=== PATIENT | female | born 1935 | race Caucasian/White ===

== ENCOUNTER 2020-02-27 04:06 | Emergency (ER) | payer MEDICARE, OTHER ==
[~2020-02-27] VITALS: Ht 175.3 cm; Wt 74.8 kg
--- OUTSIDE RECORDS SUMMARY | ~2020-02-27 | XMS | Encounter Summary ---
Demographics + + + | Address | [address] | | | [place] [address] | + + + | Home Phone | | + + + | Preferred Language | Unknown | + + + | Marital Status | | + + + | Adventism Affiliation | 1077 | + + + | Race | White | + + + | Ethnic Group | Not or | + + + Author + + + | Author | [facility] | | | and [place] | + + + | Organization | [facility] | | | and [place] | + + + | Address | Unknown | + + + | Phone | Unavailable | + + + Support + + +---------+ + | Name | Relationship | Address | Phone | + + +---------+ + | Stella Yap | ECON | NA | | | | | NA, | | + + +---------+ + Care Team Providers + +------+ + | Care Copy Lathe Operator Name | Role | Phone | + +------+ + | Akua [place] MD | PCP | | + +------+ + Reason for Visit +--------+--------+ + | Reason | Onset | Comments | | | Date | | +--------+--------+ + | Other | 06/01/ | blood pressure issues | | | 2017 | | +--------+--------+ + Encounter Details +--------+ + + + + | Date | Type | Department | Care Team | Description | +--------+ + + + + | 06/01/ | Telephone | [facility] | Karin Traerowan, | Other (blood | | 2018 | | CARDIOLOGY [address] | MD [address] | pressure issues) | | | | [place], | [place], | | | | | [place] [address] | [place] [address] | | | | | [phone] | [phone] | | | | | | | | +--------+ + + + + Social History + + + +--------+ + | Tobacco Use | Types | Packs/Day | Years | Date | | | | | Used | | + + + +--------+ + | Former Smoker | Cigarettes | 0.5 | 3 | Quit: 07/13/1961 | + + + +--------+ + + +---+---+---+ | Smokeless Tobacco: | | | | | Never Used | | | | + +---+---+---+ + + +---------+ + | Alcohol Use | Drinks/Week | oz/Week | Comments | + + +---------+ + | No | 0 Standard drinks | 0.0 | | | | or equivalent | | | + + +---------+ + + + + | Sex Assigned at | Date Recorded | | | | + + + | Not on file | | + + + documented as of this encounter Miscellaneous Notes Telephone Encounter - Tianna Christianson RN - 06/01/2018 10:15 AM PSTPer conversation with Taz Bustillo, patient should increase Lisinopril to 20mg twice daily, check BMP in one week and do a bp log for two weeks. Patient notified, lab order faxed to [facility] in [place] ............................... ............Tianna Christianson RN on 06/01/18 at 10:16 elephone Encounter - Tianna Christianson RN - 06/01/2018 8:43 AM PSTMargaret called to report that she is havin g issues with her blood pressure. She states that she is taking one at bed time only and pre viously was on one at bedtime and one at noon. She states the medication she is talking abo ut is her lisinopril 20mg. There are notes in January and February that show she was decreased f rom twice daily to one time daily. She states that her blood pressures currently are in the range of 160/80's in the am and 170/86's in the pm. She would like to know if she can go b ack on the twice daily at this time. I will consult Dr Bustillo and then let her know .......... .................................Tianna Christianson RN on 06/01/18 at 8:46 documented in this encounter Plan of Treatment +--------+---------+ + + + | Date | Type | Specialty | Care Team | Description | +--------+---------+ + + + | 10/23/ | Office | Cardiology | Doretha Frazier, | | | 2020 | Visit | | [address] | | | | | | [place], | | | | | | [place] [address] | | | | | | [phone] | | | | | | | | +--------+---------+ + + + + +------+--------+ + + | Name | Type | Priori | Associated Diagnoses | Order Schedule | | | | ty | | | + +------+--------+ + + | Basic Metabolic | Lab | Routin | Essential | Expected: | | Panel | | e | hypertension | 06/01/2018, Expires: | | | | | | 06/01/2019 | + +------+--------+ + + documented as of this encounter Visit Diagnoses + + | Diagnosis | + + | Essential hypertension - Primary Unspecified essential hypertension | + + documented in this encounter"
--- OUTSIDE RECORDS SUMMARY | ~2020-02-27 | XMS | Encounter Summary ---
Demographics + + + | Address | [address] | | | [place] [address] | + + + | Home Phone | | + + + | Preferred Language | Unknown | + + + | Marital Status | | + + + | Latter-Day Affiliation | 1077 | + + + | Race | White | + + + | Ethnic Group | Not or | + + + Author + + + | Author | [facility] | | | and [place] | + + + | Organization | [facility] | | | [...] Team Providers + +------+ + | Care Loan Teller Name | Role | Phone | + +------+ + | Akua [place] MD | PCP | | + +------+ + Reason for Visit + +--------+ + | Reason | Onset | Comments | | | Date | | + +--------+ + | Blood Pressure | 09/18/ | | | | 2016 | | + +--------+ + Encounter Details +--------+ + + + + | Date | Type | Department | Care Team | Description | +--------+ + + + + | 09/18/ | Telephone | [facility] | KarinZhannabecki, | Blood Pressure | | 2017 | | CARDIOLOGY [address] | MD [address] [place] | | | | | [place], | [place], | | | | | [place] [address] | [place] [address] | | | | | [phone] | [phone] | | | | | | | | +--------+ + + + + Social History + +-------+ +--------+ + | Tobacco Use | Types | Packs/Day | Years | Date | | | | | Used | | + +-------+ +--------+ + | Former Smoker | | 0.5 | 3 | Quit: 07/13/1961 | + +-------+ +--------+ + + +---+---+---+ | Smokeless Tobacco: [...] documented as of this encounter Miscellaneous Notes Addendum Note - Ysabel Pete RN - 09/29/2016 11:25 AM PDT Addended by: YSABEL PETE on: 09/29/2016 11:25 Modules accepted: Orders elephone Encounte r - Ysabel Pete RN - 09/29/2016 11:24 AM PDTPatient reports that she tried to get labs done on Thursday but was told that [facility] did not have the order. New order faxed to [facility] at [phone] ...........................................Ysabel Pete RN on 09/29/16 at 11:25 elephone Encounter - Ysabel Pete RN - 09/19/2016 8:39 AM PSTMargaret notified, lab order faxed to [facility] in [place] ...........................................Ysabel Pete RN on 09/19/16 at 8:41 elephone Jose Maira - Ysabel Pete RN - 09/18/2016 4:47 PM PSTSpoke with Abiola, she was in her vehicle and could not hear me well. She was asked to call back tomorrow morning ................... ........................Ysabel Pete RN on 09/18/16 at 16:48 elephone Encounter - Doretha Frazier MD - 09/18/2016 1:37 PM PSTIncrease lisinopril to 20 mg twice a day. Check blood pressure x 2 weeks. Check minichem in 1 week. elephone Encounter - Jacquelyn Avendano CMA - 09/18/2016 1:02 PM PSTFormatting of this note might be diff erent from the original. Next Visit:02/26/17 Blood pressure log received from patient as follows:08/29/16----09/09/16 Medication Change: See Chart Note Date BP AM Pulse AM BP PM Pulse PM 08/29/16 117/58 68 142/79 65 08/30/16 129/68 71 142/84 77 08/31/16 144/74 79 168/96 79 09/01/16 169/81 69 161/76 78 09/02/16 139/79 84 164/82 79 09/03/16 128/75 70 152/79 92 09/04/16 125/73 73 147/71 86 09/05/16 122/73 78 157/85 67 09/06/16 144/71 82 156/81 67 09/07/16 148/70 68 137/80 77 09/08/16 108/60 82 157/90 72 09/09/16 116/62 85 175/99 72 Additional Comments: documented in this encounter Plan of Treatment +--------+---------+ + + + | Date | Type | Specialty | Care Team | Description | +--------+---------+ + + + | 10/23/ | Office | Cardiology | Doretha Frazier, | | | 2020 | Visit | | [address] [place] | | | | | | [place], | | | | | | [place] [address] | | | | | | [phone] | | | | | | | | +--------+---------+ + + + + +------+--------+ + + | Name | Type | Priori | Associated Diagnoses | Order Schedule | | | | ty | | | + +------+--------+ + + | Basic Metabolic | Lab | Routin | Essential | Expected: | | Panel | | e | hypertension | 09/29/2016, Expires: | | | | | | 09/29/2017 | + +------+--------+ + + documented as of this encounter Visit Diagnoses + + | Diagnosis | + + | Essential hypertension - Primary Unspecified essential hypertension | + + documented in this encounter"
--- OUTSIDE RECORDS SUMMARY | ~2020-02-27 | XMS | Encounter Summary ---
Demographics + + + | Address | [address] | | | [place] [address] | + + + | Home Phone | | + + + | Preferred Language | Unknown | + + + | Marital Status | | + + + | Latter-Day Affiliation | 1077 | + + + | Race | White | + + + | Ethnic Group | Not or | + + + Author + + + | Author | [facility] | | | and [place] | + + + | Organization | [facility] | | | [...] Team Providers + +------+ + | Care Hr Administrative Assistant Name | Role | Phone | + +------+ + | Akua [place] MD | PCP | | + +------+ + Encounter Details +--------+ + + + + | Date | Type | Department | Care Team | Description | +--------+ + + + + | 10/20/ | Abstract | [facility] | Doretha Frazier, | | | 2016 | | CARDIOLOGY [address] | [address] [place] | | | | | [place], | [place], | | | | | [place] [address] | [place] [address] | | | | | [phone] | [phone] | | | | | | | [...] + + documented as of this encounter Plan of Treatment +--------+---------+ + + + | Date | Type | Specialty | Care Team | Description | +--------+---------+ + + + | 10/23/ | Office | Cardiology | Doretha Frazier, | | | 2020 | Visit | | [address] | | | | | | [place], | | | | | | [place] [address] | | | | | | [phone] | | | | | | | | +--------+---------+ + + + documented as of this encounter Procedures + +--------+ + + + | Procedure Name | Priori | Date/Time | Associated Diagnosis | Comments | | | ty | | | | + +--------+ + + + | EXTERNAL LAB: BUN | Routin | 10/20/2016 | | Results for this | | | e | | | procedure are in the | | | | | | results section. | + +--------+ + + + | EXTERNAL LAB: | Routin | 10/20/2016 | | Results for this | | GLUCOSE | e | | | procedure are in the | | | | | | results section. | + +--------+ + + + | EXTERNAL LAB: | Routin | 10/20/2016 | | Results for this | | CALCIUM | e | | | procedure are in the | | | | | | results section. | + +--------+ + + + | EXTERNAL LAB: CARBON | Routin | 10/20/2016 | | Results for this | | DIOXIDE | e | | | procedure are in the | | | | | | results section. | + +--------+ + + + | EXTERNAL LAB: | Routin | 10/20/2016 | | Results for this | | CHLORIDE | e | | | procedure are in the | | | | | | results section. | + +--------+ + + + | EXTERNAL LAB: | Routin | 10/20/2016 | | Results for this | | POTASSIUM | e | | | procedure are in the | | | | | | results section. | + +--------+ + + + | EXTERNAL LAB: SODIUM | Routin | 10/20/2016 | | Results for this | | | e | | | procedure are in the | | | | | | results section. | + +--------+ + + + | EXTERNAL LAB: EGFR | Routin | 10/20/2016 | | Results for this | | | e | | | procedure are in the | | | | | | results section. | + +--------+ + + + | EXTERNAL LAB: | Routin | 10/20/2016 | | Results for this | | CREATININE | e | | | procedure are in the | | | | | | results section. | + +--------+ + + + | BASIC METABOLIC | Routin | 10/20/2016 | | Results for this | | PANEL | e | | | procedure are in the | | | | | | results section. | + +--------+ + + + documented in this encounter Results Basic Metabolic Panel (10/20/2016) + + + + + + | Component | Value | Ref Range | Performed | Pathologist | | | | | At | Signature | + + + + + + | Anion Gap | 18 | 7 - 21 mmol/L | | | + + + + + + | Bun/Creatin | 32.9 (A) | 6.0 - 28.6 | | | | ine | | | | | + + + + + + + + | Specimen | + + | Blood specimen | | (specimen) | + + External Lab: BUN (10/20/2016) + +--------+ + + + | Component | Value | Ref Range | Performed | Pathologist | | | | | At | Signature | + +--------+ + + + | BUN, | 27 (A) | 6 - 23 | | | | External | | | | | + +--------+ + + + + + | Resulting Agency Comment | + + | [facility] | + + External Lab: Glucose (10/20/2016) + +-------+ + + + | Component | Value | Ref Range | Performed | Pathologist | | | | | At | Signature | + +-------+ + + + | Glucose, | 84 | 70 - 100 | | | | External | | | | | + +-------+ + + + + + | Resulting Agency Comment | + + | [facility] | + + External Lab: Calcium (10/20/2016) + +-------+ + + + | Component | Value | Ref Range | Performed | Pathologist | | | | | At | Signature | + +-------+ + + + | Calcium, | 9.9 | 8.4 - 10.2 | | | | External | | | | | + +-------+ + + + + + | Resulting Agency Comment | + + | [facility] | + + External Lab: Carbon Dioxide (10/20/2016) + +-------+ + + + | Component | Value | Ref Range | Performed | Pathologist | | | | | At | Signature | + +-------+ + + + | Carbon | 25 | 19 - 31 | | | | Dioxide, | | | | | | External | | | | | + +-------+ + + + + + | Resulting Agency Comment | + + | [facility] | + + External Lab: Chloride (10/20/2016) + +-------+ + + + | Component | Value | Ref Range | Performed | Pathologist | | | | | At | Signature | + +-------+ + + + | Chloride, | 101 | 95 - 112 | | | | External | | | | | + +-------+ + + + + + | Resulting Agency Comment | + + | [facility] | + + External Lab: Potassium (10/20/2016) + +-------+ + + + | Component | Value | Ref Range | Performed | Pathologist | | | | | At | Signature | + +-------+ + + + | Potassium, | 4.9 | 3.6 - 5.1 | | | | External | | | | | + +-------+ + + + + + | Resulting Agency Comment | + + | [facility] | + + External Lab: Sodium (10/20/2016) + +-------+ + + + | Component | Value | Ref Range | Performed | Pathologist | | | | | At | Signature | + +-------+ + + + | Sodium, | 139 | 132 - 143 | | | | External | | | | | + +-------+ + + + + + | Resulting Agency Comment | + + | [facility] | + + External Lab: eGFR (10/20/2016) + +-------+ + + + | Component | Value | Ref Range | Performed | Pathologist | | | | | At | Signature | + +-------+ + + + | eGFR, | 67 | 60 - 99,999 | | | | External | | | | | + +-------+ + + + + + | Specimen | + + | Blood specimen | | (specimen) | + + + + | Resulting Agency Comment | + + | [facility] | + + External Lab: Creatinine (10/20/2016) + +-------+ + + + | Component | Value | Ref Range | Performed | Pathologist | | | | | At | Signature | + +-------+ + + + | Creatinine, | 0.82 | 0.7 - 1.18 | | | | External | | | | | + +-------+ + + + + + | Specimen | + + | Blood specimen | | (specimen) | + + + + | Resulting Agency Comment | + + | [facility] | + + documented in this encounter Visit Diagnoses Not on filedocumented in this encounter"
--- OUTSIDE RECORDS SUMMARY | ~2020-02-27 | XMS | Encounter Summary ---
Demographics + + + | Address | [address] | | | [place] [address] | + + + | Home Phone | | + + + | Preferred Language | Unknown | + + + | Marital Status | | + + + | Zoroastrianism Affiliation | 1077 | + + + | Race | White | + + + | Ethnic Group | Not or | + + + Author + + + | Author | [facility] | | | and [place] | + + + | Organization | [facility] | | | and [place] | + + + | Address | Unknown | + + + | Phone | Unavailable | + + + Support + + +---------+ + | Name | Relationship | Address | Phone | + + +---------+ + | Og Yap | ECON | NA | | | | | NA, | | + + +---------+ + Care Team Providers + +------+ + | Care Process Description Writer Name | Role | Phone | + +------+ + | Akua Hamilton MD | PCP | | + +------+ + Reason for Referral Diagnostic/Screening (Routine) +--------+--------+ + + + + | Status | Reason | Specialty | Diagnoses / | Referred By | Referred To | | | | | Procedures | Contact | Contact | +--------+--------+ + + + + | Closed | | Radiology | Diagnoses | Karin, | [facility] | | | | | | MD Darby | Medicine | | | | | Cardiomyopat | [address] | [address] | | | | | hy (HCC) | [address] | [place], | | | | | Acute | [place], | [place] | | | | | combined | [place] [address] | [address] | | | | | systolic and | Phone: | Phone: | | | | | diastolic | [phone] | [phone] | | | | | congestive | Fax: | Fax: | | | | | heart | [phone] | [phone] | | | | | failure | | | | | | | (HCC) | | | | | | | Encounter | | | | | | | for lipid | | | | | | | screening | | | | | | | for | | | | | | | cardiovascul | | | | | | | ar disease | | | | | | | Mixed | | | | | | | hyperlipidem | | | | | | | ia | | | | | | | Procedures | | | | | | | NM Nuclear | | | | | | | Stress Test | | | | | | | (Exercise) | | | | | | | CHG | | | | | | | MYOCARDIAL | | | | | | | SPECT | | | | | | | MULTIPLE | | | | | | | STUDIES [place] | | | | | | | CV STRS TST | | | | | | | XERS&/OR RX | | | | | | | CONT ECG W/O | | | | | | | I&R [place] | | | | | | | CARDIAC | | | | | | | STRESS | | | | | | | TST,INTERP/R | | | | | | | EPT ONLY | | | +--------+--------+ + + + + Diagnostic/Screening (Routine) +--------+--------+ + + + + | Status | Reason | Specialty | Diagnoses / | Referred By | Referred To | | | | | Procedures | Contact | Contact | +--------+--------+ + + + + | Closed | | Radiology | Diagnoses | [place], | [facility] | | | | | | MD Darby | [address] | | | | | Cardiomyopat | [address] | [place], | | | | | hy (HCC) | [address] | [place] | | | | | Acute | [place], | [address] | | | | | combined | [place] [address] | Phone: | | | | | systolic and | Phone: | [phone] | | | | | diastolic | [phone] | Fax: | | | | | congestive | Fax: | [phone] | | | | | heart | [phone] | | | | | | failure | | | | | | | (HCC) | | | | | | | Encounter | | | | | | | for lipid | | | | | | | screening | | | | | | | for | | | | | | | cardiovascul | | | | | | | ar disease | | | | | | | Mixed | | | | | | | hyperlipidem | | | | | | | ia | | | | | | | Procedures | | | | | | | ECHO | | | | | | | Complete [place] | | | | | | | ECHO HEART | | | | | | | XTHORACIC,CO | | | | | | | MPLETE W | | | | | | | DOPPLER [place] | | | | | | | ECHO HEART | | | | | | | XTHORACIC,CO | | | | | | | MPLETE, W/O | | | | | | | DOPPLER | | | +--------+--------+ + + + + Reason for Visit + + + | Reason | Comments | + + + | New Patient | | + + + | Arm Pain | | + + + | Fatigue | | + + + Evaluate & Treat (Routine) +--------+--------+ + + + + | Status | Reason | Specialty | Diagnoses / | Referred By | Referred To | | | | | Procedures | Contact | Contact | +--------+--------+ + + + + | Closed | | Cardiology | Diagnoses | Wu[place], | Karin, | | | | | Left arm | Akua Jerez MD | MD Darby | | | | | pain | [address] | [address] | | | | | Fatigue, | [place] | [address] | | | | | unspecified | [place], [place] | [place], | | | | | type | [address] | [place] [address] | | | | | Procedures | Phone: | Phone: | | | | | RESIDENTIAL MENTAL HEALTH WORKER | [phone] | [phone] | | | | | | Fax: | Fax: | | | | | | [phone] | [phone] | +--------+--------+ + + + + Encounter Details +--------+ + + + + | Date | Type | Department | Care Team | Description | +--------+ + + + + | 05/08/ | Off-Site | [facility] [place] | Darby Frazier, | Acute combined | | 2016 | Visit | CARDIOLOGY [address] | [address] | systolic and | | | | [address] [place], | [place], | diastolic congestive | | | | [place] [address] | [place] [address] | heart failure (HCC) | | | | [phone] | [phone] | (Primary Dx); | | | | | | Cardiomyopathy | | | | | | (HCC); Encounter for | | | | | | lipid screening for | | | | | | cardiovascular | | | | | | disease; Mixed | | | | | | hyperlipidemia | +--------+ + + + + Social [...] + + documented as of this encounter Last Filed Vital Signs + + + + + | Vital Sign | Reading | Time Taken | Comments | + + + + + | Blood Pressure | 124/66 | 05/08/2016 9:46 AM | left arm | | | | PDT | | + + + + + | Pulse | 72 | 05/08/2016 9:42 AM | regualr | | | | PDT | | + + + + + | Temperature | - | - | | + + + + + | Respiratory Rate | 16 | 05/08/2016 9:42 AM | | | | | PDT | | + + + + + | Oxygen Saturation | - | - | | + + + + + | Inhaled Oxygen | - | - | | | Concentration | | | | + + + + + | Weight | 83.9 kg (185 lb) | 05/08/2016 9:42 AM | | | | | PDT | | + + + + + | Height | 165.1 cm (5' 5") | 05/08/2016 9:42 AM | | | | | PDT | | + + + + + | Body Mass Index | 30.79 | 05/08/2016 9:42 AM | | | | | PDT | | + + + + + documented in this encounter Progress Notes Darby Frazier MD - 05/08/2016 10:03 AM PDTFormatting of this note might be different f rom the original. PATIENT NAME: Abiola Vaughan : 1935: AGE: 80 y.o. REFERRED BY: Akua Hamilton PRIMARY CARE: Akua Hamilton MD NEW PATIENT OFFICE VISIT Date of Service: 05/08/16 HISTORY OF PRESENT ILLNESS: Abiola Vaughan is a 80 y.o. female with a history of diabetes mellitus, asthma, hype rtention and hyperlipidema. She is being seen today for left arm pain and fatigue. She has been feeling really tired for the last 3 months, that has been worsening. She state s having left arm pain that worsens with exertion and stress. Daughter states that when mellissa ent goes out shopping she has to stop and rest all the time because she is out of breath and feeling exhausted. Patient doesn't exercise but enjoys growing vegetables. Patient also enjoys shopping and reading. There is no dizziness or lightheadedness. There is no ankle o r leg swelling. Patient can sleep on two pillow at night without difficulty breathing and s leeps about 6-7 hours at night. 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 MEDICAL, SURGICAL, AND PERSONAL HISTORY Past Surgical History Procedure Laterality Date Hernia repair left Inguinal hernia repair right Hysterectomy vaginal Tonsillectomy Stomach stapling 1977 Appendectomy Gastric resection partial Family History Problem Relation Age of Onset Heart disease Father Other (see comment) Father myocardial infarction Hypertension Father Anemia Mother Asthma Daughter Asthma Grandchild Allergies Grandchild Family Status Relation Status Age Father 50 Mother 93 Pneumonia from curvature of the spine Brother Alive Social History Social History Marital Status: Spouse Name: N/A Number of Children: 4 Years of Education: N/A Social History Main Topics Smoking status: Former Smoker -- 0.50 packs/day for 3 years Quit date: 07/13/1961 Smokeless tobacco: Never Used Alcohol Use: No Drug Use: No Sexual Activity: No Other Topics Concern None Social History Narrative Exercise:walking, 30 minutes daily Caffeine:2 cups of coffee daily Living situation:alone CURRENT MEDICATIONS Current Outpatient Prescriptions Medication Sig Dispense Refill albuterol 90 mcg/puff inhaler Inhale 2 puffs into the lungs every 4 hours as needed for Wheezing or Shortness of Breath. aspirin 81 MG tablet Take 81 mg by mouth Daily. atorvaSTATin (LIPITOR) 10 mg tablet Take 10 mg by mouth Daily. Calcium Citrate (CITRACAL PO) Take 800 mg by mouth Daily. cholecalciferol (VITAMIN D-3) 1,000 units tablet Take 1,000 Units by mouth Daily. fluticasone-salmeterol (ADVAIR DISKUS) 100-50 mcg/puff diskus inhaler Inhale 1 puff int o the lungs Twice Daily. Patient only takes January-June. 1 each lisinopril (PRINIVIL, ZESTRIL) 20 mg tablet Take one tablet daily metFORMIN (GLUCOPHAGE) 500 mg tablet Take 500 mg by mouth 3 times daily. montelukast (SINGULAIR) 10 mg tablet Take 1 tablet by mouth Daily. Patient only takes tablet 4 Multiple Vitamins-Minerals (MULTIVITAMIN PO) Take by mouth 2 times daily. omeprazole (PRILOSEC) 20 mg capsule Take 20 mg by mouth Daily. No current facility-administered medications for this visit. ALLERGIES Allergies Allergen Reactions Lansoprazole Hives ROS Review of Systems Constitutional: Positive for malaise/fatigue. Negative for fever, chills, weight loss and d iaphoresis. HENT: Negative for congestion, hearing loss, nosebleeds and tinnitus. Dental Problems = No Eyes: Negative for blurred vision and double vision. Respiratory: Positive for cough. Negative for shortness of breath. Cardiovascular: Positive for palpitations and orthopnea. Negative for chest pain and leg sw elling. Gastrointestinal: Positive for heartburn, nausea, diarrhea and constipation. Negative for v omiting and blood in stool. Genitourinary: Negative for dysuria, urgency, frequency and hematuria. Musculoskeletal: Positive for joint pain and neck pain. Negative for myalgias, back pain an d falls. Gait Problems = No Skin: Negative for itching and rash. Neurological: Positive for weakness. Negative for dizziness, tingling, tremors, speech fry ge, seizures and loss of consciousness. Lightheaded = No Endo/Heme/Allergies: Positive for environmental allergies (wheat). Bruises/bleeds easily. Psychiatric/Behavioral: Negative for memory loss. The patient is not nervous/anxious and do es not have insomnia. OBJECTIVE: PHYSICAL EXAM BP 124/66 mmHg | Pulse 72 | Resp 16 | Ht 1.651 m (5' 5") | Wt 83.915 kg (185 lb) | BMI 30.7 9 kg/m2 Physical Exam Constitutional: She appears well-developed and well-nourished. No distress. Elderly female individual arrives with her daughter, without acute distress. Neck: Normal carotid pulses, no hepatojugular reflux and no JVD present. Carotid bruit is n ot present. Cardiovascular: Normal rate, regular rhythm, S1 normal, S2 normal, normal heart sounds, int act distal pulses and normal pulses. PMI is not displaced. Exam reveals no gallop, no S3, no S4 and no friction rub. No murmur heard. Pulses: Carotid pulses are 2+ on the right side, and 2+ on the left side. Dorsalis pedis pulses are 2+ on the right side, and 2+ on the left side. Pulmonary/Chest: Effort normal and breath sounds normal. No accessory muscle usage. No resp iratory distress. She has no wheezes. She has no rhonchi. She has no rales. Abdominal: Normal appearance, normal aorta and bowel sounds are normal. She exhibits no abd ominal bruit. There is no hepatosplenomegaly. There is no tenderness. Musculoskeletal: She exhibits no edema. Neurological: She is alert. Gait normal. Skin: Skin is warm and dry. Psychiatric: She has a normal mood and affect. Her mood appears not anxious. She does not e xhibit a depressed mood. ECG: sinus rhythm normal, consistent with LAFB, possible high-lateral infarct, RBBB, border line ECG. LAB RESULTS: LIPID No results found for: CHOL, TRIG, HDL, LDL, CHOLHDL, LDLEX, HDLEX, TRIGEX, CHOLEX CHEMISTRY Lab Results Component Value Date GLU 95 07/21/2013 NA 135* 07/21/2013 K 3.9 07/21/2013 CL 101 07/21/2013 CO2 25 07/21/2013 CALCIUM 9.5 07/21/2013 CREA 0.83 07/21/2013 BUN 17 07/21/2013 EGFR >60 07/21/2013 HEMATOLOGY Lab Results Component Value Date WBC 9.7 07/21/2013 WBCEX 7.7 04/29/2016 HGB 12.6 07/21/2013 HGBEX 12.6 04/29/2016 HCT 37.8 07/21/2013 HCTEX 37.7* 04/29/2016 PLT 282 07/21/2013 PLTEX 257 04/29/2016 I reviewed records from Akua Hamilton MD for office visit on 04/29/2016. Refer to Cardiologi . ASSESSMENT: 1. Heart failure with fatigue and left arm pain. A. Today, patient presented with 3 months symptoms of progressively worse and left arm maria guadalupe n that is aggravated by exertion and stress. She also has been feeling fatigued, almost to the point of exhaustion. She also has some shortness of breath when she walks. She is in a class II of [place] [employer] functional class. There is no fluid re tention on physical examination. She has multiple risk factors for coronary artery disease including hypertension, hyperlip idemia, type II diabetesl advanced age and postmenopausal. According to her age, gender and presentation, pretest likelihood of CAD is moderate. There is a candidate for echocardiogr am and stress test. 2. Hypertension A. She takes Lisinopril 20 mg daily. Today's blood pressure is good. 3. Hyperlipidemia A. She take Atorvastatin 10 mg daily. 4. Diabetes Mellitus A. She takes Metformin 500 mg Three times daily. 5. Asthma A. She takes Albuterol 90 mcg and Advair Diskus PLAN: 1. I spend time at length talking about natural course, treatment and prognosis of 2. Draw CMP, Lipid, BNP and TSH at [facility] [place], [place]. 3. Schedule for Nuclear Exercise stress test at [facility] 4. Echocardiogram is warranted to assess cardiac structure 5. Follow up in 4-6 weeks or sooner with concerns I Archana SZYMANSKI am acting as a scribe on behalf of, and in the presence of Darby nava MD. I have reviewed and edited this note. Archana SZYMANSKI 05/08/16 I Darby Frazier MD, personally performed the services described in this documentation, as scribed in my presence and it is both accurate and complete. Darby Frazier MD 2015 10:55 Electronically signed by: Darby Frazier MD [facility] 05/08/2016 Portions of this chart may have been created with [employer] voice recognition software. Occasi onal wrong-word or sound-alike substitutions may have occurred due to the inherent dolan itations of voice recognition software. Please read the chart carefully and recognize, using context, where these substitutions have occurred. documented in this encounter Plan of Treatment +--------+---------+ + + + | Date | Type | Specialty | Care Team | Description | +--------+---------+ + + + | 10/23/ | Office | Cardiology | Karin Zhannabecki, | | | 2020 | Visit | | [address] | | | | | | [place], | | | | | | [place] [address] | | | | | | [phone] | | | | | | | | +--------+---------+ + + + + + +--------+ + + | Name | Type | Priori | Associated Diagnoses | Order Schedule | | | | ty | | | + + +--------+ + + | NM Nuclear Stress | Cardiac | Routin | Cardiomyopathy | Expected: | | Test (Exercise) | Nuclear | e | ([facility]) Acute | 05/08/2016, Expires: | | | Medicine | | combined systolic | 05/08/2017 | | | | | and diastolic | | | | | | congestive heart | | | | | | failure (HCC) | | | | | | Encounter For Lipid | | | | | | Screening For | | | | | | Cardiovascular | | | | | | Disease Mixed | | | | | | hyperlipidemia | | + + +--------+ + + documented as of this encounter Procedures + +--------+ + + + | Procedure Name | Priori | Date/Time | Associated Diagnosis | Comments | | | ty | | | | + +--------+ + + + | NUCLEAR CARDIOLOGY - | | 05/15/2016 | | Results for this | | EXTERNAL SCAN | | 12:00 AM | | procedure are in the | | | | PDT | | results section. | + +--------+ + + + | ECG - EXTERNAL SCAN | | 05/08/2016 | | Results for this | | | | 12:00 AM | | procedure are in the | | | | PDT | | results section. | + +--------+ + + + documented in this encounter Results TSH (09/25/2016 11:45 AM PDT) + + + + + + | Component | Value | Ref Range | Performed | Pathologist | | | | | At | Signature | + + + + + + | TSH | 2.66Comment: All TSH | 0.34 - 5.60 | [facility] | | | | samples are screened | uIU/mL | [facility] | | | | using a 2nd Generation | | MEDICAL | | | | test, and are reflexed | | CENTER - | | | | to a 3rd Generation test | | LABORATORY | | | | if indicated. | | | | + + + + + + + + | Specimen | + + | Blood | + + + + + + + | Performing | Address | City/State/Zipcode | Phone Number | | Organization | | | | + + + + + | [facility] | [address] | [place] | [phone] | | [facility] | | [address] | | | - LABORATORY | | | | + + + + + Lipid Panel (09/25/2016 11:45 AM PDT) + + + + + + | Component | Value | Ref Range | Performed | Pathologist | | | | | At | Signature | + + + + + + | Triglycerid | 97 | 35 - 160 mg/dL | [facility] | | | es | | | [facility] | | | | | | MEDICAL | | | | | | CENTER - | | | | | | LABORATORY | | + + + + + + | Cholesterol | 155 | 150 - 200 mg/dL | [facility] | | | | | | [facility] | | | | | | MEDICAL | | | | | | CENTER - | | | | | | LABORATORY | | + + + + + + | HDL | 71Comment: New HDL | 28 - 83 mg/dL | [facility] | | | | Reference Range as of | | [facility] | | | | March 22, 2015 | | MEDICAL | | | | Values may be 10-20% | | CENTER - | | | | lower with new, | | LABORATORY | | | | standardized method. | | | | + + + + + + | Chol/HDL | 2.2 | | [facility] | | | Ratio | | | [facility] | | | | | | MEDICAL | | | | | | CENTER - | | | | | | LABORATORY | | + + + + + + | LDL, | 65 | <=130 mg/dL | [facility] | | | Calculated | | | [facility] | | | | | | MEDICAL | | | | | | CENTER - | | | | | | LABORATORY | | + + + + + + + + | Specimen | + + | Blood | + + + + + + + | Performing | Address | City/State/Zipcode | Phone Number | | Organization | | | | + + + + + | [facility] | [address] | [place] | [phone] | | [facility] | | [address] | | | - LABORATORY | | | | + + + + + B Type Natriuretic Peptide (09/25/2016 11:45 AM PDT) + +-------+ + + + | Component | Value | Ref Range | Performed | Pathologist | | | | | At | Signature | + +-------+ + + + | BNP | 24 | <100 pg/mL | [facility] | | | | | | [facility] | | | | | | MEDICAL | | | | | | CENTER - | | | | | | LABORATORY | | + +-------+ + + + + + | Specimen | + + | Blood | + + + + + + + | Performing | Address | City/State/Zipcode | Phone Number | | Organization | | | | + + + + + | [facility] | [address] | [place] | [phone] | | [facility] | | [address] | | | - LABORATORY | | | | + + + + + Comprehensive Metabolic Panel (09/25/2016 11:45 AM PDT) + + + + + + | Component | Value | Ref Range | Performed | Pathologist | | | | | At | Signature | + + + + + + | Na | 139 | 136 - 149 | [facility] | | | | | mmol/L | [facility] | | | | | | MEDICAL | | | | | | CENTER - | | | | | | LABORATORY | | + + + + + + | K | 4.4 | 3.5 - 5.1 | [facility] | | | | | mmol/L | [facility] | | | | | | MEDICAL | | | | | | CENTER - | | | | | | LABORATORY | | + + + + + + | Cl | 100 | 98 - 109 mmol/L | [facility] | | | | | | [facility] | | | | | | MEDICAL | | | | | | CENTER - | | | | | | LABORATORY | | + + + + + + | CO2 | 26 | 24 - 31 mmol/L | [facility] | | | | | | [facility] | | | | | | MEDICAL | | | | | | CENTER - | | | | | | LABORATORY | | + + + + + + | Anion Gap | 13 | 3 - 16 mmol/L | [facility] | | | | | | [facility] | | | | | | MEDICAL | | | | | | CENTER - | | | | | | LABORATORY | | + + + + + + | Glucose | 101 | 70 - 109 mg/dL | [facility] | | | | | | [facility] | | | | | | MEDICAL | | | | | | CENTER - | | | | | | LABORATORY | | + + + + + + | BUN | 20 (H) | 7 - 18 mg/dL | [facility] | | | | | | [facility] | | | | | | MEDICAL | | | | | | CENTER - | | | | | | LABORATORY | | + + + + + + | Creatinine | 1.10 | 0.60 - 1.30 | [facility] | | | | | mg/dL | [facility] | | | | | | MEDICAL | | | | | | CENTER - | | | | | | LABORATORY | | + + + + + + | eGFR, | 48 (L)Comment: | >=60 | [facility] | | | non- | GLOMERULAR FILTRATION | mL/min/1.73m2 | [facility] | | | [place] | RATE,ESTIMATED | | MEDICAL | | | | mL/min/1.15u6Uwyy than | | CENTER - | | | | 60 Chronic kidney | | LABORATORY | | | | disease,if found over a | | | | | | 3-month period.Less than | | | | | | 15 Kidney failureFor | | | | | | | | | | | | Americans,multiply the | | | | | | calculated GFR by 1.21. | | | | | | | | | | + + + + + + | Calcium | 9.7 | 8.3 - 10.5 | [facility] | | | | | mg/dL | [facility] | | | | | | MEDICAL | | | | | | CENTER - | | | | | | LABORATORY | | + + + + + + | Albumin | 3.7 | 3.2 - 5.0 g/dL | [facility] | | | | | | [facility] | | | | | | MEDICAL | | | | | | CENTER - | | | | | | LABORATORY | | + + + + + + | Bilirubin | 0.5 | 0.1 - 1.5 mg/dL | [facility] | | | Total | | | [facility] | | | | | | MEDICAL | | | | | | CENTER - | | | | | | LABORATORY | | + + + + + + | Total | 7.2 | 6.0 - 7.8 g/dL | [facility] | | | Protein | | | [facility] | | | | | | MEDICAL | | | | | | CENTER - | | | | | | LABORATORY | | + + + + + + | AST | 32 | 10 - 42 U/L | [facility] | | | | | | [facility] | | | | | | MEDICAL | | | | | | CENTER - | | | | | | LABORATORY | | + + + + + + | ALT | 23 | 6 - 45 U/L | [facility] | | | | | | [facility] | | | | | | MEDICAL | | | | | | CENTER - | | | | | | LABORATORY | | + + + + + + | Alkaline | 50 | 40 - 110 U/L | [facility] | | | Phosphatase | | | [facility] | | | | | | MEDICAL | | | | | | CENTER - | | | | | | LABORATORY | | + + + + + + | Globulin | 3.5 | 2.1 - 3.8 g/dL | [facility] | | | | | | [facility] | | | | | | MEDICAL | | | | | | CENTER - | | | | | | LABORATORY | | + + + + + + | Albumin/Neva | 1.1 | 0.8 - 2.0 | [facility] | | | bulin Ratio | | | [facility] | | | | | | MEDICAL | | | | | | CENTER - | | | | | | LABORATORY | | + + + + + + | BUN/Creatin | 18.2 | | [facility] | | | ine Ratio | | | [facility] | | | | | | MEDICAL | | | | | | CENTER - | | | | | | LABORATORY | | + + + + + + + + | Specimen | + + | Blood | + + + + + + + | Performing | Address | City/State/Zipcode | Phone Number | | Organization | | | | + + + + + | [facility] | [address] | [place] | [phone] | | [facility] | | [address] | | | - LABORATORY | | | | + + + + + ECHO Complete (07/11/2016 1:50 PM PST) + +-------+ + + + | Component | Value | Ref Range | Performed | Pathologist | | | | | At | Signature | + +-------+ + + + | LVEF-TTE | 75 | | [facility] | | | TRANSTHORAC | | | [facility] | | | IC ECHO | | | MEDICAL | | | | | | CENTER - | | | | | | IMAGING | | + +-------+ + + + + + | Specimen | + + | | + + + +------ + | Narrative | Perfo rmed At | + +------ + | Transthoracic | [facility] | | Echocardiography Report (TTE) Demographics Patient Name BRITNEY | 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 | | | Procedure dateDate: 07/11/2016Start: 01:06 PM Technical Quality: | | | Adequate visualizationStudy Location: Echo LabIndications: CHF 428.0/ | | | I50.9.Patient Status: RoutineHeight: 65 inchesWeight: 181 poundsBSA: | | | 1.9 m^2BMI: 30.12 kg/m^2Rhythm: Normal Sinus Rhythm | | | ConclusionsSummary1. Normal left ventricular size, wall thickness and | | | motion. Preserved leftventricular systolic function. LVEF is 70-75%.2. | | | Grade 1 left ventricular diastolic dysfunction.3. Normal valvular | | | structure.4. Normal right-sided pressure.5. Normal IVC with normal | | | respiratory collapse. | | | Signature | | | | | | PM | | | -------- FindingsMitral ValveStructurally normal mitral valve without | | | significant stenosis orregurgitation.Aortic ValveAortic valve is | | | trileaflet without significant stenosis or regurgitation.Tricuspid | | | ValveStructurally normal tricuspid valve with mild | | | regurgitation.Pulmonic ValveStructurally normal pulmonic valve with | | | trace regurgitation.Left AtriumNormal left atrium.Left VentricleLeft | | | ventricle is normal in size and function. Ejection fraction | | | isestimated at 70-75 %.Impaired relaxation compatible with diastolic | | | dysfunction (reversed E/Aratio).Right AtriumNormal right atrium.Right | | | VentricleNormal right ventricular structure and function.Pericardial | | | EffusionNo evidence of pericardial effusion. MiscellaneousNormal | | | aortic root.The IVC appears normal. Valves Mitral Valve Aortic Valve | | | Tricuspid Valve TR Velocity: 2.51 m/s Structures Left Atrium LA | | | A/P Dimension: 3.5 cm LA | | | Volume: 40 ml LA Vol/BSA Index: 21 mL/m^2 | | | EF Uzgqqliwz99% Left Ventricle Diastolic Dimension: 4.8 cm | | | Systolic Dimension: 3.3 cm Septum Diastolic: 0.8 cm PW | | | Diastolic: 0.9 cm EF Calculated: 75% Miscellaneous Aorta Aortic | | | Root: 3.1 cm | | |4. Normal right-sided pressure. | | |5. Normal IVC with normal respiratory collapse. | | | | | |Signature | | | | | | Electronically signed by DARBY FRAZIER MD(Interpreting physician) on | | | 07/11/2016 03:57 PM | | | | | | | | |Findings | | |Mitral Valve | | |Structurally normal mitral valve without significant stenosis or | | |regurgitation. | | |Aortic Valve | | |Aortic valve is trileaflet without significant stenosis or regurgitation. | | |Tricuspid Valve | | |Structurally normal tricuspid valve with mild regurgitation. | | |Pulmonic Valve | | |Structurally normal pulmonic valve with trace regurgitation. | | |Left Atrium | | |Normal left atrium. | | |Left Ventricle | | |Left ventricle is normal in size and function. Ejection fraction is | | |estimated at 70-75 %. | | |Impaired relaxation compatible with diastolic dysfunction (reversed E/A | | |ratio). | | |Right Atrium | | |Normal right atrium. | | |Right Ventricle | | |Normal right ventricular structure and function. | | |Pericardial Effusion | | |No evidence of pericardial effusion. | | | | | |Miscellaneous | | |Normal aortic root. | | |The IVC appears normal. | | | | | |Valves | | | | | | Mitral Valve | | | | | | Aortic Valve | | | | | | Tricuspid Valve | | | | | | TR Velocity: 2.51 m/s | | | | | |Structures | | | | | | Left Atrium | | | | | | LA A/P Dimension: 3.5 cm LA Volume: 40 ml | | | LA Vol/BSA Index: 21 mL/m^2 EF Bcrxmjrym18% | | | | | | Left Ventricle | | | | | | Diastolic Dimension: 4.8 cm Systolic Dimension: 3.3 cm | | | Septum Diastolic: 0.8 cm | | | PW Diastolic: 0.9 cm | | | EF Calculated: 75% | | | | | | Miscellaneous | | | | | | Aorta | | | | | | Aortic Root: 3.1 cm | | | | | + +------ + + + | Procedure Note | + + | Adam Silva Results In - 07/11/2016 3:58 PM PST Transthoracic Echocardiography Report | | (TTE) Demographics Patient Name BRITNEY MARTINEZ Room Number OG | | Patient [id number] Date of Study 07/11/2016 Number Visit Number | | [id number] Referring Physician KARIN PASTOR | | Number 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 Normal left ventricular size, wall thickness and | | motion. Preserved leftventricular systolic function. LVEF is 70-75%.2. Grade 1 left | | ventricular diastolic dysfunction.3. Normal valvular structure.4. Normal right-sided | | pressure.5. Normal IVC with normal respiratory | | collapse.Signature | | ------ Electronically signed by DARBY FRAZIER MD(Interpreting physician) on | | 07/11/2016 03:57 | | PM FindingsMi | | tral ValveStructurally normal mitral valve without significant stenosis | | orregurgitation.Aortic ValveAortic valve is trileaflet without significant stenosis or | | regurgitation.Tricuspid ValveStructurally normal tricuspid valve with mild | | regurgitation.Pulmonic ValveStructurally normal pulmonic valve with trace | | regurgitation.Left AtriumNormal left atrium.Left VentricleLeft ventricle is normal in | | size and function. Ejection fraction isestimated at 70-75 %.Impaired relaxation | | compatible with diastolic dysfunction (reversed E/Aratio).Right AtriumNormal right | | atrium.Right VentricleNormal right ventricular structure and function.Pericardial | | EffusionNo evidence of pericardial effusion.MiscellaneousNormal aortic root.The IVC | | appears normal.Valves Mitral Valve Aortic Valve Tricuspid Valve TR Velocity: 2.51 | | m/sStructures Left Atrium LA A/P Dimension: 3.5 cm LA Volume: | | 40 ml LA Vol/BSA Index: 21 mL/m^2 EF Odykxelvz83% Left | | Ventricle Diastolic Dimension: 4.8 cm Systolic Dimension: 3.3 cm Septum | | Diastolic: 0.8 cm PW Diastolic: 0.9 cm EF Calculated: 75% Miscellaneous Aorta Aortic | | Root: 3.1 cm | |Patient Status: Routine | |Height: 65 inchesWeight: 181 poundsBSA: 1.9 m^2BMI: 30.12 kg/m^2 | |Rhythm: Normal Sinus Rhythm | | | |Conclusions | |Summary | |1. Normal left ventricular size, wall thickness and motion. Preserved left | |ventricular systolic function. LVEF is 70-75%. | |2. Grade 1 left ventricular diastolic dysfunction. | |3. Normal valvular structure. | |4. Normal right-sided pressure. | |5. Normal IVC with normal respiratory collapse. | | | |Signature | | | | Electronically signed by DARBY FRAZIER MD(Interpreting physician) on | | 07/11/2016 03:57 PM | | | | | |Findings | |Mitral Valve | |Structurally normal mitral valve without significant stenosis or | |regurgitation. | |Aortic Valve | |Aortic valve is trileaflet without significant stenosis or regurgitation. | |Tricuspid Valve | |Structurally normal tricuspid valve with mild regurgitation. | |Pulmonic Valve | |Structurally normal pulmonic valve with trace regurgitation. | |Left Atrium | |Normal left atrium. | |Left Ventricle | |Left ventricle is normal in size and function. Ejection fraction is | |estimated at 70-75 %. | |Impaired relaxation compatible with diastolic dysfunction (reversed E/A | |ratio). | |Right Atrium | |Normal right atrium. | |Right Ventricle | |Normal right ventricular structure and function. | |Pericardial Effusion | |No evidence of pericardial effusion. | | | |Miscellaneous | |Normal aortic root. | |The IVC appears normal. | | | |Valves | | | | Mitral Valve | | | | Aortic Valve | | | | Tricuspid Valve | | | | TR Velocity: 2.51 m/s | | | |Structures | | | | Left Atrium | | | | LA A/P Dimension: 3.5 cm LA Volume: 40 ml | | LA Vol/BSA Index: 21 mL/m^2 EF Fzluwuagk94% | | | | Left Ventricle | | | | Diastolic Dimension: 4.8 cm Systolic Dimension: 3.3 cm | | Septum Diastolic: 0.8 cm | | PW Diastolic: 0.9 cm | | EF Calculated: 75% | | | | Miscellaneous | | | | Aorta | | | | Aortic Root: 3.1 cm | + + + + + + + | Performing | Address | City/State/Zipcode | Phone Number | | Organization | | | | + + + + + | [facility] | [address] | [place] | [phone] | | [facility] | | [address] | | | - IMAGING | | | | + + + + + NUCLEAR CARDIOLOGY - EXTERNAL SCAN (05/15/2016 12:00 AM PDT) + + + | Narrative | Performed At | + + + | Ordered by an | | | unspecified provider. | | + + + ECG - EXTERNAL SCAN (05/08/2016 12:00 AM PDT) + + + | Narrative | Performed At | + + + | Ordered by an | | | unspecified provider. | | + + + documented in this encounter Visit Diagnoses + + | Diagnosis | + + | Acute combined systolic and diastolic congestive heart failure (HCC) - Primary Acute | | combined systolic and diastolic heart failure | + + | Cardiomyopathy (HCC) Other primary cardiomyopathies | + + | Encounter for lipid screening for cardiovascular disease | + + | Mixed hyperlipidemia | + + documented in this encounter
--- OUTSIDE RECORDS SUMMARY | ~2020-02-27 | XMS | Encounter Summary ---
Demographics + + + | Address | [address] | | | [place] [address] | + + + | Home Phone | | + + + | Preferred Language | Unknown | + + + | Marital Status | | + + + | Temple Affiliation | 1077 | + + + | Race | White | + + + | Ethnic Group | Not or | + + + Author + + + | Author | [facility] | | | and [place] | + + + | Organization | [facility] | | | [...] Team Providers + +------+ + | Care Check Processor Name | Role | Phone | + +------+ + | Akua Hamilton MD | PCP | | + +------+ + Reason for Visit + + + | Reason | Comments | + + + | Medication Refill | | + + + Encounter Details +--------+--------+ + + + | Date | Type | Department | Care Team | Description | +--------+--------+ + + + | 09/30/ | Refill | [facility] [place] | Doretha Frazier, | Medication Refill | | 2020 | | CARDIOLOGY [address] | MD [address] [place] | | | | | [place], | [place], | | | | | [place] [address] | [place] [address] | | | | | [phone] | [phone] | | | | | | | | +--------+--------+ + + + Social History + + [...] | | 2020 | Visit | | MD [address] | | | | | | [place], | | | | | | [place] [address] | | | | | | [phone] | | | | | | | | +--------+---------+ + + + documented as of this encounter Visit Diagnoses Not on filedocumented in this encounter"
--- OUTSIDE RECORDS SUMMARY | ~2020-02-27 | XMS | Encounter Summary ---
Demographics + + + | Address | [address] | | | [place] [address] | + + + | Home Phone | | + + + | Preferred Language | Unknown | + + + | Marital Status | | + + + | Jewish Affiliation | 1077 | + + + | Race | White | + + + | Ethnic Group | Not or | + + + Author + + + | Author | [facility] | | | and [place] | + + + | Organization | [facility] | | | and [...] Team Providers + +------+ + | Care Yarn Dry Room Worker Name | Role | Phone | + +------+ + | Akua Hamilton MD | PCP | | + +------+ + Reason for Visit + + + | Reason | Comments | + + + | Follow-up | cough, asthma, rhinitis | + + + Encounter Details +--------+---------+ + + + | Date | Type | Department | Care Team | Description | +--------+---------+ + + + | 11/03/ | Office | [facility] | Stuart Diaz | Asthma, extrinsic, | | 2013 | Visit | PULMONARY [address] | MD [address] | mild intermittent, | | | | [place], | [facility], [place] | uncomplicated | | | | [place] [address] | [address] | (Primary Dx); Cough; | | | | [phone] | | Allergic rhinitis | | | | | | due to pollen; | | | | | | Abnormal lung | | | | | | sounds; OVERWEIGHT | +--------+---------+ + + + Social History + +-------+ [...] + + +---------+ + | No | | | | + + +---------+ + [...] + + + | Blood Pressure | 162/84 | 11/03/2013 9:11 AM | | | | | PDT | | + + + + + | Pulse | 73 | 11/03/2013 9:11 AM | | | | | PDT | | + + + + + | Temperature | - | - | | + + + + + | Respiratory Rate | - | - | | + + + + + | Oxygen Saturation | 98% | 11/03/2013 9:11 AM | | | | | PDT | | + + + + + | Inhaled Oxygen | - | - | | | Concentration | | | | + + + + + | Weight | 85.6 kg (188 lb 12.8 | 11/03/2013 9:11 AM | | | | oz) | PDT | | + + + + + | Height | 165.1 cm (5' 5") | 11/03/2013 9:11 AM | | | | | PDT | | + + + + + | Body Mass Index | 31.42 | 11/03/2013 9:11 AM | | | | | PDT | | + + + + + documented in this encounter Patient Instructions Patient Instructions Stuart Diaz MD - 11/03/2013 9:28 AM PDTI think you are brittany thomason well. This year, try taking Singulair October to May, but if you think you need Advair, let u s know. If your cough does not improve, we might need to either use Advair regularly, or use a nose spray. Get a flu shot next fall. As we talked, you have crackles at the lower right lung which are always there, not a probl em, due to the right diaphragm.Electronically signed by Stuart Diaz MD at 9:35 AM PDT documented in this encounter Progress Notes Stuart Diaz MD - 11/03/2013 9:38 AM PDTFormatting of this note might be differen t from the original. Stuart Diaz MD [facility] [address] [place] [address] 11/03/2013 Abiola Vaughan 1935 History Abiola Vaughan is a 77 y.o. female followed since April 2005 for asthma and allerg ic rhinitis. She was first seen because of persistent cough, believed due to asthma.. She do es have a long history of intermittent shortness of breath and of allergies and hay fever fo r many years. She has particular problems around wheat harvest time. She lives in [place] and is surrounded by [place]. She is also very allergic to dust mites and her environme is very dionte. Her main complaint today is also persistent cough. She dates it to an illness she had in june. She received the flu vaccine in April 2013 but still acquired influenza in June. She was told it was Influenza A. There might be a contribution to cough from rh initis now as well. She did use Singulair last year from about September until the fall but has not started it yet this year. She does have multiple allergies including to wheat. She also had a TIA on July 21, 2013. She had about 3 or 4 minutes of expressive aphasia. She was seen at this emergency department and had a negative head CT scan. She saw Dr. Tonny stevenson in followup and is now on a baby aspirin daily. Her , also a prior patient of mine, in December 2012. Pertinent Prior Medical History After many years of upper airway allergies, in 2003 she first noticed lower respiratory sym ptoms. In November 2004 she had dramatic increase in chronic cough. Previous allergy testing had shown allergies to molds, cat dander, dust mites, and Western wheat. In 2007 we added Singul air to her regimen and she felt a marked increase in control during wheat harvest. The last 3 years she has only needed to take Singulair during the time that wheat is growing and gamaliel vested, generally from about September until May. She used Advair also seasonally for a cou ple of years, and we thought she would continue but she actually really did not use Advair b eyond early 2011 and has done well with Singular alone. At times she has had some other exposures that have worsened her cough and asthma. She swam in a heavily chlorinated pool in a hotel and had marked dyspnea and even some crackles in h er lungs. 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 atorvaSTATin (LIPITOR) 10 mg tablet Take 10 mg by mouth Daily. Calcium Citrate (CITRACAL PO) Take 800 mg by mouth Daily. cholecalciferol (VITAMIN D-3) 1,000 units tablet Take 1,000 Units by mouth Daily. fluticasone-salmeterol (ADVAIR DISKUS) 100-50 mcg/puff diskus inhaler 1 puff inhaled tw ice daily lisinopril (PRINIVIL, ZESTRIL) 10 mg tablet Take 20 mg by mouth nightly. metFORMIN (GLUCOPHAGE) 500 mg tablet Take 500 mg by mouth 3 times daily. montelukast (SINGULAIR) 10 mg tablet Take 1 tablet by mouth Daily. 90 tablet 4 No Known Allergies Past Medical History was reviewed and updated in the electronic record. Review of Systems Currently persistent cough. Really not much shortness of breath. No mucus production. Sunil henao does have some rhinorrhea now related to springtime allergies. Physical Examination: BP 162/84 | Pulse 73 | Ht 1.651 m (5' 5") | Wt 85.639 kg (188 lb 12.8 oz) | BMI 31.42 kg/m2 | SpO2 98% General: Pleasant middle-aged woman in no distress. She did not cough during the visit. She is overweight but has lost weight. HEENT: Nasal passages clear. Oropharynx clear without thrush. Neck: No adenopathy. Lungs: Normal resonance to percussion. Breath sounds were mildly diminished throughout the chest. She had some persistent crackles present at the right lung base even after deep breat rebecca. This is a chronic finding. No wheezes or rhonchi. Heart: Regular rate and rhythm. No murmur or gallop. Extremities: No clubbing, cyanosis, or edema. Skin: No eczema. Warm and dry. We reviewed her chest x-rays from September 15, 2012 and July 21, 2013. Both showed no acute disease and the chest. She has a chronically elevated right hemidiaphragm. Assessment: 1. Asthma, extrinsic, mild intermittent, uncomplicated The past few years, her asthma symptoms have been less significant, although she does have increased cough now. She would like to continue using Singulair alone, without a controller inhaler this year. The past 2 years she had minimal use of Advair. 2. Cough This may be related to springtime allergies, postnasal drip, or even postinfectious from he r influenza 2 months ago. She will resume Singulair now. She does have a sample of Advair to use short term as well. If cough does not respond, we might need to consider resuming Ad vair for a while. 3. Allergic rhinitis due to pollen These symptoms are fairly seasonal, do to her multiple allergies. She has done very well th e last few years taking Singulair from spring until fall. She will do the same this year 4. Abnormal lung sounds She has some persistent crackles at the right lung base even after deep breathing. 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 5. OVERWEIGHT She continues to gradually lose weight. With the loss of her , she is eating less a nd may continue to gradually lose weight. PLAN: 1. Begin Singulair 10 mg daily now until the fall. 2. This year again we will not resume Advair Diskus, but if she feels asthma symptoms and t he need to return to using Advair, she can resume it. 3. Good hygiene to avoid respiratory infections. 4. She should do her best to avoid her known allergens. 5. She will obtain a flu vaccination each fall. 6. I express condolences regarding the loss of her in December 2012. 7. Followup in one year earlier if problems. Stuart Diaz Portions of this documentation were transcribed using voice recognition software. Every eff ort has been made to ensure accuracy; however, unintended grammatical and/or spelling errors may be present due to inadvertent computerized supervisor metal hanging errors. If there are any ques tions regarding the supervisor metal hanging, please contact our office. documented in th is encounter Plan of Treatment +--------+---------+ + + + | Date | Type | Specialty | Care Team | Description | +--------+---------+ + + + | 10/23/ | Office | Cardiology | Doretha Frazier, | | | 2020 | Visit | | MD [address] [place] | | | | | | [place], | | | | | | [place] [address] | | | | | | [phone] | | | | | | | | +--------+---------+ + + + documented as of this encounter Visit Diagnoses + + | Diagnosis | + + | Asthma, extrinsic, mild intermittent, uncomplicated - Primary | + + | Cough | + + | Allergic rhinitis due to pollen | + + | Abnormal lung sounds Abnormal chest sounds | + + | OVERWEIGHT Overweight | + + documented in this encounter
--- OUTSIDE RECORDS SUMMARY | ~2020-02-27 | XMS | Encounter Summary ---
Demographics + + + | Address | [address] | | | [place] [address] | + + + | Home Phone | | + + + | Preferred Language | Unknown | + + + | Marital Status | | + + + | Rastafarian Affiliation | 1077 | + + + | Race | White | + + + | Ethnic Group | Not or | + + + Author + + + | Author | [facility] | | | and [place] | + + + | Organization | [facility] | | | [...] Team Providers + +------+ + | Care Sample Cutter Name | Role | Phone | + +------+ + | Akua Hamilton MD | PCP | | + +------+ + Reason for Visit +--------+--------+ + | Reason | Onset | Comments | | | Date | | +--------+--------+ + | Other | 02/02/ | blood pressure | | | 2017 | | +--------+--------+ + Encounter Details +--------+ + + + + | Date | Type | Department | Care Team | Description | +--------+ + + + + | 02/02/ | Telephone | [facility] [place] | Doretha Frazier, | Other (blood | | 2018 | | CARDIOLOGY [address] | MD [address] | pressure) | | | | [place], | [place], | | | | | [place] [address] | [place] [address] | | | | | [phone] | | | | | | | [...] Telephone Encounter - Tianna Christianson RN - 02/02/2018 5:51 PM Manju notified ..... ......................................Tianna Christianson RN on 02/02/18 at 17:51 elephone Encounter - Tianna Christianson RN - 02/02/2018 3:[address] Bustillo, patient shou ld decrease lisinopril to 20mg one time daily and do a blood pressure log twice daily for tw o weeks and send that in. ...........................................Tianna Christianson RN on 02/02/18 at 16:00 elephone Encounter - Jen Moss RN - 02/02/2018 2:06 PM PDTPatient called, she started having light headedness and dizziness, difficulty focusing her eye yesterday afternoon. Blood pressure at 7:30 pm was 63/50, 9:30 pm blood pressure was 136/71, this morning at 0830 blood pressure w as 107/65 pulse 83. At 2:00 pm blood pressure was 103/68 pulse was 88. She is having lighth eadedness now only when she gets out a chair. She is currently taking lisinopril 20 mg twice a day and she feels it is too much at his time. She takes the lisinopril at noon and 1030 p m. I informed her that I would consult with Dr Bustillo and return her call ................... .......................Jen Moss RN on 02/02/18 at 14:26 documented in thi s encounter Plan of Treatment +--------+---------+ + + + | Date | Type | Specialty | Care Team | Description | +--------+---------+ + + + | 10/23/ | Office | Cardiology | Doretha Frazier, | | | 2020 | Visit | | MD [address] | | | | | | [place], | | | | | | [place] [address] | | | | | | [phone] | | | | | | | | +--------+---------+ + + + documented as of this encounter Visit Diagnoses Not on filedocumented in this encounter"
--- OUTSIDE RECORDS SUMMARY | ~2020-02-27 | XMS | Encounter Summary ---
Demographics + + + | Address | [address] | | | [place] [address] | + + + | Home Phone | | + + + | Preferred Language | Unknown | + + + | Marital Status | | + + + | Quaker Affiliation | 1077 | + + + | Race | White | + + + | Ethnic Group | Not or | + + + Author + + + | Author | [facility] | | | and [place] | + + + | Organization | [facility] | | | and [...] Team Providers + +------+ + | Care Gauge And Weigh Machine Operator Name | Role | Phone | + +------+ + | Akua Hamilton MD | PCP | | + +------+ + Reason for Visit +--------+--------+ + | Reason | Onset | Comments | | | Date | | +--------+--------+ + | Other | 10/04/ | issue with blood pressure and symptoms | | | 2018 | | +--------+--------+ + Encounter Details +--------+ + + + + | Date | Type | Department | Care Team | Description | +--------+ + + + + | 10/04/ | Telephone | [facility] | Doretha Frazier, | Other (issue with | | 2019 | | CARDIOLOGY [address] [place] | blood pressure and | | | | [place], | [place], | symptoms) | | | | [place] [address] | [place] [address] | | | | | [phone] | [phone] | | | | | | | [...] this encounter Miscellaneous Notes Telephone Encounter - Nancy Jorgensen RN - 10/05/2018 9:38 AM PDTCalled and relayed mess age per Dr. Bustillo. Okay per patient. ...........................................NANCY LEMON RN on 10/05/18 at 9:38 elephone Encounter - Tianna Christianson RN - 10/04/2018 1:[address] Bustillo, patient sabina steele do a blood pressure log twice daily for two weeks and send that in for evaluation prior to making any medication adjustments. ...........................................Tianna torres RN on 10/04/18 at 13:24 elephone Encounter - Tianna Christianson RN - 10/04/2018 10:06 AM Manju called and left a message on my vo icemail. She states that this morning she was awake around 5:45am and was very dizzy and had trouble focusing. She checked her blood pressure and it was 181/80. She checked her readin g again around 8am and it was 130/70. She is not sure what to do. She would like to know if she should adjust medication or not. Spoke with Abiola, she is feeling better now and can now focus better. She states that t his the first and only time this has happened. I will consult Dr Bustillo for instructions and then let her know ............................. ..............Tianna Christianson RN on 10/04/18 at 10:09 documented in this encounter Plan of Treatment +--------+---------+ + + + | Date | Type | Specialty | Care Team | Description | +--------+---------+ + + + | 10/23/ | Office | Cardiology | Doretha Frazier, | | | 2020 | Visit | | MD [address] [place] | | | | | | [place], | | | | | | [place] [address] | | | | | | [phone] | | | | | | | | +--------+---------+ + + + documented as of this encounter Visit Diagnoses Not on filedocumented in this encounter"
--- OUTSIDE RECORDS SUMMARY | ~2020-02-27 | XMS | Encounter Summary ---
Demographics + + + | Address | [address] | | | [place] [address] | + + + | Home Phone | | + + + | Preferred Language | Unknown | + + + | Marital Status | | + + + | Episcopalian Affiliation | 1077 | + + + | Race | White | + + + | Ethnic Group | Not or | + + + Author + + + | Author | [facility] | | | and [place] | + + + | Organization | [facility] | | | [...] Team Providers + +------+ + | Care Wire Hanger Name | Role | Phone | + +------+ + | Akua Hamilton MD | PCP | | + +------+ + Reason for Visit +--------+--------+ + | Reason | Onset | Comments | | | Date | | +--------+--------+ + | Other | 12/26/ | Proventil | | | 2017 | | +--------+--------+ + Encounter Details +--------+ + + + + | Date | Type | Department | Care Team | Description | +--------+ + + + + | 12/26/ | Telephone | [facility] | Hernandez Tejada, | Other (Proventil) | | 2017 | | PULMONARY [address] | MD [address] | | | | | [place], | [place], [place] | | | | | [place] [address] | [address] | | | | | [phone] | | | +--------+ + + + [...] this encounter Miscellaneous Notes Telephone Encounter - Leelee Hernandez RN - 12/26/2016 8:55 AM PDTCalled Abiola and in formed that her insurance rejected the Proventil and would prefer that she try the ProAir HF A. Okay per patient. Prescription sent to [facility]. documented in this encounter Plan of Treatment [...] | | | | | | [place] [address] | | | | | | [phone] | | | | | | | | +--------+---------+ + + + documented as of this encounter Visit Diagnoses Not on filedocumented in this encounter"
--- OUTSIDE RECORDS SUMMARY | ~2020-02-27 | XMS | Encounter Summary ---
Demographics + + + | Address | [address] | | | [place] [address] | + + + | Home Phone | | + + + | Preferred Language | Unknown | + + + | Marital Status | | + + + | Hinduism Affiliation | 1077 | + + + | Race | White | + + + | Ethnic Group | Not or | + + + Author + + + | Author | [facility] | | | and [place] | + + + | Organization | [facility] | | [...] Team Providers + +------+ + | Care Facilities Maintenance Supervisor Name | Role | Phone | + +------+ + | Akua Hamilton MD | PCP | | + +------+ + Reason for Visit + + + | Reason | Comments | + + + | Follow-up | | + + + | Fatigue | | + + + | Hypertension | | + + + | Results | Echocardiogram, 07/11/2016 | + + + Encounter Details +--------+ + + + + | Date | Type | Department | Care Team | Description | +--------+ + + + + | 08/26/ | Off-Site | [facility] [place] | Doretha Frazier, | Acute combined | | 2017 | Visit | CARDIOLOGY [address] [place] | systolic and | | | | [place], | [place], | diastolic congestive | | | | [place] [address] | [place] [address] | heart failure (HCC) | | | | [phone] | [phone] | (Primary Dx) | | | | | | | [...] + + + | Blood Pressure | 152/80 | 08/26/2016 9:02 AM | left arm | | | | PST | | + + + + + | Pulse | 64 | 08/26/2016 9:02 AM | regular | | | | PST | | + + + + + | Temperature | - | - | | + + + + + | Respiratory Rate | 16 | 08/26/2016 9:02 AM | | | | | PST | | + + + + + | Oxygen Saturation | - | - | | + + + + + | Inhaled Oxygen | - | - | | | Concentration | | | | + + + + + | Weight | 85 kg (187 lb 6.4 | 08/26/2016 9:02 AM | | | | oz) | PST | | + + + + + | Height | 165.1 cm (5' 5") | 08/26/2016 9:02 AM | | | | | PST | | + + + + + | Body Mass Index | 31.18 | 08/26/2016 9:02 AM | | | | | PST | | + + + + + documented in this encounter Progress Notes Doretha Frazier MD - 08/28/2016 4:40 PM PSTFormatting of this note might be different f rom the original. PATIENT NAME: Abiola Vaughan : 1935: AGE: 80 y.o. PRIMARY CARE: Akua Hamilton MD OUTPATIENT FOLLOW UP VISIT Date of Service: 08/26/2016 HISTORY OF PRESENT ILLNESS: Abiola Vaughan is a 80 y.o. female with a history of diabetes mellitus, asthma, hype rtention and hyperlipidema. She is being seen today for feeling fatigue. She was last seen 07/01/2016 at which time echocardiogram was rescheduled to assess cardiac structure and schedule patient for a sleep study. Since that time, patient continues to rep ort feeling fatigue. She sleeps only a few hours a night. She has not had sleep study due to weather and is rescheduled in September. Patient is physically active. There is no chest pain o r chest discomfort both at rest and on exertion. Patient denies breathlessness. There is no dizziness or lightheadedness. There is no ankle or leg swelling. Patient can sleep on one pi llow at night without difficulty breathing. MEDICAL, SURGICAL, AND PERSONAL HISTORY Past Medical, Surgical, Family, and Social History are reviewed in EPIC. 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 Patient only takes . 1 each 11 HYDROcodone-acetaminophen (NORCO) 5-325 mg per tablet Take 1 tablet by mouth as needed. lisinopril (PRINIVIL, ZESTRIL) 20 mg tablet Take one tablet daily metFORMIN (GLUCOPHAGE) 500 mg tablet Take 500 mg by mouth 3 times daily. montelukast (SINGULAIR) 10 mg tablet Take 1 tablet by mouth Daily. Patient only takes . tablet 4 Multiple Vitamins-Minerals (MULTIVITAMIN PO) Take by mouth 2 times daily. omeprazole (PRILOSEC) 20 mg capsule Take 20 mg by mouth Daily. No current facility-administered medications for this visit. ALLERGIES Allergies Allergen Reactions Lansoprazole Hives ROS Review of Systems Constitutional: Positive for malaise/fatigue. Respiratory: Negative for shortness of breath. Cardiovascular: Positive for palpitations. Negative for chest pain and leg swelling. Neurological: Negative for dizziness and weakness. Lightheaded = No OBJECTIVE: PHYSICAL EXAM BP 152/80 mmHg | Pulse 64 | Resp 16 | Ht 1.651 m (5' 5") | Wt 85.004 kg (187 lb 6.4 oz) | B WV 31.18 kg/m2 Physical Exam Constitutional: She is oriented to person, place, and time. She appears well-developed and well-nourished. No distress. Elderly female individual arrives alone, without acute distress. Neck: Normal carotid pulses, [...] side, and 2+ on the left side. Posterior tibial pulses are 2+ on the right side, and 2+ on the left side. Pulmonary/Chest: Effort normal and breath sounds normal. No accessory muscle usage. No resp iratory distress. She has no wheezes. She has no rhonchi. She has no rales. Abdominal: Soft. Normal appearance, normal aorta and bowel sounds are normal. She exhibits no abdominal bruit. There is no hepatosplenomegaly. There is no tenderness. Musculoskeletal: She exhibits no edema. Neurological: She is alert and oriented to person, place, and time. Gait normal. Skin: Skin is warm and dry. No cyanosis. Nails show no clubbing. Psychiatric: She has a normal mood and affect. Her mood appears not anxious. She does not e xhibit a depressed mood. LAB RESULTS reviewed during visit today primarily from [facility]: LIPID Lab Results Component Value Date CHOLHDL 2.0 05/09/2016 LDLEX 52 05/09/2016 HDLEX 66.3 05/09/2016 TRIGEX 69 05/09/2016 CHOLEX 132 05/09/2016 CHEMISTRY Lab Results Component Value Date GLU 95 07/21/2013 GLUEX 85 05/09/2016 NA 135* 07/21/2013 NAEX 138 05/09/2016 K 3.9 07/21/2013 KEX 4.2 05/09/2016 CL 101 07/21/2013 CLEX 103 05/09/2016 CO2 25 07/21/2013 CO2EX 23.7 05/09/2016 CALCIUM 9.5 07/21/2013 ASTEX 15 05/09/2016 ALTEX 11 05/09/2016 CREA 0.83 07/21/2013 BUN 17 07/21/2013 EGFR >60 07/21/2013 EGFREX 70 05/09/2016 CREEX 0.79 05/09/2016 HEMATOLOGY Lab Results Component Value Date WBC 9.7 07/21/2013 WBCEX 7.7 04/29/2016 HGB 12.6 07/21/2013 HGBEX 12.6 04/29/2016 HCT 37.8 07/21/2013 HCTEX 37.7* 04/29/2016 PLT 282 07/21/2013 PLTEX 257 04/29/2016 Above data and testing is reviewed this visit; testing below is historical data unless othe rwise specified. ASSESSMENT: 1. Heart failure with fatigue and left arm pain. A. Stress test 05/15/2016 shows normal persantine sestamibi myocardi al perfusion imaging study, normal left ventricular size, wall thickness and motion, left ve ntricular systolic function is preserved, left ventricular ejection fraction by gated SPECT is 79%. B. Echocardiogram 07/11/2016 shows normal left ventricular size, wa ll thickness and motion, preserved left ventricular systolic function. LVEF is 70-75%, grade 1 left ventricular diastolic dysfunction, normal valvular structure, normal right-sided pre ssure, normal IVC with normal respiratory collapse. C. Patient continued to feel fatigued and tired, most likely from sleep deprivation/poor s leep hygiene. She denies any specific cardiac complaints. There is no signs and symptoms of overt congestive heart failure. She is in a class I of N ew [place] Heart Association functional class. There is no fluid retention on physical examinat ion. 2. Hypertension A. She remains on Lisinopril 20 mg daily. Today's blood pressure is slighly elevated. 3. Hyperlipidemia A. Patient remains on Atorvastatin 10 mg. 4. Diabetes Mellitus A. She remains on Metformin 500 mg. 5. Asthma A. Patient is taking a combination of Albuterol and Advair Diskus 6. Suspecting sleep disordered breathing/ sleep deprivation A. She has risk factor of age above 50, hypertension, feeling fatig ued 7. Immunization A. Patient is up to date on flu and pneumonia vaccine. PLAN: 1. Check blood pressure x 2 weeks with the plan to adjust blood pressure medication katie baker. 2. Today, patient is doing well from cardiac standpoint. I will continue with current medi eric regimen. 3. I continue to emphasize a therapeutic lifestyle change including walking 30 minutes a da y, choosing healthy choices of diet , including DASH diet and weight reduction. 4. I recommend shingles vaccine. 5. Follow-up in 6 months. I Elisabeth Miner am acting as a scribe on behalf of, and in the presence of Doretha cui MD. I have reviewed and edited this note. Elisabeth Miner, Applications Development Consultant 08/26/2016 I, Doretha Frazier MD, personally performed the services described in this documentation, as scribed in my presence and it is both accurate and complete. Elisabeth Jerez Kristofer, Med Ass t 08/26/2016 9:08 Electronically signed by: Doretha Frazier MD [facility] 08/26/2016 Portions of this chart may have been created with [employer]! voice recognition software. Occasi onal wrong-word or sound-alike substitutions may have occurred due to the inherent dolan itations of voice recognition software. Please read the chart carefully and recognize, using context, where these substitutions have occurred I attest that I performed the evaluation of this patient and documented the note but it was signed by clinical staff in error. Doretha Frazier MD documented in this encounter Plan of Treatment [...] | | | | | | [place] [address] | | | | | | [phone] | | | | | | | | +--------+---------+ + + + documented as of this encounter Visit Diagnoses + + | Diagnosis | + + | Acute combined systolic and diastolic congestive heart failure (HCC) - Primary Acute | | combined systolic and diastolic heart failure | + + documented in this encounter
--- OUTSIDE RECORDS SUMMARY | ~2020-02-27 | XMS | Encounter Summary ---
Demographics + + + | Address | [address] | | | [place] [address] | + + + | Home Phone | | + + + | Preferred Language | Unknown | + + + | Marital Status | | + + + | Yazidi Affiliation | 1077 | + + + | Race | White | + + + | Ethnic Group | Not or | + + + Author + + + | Author | [facility] | | | and [place] | + + + | Organization | [facility] | | | and [...] Team Providers + +------+ + | Care Freight Broker Agent Name | Role | Phone | + +------+ + | Akua Hamilton MD | PCP | | + +------+ + Reason for Referral Evaluate & Treat (Routine) +--------+ + + + + + | Status | Reason | Specialty | Diagnoses / | Referred By | Referred To | | | | | Procedures | Contact | Contact | +--------+ + + + + + | Closed | Specialty | Sleep | Diagnoses | New | [facility] | | | Services | Medicine | ARELI | Shawn Mcghee | [place] [address] | | | Required | | (obstructive | MD [address] | [address] | | | | | sleep | [address] | [place], | | | | | apnea) | [facility] | [place] [address] | | | | | Procedures | [place], [place] | Phone: | | | | | [place] [facility] | [address] | [phone] | | | | | 6/>YRS SLEEP | Phone: | Fax: | | | | | 4/> ADDL | [phone] | [phone] | | | | | ALYSHA ATTND | Fax: | | | | | | NPSG | [phone] | | +--------+ + + + + + Reason for Visit +---------+ + | Reason | Comments | +---------+ + | Consult | | +---------+ + Evaluate & Treat (Routine) +--------+--------+ + + + + | Status | Reason | Specialty | Diagnoses / | Referred By | Referred To | | | | | Procedures | Contact | Contact | +--------+--------+ + + + + | Closed | | Sleep | Diagnoses | [place], | New, | | | | Medicine | ARELI | MD Doretha | Shawn Mcghee | | | | | (obstructive | [address] | [address] | | | | | sleep | [address] | [address] | | | | | apnea) | [place], | [place] | | | | | Procedures | [place] [address] | [place], [place] | | | | | [facility] OFF[facility] | Phone: | [phone] Phone: | | | | | CONSULTATION | [phone] | [phone] | | | | | NEW/ESTAB | Fax: | Fax: | | | | | PATIENT 30 | [phone] | [phone] | | | | | MIN | | | +--------+--------+ + + + + Encounter Details +--------+---------+ + + + | Date | Type | Department | Care Team | Description | +--------+---------+ + + + | 07/24/ | Office | [facility] | Shawn Wolff | Fatigue, unspecified | | 2017 | Visit | SLEEP DISORDER [address] | MD [address] | type (Primary Dx); | | | | [address] [place] | [address] [place] | [facility] (obstructive | | | | [place] [address] | [place] [address] | sleep apnea); Type 2 | | | | [phone] | [phone] | diabetes mellitus | | | | | | without | | | | | | complication, | | | | | | unspecified long | | | | | | term insulin use | | | | | | status ([facility]); | | | | | | Essential | | | | | | hypertension | +--------+---------+ + + + Social History [...] + + + | Blood Pressure | 128/78 | 07/24/2016 9:38 AM | | | | | PST | | + + + + + | Pulse | 70 | 07/24/2016 9:38 AM | | | | | PST | | + + + + + | Temperature | - | - | | + + + + + | Respiratory Rate | 14 | 07/24/2016 9:38 AM | | | | | PST | | + + + + + | Oxygen Saturation | 99% | 07/24/2016 9:38 AM | | | | | PST | | + + + + + | Inhaled Oxygen | - | - | | | Concentration | | | | + + + + + | Weight | 85.9 kg (189 lb 4.8 | 07/24/2016 9:38 AM | | | | oz) | PST | | + + + + + | Height | 165.1 cm (5' 5") | 07/24/2016 9:38 AM | | | | | PST | | + + + + + | Body Mass Index | 31.5 | 07/24/2016 9:38 AM | | | | | PST | | + + + + + documented in this encounter Patient Instructions Patient Instructions Shawn Wolff Jr., MD - 07/24/2016 10:44 AM PSTFormatting of this n ote might be different from the original. Continuous Positive Air Pressure (CPAP) Continuous positive air pressure (CPAP)uses gentle air pressure to hold the airway open. CPAP is often the most effective treatment for sleep apnea and severe snoring. It works very well for many people. But keep in mind that it can take several adjustments before the setu p is right for you. How CPAP works The CPAPmachine is asmall portable pump beside the bed. The pumpsends air through a h ose, which is held over your noseand mouthby a mask.Mild air pressureis gently pushe d through your airway. The air pressure nudges sagging tissues aside. This widens the airway so you can breathe better. CPAP may be combined with other kinds of therapy for sleep apnea . A mask over the nose gently directs air into the throat to keep the airway open. Types of air pressure treatments There are different types of CPAP. Your doctor or CPAP conveyor technician will help you decide whic h type is best for you: Basic CPAPkeeps the pressure constant all night long. A bilevel device(BiPAP)providesmore pressure when you breathe in and less when you breathe out.A BiPAP machine also may be set to provide automatic breaths to maintain mary thing if you stop breathing while sleeping. An autoCPAP deviceautomatically adjusts pressure throughout the night and in response to changes such as body position, sleep stage, and snoring. Date Last Reviewed: 02/19/201519999167-0266 [employer] [place] [address]. All righ ts reserved. This information is not intended as a substitute for professional medical care. Always follow your healthcare professional's instructions. documented in this encounter Progress Notes Shawn Wolff Jr., MD - 07/24/2016 9:33 AM PSTFormatting of this note might be differen t from the original. 07/24/16 0900 Menendez Depression Inventory-II Depression Score 6 - Minimal depression Insomnia Severity Index Insomnia Severity Index 7 Pineland Sleepiness Scale Sitting and reading 1 Watching TV 1 Sitting, inactive in a public place (e.g. a theatre or a meeting) 0 As a passenger in a car for an hour without a break 0 Lying down to rest in the afternoon when circumstances permit 0 Sitting and talking to someone 0 Sitting quietly after a lunch without alcohol 0 In a car, while stopped for a few minutes in traffic 0 Total score 2 SF-36v2 Score PF 49.89 RP 57.16 BP 55.55 GH 53.19 VT 61.51 SF 57.34 RE 56.17 MH 50.87 PCS 53.92 MCS 56.33 imon, Shawn Mcghee Jr., MD - 07/24/2016 9:14 AM PSTFormatting of this note might be different from the origin al. [facility] [place] [address] Ref: Doretha Frazier MD CC: Chief Complaint Patient presents with Consult History of the Present Illness:This is a 80 year old male who is referred for sleep medicin e consultation by Dr. Frazier because of fatigue and possible ARELI. Other significant medic al issues include HBP, AODM, Obesity, Asthma, history of TIA. The patient's records ([facility]) are reviewed. The patient is interviewed and examined. She has episodes about twice a mo nth when "all of a sudden ... Just no energy absolutely. Like I need to sit down." When this occurs she finds a place to sit down and she sits for about 15 minutes or so and she can ge t up and do whatever she was doing and the feeling is gone. This never feels like the room i s spinning. She doesn't feel like she is going to faint - she doesn't feel lightheaded; she doesn't get any visual problems (such as things getting dark). There is no chest pain or inez rtness of breath. She sometimes notices fluttering in her heart but sometimes she gets the w eakness without the fluttering and sometimes she gets the fluttering without the weakness. S he doesn't really associated the fluttering with the episodes of weakness. She is still able to speak and she is still able to think. She doesn't have sweats when this happens. And not rebecca hurts. She just feels weak. This doesn't occur at any particular time of the day. She i sn't aware of any precipitants. Bedtime is usually 10-11 pm and rise time is usually about 5 am (spontaneously). She estima zeina a latency to sleep onset of about 20 minutes. She gets up once at night to urinate and s he gets back to sleep easily. She rarely has nocturnal heartburn. She denies night sweats. S he frequently awakens with a dry mouth and nasal/sinus congestion. She denies morning headac hes. Once she falls asleep she usually sleeps all night except to urinate but about once a w ambler she will awaken at 3am (no reason for the awaken) and she might read for 15-30 minutes b efore going back to sleep. She dreams in her sleep. She denies hypnagogic hallucinations. She isn't a sleep walker. Sh earlene denies dream enactment while asleep. She has had episodes of sleep paralysis once a month. She denies restlessness in her legs at night. No one has ever told her that her legs/arms k ick/twitch rhythmically at night after she falls asleep. She doesn't know if she snores but she doesn't have a bed partner. Her who 3 y ears never, prior to his , that she snored but he (using CPAP) slept very deeply. She s leeps in all positions. In the daytime, In the daytime she feels mildly fatigued and perhaps more so than a year. S he naps infrequently. She doesn't fall asleep driving. She can fall asleep watching TV. She denies cataplexy. She consumes about 2 cups of coffee a day. She rarely consumes soft drinks . She has AODM and her HbA1c's are usually less than 6. During the feelings of weakness her g lucoses are 100-110. The episodes of weakness started after her TIA in 2013. "I never had these episodes prior t o that." Past Medical History: has a past medical history of Disorders of bursae and tendons in inez ulder region, unspecified; Esophageal reflux; Overweight(278.02); Allergic rhinitis due to p ollen; Extrinsic asthma, unspecified; Hypertension; Diabetes mellitus (HCC); Peptic ulcer di sease; Hyperlipidemia; History of cervical cancer; Bleeding disorder (HCC); TIA (transient i schemic attack) (07/21/2013); Obesity; and Fatigue. has past surgical history that includes hernia repair; Inguinal hernia repair; Hysterectom y; Tonsillectomy; stomach stapling (1977); Appendectomy; gastric resection (1978); and bilat eral cataract extractions and lens implantation (2009). Allergies Allergen Reactions Lansoprazole Hives Current Outpatient Prescriptions Medication Sig Dispense Refill [...] No current facility-administered medications for this visit. Past Surgical History Procedure Laterality Date Hernia repair left Inguinal hernia repair right Hysterectomy vaginal Tonsillectomy Stomach stapling 1977 Appendectomy Gastric resection 1978 partial Bilateral cataract extractions and lens implantation 2009 Family Medical History: family history includes Allergies in her grandchild; Anemia in her mother; Asthma in her daughter and grandchild; Diabetes in her daughter; Heart disease in he r father; Hypertension in her father; Other (see comment) in her father; Sleep Apnea in her brother, daughter, and son. indicated that her mother is . She indicated that her father is . She indic ated that her sister is . She indicated that her brother is alive. She indicated tejas t her daughter is alive. She indicated that all of her three sons are alive. 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 Eyes:Denies sudden loss of vision, diplopia, blurred vision. ENT: Denies loss of hearing, vertigo, nasal or sinus congestion, bleeding gums or poor de ntal repair. Card:Denies exertional substernal chest heaviness. Occasional palpitations. Resp: Allergic asthma doing well. GI: Denies nausea, vomiting, abdominal pain, diarrhea, constipation, hematochezia. : Denies dysuria, pyuria, hematuria, frequency, incontinence MS: Mild joint pains. Neuro: TIA in 2014 Psych: Denies: depression, anxiety, panic. Endocrine: Denies heat or cold intolerance Heme: Denies easy bruising or prolonged bleeding. Allergic/Immunologic: Has seasonal allergies PE: BP 128/78 mmHg | Pulse 70 | Resp 14 | Ht 1.651 m (5' 5") | Wt 85.866 kg (189 lb 4.8 oz) | BMI 31.50 kg/m2 | SpO2 99% Gen: healthy, alert and not in acute distress HEENT:Head: Normocephalic, no lesions, without obvious abnormality. Eye: Normal external eye, conjunctiva, lids cornea, NORMAN. Nose: Normal external nose, mucus membranes and septum. Pharynx: Dental Hygiene adequate. Normal buccal mucosa. Mallampati 2-3. Neck / Thyroid: Supple, no masses, nodes, nodules or enlargement. Pulm: lungs clear to auscultation Card: regular rate and rhythm, S1, S2 normal, no murmur, click, rub or gallop GI: soft and normal bowel sounds : Not examined Rectal: Not Examined Ext: peripheral pulses normal, no pedal edema, no clubbing or cyanosis Skin:no rashes Neuro:Grossly normal Psych:age appropriate and casually dressedoriented to time, place and person, mood and aff ect are within normal limits, pt is a good historian; no memory problems were noted Heme: No cervical LN Questionnaires Review: The score of 2 on the Pineland Sleepiness scale suggests minimal if a ny excessive daytime sleepiness. The score of 7 on the Insomnia Severity Scale suggests that the patient has minimal to mild dissatisfaction with the quality of sleep. The score of 6 o n the Menendez Depression Inventory is consistent with minimal depression. The score of 1 on the Menendez Anxiety Inventory suggests minimal if any recognized anxiety. The SF36v2 suggests no a reas of self assessed impairment. In fact on the vitality subscale, the most sleep sensitiv e subscale, she scores over 1 standard deviation above the mean. Assessment: Fatigue: The patient does admit to some fatigue although this really is not see n on the results of her questionnaires. She does have a small posterior oropharynx. We don 't know if she snores. She does not have a bed partner. She does however have a family his tory of obstructive sleep apnea. She also has high blood pressure and has had a transient i schemic attack all of which occurred more frequently in patients with obstructive sleep apne a. I have discussed the pathophysiology of obstructive apnea with her. I am suggesting tejas t we bring her in to the sleep center for polysomnographically study. She is in agreement w ith this. Whether or not this has anything to do however with her episodes of weakness is u nclear to me. These episodes are occurring fairly infrequently. They are not suggestive of presyncope, hypoglycemia, imbalance, or vertigo. Plan: Diagnostic nocturnal polysomnography in the near future with follow-up thereafter. documented in t his encounter Plan of Treatment +--------+---------+ + + + | Date | Type | Specialty | Care Team | Description | +--------+---------+ + + + | 10/23/ | Office | Cardiology | Doretha Frazier, | | | 2020 | Visit | | [address] | | | | | | [place], | | | | | | [place] [address] | | | | | | [phone] | | | | | | | | +--------+---------+ + + + + + +--------+ + + | Name | Type | Priori | Associated Diagnoses | Order Schedule | | | | ty | | | + + +--------+ + + | Ambulatory Referral | Outpatient | Routin | ARELI (obstructive | Ordered: 07/24/2016 | | to Sleep Studies | Referral | e | sleep apnea) | | + + +--------+ + + documented as of this encounter Visit Diagnoses + + | Diagnosis | + + | Fatigue, unspecified type - Primary | + + | ARELI (obstructive sleep apnea) Obstructive sleep apnea (adult) (pediatric) | + + | Type 2 diabetes mellitus without complication, unspecified batch analyst insulin use | | status | + + | Essential hypertension Unspecified essential hypertension | + + documented in this encounter
--- OUTSIDE RECORDS SUMMARY | ~2020-02-27 | XMS | Encounter Summary ---
Demographics + + + | Address | [address] | | | [place] [address] | + + + | Home Phone | | + + + | Preferred Language | Unknown | + + + | Marital Status | | + + + | Gnosticism Affiliation | 1077 | + + + | Race | White | + + + | Ethnic Group | Not or | + + + Author + + + | Author | [facility] | | | and [place] | + + + | Organization | [facility] | | | and [...] Team Providers + +------+ + | Care Project Officer Name | Role | Phone | + +------+ + | Akua Hamilton MD | PCP | | + +------+ + Encounter Details +--------+ + + + + | Date | Type | Department | Care Team | Description | +--------+ + + + + | 10/12/ | Abstract | [facility] | Provider, | | | 2018 | | CARDIOLOGY [address] | [address] | | | | | [place] | [place] | | | | | [place] [address] | [place] [address] | | | | | [phone] | | | +--------+ + + + [...] [place], | | | | | | [place] [address] | | | | | | [phone] | | | | | | | | +--------+---------+ + + + documented as of this encounter Procedures + +--------+ + + + | Procedure Name | Priori | Date/Time | Associated Diagnosis | Comments | | | ty | | | | + +--------+ + + + | EXTERNAL LAB: CBC | Routin | 09/17/2018 | | Results for this | | | e | | | procedure are in the | | | | | | results section. | + +--------+ + + + | EXTERNAL LAB: | Routin | 09/17/2018 | | Results for this | | TRIGLYCERIDES | e | | | procedure are in the | | | | | | results section. | + +--------+ + + + | EXTERNAL LAB: | Routin | 09/17/2018 | | Results for this | | CHOLESTEROL, HDL | e | | | procedure are in the | | | | | | results section. | + +--------+ + + + | EXTERNAL LAB: | Routin | 09/17/2018 | | Results for this | | CHOLESTEROL, TOTAL | e | | | procedure are in the | | | | | | results section. | + +--------+ + + + | EXTERNAL LAB: | Routin | 09/17/2018 | | Results for this | | CHOLESTEROL, LDL | e | | | procedure are in the | | | | | | results section. | + +--------+ + + + | LIPID PANEL | Routin | 09/17/2018 | | Results for this | | | e | | | procedure are in the | | | | | | results section. | + +--------+ + + + | CBC WITH | Routin | 09/17/2018 | | Results for this | | DIFFERENTIAL | e | | | procedure are in the | | | | | | results section. | + +--------+ + + + documented in this encounter Results CBC with Differential (09/17/2018) + +-------+ + + + | Component | Value | Ref Range | Performed | Pathologist | | | | | At | Signature | + +-------+ + + + | MCH | 31.0 | 26.0 - 33.0 pg | | | + +-------+ + + + | MCHC | 33.0 | 30.0 - 36.0 | | | | | | g/dL | | | + +-------+ + + + | % Basophils | 1.3 | 2.0 % | | | + +-------+ + + + + + | Specimen | + + | Blood | + + Lipid Panel (09/17/2018) + +-------+ + + + | Component | Value | Ref Range | Performed | Pathologist | | | | | At | Signature | + +-------+ + + + | Chol/HDL | 2.3 | 4.4 | | | | Ratio | | | | | + +-------+ + + + | Non HDL | 94 | 130 | | | | Chol. | | | | | | (LDL+VLDL) | | | | | + +-------+ + + + | VLDL | 13 | 4 - 40 | | | | Cholesterol | | | | | | Thiago | | | | | + +-------+ + + + + + | Specimen | + + | Blood | + + External Lab: CBC (09/17/2018) + + + + + + | Component | Value | Ref Range | Performed | Pathologist | | | | | At | Signature | + + + + + + | WBC, | 5.1 | 4.5 - 11 | EXTERNAL | | | External | | | LAB | | + + + + + + | HGB, | 11 (A) | 12 - 16 | EXTERNAL | | | External | | | LAB | | + + + + + + | HCT, | 33.1 (A) | 35 - 45 | EXTERNAL | | | External | | | LAB | | + + + + + + | PLT, | 257 | | EXTERNAL | | | External | | | LAB | | + + + + + + | Neutrophils | 56 | 39 - 80 | EXTERNAL | | | %, | | | LAB | | | External | | | | | + + + + + + | Lymphocytes | 24.5 | 24 - 44 | EXTERNAL | | | %, | | | LAB | | | External | | | | | + + + + + + | Monocytes | 15.1 (A) | 0 - 12 | EXTERNAL | | | %, External | | | LAB | | + + + + + + | Eosinophils | 1.3 | 0 - 2 | EXTERNAL | | | %, | | | LAB | | | External | | | | | + + + + + + | RBC, | 3.60 (A) | 3.8 - 5.1 | EXTERNAL | | | External | | | LAB | | + + + + + + | MCV, | 92 | 81 - 99 | EXTERNAL | | | External | | | LAB | | + + + + + + | RDW, | 14.2 | 10.5 - 15 | EXTERNAL | | | External | | | LAB | | + + + + + + + + | Resulting Agency Comment | + + | [facility] | + + + +---------+ + + | Performing | Address | City/State/Zipcode | Phone Number | | Organization | | | | + +---------+ + + | EXTERNAL LAB | | | | + +---------+ + + External Lab: Triglycerides (09/17/2018) + +-------+ + + + | Component | Value | Ref Range | Performed | Pathologist | | | | | At | Signature | + +-------+ + + + | Triglycerid | 66 | 30 - 150 | EXTERNAL | | | es, | | | LAB | | | External | | | | | + +-------+ + + + + + | Specimen | + + | Blood | + + + + | Resulting Agency Comment | + + | [facility] | + + + +---------+ + + | Performing | Address | City/State/Zipcode | Phone Number | | Organization | | | | + +---------+ + + | EXTERNAL LAB | | | | + +---------+ + + External Lab: Cholesterol, HDL (09/17/2018) + +-------+ + + + | Component | Value | Ref Range | Performed | Pathologist | | | | | At | Signature | + +-------+ + + + | HDL | 72.5 | 40 mg/dl | EXTERNAL | | | Cholesterol | | | LAB | | | , External | | | | | + +-------+ + + + + + | Specimen | + + | Blood | + + + + | Resulting Agency Comment | + + | [facility] | + + + +---------+ + + | Performing | Address | City/State/Zipcode | Phone Number | | Organization | | | | + +---------+ + + | EXTERNAL LAB | | | | + +---------+ + + External Lab: Cholesterol, Total (09/17/2018) + +-------+ + + + | Component | Value | Ref Range | Performed | Pathologist | | | | | At | Signature | + +-------+ + + + | Cholesterol | 166 | 200 mg/dl | EXTERNAL | | | , Total, | | | LAB | | | External | | | | | + +-------+ + + + + + | Specimen | + + | Blood | + + + + | Resulting Agency Comment | + + | [facility] | + + + +---------+ + + | Performing | Address | City/State/Zipcode | Phone Number | | Organization | | | | + +---------+ + + | EXTERNAL LAB | | | | + +---------+ + + External Lab: Cholesterol, LDL (09/17/2018) + +-------+ + + + | Component | Value | Ref Range | Performed | Pathologist | | | | | At | Signature | + +-------+ + + + | LDL | 80 | 100 | EXTERNAL | | | Cholesterol | | | LAB | | | , Direct, | | | | | | External | | | | | + +-------+ + + + + + | Specimen | + + | Blood | + + + + | Resulting Agency Comment | + + | [facility] | + + + +---------+ + + | Performing | Address | City/State/Zipcode | Phone Number | | Organization | | | | + +---------+ + + | EXTERNAL LAB | | | | + +---------+ + + documented in this encounter Visit Diagnoses Not on filedocumented in this encounter"
--- OUTSIDE RECORDS SUMMARY | ~2020-02-27 | XMS | Encounter Summary ---
Demographics + + + | Address | [address] | | | [place] [address] | + + + | Home Phone | | + + + | Preferred Language | Unknown | + + + | Marital Status | | + + + | Latter Day Affiliation | 1077 | + + + | Race | White | + + + | Ethnic Group | Not or | + + + Author + + + | Author | [facility] | | | and [place] | + + + | Organization | [facility] | | | [...] Team Providers + +------+ + | Care Wet Process Miller Name | Role | Phone | + +------+ + | Akua Hamilton MD | PCP | | + +------+ + Reason for Visit + + + | Reason | Comments | + + + | CPAP Follow Up | | + + + Encounter Details +--------+---------+ + + + | Date | Type | Department | Care Team | Description | +--------+---------+ + + + | 10/22/ | Office | [facility] | Klaus Melendrez PA | ARELI on CPAP (Primary | | 2017 | Visit | SLEEP DISORDER [address] | [address] | Dx) | | | | [address] | [place] | | | | | [place] [address] | [address] | | | | | [phone] | | | +--------+---------+ + + + Social History [...] + + + | Blood Pressure | 112/70 | 10/22/2016 9:55 AM | | | | | PDT | | + + + + + | Pulse | 75 | 10/22/2016 9:55 AM | | | | | PDT | | + + + + + | Temperature | - | - | | + + + + + | Respiratory Rate | 16 | 10/22/2016 9:55 AM | | | | | PDT | | + + + + + | Oxygen Saturation | 91% | 10/22/2016 9:55 AM | | | | | PDT | | + + + + + | Inhaled Oxygen | - | - | | | Concentration | | | | + + + + + | Weight | 83 kg (183 lb) | 10/22/2016 9:55 AM | | | | | PDT | | + + + + + | Height | - | - | | + + + + + | Body Mass Index | 30.45 | 09/25/2016 11:01 AM | | | | | PDT | | + + + + + documented in this encounter Progress Notes Klaus Melendrez PA - 10/22/2016 10:09 AM PDT Subjective: Patient ID: Abiola Vaughan is a 80 y.o. female. HPI last office visit: 10/06/2016 date of polysomnography: 09/16/2016 AHI: 8.4 RDI: 16.7 O2%: 79% with 6.3 minutes below 88% Machine type: ResMed AirSense 10 Mask type: full face mask DME: [facility] pressure: 4-15 cm Median: 9.8 cm 95%: 13.1 cm maximum: 13.3 cm Nights using CPAP: 03/21 16/16 % of nights >4 hours: 55% 93% average usage (all nights): 4:09 5:13 average usage (nights used): 4:09 5:13 AHI: 4.8 Abiola comes in for CPAP compliance. She continues to have a difficult time adjusting to her CPAP, but she has improved during the last 2 weeks. She feels that she is sleeping bet ter with her CPAP, but it is disruptive to her sleep. She says she had one very good night and she was able to sleep without disruption for 7 hours. She hadn't done this for several years. She felt much more rested throughout the following day. This gives her hope that david henao may be able to get comfortable with CPAP. We discussed the importance of wearing her CPAP 100% of the time she is asleep in order to develop it into a regular part of her sleep rout ine. She understands this and plans to continue working toward that goal. I have discussed the download in detail. This shows that her sleep apnea is controlled, wi th an AHI of 4.8. It also shows that her leaks are significant on most nights. BP 112/70 mmHg | Pulse 75 | Resp 16 | Wt 83.008 kg (183 lb) | SpO2 91% Review of Systems Objective: Physical Exam Assessment: Problem #1: OBSTRUCTIVE SLEEP APNEA ([id number]) This is controlled with CPAP. She is doing well with her CPAP compliance. She is wearing her CPAP nightly, but is still struggling with wearing it for the duration of her sleep on s ome nights. Plan: 1. She is to continue with CPAP indefinitely. 2. I have recommended that she work toward wearing her CPAP 100% of the time she is asleep . I will follow up again in 1 month, sooner prn. Fifteen minutes were spent [id number], wi th the majority of time spent in counseling. Klaus Melendrez PA-C cc: Akua Hamilton MD documented in this enco unter Plan of Treatment +--------+---------+ + + + | Date | Type | Specialty | Care Team | Description | +--------+---------+ + + + | 10/23/ | Office | Cardiology | Doretha Frazier, | | | 2020 | Visit | | MD [address] | | | | | | [place], | | | | | | [place] [address] | | | | | | [phone] | | | | | | | | +--------+---------+ + + + documented as of this encounter Visit Diagnoses + + | Diagnosis | + + | ARELI on CPAP - Primary Obstructive sleep apnea (adult) (pediatric) | + + documented in this encounter"
--- OUTSIDE RECORDS SUMMARY | ~2020-02-27 | XMS | Encounter Summary ---
Demographics + + + | Address | [address] | | | [place] [address] | + + + | Home Phone | | + + + | Preferred Language | Unknown | + + + | Marital Status | | + + + | Lutheran Affiliation | 1077 | + + + | Race | White | + + + | Ethnic Group | Not or | + + + Author + + + | Author | [facility] | | | and [place] | + + + | Organization | [facility] | | | [...] Team Providers + +------+ + | Care Infection Prevention Specialist Name | Role | Phone | + +------+ + | Akua Hamilton MD | PCP | | + +------+ + Encounter Details +--------+ + + + + | Date | Type | Department | Care Team | Description | +--------+ + + + + | 09/15/ | [facility] | [facility] | Stuart Diaz | Asthma, extrinsic | | 2012 - | Encounter | MED CTR XRAY [address] | [place] [address] [address] | | | | | [place] | [place], [place] | | | 03/08/ | | [place] [address] | [address] | | | 2012 | | [phone] | | | +--------+ + + + [...] + + documented as of this encounter Medications at Time of Discharge + + + +---------+ + + | Medication | Sig | Dispensed | Refills | Start | End Date | | | | | | Date | | + + + +---------+ + + | atorvaSTATin | Take 10 mg by mouth | | 0 | 03/25/20 | | | (LIPITOR) 10 mg | Daily. | | | 12 | 9 | | tablet | | | | | | + + + +---------+ + + | Calcium Citrate | Take 800 mg by mouth | | 0 | | | | (CITRACAL PO) | Daily. | | | | 9 | + + + +---------+ + + | cholecalciferol | Take 1,000 Units by | | 0 | | | | (VITAMIN D-3) 1,000 | mouth Daily. | | | | 7 | | units tablet | | | | | | + + + +---------+ + + | | 1 puff inhaled twice | | 0 | 03/25/20 | | | fluticasone-salmeter | daily | | | 12 | 5 | | ol (ADVAIR DISKUS) | | | | | | | 100-50 mcg/puff | | | | | | | diskus inhaler | | | | | | + + + +---------+ + + | lisinopril | Take 20 mg by mouth | | 0 | 03/25/20 | | | (PRINIVIL, ZESTRIL) | nightly. | | | 12 | 6 | | 10 mg tablet | | | | | | + + + +---------+ + + | metFORMIN | Take 500 mg by mouth | | 0 | 03/25/20 | | | (GLUCOPHAGE) 500 mg | 3 times daily. | | | 12 | 9 | | tablet | | | | | | + + + +---------+ + + | montelukast | Take 1 tablet by | 90 | 4 | 09/16/19 | | | (SINGULAIR) 10 mg | mouth Daily. | tablet | | 13 | 4 | | tabletIndications: | | | | | | | Allergic rhinitis | | | | | | | due to pollen, | | | | | | | Asthma, extrinsic | | | | | | + + + +---------+ + + documented as of this encounter [...] [place], | | | | | | [place] [address] | | | | | | [phone] | | | | | | | | +--------+---------+ + + + documented as of this encounter Procedures + +--------+ + + + | Procedure Name | Priori | Date/Time | Associated Diagnosis | Comments | | | ty | | | | + +--------+ + + + | XR CHEST PA AND | Routin | 09/15/2012 | Asthma, extrinsic | Results for this | | LATERAL | e | 1:08 PM | | procedure are in the | | | | PST | | results section. | + +--------+ + + + documented in this encounter Results XR Chest PA and Lateral (09/15/2012 1:08 PM PST) + + | Specimen | + + | | + + + + + | Narrative | Performed At | + + + | [facility] | [facility] | | Department [facility] | [facility] | | [ rep ct [address]] [ rep ct [facility] | | st zip] Signed | - IMAGING | | | | | Patient Name: JUAN VAUGHAN | | | Physician: MARIELLE : 1935 Age: 76 Sex: F Unit | | | #: [id number] Exam Date: 09/15/12 Location: | | | [facility] Report #: [id number] Page: | | | %(RAD)RES..mtdd.print.filter("pg") of %(RAD) | | | RES..mtdd.print.filter("tpg") | | | | | | Accession Number: [id number] | | | CHEST PA AND LATERAL, 09/15/2012 CLINICAL | | | HISTORY: ASTHMA. COMPARISON: None. FINDINGS: | | | Frontal and lateral views of the chest. Elevated right | | | hemidiaphragm. Symmetric aeration of both lungs. Small dense nodule in | | | the right upper lung is likely a calcified granuloma based on its | | | density. The lungs are otherwise clear. There are no pleural | | | effusions. There is no pneumothorax. The cardiac and mediastinal | | | contours are not enlarged. The osseous structures are unremarkable | | | for the patient's age. IMPRESSION: 1. NO ACUTE | | | PULMONARY PROCESS. Dictated Date/Time: 09/15/2012 13:08 | | | Transcribed Date/Time: 09/15/2012 13:26 Space Planner: | | | <<Signature on File>> | | | Devonte Dobbins MD09/15/12 [id number] <Electronically signed by Devonte Honeycutt | | Kaz Dobbins MD> Devonte Dobbins MD 09/15/12 1308 | | | Space Planner: [employer] [id number] | | | Stuart Diaz MD | | + + + + + + + + | Performing | Address | City/State/Zipcode | Phone Number | | Organization | | | | + + + + + | [address] | [address] | [place] | [phone] | | [facility] | | [address] | | | - IMAGING | | | | + + + + + documented in this encounter Visit Diagnoses + + | Diagnosis | + + | Asthma, extrinsic Extrinsic asthma, unspecified | + + documented in this encounter
--- OUTSIDE RECORDS SUMMARY | ~2020-02-27 | XMS | Encounter Summary ---
Demographics + + + | Address | [address] | | | [place] [address] | + + + | Home Phone | | + + + | Preferred Language | Unknown | + + + | Marital Status | | + + + | Oriental Orthodox Affiliation | 1077 | + + + | Race | White | + + + | Ethnic Group | Not or | + + + Author + + + | Author | [facility] | | | and [place] | + + + | Organization | [facility] | | | [...] Team Providers + +------+ + | Care Bar Waiter/Waitress Name | Role | Phone | + +------+ + | Akua Hamilton MD | PCP | | + +------+ + Reason for Visit +--------+ + | Reason | Comments | +--------+ + | Asthma | Yearly | +--------+ + Encounter Details +--------+---------+ + + + | Date | Type | Department | Care Team | Description | +--------+---------+ + + + | 12/25/ | Office | [facility] | Hernandez Tejada, | Mild intermittent | | 2017 | Visit | PULMONARY [address] | MD [address] | asthma without | | | | [place], | [place], [place] | complication | | | | [place] [address] | [address] | | | | | [phone] | | | +--------+---------+ + + + Social History + + [...] | | | + +---+---+---+ + + | Tobacco Cessation: Counseling Given: No | + + + + +---------+ + | Alcohol Use [...] + + + | Blood Pressure | 110/80 | 12/25/2016 2:04 PM | | | | | PDT | | + + + + + | Pulse | 90 | 12/25/2016 2:04 PM | | | | | PDT | | + + + + + | Temperature | - | - | | + + + + + | Respiratory Rate | - | - | | + + + + + | Oxygen Saturation | 98% | 12/25/2016 2:04 PM | | | | | PDT | | + + + + + | Inhaled Oxygen | - | - | | | Concentration | | | | + + + + + | Weight | 84.1 kg (185 lb 6.4 | 12/25/2016 2:04 PM | | | | oz) | PDT | | + + + + + | Height | 165.1 cm (5' 5") | 12/25/2016 2:04 PM | | | | | PDT | | + + + + + | Body Mass Index | 30.85 | 12/25/2016 2:04 PM | | | | | PDT | | + + + + + documented in this encounter Patient Instructions Patient Instructions Hernandez Tejada MD - 12/25/2016 2:30 PM PDT Please get high dose FluVaccine in April The flu (influenza) is caused by a virus that is easily spread. A fluvaccine protects you and othersfrom the flu. It s best to get a flu shot each fall, as soon as the vaccine i s available in your area. You can get it at your healthcare provider s office or a health clinic. Drugstores, senior centers, and workplaces often offer flu shots, too. If you want t o know if your providerhas the flu vaccine available, or if you have other questions, ask your healthcare provider. Flu facts The flu shot will not give you the flu. The flu can be dangerous even life-threatening. Every year, about 36,000 people fr om complications from the flu. The flu is caused by a virus. It can t be treated with antibiotics. Influenza is not the same as stomach flu, the 24-hour bug that causes vomiting and diarrhea. This is most likely because of a GI (gastrointestinal) infection not the flu. You need to get a flu shot each year. Flu symptoms Flu symptoms tend to come on quickly. Fever, headache, fatigue, cough, sore throat, runny n ose, and muscle aches are symptoms of the flu. Upset stomach and vomiting are not common for adults. Some symptoms such as fatigue and cough may last a few weeks. How a flu shot protects you There are many types (strains) of theflu virus. Medical experts predict which strains are most likely to make people sick each year. Flu shots are made from these strains. When you get a flu vaccine, "killed" (inactivated) or very mild flu viruses are injected into your steph dy or sprayed into your nose. These cannot give you the flu. But they do cause your body to make antibodies to fight these flu strains. If you are exposed to the same strains later in the flu season, the antibodies will fight off the germs. Recommendations for the flu vaccine The CDC recommends that infants over the age of 6 months and all children and adults should get aflu shot every year. Some people are at an increased risk of developing serious complications from the flu. It i s extremely important that these people get the vaccine. They include those with: Long-term heart and lung conditions Other serious health conditions Endocrine disorders such as diabetes Kidney or liver disorders Weakened immune system from disease or medical treatment. For example, people with HIV o r AIDS or those taking long-term steroids or medicines to treat cancer. Blood disorders such as sickle cell disease It is also very important that others who have an increased risk of being exposed to the fl u or are around people with increased risk for complications get the vaccine. They are: Healthcare providers and other staff who provide care in hospitals, nursing homes, home health, and other facilities Household members, including children of people in high-risk groups Types of flu vaccines The flu vaccine is available as a shot and as a nasal spray. Your healthcare provider will determine which vaccine is right for you. Flu shot The shot is available in a few different forms. There is a high-dose vaccine for those over 65 and a vaccine for those with egg allergies. It is safe for most people. Talk with your p quang if you have had: A severe allergic reaction to a previous flu vaccine Guillain-Gudino syndrome. This is a severe paralyzing condition. Nasal spray The nasal spray is not recommended for the 5741-7909 flu season. The CDC says this is becau se the nasal spray did not seem to protect against the flu over the last several flu seasons . In the past, it was meant for people ages 2 to 49. Date Last Reviewed: 03/08/201419994029-6579 [employer]. [address] [place] [address]. All righ ts reserved. This information is not intended as a substitute for professional medical care. Always follow your healthcare professional's instructions. documented in this encounter Progress Notes Hernandez Tejada MD - 12/25/2016 2:30 PM PDTFormatting of this note might be different f rom the original. Pulmonary Follow Up 12/25/2016 HPI Aboila Vaughan is a 81 y.o. female patient of Akua Hamilton MD here today for foll ow up of asthma. The patient's last visit was on 12/26/15. Since the last visit she feels like their asthma has been stable. They have not had any acute illnesses resulting in worsening asthma sympto ms. They have not required a burst of prednisone since our last appointment. Specifically 0 tapers of prednisone have occurred over the interval. Lastly Abiola notes 0 ED visits a nd 0 hospitalizations for asthma have occurred since the last appointment. At the time of the patient's last clinic appointment we agreed upon the discontinuation of Singulair. Following the discontinuation of Singulair Abiola did not no worsening of her asthma-like symptoms. In June 2016 patient discontinued Advair. She did well until the spring when she began to note increased 11 nonproductive cough. No other new symptoms are reported.. No controller medication regimen currently consists of as needed Proventil. Currently Lesley gallegos is using their rescue albuterol, Proventil, 0 times a day. Triggers of their asthma include pollen. She does not have nocturnal symptoms of wheezing, chest tightness or cough. She does not measure their peak flow. Currently Abiola reports being able to walk ~1/2 miles at their own pace on level ground before becoming symptomatic. They are exercising regularly. Current exercise consists of w alking for 25 minutes. She does cough chronically, and does not produce mucous. Abiola does not report symptoms of heartburn or acid reflux. They have not had recent sym ptoms of nasal congestion, runny nose or post nasal drip. New triggers since the last appointment include none. Abiola Vaughan is not smoking cigarettes. The patient have received this year's influenza vaccination. They are up to date with thei r Pneumovax and Prevnar 13. No wheezing. Past Medical History Past Medical History: Diagnosis Date Allergic rhinitis due to pollen Bleeding disorder (HCC) mild Diabetes mellitus (HCC) Disorders of bursae and tendons in shoulder region, unspecified Esophageal reflux Extrinsic asthma, unspecified Fatigue History of cervical cancer Hyperlipidemia Hypertension Obesity ARELI (obstructive sleep apnea) Overweight Peptic ulcer disease Periodic limb movements of sleep TIA (transient ischemic attack) 07/21/2013 Dysarthria for 5 minutes Allergies: Allergies Allergen Reactions Lansoprazole Hives Medications: Current Outpatient Prescriptions: aspirin 81 MG tablet, Take 81 mg by mouth Daily., Disp: , Rfl: atorvaSTATin (LIPITOR) 10 mg tablet, Take 10 mg by mouth Daily., Disp: , Rfl: Calcium Citrate (CITRACAL PO), Take 800 mg by mouth Daily., Disp: , Rfl: HYDROcodone-acetaminophen (NORCO) 5-325 mg per tablet, Take 1 tablet by mouth as neede d., Disp: , Rfl: lisinopril (PRINIVIL, ZESTRIL) 20 mg tablet, Take 1 tablet by mouth 2 times daily., Di sp: 60 tablet, Rfl: 5 metFORMIN (GLUCOPHAGE) 500 mg tablet, Take 500 mg by mouth 3 times daily., Disp: , Rfl : Multiple Vitamins-Minerals (MULTIVITAMIN PO), Take by mouth 2 times daily., Disp: , R fl: omeprazole (PRILOSEC) 20 mg capsule, Take 20 mg by mouth Daily., Disp: , Rfl: PROVENTIL HFA 108 (90 Base) MCG/ACT inhaler, Inhale 2 puffs into the lungs every 4 olivia rs as needed for Wheezing or Shortness of Breath., Disp: , Rfl: UNABLE TO FIND, Med Name: Resmed AirSense 10 autoset CPAP: 4-15cm while sleeping., Dis p: , Rfl: Immunizations: Immunization History Administered Date(s) Administered INFLUENZA 65 Y OR >, TRIVALENT HIGH-DOSE 04/26/2015 INFLUENZA PF 18 Y OR >,TRIVALENT RECOMBINANT 03/18/2012, 04/26/2013, 04/26/2015 PNEUMOCOCCAL CONJUGATE 13-VALENT (PCV13) 12/26/2015 PNEUMOCOCCAL POLYSACCHARIDE 23-VALENT (PPSV23) 09/16/2007 Objective BP 110/80 | Pulse 90 | Ht 1.651 m (5' 5") | Wt 84.1 kg (185 lb 6.4 oz) | SpO2 98% | Br eastfeeding? No | BMI 30.85 kg/m Appearance: Alert, cooperative, no distress, appears stated age. Head: Normocephalic, without obvious abnormality, atraumatic. Eyes: PERRL, conjunctiva/corneas clear. Nose: Nares normal, septum midline, mucosa normal, no drainage or sinus tenderness. Throat: Lips, mucosa, and tongue normal. Teeth/dentures normal. No thrush. Neck: Supple, symmetrical, no JVD. Lungs: No accessory muscle use, breath sounds are clear to auscultation bilaterally, no w heezes, crackles or rhonchi. No dullness to percussion. Chest Wall: No tenderness or deformity. Heart: Regular rate and rhythm, S1, S2 normal, no murmur, rub or gallop. Extremities: Extremities normal, atraumatic, no cyanosis, clubbing. none edema. Skin: Warm and dry. Lymph nodes: Cervical and supraclavicular nodes normal. Neurologic: Gait normal. Data: None Assessment 1. Asthma likely mild intermittent. Over the last 12 months Abiola has discontinued b oth Singulair and Advair. In the spring of this year she began to note increased a nonprodu ctive cough. He remains to be seen whether the patient's cough is a manifestation of her asthma or not. I suggested to the patient that she trial use of Proventil in association with her cough. If the cough decreases were Proventil that would support asthma is etiology and would sugges t that the patient would benefit from a controller medication such as inhaled corticosteroid . If the cough does not improve I would suggest asthma is not part of the pathophysiology. Abiola is up-to-date with respect to her seasonal influenza vaccination, Prevnar and Pneu movax. Plan 1. Trial of Proventil as noted above. 2. The patient will report her response to Proventil. 3. High-dose seasonal influenza vaccination April 2017 4. Pulmonary clinic follow-up appointment in 12 months time or sooner if needed. CC: Akua Hamilton MD documented in this encounter Plan of Treatment +--------+---------+ + + + | Date | Type | Specialty | Care Team | Description | +--------+---------+ + + + | 04/13/ | Office | Cardiology | Doretha Frazier, | | | 2020 | Visit | | [address] | | | | | | [place], | | | | | | [place] [address] | | | | | | [phone] | | | | | | | | +--------+---------+ + + + documented as of this encounter Visit Diagnoses + + | Diagnosis | + + | Mild intermittent asthma without complication Unspecified asthma | + + documented in this encounter
--- OUTSIDE RECORDS SUMMARY | ~2020-02-27 | XMS | Encounter Summary ---
Demographics + + + | Address | [address] | | | [place] [address] | + + + | Home Phone | | + + + | Preferred Language | Unknown | + + + | Marital Status | | + + + | Sikhism Affiliation | 1077 | + + + | Race | White | + + + | Ethnic Group | Not or | + + + Author + + + | Author | [facility] | | | and [place] | + + + | Organization | [facility] | | [...] Team Providers + +------+ + | Care Receiving Worker Name | Role | Phone | + +------+ + | Akua Hmailton MD | PCP | | + +------+ + Reason for Visit + +--------+ + | Reason | Onset | Comments | | | Date | | + +--------+ + | Lab Order | 08/31/ | Pt due for labs prior to appt. | | | 2018 | | + +--------+ + Encounter Details +--------+ + + + + | Date | Type | Department | Care Team | Description | +--------+ + + + + | 08/31/ | Telephone | [facility] | Doretha Frazier, | Lab Order (Pt due | | 2019 | | CARDIOLOGY [address] | MD [address] | for labs prior to | | | | [address] [place], | [place], | appt. ) | | | | [place] [address] | [place] [address] | | | | | [phone] | [phone] | | | | | | | [...] this encounter Miscellaneous Notes Telephone Encounter - Jen Moss RN - 08/31/2018 11:03 AM PSTOrders done ........ ..................................Jen Moss, RN on 08/31/18 at 11:03 elephone Encount Baylee Beebe, Drill Presser - 08/31/2018 10:43 AM PSTPatients voicemail is non-descriptive so left a voicemail for them to call us back in regards to their appoint ment 09/06/18. Patient is due for fasting labs (CBC,LIPID) prior to their appointment. Orders will be in our system but we can forward them to wherever patient would like to have the la bs drawn. documented in this encounter Plan of Treatment [...] | | | | | | [place] [address] | | | | | | [phone] | | | | | | | | +--------+---------+ + + + + +------+--------+ + + | Name | Type | Priori | Associated Diagnoses | Order Schedule | | | | ty | | | + +------+--------+ + + | Lipid Panel | Lab | Routin | Mixed | Expected: | | | | e | hyperlipidemia | 08/31/2018, Expires: | | | | | Essential | 08/31/2019 | | | | | hypertension | | + +------+--------+ + + | CBC with | Lab | Routin | Essential | Expected: | | Differential | | e | hypertension | 08/31/2018, Expires: | | | | | | 08/31/2019 | + +------+--------+ + + documented as of this encounter Visit Diagnoses + + | Diagnosis | + + | Mixed hyperlipidemia - Primary | + + | Essential hypertension Unspecified essential hypertension | + + documented in this encounter"
--- OUTSIDE RECORDS SUMMARY | ~2020-02-27 | XMS | Encounter Summary ---
Demographics + + + | Address | [address] | | | [place] [address] | + + + | Home Phone | | + + + | Preferred Language | Unknown | + + + | Marital Status | | + + + | Yarsani Affiliation | 1077 | + + + | Race | White | + + + | Ethnic Group | Not or | + + + Author + + + | Author | [facility] | | | and [place] | + + + | Organization | [facility] | | | and [...] Team Providers + +------+ + | Care Inspector Receiving Name | Role | Phone | + [...] Description | +--------+---------+ + + + | 08/14/ | Office | [facility] | Klaus Melendrez PA | ARELI on CPAP (Primary | | 2018 | Visit | SLEEP DISORDER [address] | [address] | Dx) | | | | [address] | [place] | | | | | [place] [address] | [address] | | | | | [phone] | | | +--------+---------+ + + + [...] + | Blood Pressure | 110/80 | 08/14/2017 9:47 AM | | | | | PST | | + + + + + | Pulse | 70 | 08/14/2017 9:47 AM | | | | | PST | | + + + + + | Temperature | - | - | | + + + + + | Respiratory Rate | 16 | 08/14/2017 9:47 AM | | | | | PST | | + + + + + | Oxygen Saturation | 95% | 08/14/2017 9:47 AM | | | | | PST | | + + + + + | Inhaled Oxygen | - | - | | | Concentration | | | | + + + + + | Weight | 81.1 kg (178 lb 12.7 | 08/14/2017 9:47 AM | | | | oz) | PST | | + + + + + | Height | - | - | | + + + + + | Body Mass Index | 29.75 | 03/03/2017 1:35 PM | | | | | PDT | | + + + + + documented in this encounter Progress Notes Klaus Melendrez PA - 08/14/2017 10:00 AM PST Subjective: Patient ID: Abiola Vaughan is a 81 y.o. female. HPI last office visit: 05/13/2017 date of polysomnography: 09/16/2016 AHI: 8.4 RDI: 16.7 O2%: 79% with 6.3 minutes below 88% Machine type: ResMed AirSense 10 Mask type: full face mask DME: [facility] [place] pressure: 4-15 cm Median: 8.9 cm 95%: 12.7 cm maximum: 13.6 cm Nights using CPAP: 03/21 3030 61/62 85/92 63/93 % of nights >4 hours: 55% 93% 76% 48% 39% 25% average usage (all nights): 4:09 5:13 4:40 3:39 3:30 2:25 average usage (nights used): 4:09 5:13 4:40 3:43 3:48 3:34 AHI: 1.3 Abiola comes in for CPAP compliance. She continues to have a difficult time adjusting to her CPAP. She has been wearing it regularly, but is has had a difficult time wearing it fo r the duration of her sleep. She slept without her CPAP for about a month after having a ro ot canal and having problems with an infection in her gums following the root canal. She sta rts the night with her CPAP, but wakes at around 3am. She feels very awake at that time and says she can't "turn off" her brain. She turns on music, with no words, to help her relax. We discussed that this may be becoming a habit for her. We discussed having her sit in a dark, quiet room until she feels sleepy and to then go back to sleep with her CPAP. I have discussed the download in detail. The download shows that her sleep apnea is contro lled, with an AHI of 1.3. It also shows that her leaks are controlled. She continues to have significant stress because of family health. A nephew and great sylvia parr were diagnosed with tumors. He had surgery to have the tumor removed and is doing well in his recovery. She is hopeful to have surgery in the near future. BP 110/80 | Pulse 70 | Resp 16 | Wt 81.1 kg (178 lb 12.7 oz) | SpO2 95% | BMI 29.75 kg /m Review of Systems Objective: Physical Exam Assessment: Problem #1: OBSTRUCTIVE SLEEP APNEA ([id number]) This is controlled with CPAP. She has struggled with her CPAP usage during the last few mo nths. She is waking in the blind hanger and listening to music or reading until she become s sleepy and takes off her mask before going back to sleep at times. Plan: 1. She is to continue with CPAP indefinitely. 2. I have recommended that she work toward wearing her CPAP 100% of the time she is asleep . 3. She is to avoid taking off her mask during the night. 4. I have recommended that if she is not able to get to sleep, that she go to a dark, quie t room and sit, doing nothing, until she becomes sleepy. She is then to go back to bed with her CPAP. She is to repeat this as many times as necessary. I will follow up again in 3 months, sooner prn. Fifteen minutes were spent [id number], w ith the majority of time spent in counseling. Klaus Melendrez PA-C cc: Akua Hamilton MD documented in this enco unter Plan of Treatment +--------+---------+ + + + | Date | Type | Specialty | Care Team | Description | +--------+---------+ + + + | 10/23/ | Office | Cardiology | Doretha Frazier, | | | 2020 | Visit | | [address] | | | | | | [place], | | | | | | [place] [address] | | | | | | [phone] | | | | | | | | +--------+---------+ + + + documented as of this encounter Visit Diagnoses + + | Diagnosis | + + | ARELI on CPAP - Primary Obstructive sleep apnea (adult) (pediatric) | + + documented in this encounter
--- OUTSIDE RECORDS SUMMARY | ~2020-02-27 | XMS | Encounter Summary ---
Demographics + + + | Address | [address] | | | [place] [address] | + + + | Home Phone | | + + + | Preferred Language | Unknown | + + + | Marital Status | | + + + | Temple Affiliation | 1077 | + + + | Race | White | + + + | Ethnic Group | Not or | + + + Author + + + | Author | [facility] | | | and [place] | + + + | Organization | [facility] | | | [...] Team Providers + +------+ + | Care Insect Control Inspector Name | Role | Phone | + +------+ + | Akua Hamilton MD | PCP | | + +------+ + Reason for Visit + +--------+ + | Reason | Onset | Comments | | | Date | | + +--------+ + | Blood Pressure Check | 06/28/ | Blood pressure log from 05/30-06/12 | | (Screening) | 2017 | | + +--------+ + Encounter Details +--------+ + + + + | Date | Type | Department | Care Team | Description | +--------+ + + + + | 06/28/ | Telephone | [facility] | Doretha Frazier, | Blood Pressure Check | | 2018 | | CARDIOLOGY [address] | [address] | (Screening) (Blood | | | | [place], | [place], | pressure log from | | | | [place] [address] | [place] [address] | 05/30-06/12) | | | | [phone] | [phone] | | | | | | | [...] Telephone Encounter - Nancy Jorgensen RN - 06/28/2018 1:54 PM PSTCalled and relayed mess age per Dr. Bustillo. Viniciusay per [place]. ...........................................NANCY DEL VALLE RN on 06/28/18 at 13:55 elephone Encounter - Doretha Frazier MD - 06/28/2018 11:15 AM PSTNo med change. Thank you. elephone Encounter - Elisabeth Miner, Chip Bin Operator - 06/28/2018 11:06 AM PSTFormatting of this note amber ht be different from the original. Next Visit: [facility] 09/06/2018 Blood pressure log received from patient as follows: Medication Change: Increase lisinopril to 20 mg twice daily Date BP AM Pulse AM BP PM Pulse PM 05/30 151/73 77 170/86 86 05/31 160/81 72 179/86 74 06/01 139/77 75 186/88 80 06/02 141/74 74 176/86 72 06/03 148/69 71 192/92 77 06/04 158/77 71 152/72 73 06/05 115/62 72 153/81 62 06/06 113/67 79 164/85 82 06/07 105/61 76 136/75 76 06/08 139/71 74 159/73 72 06/09 153/70 71 170/81 82 06/10 161/74 70 157/81 75 06/11 103/59 75 149/81 72 06/12 103/55 83 134/81 76 Additional Comments: Electronically signed by Elisabeth Miner, Chip Bin Operator at 2017 11:10 AM PSTdocumented in this encounter Plan of Treatment +--------+---------+ + + + | Date | Type | Specialty | Care Team | Description | +--------+---------+ + + + | 10/23/ | Office | Cardiology | Doretha Frazier, | | | 2020 | Visit | | [address] | | | | | | [place], | | | | | | [place] [address] | | | | | | [phone] | | | | | | | | +--------+---------+ + + + documented as of this encounter Visit Diagnoses Not on filedocumented in this encounter"
--- OUTSIDE RECORDS SUMMARY | ~2020-02-27 | XMS | Encounter Summary ---
Demographics + + + | Address | [address] | | | [place] [address] | + + + | Home Phone | | + + + | Preferred Language | Unknown | + + + | Marital Status | | + + + | Spiritism Affiliation | 1077 | + + + | Race | White | + + + | Ethnic Group | Not or | + + + Author + + + | Author | [facility] | | | and [place] | + + + | Organization | [facility] | | [...] Team Providers + +------+ + | Care Sheet Rocker Name | Role | Phone | + +------+ + | Akua Hamilton MD | PCP | | + +------+ + Encounter Details +--------+ + + + + | Date | Type | Department | Care Team | Description | +--------+ + + + + | 05/08/ | Abstract | [facility] | Doretha Frazier, | | | 2015 | | CARDIOLOGY [address] | | | | | [place], | [place], | | | | | [place] [address] | [place] [address] | | | | | [phone] | [phone] | | | | | | | [...] [place], | | | | | | [place] [address] | | | | | | [phone] | | | | | | | | +--------+---------+ + + + documented as of this encounter Procedures + +--------+ + + + | Procedure Name | Priori | Date/Time | Associated Diagnosis | Comments | | | ty | | | | + +--------+ + + + | EXTERNAL LAB: [facility] | Routin | 04/29/2016 | | Results for this | | | e | | | procedure are in the | | | | | | results section. | + +--------+ + + + | EXTERNAL LAB: [facility] | Routin | 04/29/2016 | | Results for this | | | e | | | procedure are in the | | | | | | results section. | + +--------+ + + + | EXTERNAL LAB: [facility] | Routin | 04/29/2016 | | Results for this | | | e | | | procedure are in the | | | | | | results section. | + +--------+ + + + | [facility]PE WITH | Routin | 04/29/2016 | | Results for this | | DIFFERENTIAL | e | | | procedure are in the | | | | | | results section. | + +--------+ + + + documented in this encounter Results External Lab: [facility] (04/29/2016) + +-------+ + + + | Component | Value | Ref Range | Performed | Pathologist | | | | | At | Signature | + +-------+ + + + | Neutrophils | 64.3 | 37 - 80 | EXTERNAL | | | %, | | | LAB | | | External | | | | | + +-------+ + + + | Lymphocytes | 20.6 | 10 - 50 | EXTERNAL | | | %, | | | LAB | | | External | | | | | + +-------+ + + + | Monocytes | 11.3 | 0 - 12 | EXTERNAL | | | %, External | | | LAB | | + +-------+ + + + | Eosinophils | 3.1 | 0 | EXTERNAL | | | %, | | | LAB | | | External | | | | | + +-------+ + + + | Neutrophils | 5.0 | 2 - 6.9 | EXTERNAL | | | , Absolute, | | | LAB | | | External | | | | | + +-------+ + + + | Lymphocytes | 1.6 | 0.6 - 3.4 | EXTERNAL | | | , Absolute, | | | LAB | | | External | | | | | + +-------+ + + + | Monocytes, | 0.90 | 0 - 0.9 | EXTERNAL | | | Absolute, | | | LAB | | | External | | | | | + +-------+ + + + | Eosinophils | 0.2 | 0 - 7 | EXTERNAL | | | , Absolute | | | LAB | | + +-------+ + + + | Basophils, | 0.1 | 0 - 0.2 | EXTERNAL | | | Absolute | | | LAB | | + +-------+ + + + + + | Resulting Agency Comment | + + | [facility] | + + + +---------+ + + | Performing | Address | City/State/Zipcode | Phone Number | | Organization | | | | + +---------+ + + | EXTERNAL LAB | | | | + +---------+ + + CBC with Differential (04/29/2016) + +-------+ + + + | Component | Value | Ref Range | Performed | Pathologist | | | | | At | Signature | + +-------+ + + + | MPV | 9.7 | 6.6 - 10.2 fL | | | + +-------+ + + + | MCHC | 33.4 | 30.0 - 36.0 % | | | + +-------+ + + + | % Basophils | 0.7 | 1.0 % | | | + +-------+ + + + + + | Specimen | + + | Blood specimen | | (specimen) | + + External Lab: CBC (04/29/2016) + + + + + + | Component | Value | Ref Range | Performed | Pathologist | | | | | At | Signature | + + + + + + | HCT, | 37.7 (A) | 38 - 47 | EXTERNAL | | | External | | | LAB | | + + + + + + | PLT, | 257 | 150 - 375 | EXTERNAL | | | External | | | LAB | | + + + + + + | RBC, | 4.11 (A) | 4.2 - 5.4 | EXTERNAL | | | External | | | LAB | | + + + + + + | MCV, | 92 | 82 - 100 | EXTERNAL | | | External | | | LAB | | + + + + + + | RDW, | 13.1 | 1.6 - 16 | EXTERNAL | | | External | | | LAB | | + + + + + + + + | Resulting Agency Comment | + + | [facility] | + + + +---------+ + + | Performing | Address | City/State/Zipcode | Phone Number | | Organization | | | | + +---------+ + + | EXTERNAL LAB | | | | + +---------+ + + External Lab: CBC (04/29/2016) + +-------+ + + + | Component | Value | Ref Range | Performed | Pathologist | | | | | At | Signature | + +-------+ + + + | WBC, | 7.7 | 4.3 - 11 | EXTERNAL | | | External | | | LAB | | + +-------+ + + + | HGB, | 12.6 | 12 - 16 | EXTERNAL | | | External | | | LAB | | + +-------+ + + + + + | Resulting Agency Comment | + + | [facility] | + + + +---------+ + + | Performing | Address | City/State/Zipcode | Phone Number | | Organization | | | | + +---------+ + + | EXTERNAL LAB | | | | + +---------+ + + documented in this encounter Visit Diagnoses Not on filedocumented in this encounter"
--- OUTSIDE RECORDS SUMMARY | ~2020-02-27 | XMS | Encounter Summary ---
Demographics + + + | Address | [address] | | | [place] [address] | + + + | Home Phone | | + + + | Preferred Language | Unknown | + + + | Marital Status | | + + + | Restoration Affiliation | 1077 | + + + | Race | White | + + + | Ethnic Group | Not or | + + + Author + + + | Author | [facility] | | | and [place] | + + + | Organization | [facility] | | | [...] Team Providers + +------+ + | Care Electrical Installation Inspector Name | Role | Phone | + +------+ + | Akua Hamilton MD | PCP | | + +------+ + Reason for Visit + + + | Reason | Comments | + + + | Difficulty Breathing | | + + + Encounter Details +--------+ + + + + | Date | Type | Department | Care Team | Description | +--------+ + + + + | 01/25/ | Emergency | [facility] | Woody King, | Wheezing on | | 2018 | | [facility] | MD [address] | auscultation | | | | CENTER [address] | [place], [place] | (Primary Dx); Cough | | | | [place], [place] | [address] | in adult; | | | | [address] | | Bronchitis; | | | | [phone] | | Hyponatremia | +--------+ + + + + Social [...] + + + | Blood Pressure | 106/57 | 01/25/2018 3:37 PM | | | | | PDT | | + + + + + | Pulse | 69 | 01/25/2018 3:37 PM | | | | | PDT | | + + + + + | Temperature | 36.7 C (98 F) | 01/25/2018 11:07 AM | | | | | PDT | | + + + + + | Respiratory Rate | 18 | 01/25/2018 2:23 PM | | | | | PDT | | + + + + + | Oxygen Saturation | 99% | 01/25/2018 3:37 PM | | | | | PDT | | + + + + + | Inhaled Oxygen | - | - | | | Concentration | | | | + + + + + | Weight | 75 kg (165 lb 5.5 | 01/25/2018 11:07 AM | | | | oz) | PDT | | + + + + + | Height | 165.1 cm (5' 5") | 01/25/2018 11:07 AM | | | | | PDT | | + + + + + | Body Mass Index | 27.51 | 01/25/2018 11:07 AM | | | | | PDT | | + + + + + documented in this encounter Discharge Instructions AttachmentsThe following attachments cannot be sent through Care Everywhere.Acute Bronchiti s, What Is (Indian)documented in this encounter Medications at Time of Discharge + + + +---------+ + + | Medication | Sig | Dispensed | Refills | Start | End Date | | | | | | Date | | + + + +---------+ + + | albuterol 90 | Inhale 2 puffs into | 1 | 0 | 01/26/20 | | | mcg/puff inhaler | the lungs every 4 | Inhaler | | 18 | 9 | | | hours as needed for | | | | | | | Wheezing or | | | | | | | Shortness of Breath. | | | | | | | Use with spacer | | | | | | | device. | | | | | + + + +---------+ + + | aspirin 81 MG | Take 81 mg by mouth | | 0 | | 0822/201 | | tablet | Daily. | | | | 9 | + + + +---------+ + + | atorvaSTATin | Take 10 mg by mouth | | 0 | 03/25/20 | | | (LIPITOR) 10 mg | Daily. | | | 12 | 9 | | tablet | | | | | | + + + +---------+ + + | azithromycin | Take 2 tablets by | 6 | 0 | 01/26/20 | | | (ZITHROMAX) 250 mg | mouth on day 1, and | tablet | | 18 | 8 | | tablet | 1 tablet by mouth | | | | | | | every day | | | | | + + + +---------+ + + | Calcium Citrate | Take 800 mg by mouth | | 0 | | | | (CITRACAL PO) | Daily. | | | | 9 | + + + +---------+ + + | | Take 1 tablet by | 90 | 3 | 12/01/19 | | | hydroCHLOROthiazide | mouth Daily. | tablet | | 18 | 9 | | 25 mg tablet | | | | | | + + + +---------+ + + | | Take 1 tablet by | | 0 | 05/16/20 | | | HYDROcodone-acetamin | mouth as needed. | | | 16 | 9 | | ophen (NORCO) 5-325 | | | | | | | mg per tablet | | | | | | + + + +---------+ + + | lisinopril | Take 1 tablet by | 180 | 3 | 03/03/20 | | | (PRINIVIL, ZESTRIL) | mouth 2 times daily. | tablet | | 17 | 8 | | 20 mg tablet | | | | | | + + + +---------+ + + | metFORMIN | Take 500 mg by mouth | | 0 | 03/25/20 | | | (GLUCOPHAGE) 500 mg | 3 times daily. | | | 12 | 9 | | tablet | | | | | | + + + +---------+ + + | methylPREDNISolone | Follow package | 21 | 0 | 01/26/20 | | | (MEDROL DOSEPAK) 4 | directions. | tablet | | 18 | 8 | | mg tablet | | | | | | + + + +---------+ + + | Multiple | Take by mouth 2 | | 0 | | | | Vitamins-Minerals | times daily. | | | | 9 | | (MULTIVITAMIN PO) | | | | | | + + + +---------+ + + | omeprazole | Take 20 mg by mouth | | 0 | 03/14/20 | | | (PRILOSEC) 20 mg | Daily. 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 | | | | | + + + +---------+ + + documented as of this encounter ED Notes Woody King MD - 01/25/2018 1:56 PM PDTFormatting of this note might be different fr om the original. [facility] Abiola Vaughan Emergency Department Encounter Note [address] [place] [address] PCP:Akua Hamilton MD HALL02 CHIEF COMPLAINT: Chief Complaint Patient presents with Difficulty Breathing HPI Abiola Vaughan is a 82 y.o. female who presents to the Emergency Department with cou ghing and difficult breathing. This is an 82-year-old female has been sick for about 2 week s. She was put on antibiotics. She's not sure what antibiotic she took it twice a day. Sh e completed that and still feels poorly. She is wheezing, coughing, and having difficult br eathing. The patient is in normal sinus rhythm on the monitor but complains of shortness of breath and feelings of fatigue. No fevers or chills now just generalized fatigue. PAST MEDICAL & SURGICAL HISTORY Past Medical History: Diagnosis Date Allergic rhinitis due to pollen Bleeding disorder (HCC) mild Diabetes mellitus (HCC) Disorders of bursae and tendons in shoulder region, unspecified Esophageal reflux Extrinsic asthma, unspecified Fatigue History of cervical cancer Hyperlipidemia Hypertension Obesity ARELI (obstructive sleep apnea) Overweight(278.02) Peptic ulcer disease Periodic limb movements of sleep TIA (transient ischemic attack) 07/21/2013 Dysarthria for 5 minutes Past Surgical History: Procedure Laterality Date APPENDECTOMY bilateral cataract extractions and lens implantation 2009 gastric resection 1978 partial HERNIA REPAIR left HYSTERECTOMY vaginal INGUINAL HERNIA REPAIR right stomach stapling 1977 TONSILLECTOMY CURRENT MEDICATIONS Previous Medications ASPIRIN 81 MG TABLET Take 81 mg by mouth Daily. ATORVASTATIN (LIPITOR) 10 MG TABLET Take 10 mg by mouth Daily. CALCIUM CITRATE (CITRACAL PO) Take 800 mg by mouth Daily. HYDROCHLOROTHIAZIDE 25 MG TABLET Take 1 tablet by mouth Daily. HYDROCODONE-ACETAMINOPHEN (NORCO) 5-325 MG PER TABLET Take 1 tablet by mouth as needed. LISINOPRIL (PRINIVIL, ZESTRIL) 20 MG TABLET Take 1 tablet by mouth 2 times daily. METFORMIN (GLUCOPHAGE) 500 MG TABLET Take 500 mg by mouth 3 times daily. MULTIPLE VITAMINS-MINERALS (MULTIVITAMIN PO) Take by mouth 2 times daily. OMEPRAZOLE (PRILOSEC) 20 MG CAPSULE Take 20 mg by mouth Daily. UNABLE TO FIND Med Name: Resmed AirSense 10 autoset CPAP: 4-15cm while sleeping. 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 Gastrointestinal: Negative for abdominal pain, nausea and vomiting. As in history of present illness. A 10 system review was otherwise negative. PHYSICAL EXAM VITAL SIGNS: (first vital signs):Temp: 36.7 C (98 F) Pulse: 88 Resp: 12 SpO2: 97 % BP: 164/74 Body mass index is 27.51 kg/m. Constitutional: female patient, pleasant, alert and appropriate, conversant with nurse and staff. HEENT: Atraumatic, patient follows me around the room with their eyes, PERRL, Oropharynx s hows no redness, moist mucus membranes. Neck: Supple with full range of motion. No JVD, lymphadenopathy, or meningismus. Respiratory: Poor air movement bilaterally. Moderate wheezes, no rales. Patient's work of breathing is normal. Cardiovascular: Normal S1 S2. No rubs or murmurs Abdomen: Soft, nontender. No rebound, guarding, or masses. Bowel tones normal. No pulsa tile masses Back: No CVA tenderness. No midline thoracic or lumbar spinal tenderness. Extremities: Nontender. No edema, no calf asymmetry. Present distal pulses. Skin: Warm, Dry, No obvious rashes. Capillary refill is brisk <3 seconds and shows good p erfusion on areas of visible skin. Neurologic: Alert & oriented. Cranial nerves II-XII intact. No focal deficits. Gait is n ormal. Speech is normal. Psychiatric: Normal mood, affect and judgement. No evidence of suicidal or homicidal idea tion at this time. LABS Results for orders placed or performed during the hospital encounter of 01/25/18 CBC with Differential Result Value Ref Range WBC 12.1 (H) 4.0 - 11.0 K/uL RBC 4.40 3.70 - 5.20 M/uL Hgb 13.3 11.5 - 16.0 g/dL Hct 39.3 34.0 - 47.0 % MCV 89.4 83.0 - 101.0 fL MCH 30.2 28.0 - 35.0 pg MCHC 33.8 32.0 - 36.0 g/dL RDW-CV 13.3 <15.0 % Platelet Count 411 140 - 440 K/uL MPV 8.6 fL % Neutrophils 67.2 45.0 - 82.0 % % Lymphocytes 19.7 (L) 20.0 - 45.0 % % Monocytes 11.1 4.0 - 12.0 % % Eosinophils 1.2 0.0 - 5.0 % % Basophils 0.8 0.0 - 1.0 % Absolute Neutrophils 8.10 1.80 - 8.50 K/uL Absolute Lymphocytes 2.40 0.60 - 3.20 K/uL Absolute Monocytes 1.30 (H) 0.00 - 1.00 K/uL Absolute Eosinophils 0.10 0.00 - 0.40 K/uL Absolute Basophils 0.10 0.00 - 0.10 K/uL Comprehensive Metabolic Panel Result Value Ref Range NA 127 (L) 136 - 149 mmol/L K 4.5 3.5 - 5.1 mmol/L CL 90 (L) 98 - 109 mmol/L CO2 23 (L) 24 - 31 mmol/L ANION GAP 14 3 - 16 mmol/L GLUCOSE 116 (H) 70 - 109 mg/dL BUN 29 (H) 7 - 18 mg/dL Creatinine, Serum/Plasma 1.30 0.60 - 1.30 mg/dL eGFR if not 39 (L) >=60 mL/min/1.73m2 CALCIUM 10.0 8.3 - 10.5 mg/dL ALBUMIN 3.9 3.2 - 5.0 g/dL Bilirubin Total 1.0 0.1 - 1.5 mg/dL Total protein 6.9 6.0 - 7.8 g/dL AST 24 10 - 42 U/L ALT 16 6 - 45 U/L ALK PHOS 51 40 - 110 U/L GLOBULIN 3.0 2.1 - 3.8 g/dL Albumin/Globulin ratio 1.3 0.8 - 2.0 BUN/CREA 22.3 Troponin I Result Value Ref Range Troponin I <0.01 <0.06 ng/mL B Type Natriuretic Peptide Result Value Ref Range BNP 15 <100 pg/mL ECG 12 lead Result Value Ref Range INTERPRETATION TEXT Not Confirmed IMAGING STUDIES Recent imaging: Recent Results (from the past 360 hour(s)) XR Chest PA and Lateral Narrative XR CHEST PA AND LATERAL 01/25/2018 11:45 AM HISTORY: DIFFICULTY BREATHING. COMPARISON: None. Findings: Heart size is within normal limits. There is atherosclerosis of the aorta. Mediastinum is unremarkable. Central pulmonary vasculature is normal. There is a radiopaque density over the right lower chest. Mild scarring are in the lung bases. Mild elevation of the right hemidiaphragm is seen. Mild right curvature of the thoracolumbar spine is present along with moderate spondylosis. IMPRESSION - Radiopaque density over right lower chest. This could be external. If clinically indicated, repeat PA and lateral views of the chest can be obtained in 3 months. No acute findings otherwise. Dictated and Signed by: Kavon Harris MD Electronically signed: 01/25/2018 12:00 PM ED COURSE & MEDICAL DECISION MAKING Pertinent Labs & Imaging studies were reviewed along with EMS notes and assisted record s if applicable. Medication and Allergy lists reviewed in [facility]. Nurses note and old record s were reviewed if available within [facility] ER course 13:56 - Patient care initiated. After introducing myself to the patient, I performed a car eful history and physical examination. Prior to my evaluation, the patient is a full cardiac workup that is essentially normal oth er than mild hyponatremia. She'll given IV normal saline and we will reevaluate. She is be en road tested and all times her pulse oximetry readings stayed 100%. The patient has no in filtrate on x-ray. The patient clearly has bronchospasm with wheezing. We will treat with albuterol, steroids, and antibiotics with atypical coverage. She will follow-up with her do ctor. Last Set of Vital Signs: Temp: 36.7 C (98 F) Pulse: 74 Resp: 18 SpO2: 97 % BP: 164/74 FINAL IMPRESSION 1. Wheezing on auscultation 2. Cough in adult 3. Bronchitis 4. Hyponatremia Disposition: Discharge home Condition: Stable Follow-up Information Schedule an appointment as soon as possible for a visit with Akua Hamilton MD. Specialty: Family Medicine Contact information: [address] [facility] [address] New Prescriptions ALBUTEROL 90 MCG/PUFF INHALER Inhale 2 puffs into the lungs every 4 hours as needed for Wheezing or Shortness of Breath. Use with spacer device. AZITHROMYCIN (ZITHROMAX) 250 MG TABLET Take 2 tablets by mouth on day 1, and 1 tablet b y mouth every day METHYLPREDNISOLONE (MEDROL DOSEPAK) 4 MG TABLET Follow package directions. Discontinued Medications ALBUTEROL (PROAIR HFA) 90 MCG/PUFF INHALER Inhale 2 puffs into the lungs every 4 hours as needed for Wheezing or Shortness of Breath. Discharge References/Attachments Acute Bronchitis, What Is (Indian) Administrations This Visit albuterol-ipratropium (DUONEB) 2.5-0.5 mg/3 mL nebulizer solution 3 mL Admin Date 01/25/2018 Action Given Dose 3 mL Route Nebulization Administered By Aileen Stewart RRT sodium chloride 0.9% (NS) bolus 1,000 mL Admin Date 01/25/2018 Action New Bag Dose 1000 mL Rate 4,000 mL/hr Route Intravenous Administered By Jyothi Alexandra RN Portions of this chart may have been created with [employer] voice recognition software. Occasi onal wrong-word or sound-alike substitutions may have occurred due to the inherent dolan itations of voice recognition software. Please read the chart carefully and recognize, using context, where these substitutions have occurred. Woody King MD 01/25/18 1442 ry, Molly Moreira RN - 01/25/2018 11:06 AM PDTPt reports increase in difficulty breathing since last night, was se en 1 week ago & dx pneumonia by [facility] & started on abx. Denies hx of COPD or smoking. Jeanine ctronically signed by Molly Robles RN at 01/25/2018 11:08 AM PDTdocumented in this encount er Plan of Treatment +--------+---------+ + + + | Date | Type | Specialty | Care Team | Description | +--------+---------+ + + + | 10/23/ | Office | Cardiology | Doretha Frazier, | | | 2020 | Visit | | [address] | | | | | | [place], | | | | | | [place] [address] | | | | | | [phone] | | | | | | | | +--------+---------+ + + + documented as of this encounter Procedures + +--------+ + + + | Procedure Name | Priori | Date/Time | Associated Diagnosis | Comments | | | ty | | | | + +--------+ + + + | ECG 12 LEAD | STAT | 01/25/2018 | | Results for this | | | | 1:14 PM | | procedure are in the | | | | PDT | | results section. | + +--------+ + + + | TROPONIN I | STAT | 01/25/2018 | | Results for this | | | | 1:09 PM | | procedure are in the | | | | PDT | | results section. | + +--------+ + + + | CBC WITH | STAT | 01/25/2018 | | Results for this | | DIFFERENTIAL | | 1:09 PM | | procedure are in the | | | | PDT | | results section. | + +--------+ + + + | B TYPE NATRIURETIC | STAT | 01/25/2018 | | Results for this | | PEPTIDE | | 1:09 PM | | procedure are in the | | | | PDT | | results section. | + +--------+ + + + | COMPREHENSIVE | STAT | 01/25/2018 | | Results for this | | METABOLIC PANEL | | 1:09 PM | | procedure are in the | | | | PDT | | results section. | + +--------+ + + + | XR CHEST PA AND | STAT | 01/25/2018 | | Results for this | | LATERAL | | 11:45 AM | | procedure are in the | | | | PDT | | results section. | + +--------+ + + + documented in this encounter Results ECG 12 lead (01/25/2018 1:14 PM PDT) + + + + + + | Component | Value | Ref Range | Performed | Pathologist | | | | | At | Signature | + + + + + + | VENTRICULAR | 72 | BPM | [facility] | | | RATE EKG | | | | | + + + + + + | ATRIAL RATE | 72 | BPM | [facility] | | + + + + + + | P-R | 174 | ms | [facility] | | | INTERVAL | | | | | + + + + + + | QRS | 136 | ms | [facility] | | | DURATION | | | | | + + + + + + | Q-T | 416 | ms | [facility] | | | INTERVAL | | | | | + + + + + + | Q-T | 455 | ms | [facility] | | | INTERVAL | | | | | | (CORRECTED) | | | | | + + + + + + | P WAVE AXIS | 16 | degrees | [facility] | | + + + + + + | QRS AXIS | -66 | degrees | [facility] | | + + + + + + | T AXIS | 44 | degrees | [facility] | | + + + + + + | INTERPRETAT | Normal sinus rhythmRight | | [facility] | | | ION TEXT | bundle branch blockLeft | | | | | | anterior fascicular | | | | | | block Bifascicular | | | | | | block Abnormal | | | | | | ECGWhen compared with | | | | | | ECG of 03-SEP-2017 | | | | | | 12:55,T wave are now | | | | | | upright in aVLConfirmed | | | | | | by MISSY KAY MD | | | | | | ([id number]) on 01/26/2018 | | | | | | 6:30:28 AM | | | | + + + + + + + + | Specimen | + + | | + + + + + | Narrative | Performed At | + + + | | | + + + + +---------+ + + | Performing | Address | City/State/Zipcode | Phone Number | | Organization | | | | + +---------+ + + | [facility] | | | | + +---------+ + + B Type Natriuretic Peptide (01/25/2018 1:09 PM PDT) + +-------+ + + + | Component | Value | Ref Range | Performed | Pathologist | | | | | At | Signature | + +-------+ + + + | BNP | 15 | <100 pg/mL | [facility] | | | | | [...] + | [facility] | [address] | [place] | [phone] | | [facility] | | [address] | | | - LABORATORY | | | | + + + + + Troponin I (01/25/2018 1:09 PM PDT) + + + + + + | Component | Value | Ref Range | Performed | Pathologist | | | | | At | Signature | + + + + + + | Troponin I | <0.01Comment: Reference | <0.06 ng/mL | [facility] | | | | Ranges:0.00-0.06 = | | [facility] | | | | NORMAL>0.06 = | | MEDICAL | | | | SUSPICIOUS FOR | | CENTER - | | | | MYOCARDIAL DAMAGE NOTE: | | LABORATORY | | | | Values greater than 0.50 | | | | | | ng/mL have been shown | | | | | | to be strongly | | | | | | associated with acute | | | | | | myocardial infarction. | | | | | | The [employer] | | | | | | Cardiology (ACC) | | | | | | recommends a decision | | | | | | limit of 0.06 ng/mL for | | | | | | this assay. Results | | | | | | greater than 0.06 can | | | | | | reflect a pre-infarct | | | | | | acute coronary syndrome, | | | | | | but can also reflect | | | | | | myocardial necrosis or | | | | | | injury that is not due | | | | | | to coronary artery | | | | | | disease. Some of these | | | | | | causes are sepsis, | | | | | | hypocolemia, atrial | | | | | | fibrillation, heart | | | | | | failure, pulmonary | | | | | | embolism, myocarditis, | | | | | | myocardial contusion, | | | | | | and renal failure. The | | | | | | diagnosis of myocardial | | | | | | infarction should be | | | | | | based on a combination | | | | | | of the patient's | | | | | | clinical presentation | | | | | | and the clinical | | | | | | laboratory test results | | | | | | (especially serial | | | | | | troponin levels). | | | | + + + + + + + + | Specimen | + + | Blood | + + + + + + + | Performing | Address | City/State[facility] | Phone Number | | Organization | | | | + + + + + | [facility] | [address] | [place] | [phone] | | [facility] | | [address] | | | - LABORATORY | | | | + + + + + Comprehensive Metabolic Panel (01/25/2018 1:09 PM PDT) + + + + + + | Component | Value | Ref Range | Performed | Pathologist | | | | | At | Signature | + + + + + + | Na | 127 (L) | 136 - 149 | [facility] | | | | | mmol/L | [facility] | | | | | | MEDICAL | | | | | | CENTER - | | | | | | LABORATORY | | + + + + + + | K | 4.5 | 3.5 - 5.1 | [facility] | | | | | mmol/L | [facility] | | | | | | MEDICAL | | | | | | CENTER - | | | | | | LABORATORY | | + + + + + + | Cl | 90 (L) | 98 - 109 mmol/L | [facility] | | | | | | [facility] | | | | | | MEDICAL | | | | | | CENTER - | | | | | | LABORATORY | | + + + + + + | CO2 | 23 (L) | 24 - 31 mmol/L | [facility] | | | | | | [facility] | | | | | | MEDICAL | | | | | | CENTER - | | | | | | LABORATORY | | + + + + + + | Anion Gap | 14 | 3 - 16 mmol/L | [facility] | | | | | | [facility] | | | | | | MEDICAL | | | | | | CENTER - | | | | | | LABORATORY | | + + + + + + | Glucose | 116 (H) | 70 - 109 mg/dL | [facility] | | | | | | [facility] | | | | | | MEDICAL | | | | | | CENTER - | | | | | | LABORATORY | | + + + + + + | BUN | 29 (H) | 7 - 18 mg/dL | [facility] | | | | | | [facility] | | | | | | MEDICAL | | | | | | CENTER - | | | | | | LABORATORY | | + + + + + + | Creatinine | 1.30 | 0.60 - 1.30 | [facility] | | | | | mg/dL | [facility] | | | | | | MEDICAL | | | | | | CENTER - | | | | | | LABORATORY | | + + + + + + | eGFR, | 39 (L)Comment: | >=60 | [facility] | | | non- | GLOMERULAR FILTRATION | mL/min/1.73m2 | [facility] | | | [facility] | RATE,ESTIMATED | | MEDICAL | | | | mL/min/1.05j1Uuaj than | | CENTER - | | [...] + + + + | Calcium | 10.0 | 8.3 - 10.5 | [facility] | | | | | mg/dL | [facility] | | | | | | MEDICAL | | | | | | CENTER - | | | | | | LABORATORY | | + + + + + + | Albumin | 3.9 | 3.2 - 5.0 g/dL | [facility] | | | | | | [facility] | | | | | | MEDICAL | | | | | | CENTER - | | | | | | LABORATORY | | + + + + + + | Bilirubin | 1.0Comment: This is an | 0.1 - 1.5 mg/dL | [facility] | | | Total | appended report. These | | [facility] | | | | results have been | | MEDICAL | | | | appended to a previously | | CENTER - | | | | preliminary verified | | LABORATORY | | | | report. | | | | + + + + + + | Total | 6.9 | 6.0 - 7.8 g/dL | [facility] | | | Protein | | | [facility] | | | | | | MEDICAL | | | | | | CENTER - | | | | | | LABORATORY | | + + + + + + | AST | 24Comment: This is an | 10 - 42 U/L | [facility] | | | | appended report. These | | [facility] | | | | results have been | | MEDICAL | | | | appended to a previously | | CENTER - | | | | preliminary verified | | LABORATORY | | | | report. | | | | + + + + + + | ALT | 16Comment: This is an | 6 - 45 U/L | [facility] | | | | appended report. These | | [facility] | | | | results have been | | MEDICAL | | | | appended to a previously | | CENTER - | | | | preliminary verified | | LABORATORY | | | | report. | | | | + + + + + + | Alkaline | 51Comment: This is an | 40 - 110 U/L | [facility] | | | Phosphatase | appended report. These | | [facility] | | | | results have been | | MEDICAL | | | | appended to a previously | | CENTER - | | | | preliminary verified | | LABORATORY | | | | report. | | | | + + + + + + | Globulin | 3.0 | 2.1 - 3.8 g/dL | [facility] | | | | | | [facility] | | | | | | MEDICAL | | | | | | CENTER - | | | | | | LABORATORY | | + + + + + + | Albumin/Neva | 1.3 | 0.8 - 2.0 | [facility] | | | bulin Ratio | | | [facility] | | | | | | MEDICAL | | | | | | CENTER - | | | | | | LABORATORY | | + + + + + + | BUN/Creatin | 22.3 | | [facility] | | | ine [...] + | [facility] | [address] | [place] | [phone] | | [facility] | | [address] | | | - LABORATORY | | | | + + + + + CBC with Differential (01/25/2018 1:09 PM PDT) + + + + + + | Component | Value | Ref Range | Performed | Pathologist | | | | | At | Signature | + + + + + + | White Blood | 12.1 (H) | 4.0 - 11.0 K/uL | [facility] | | | Cells | | | [facility] | | | | | | MEDICAL | | | | | | CENTER - | | | | | | LABORATORY | | + + + + + + | Red Blood | 4.40 | 3.70 - 5.20 | [facility] | | | Cells | | M/uL | [facility] | | | | | | MEDICAL | | | | | | CENTER - | | | | | | LABORATORY | | + + + + + + | Hemoglobin | 13.3 | 11.5 - 16.0 | [facility] | | | | | g/dL | [facility] | [facility] | [facility] - | | | | | | LABORATORY | | + + + + + + | Hematocrit | 39.3 | 34.0 - 47.0 % | [facility] | | | | | | [facility] | | | | | | [facility] - | | | | | | LABORATORY | | + + + + + + | MCV | 89.4 | 83.0 - 101.0 fL | [facility] | | | | | | [facility] | | | [facility] - | | | | | | LABORATORY | | + + + + + + | MCH | 30.2 | 28.0 - 35.0 pg | [facility] | | | | | [facility] | [facility] | | | | | | [facility] - | | | | | | LABORATORY | | + + + + + + | MCHC | 33.8 | 32.0 - 36.0 | [facility] | | | | | g/dL | [facility] | | | | | | [facility] | | | | | | C[facility] - | | | | | | LABORATORY | | + + + + + + | RDW-CV | 13.3 | <15.0 % | [facility] | | | | | | [facility] | [facility] | [facility] | | | | | | [facility] - | | | | | | LABORATORY | | + + + + + + | Platelet | 411 | 140 - 440 K/uL | [facility] | | | Count | | | [facility] | | [facility] | [facility] | | | | | | [facility] - | | | | | | LABORATORY | | + + + + + + | MPV | 8.6 | fL | [facility] | | | | | [facility] | [facility] | | | [facility] - | | | | | | LABORATORY | | + + + + + + | % | 67.2 | 45.0 - 82.0 % | [facility] | | | Neutrophils | | | [facility] | | | | | | [facility] | | | | | | C[facility] - | | | | | | LABORATORY | | + + + + + + | % | 19.7 (L) | 20.0 - 45.0 % | [facility] | | | Lymphocytes | | | [facility] | | | | | | [facility] | | | | | | CENTER - | | | | | | LABORATORY | | + + + + + + | % Monocytes | 11.1 | 4.0 - 12.0 % | [facility] | | | | | | [facility] | | [facility] | [facility] | | | | | | [facility] - | | | | | | LABORATORY | | + + + + + + | % | 1.2 | 0.0 - 5.0 % | [facility] | | | Eosinophils | | | [facility] | [facility] | | [facility] | | | | | | [facility] - | | | | | | LABORATORY | | + + + + + + | % Basophils | 0.8 | 0.0 - 1.0 % | [facility] | | | | | | [facility] | [facility] | [facility] | | | | | [facility] - | | | | | | LABORATORY | | + + + + + + | Absolute | 8.10 | 1.80 - 8.50 | [facility] | | | Neutrophils | | K/uL | [facility] | | | | | | [facility] | | | | | | [facility] - | | | | | | LABORATORY | | + + + + + + | Absolute | 2.40 | 0.60 - 3.20 | [facility] | | | Lymphocytes | | K/uL | [facility] | | | | | | [facility] | | | | | | [facility]ENTER - | | | | | | LABORATORY | | + + + + + + | Absolute | 1.30 (H) | 0.00 - 1.00 | [facility] | | | Monocytes | | K/uL | [facility] | | | | | | [facility] | | | | | | CENTER - | | | | | | LABORATORY | | + + + + + + | Absolute | 0.10 | 0.00 - 0.40 | [facility] | | | Eosinophils | | K/uL | [facility] | | | | | | [facility] | | | | | | CENTER - | | | | | | LABORATORY | | + + + + + + | Absolute | 0.10 | 0.00 - 0.10 | [facility] | | | Basophils | | K/uL | [facility] | | | | [...] + + | [facility] | [address] | [place], [place] | [phone] | | [facility] | | [id number] | | | - LABORATORY | | | | + + + + + XR Chest PA and Lateral (01/25/2018 11:45 AM PDT) + + | Specimen | + + | | + + + + + | Narrative | Performed At | + + + | XR CHEST PA AND LATERAL 01/25/2018 11:45 AM HISTORY: DIFFICULTY | [facility] | | BREATHING. COMPARISON: None. Findings: Heart size is within | | | normal limits. There is atherosclerosis of the aorta. Mediastinum is | | | unremarkable. Central pulmonary vasculature is normal. There is a | | | radiopaque density over the right lower chest. Mild scarring are in | | | the lung bases. Mild elevation of the right hemidiaphragm is seen. | | | Mild right curvature of the thoracolumbar spine is present along with | | | moderate spondylosis. IMPRESSION - Radiopaque density over right | | | lower chest. This could be external. If clinically indicated, repeat | | | PA and lateral views of the chest can be obtained in 3 months. No | | | acute findings otherwise. Dictated and Signed by: Kavon Harris | | | Electronically signed: 01/25/2018 12:00 PM | | + + + + + | Procedure Note | + + | Ricardo, Rad Results In - 01/25/2018 12:03 PM PDT XR CHEST PA AND LATERAL 01/25/2018 11:45 | | AMHISTORY: DIFFICULTY BREATHING.COMPARISON: None.Findings:Heart size is within normal | | limits. There is atherosclerosis of the aorta.Mediastinum is unremarkable. Central | | pulmonary vasculature is normal. There is aradiopaque density over the right lower | | chest. Mild scarring are in the lungbases. Mild elevation of the right hemidiaphragm is | | seen. Mild right curvatureof the thoracolumbar spine is present along with moderate | | spondylosis.IMPRESSION -Radiopaque density over right lower chest. This could be | | external. If clinicallyindicated, repeat PA and lateral views of the chest can be | | obtained in 3 months.No acute findings otherwise.Dictated and Signed by: Kavon Harris MD | | Electronically signed: 01/25/2018 12:00 PM | |bases. Mild elevation of the right hemidiaphragm is seen. Mild right curvature | |of the thoracolumbar spine is present along with moderate spondylosis. | | | |IMPRESSION - | |Radiopaque density over right lower chest. This could be external. If clinically | |indicated, repeat PA and lateral views of the chest can be obtained in 3 months. | | | |No acute findings otherwise. | | | |Dictated and Signed by: Kavon Harris MD | | Electronically signed: 01/25/2018 12:00 PM | + + + +---------+ + + | Performing | Address | City/State/Zipcode | Phone Number | | Organization | | | | + +---------+ + + | [facility] | | | | + +---------+ + + documented in this encounter Visit Diagnoses + + | Diagnosis | + + | Wheezing on auscultation - Primary Wheezing | + + | Cough in adult | + + | Bronchitis Bronchitis, not specified as acute or chronic | + + | Hyponatremia Hyposmolality and/or hyponatremia | + + documented in this encounter Administered Medications + +--------+ +-------+------+------+ | Medication Order | MAR | Action | Dose | Rate | Site | | | Action | Date | | | | + +--------+ +-------+------+------+ | albuterol-ipratropium (DUONEB) | Given | 01/26/20 | 3 mLs | | | | 2.5-0.5 mg/3 mL nebulizer | | 18 2:20 | | | | | solution 3 mL 3 mL, | | PM PDT | | | | | Nebulization, RT Once, Mon | | | | | | | 01/25/18 at 1415, For 1 dose | | | | | | + +--------+ +-------+------+------+ +---+---+ | | | +---+---+ + +---------+ +--------+-------+---+ | sodium chloride 0.9% (NS) bolus | New Bag | 01/26/20 | 1,000 | 4000 | | | 1,000 mL 1,000 mL, Intravenous, | | 18 2:39 | mLs | mL/hr | | | Administer over 15 Minutes, | | PM PDT | | | | | ONCE, 01/25/18 at 1440, For 1 | | | | | | | dose | | | | | | + +---------+ +--------+-------+---+ +---+---+ | | | +---+---+ documented in this encounter
--- OUTSIDE RECORDS SUMMARY | ~2020-02-27 | XMS | Encounter Summary ---
Demographics + + + | Address | [address] | | | [place] [address] | + + + | Home Phone | | + + + | Preferred Language | Unknown | + + + | Marital Status | | + + + | Church Affiliation | 1077 | + + + | Race | White | + + + | Ethnic Group | Not or | + + + Author + + + | Author | [facility] | | | and [place] | + + + | Organization | [facility] | | [...] Team Providers + +------+ + | Care Department Secretary Name | Role | Phone | + [...] Description | +--------+--------+ + + + | 10/26/ | Refill | [facility] | Doretha Frazier, | Medication Refill | | 2020 | | CARDIOLOGY [address] | MD [address] | | | | | [place], | [place], | | | | | [place] [address] | [place] [address] | | | | | [phone] | | | | | | | [...] [place], | | | | | | [place] [address] | | | | | | [phone] | | | | | | | | +--------+---------+ + + + documented as of this encounter Visit Diagnoses Not on filedocumented in this encounter"
--- OUTSIDE RECORDS SUMMARY | ~2020-02-27 | XMS | Encounter Summary ---
Demographics + + + | Address | [address] | | | [place] [address] | + + + | Home Phone [...] + + + | Author | [facility] | | | and [place] | + + + | Organization | [facility] | | [...] Team Providers + +------+ + | Care Deck Mechanic Name | Role | Phone | + +------+ + | Akua Hamilton MD | PCP | | + +------+ + Reason for Visit +--------+--------+ + | Reason | Onset | Comments | | | Date | | +--------+--------+ + | Other | 10/16/ | | | | 2020 | | +--------+--------+ + Encounter Details +--------+ + + + + | Date | Type | Department | Care Team | Description | +--------+ + + + + | 10/16/ | Telephone | [facility] [place] | Doretha Frazier, | Other | | 2020 | | CARDIOLOGY [address] | MD [address] | | | | | [place], | [place], | | | | | [place] [address] | [place] [address] | | | | | [phone] | [phone] | | | | | | | [...] this encounter Miscellaneous Notes Telephone Encounter - Jne Moss RN - 10/17/2019 2:50 PM PDTPatient notified, wi monitor blood pressure twice a day for 2 weeks. ......................................... .Jen Moss RN on 10/17/19 at 2:53 PM elephone Encount er - Doretha Frazier MD - 10/17/2019 2:15 PM PDTStop amlodipine. Check blood pressure x 2 weeks. elephone Encounter - Jen Moss RN - 10/17/2019 1:30 PM PDTPatient called, she started feeling dizz y, seeing spots and feeling faint yesterday morning. She takes her lisinopril at 8 am and 7 pm, amlodipine at 10 pm. She checked her blood sugar since she is diabetic, it was within no rmal range. 10/16/19 0800 68/43 pulse 83 10/16/19 1430 97/60 pulse 87 Did not take lisinopril this morning and was feeling the same way. 10/17/19 1000 79/59 pulse 88 10/17/19 1230 104/65 pulse 74 I informed her that I would consult with Dr Bustillo and return her call ...................... ....................Jen Moss RN on 10/17/19 at 2:02 PM documented in thi s encounter Plan of [...] [place], | | | | | | [place] [address] | | | | | | [phone] | | | | | | | | +--------+---------+ + + + documented as of this encounter Visit Diagnoses Not on filedocumented in this encounter"
--- OUTSIDE RECORDS SUMMARY | ~2020-02-27 | XMS | Encounter Summary ---
Demographics + + + | Address | [address] | | | [place] [address] | + + + | Home Phone | | + + + | Preferred Language | Unknown | + + + | Marital Status | | + + + | Pentecostalism Affiliation | 1077 | + + + | Race | White | + + + | Ethnic Group | Not or | + + + Author + + + | Author | [facility] | | | and [place] | + + + | Organization | [facility] | | [...] Team Providers + +------+ + | Care Bathhouse Keeper Name | Role | Phone | + +------+ + | Akua Hamliton MD | PCP | | + +------+ + Reason for Visit +--------+ + | Reason | Comments | +--------+ + | Asthma | f/u | +--------+ + Encounter Details +--------+---------+ + + + | Date | Type | Department | Care Team | Description | +--------+---------+ + + + | 12/27/ | Office | [facility] | Stuart Diaz | Asthma, extrinsic, | | 2015 | Visit | PULMONARY [address] | [address] | mild intermittent, | | | | [place], | [facility], [place] | uncomplicated | | | | [place] [address] | [address] | (Primary Dx); Cough; | | | | [phone] | | Allergic rhinitis | | | | | | due to pollen; | | | | | | OVERWEIGHT | +--------+---------+ + + + Social [...] + + + | Blood Pressure | 140/80 | 12/27/2014 10:02 AM | | | | | PDT | | + + + + + | Pulse | 71 | 12/27/2014 10:02 AM | | | | | PDT | | + + + + + | Temperature | - | - | | + + + + + | Respiratory Rate | 14 | 12/27/2014 10:02 AM | | | | | PDT | | + + + + + | Oxygen Saturation | 97% | 12/27/2014 10:02 AM | room air | | | | PDT | | + + + + + | Inhaled Oxygen | - | - | | | Concentration | | | | + + + + + | Weight | 82.7 kg (182 lb 4.8 | 12/27/2014 10:02 AM | | | | oz) | PDT | | + + + + + | Height | 165.1 cm (5' 5") | 12/27/2014 10:02 AM | | | | | PDT | | + + + + + | Body Mass Index | 30.34 | 12/27/2014 10:02 AM | | | | | PDT | | + + + + + documented in this encounter Patient Instructions Patient Instructions Stuart Diaz MD - 12/27/2014 10:35 AM PDTI am glad you recove red from your winter cough without needing an inhaler. Be sure to restart your Singulair at least 3 weeks before wheat harvest, and continue until May. We will continue to observe without using any inhalers. Get a flu shot next fall. I think you should get the Prevnar 13 vaccine. documented in this encounter Progress Notes Stuart Diaz MD - 12/27/2014 6:02 PM PDTFormatting of this note might be differen t from the original. Stuart Diaz MD [facility] [address] [place] [address] 12/27/2014 Abiola Vaughan 1935 History Abiola Vaughan is a 79 y.o. female followed since April 2005 for asthma and allerg ic rhinitis. She was first seen because of persistent cough, believed due to mild asthma.. S he does have a long history of intermittent shortness of breath and of allergies and hay fev er for many years. She has particular problems around wheat harvest time and she has known a llergies to wheat.. She lives in [place] and is surrounded by [place] ten[place]. She is also ve ry allergic to dust mites and her environment is very dionte. She did acquire a respiratory infection in April 2014 and had a persistent cough until ab out August 2014. However, she did not restart any inhalers and eventually her symptoms re turned to baseline. She has not used Singulair since last fall for wheat harvest. Overall, her asthma symptoms have been better the past year. She actually had very little problem w ith any springtime allergies so far this year. We discussed whether she should use Singulair again this fall, and she thinks that she shou ld because the wheat harvest is usually her most difficult time. She now has minimal cough and really not much shortness of breath except on more severe exertion. 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 Pertinent Prior Medical History After many years [...] the time that wheat is growing and harv ested, generally from about September until May. She used Advair also seasonally for a coup le of years, and we thought she would continue but she actually really did not use Advair be yond early 2011 and has done well with Singular alone. She received the flu vaccine in April 2013 but still acquired influenza in June 2013. She was told it was Influenza A. At times she has had some other exposures that have worsened her cough and asthma. She swam in a heavily chlorinated pool in a hotel and had marked dyspnea and even some crackles in h er lungs. She also had a TIA on July 21, 2013. She had about 3 or 4 minutes of expressive aphasia. She was seen at this emergency department and had a negative head CT scan. She saw Dr. Sherice cui in followup and is now on a baby aspirin daily. Patient Active Problem List Diagnosis GERD COUGH [...] puff int o the lungs Twice Daily. 1 each 5 lisinopril (PRINIVIL, ZESTRIL) 10 mg tablet Take 20 mg by mouth nightly. metFORMIN (GLUCOPHAGE) 500 mg tablet Take 500 mg by mouth 3 times daily. montelukast (SINGULAIR) 10 mg tablet Take 1 tablet by mouth Daily. 90 tablet 4 Multiple Vitamins-Minerals (MULTIVITAMIN PO) Take by mouth 2 times daily. No current facility-administered medications for this visit. No Known Allergies Past Medical History was reviewed and updated in the electronic record. Review of Systems Minimal allergy symptoms currently. She had bad cough following bronchitis this past winte r but it has resolved. Physical Examination: BP 140/80 | Pulse 71 | Resp 14 | Ht 1.651 m (5' 5") | Wt 82.691 kg (182 lb 4.8 oz) | BMI 30 .34 kg/m2 | SpO2 97% General: Pleasant middle-aged woman in no distress. She did not cough during the visit. She is slightly overweight but has lost more weight. HEENT: Nasal passages clear. Oropharynx clear without thrush. Neck: No adenopathy. Lungs: Normal resonance to percussion. Breath sounds were mildly diminished throughout the chest. She had some persistent crackles present at both lung bases even after deep breathing . This is a chronic finding. No wheezes or rhonchi. Heart: Regular rate and rhythm. No murmur or gallop. Extremities: No clubbing, cyanosis, or edema. Skin: No eczema. Warm and dry. Her last chest x-ray is from July 21, 2013. It showed no acute disease in the chest. Sunil henao has a chronically elevated right hemidiaphragm. Assessment: 1. Asthma, extrinsic, mild intermittent, uncomplicated The past few years, her asthma symptoms have been less significant, although she does have increased cough now. She would like to continue using Singulair alone, without a controller inhaler. The past 3 years she had minimal use of Advair, with none at all the past year. 2. Cough She had another prolonged cough this past winter, which clearly followed infectious bronchi tis. However, she did not use inhalers and the cough did resolve eventually after 3 or 4 mo nths. This confirms that she does not absolutely need to use controller inhalers. 3. Allergic rhinitis due to pollen These symptoms are fairly seasonal, due to her multiple allergies. She has done very well t he last few years taking Singulair seasonally. She will do the same this year. She has actu ally reduced this season of use really to just encompassing wheat harvest from about February through May. Previously she had used it from spring until May. 4. OVERWEIGHT She continues to gradually lose weight. Since the loss of her in 2012, she is eatin g less and may continue to gradually lose weight. PLAN: Begin Singulair 10 mg daily in January or February, before wheat harvest, and continue until l. Continue to observe off of inhalers, although they could be resumed if needed. Good hygiene to avoid respiratory infections. She should do her best to avoid her known allergens. She will obtain a flu vaccination each fall. She was encouraged regarding her continued weight loss. She was advised that she should get the new Prevnar 13 pneumococcal vaccine. We discussed that I am moving away and she would like to continue yearly follow-up in this clinic. Stuart Diaz Portions of this documentation were transcribed using voice recognition software. Every eff ort has been made to ensure accuracy; however, unintended grammatical and/or spelling errors may be present due to inadvertent computerized gear and spline grinder errors. If there are any ques tions regarding the gear and spline grinder, please contact our office. documented in th [...] [place], | | | | | | [place] [address] | | | | | | [phone] | | | | | | | | +--------+---------+ + + + documented as of this encounter Visit Diagnoses + + | Diagnosis | + + | Asthma, extrinsic, mild intermittent, uncomplicated - Primary | + + | Cough | + + | Allergic rhinitis due to pollen | + + | OVERWEIGHT Overweight | + + documented in this encounter
--- OUTSIDE RECORDS SUMMARY | ~2020-02-27 | XMS | Encounter Summary ---
Demographics + + + | Address | [address] | | | [place] [address] | + + + | Home Phone | | + + + | Preferred Language | Unknown | + + + | Marital Status | | + + + | Druze Affiliation | 1077 | + + + [...] Team Providers + +------+ + | Care Rental Agent Name | Role | Phone | [...] Closed | | Radiology | Diagnoses | [place], | [address] | | | | | Solitary | MD Hernandez | [address] [place] | | | | | pulmonary | [address] | [place] | | | | | nodule | [place] | [place] [address] | | | | | Procedures | PEDRO PABLO [place], | Phone: | | | | | CT Chest wo | [place] [address] | [phone] | | | | | Contrast | Phone: | Fax: | | | | | | [phone] | [phone] | | | | | | Fax: | | | | | | | [phone] | | +--------+--------+ + + + + Reason for Visit Auth/Cert +--------+--------+ + + + + | Status | Reason | Specialty | Diagnoses / | Referred By | Referred To | | | | | Procedures | Contact | Contact | +--------+--------+ + + + + | | | | | | | +--------+--------+ + + + + Encounter Details +--------+ + + + + | Date | Type | Department | Care Team | Description | +--------+ + + + + | 03/03/ | [facility] | [facility] | Hernandez Tejada, | Solitary pulmonary | | 2018 | Encounter | [facility] [address] | MD [address] [place] | nodule | | | | [place], | [place], [place] | | | | | [place] [address] | [id number] | | | | | [phone] | | | +--------+ + + + [...] | | 0 | | | | tablet | Daily. | | [...] lisinopril | Take 1 tablet by | | 0 | 02/03/20 | | | (PRINIVIL, ZESTRIL) | mouth Daily. | | | 18 | 8 | | 20 mg tablet [...] [place], | | | | | | [place] [address] | | | | | | [phone] | | | | | | | | +--------+---------+ + + + documented as of this encounter Procedures + +--------+ + + + | Procedure Name | Priori | Date/Time | Associated Diagnosis | Comments | | | ty | | | | + +--------+ + + + | CT CHEST WO CONTRAST | Routin | 03/03/2018 | Solitary pulmonary | Results for this | | | e | 12:45 PM | nodule | procedure are in the | | | | PDT | | results section. | + +--------+ + + + documented in this encounter Results CT Chest wo Contrast (03/03/2018 12:45 PM PDT) + + | Specimen | + + | | + + + + | Addenda | + + | Addendum by Godfrey Montoya MD on 03/04/2018 1:30 PM ADDENDUM: No CT | | abnormality corresponding to the right lower lung nodule seen on recent chest | | radiograph dated 01/25/2018. Additionally, a right apical 5 mm calcified granuloma | | is present. Dictated and Signed by: Godfrey Montoya MD Electronically signed: | | 03/04/2018 1:27 PM | + + + + + | Narrative | Performed At | + + + | TECHNIQUE: Noncontrast axial CT imaging was obtained through the | [facility] | | chest with coronal and sagittal reformats. CLINICAL INFORMATION: | | | Follow up pulmonary nodule in [facility] COMPARISON: Chest radiographs | | | 01/25/2018 and 01/18/2018. FINDINGS: BONES: No osteoblastic or | | | osteolytic lesion. Dextrocurvature of the thoracic spine. No | | | acute osseous abnormality. CHEST: Chest Wall: No axillary | | | lymphadenopathy. Mediastinum and nishi: No lymphadenopathy. Heart | | | and pericardium: Heart size is normal. No pericardial effusion. | | | Vessels: Coronary artery calcifications are noted. Normal caliber of | | | the thoracic aorta. Large airways: Diffuse bronchial wall | | | thickening, most notable at the inferior lower lobes without | | | significant bronchiectasis. Distal mucous plugging noted at the | | | left lower lobe, series 4 image 62. Pleura: No pleural effusion or | | | pneumothorax. Lungs: Low lung volumes with mild bilateral | | | dependent atelectasis. Mild patchy groundglass opacities are noted, | | | most prominent at the lower lobes which is likely partially related | | | to the low lung volumes and atelectasis. Left upper lobe subpleural | | | nodule measuring 4 mm, series 4 image 38. Left upper lobe | | | subpleural nodule measuring 4 mm, image 43. Right lower lobe | | | subpleural nodule measuring 4 mm, image 46. 3 mm right upper lobe | | | nodule, image 36. UPPER ABDOMEN: Punctate splenic granulomata are | | | noted. Colonic diverticula. IMPRESSION - Bronchial wall | | | thickening with distal left lower lobe mucus plugging and scattered | | | patchy groundglass opacities, probable infectious versus inflammatory | | | small airways disease. Multiple pulmonary nodules measuring up to | | | 4 mm. Follow-up CT of the chest in 12 months may be considered if | | | clinically warranted. Dictated and Signed by: Godfrey Montoya MD | | | Electronically signed: 03/03/2018 3:36 PM | | + + + + + | Procedure Note | + + | Ricardo, Rad Results In - 03/03/2018 3:39 PM PDT | | TECHNIQUE: Noncontrast axial CT imaging was obtained through the chest with | | coronal and sagittal reformats. | | | | CLINICAL INFORMATION: Follow up pulmonary nodule in [facility] | | | | COMPARISON: Chest radiographs 01/25/2018 and 01/18/2018. | | | | FINDINGS: | | BONES: No osteoblastic or osteolytic lesion. Dextrocurvature of the thoracic | | spine. No acute osseous abnormality. | | | | CHEST: | | Chest Wall: No axillary lymphadenopathy. | | | | Mediastinum and nishi: No lymphadenopathy. | | Heart and pericardium: Heart size is normal. No pericardial effusion. | | Vessels: Coronary artery calcifications are noted. Normal caliber of the | | thoracic aorta. | | | | Large airways: Diffuse bronchial wall thickening, most notable at the inferior | | lower lobes without significant bronchiectasis. Distal mucous plugging noted at | | the left lower lobe, series 4 image 62. | | Pleura: No pleural effusion or pneumothorax. | | Lungs: Low lung volumes with mild bilateral dependent atelectasis. Mild patchy | | groundglass opacities are noted, most prominent at the lower lobes which is | | likely partially related to the low lung volumes and atelectasis. Left upper | | lobe subpleural nodule measuring 4 mm, series 4 image 38. Left upper lobe | | subpleural nodule measuring 4 mm, image 43. Right lower lobe subpleural nodule | | measuring 4 mm, image 46. 3 mm right upper lobe nodule, image 36. | | | | UPPER ABDOMEN: Punctate splenic granulomata are noted. Colonic diverticula. | | | | | | IMPRESSION - | | Bronchial wall thickening with distal left lower lobe mucus plugging and | | scattered patchy groundglass opacities, probable infectious versus inflammatory | | small airways disease. | | | | Multiple pulmonary nodules measuring up to 4 mm. Follow-up CT of the chest in | | 12 months may be considered if clinically warranted. | | | | Dictated and Signed by: Godfrey Montoya MD | | Electronically signed: 03/03/2018 3:36 PM | + + + +---------+ + + | Performing | Address | City/State/Zipcode | Phone Number | | Organization | | | | + +---------+ + + | [facility] | | | | + +---------+ + + documented in this encounter Visit Diagnoses + + | Diagnosis | + + | Solitary pulmonary nodule | + + documented in this encounter"
--- OUTSIDE RECORDS SUMMARY | ~2020-02-27 | XMS | Encounter Summary ---
Demographics + + + | Address | [address] | | | [place] [address] | + + + | Home Phone | | + + + | Preferred Language | Unknown | + + + | Marital Status | | + + + | Religion Affiliation | 1077 | + + + | Race | White | + + + | Ethnic Group | Not or | + + + Author + + + | Author | [facility] | | | and [place] | + + + | Organization | [facility] | | | [...] Team Providers + +------+ + | Care Coal Washer Name | Role | Phone | + +------+ + | Akua Hamilton MD | PCP | | + +------+ + Reason for Visit +--------+ + | Reason | Comments | +--------+ + | Asthma | | +--------+ + | Other | Allergic Rhinitis | +--------+ + Encounter Details +--------+---------+ + + + | Date | Type | Department | Care Team | Description | +--------+---------+ + + + | 09/15/ | Office | [facility] | Stuart Diaz | Allergic rhinitis | | 2012 | Visit | PULMONARY [address] | MD [place] [address] | due to pollen | | | | [place], | [facility], [place] | (Primary Dx); | | | | [place] [address] | [address] | Asthma, extrinsic; | | | | [phone] | | GERD; Abnormal lung | | | | | | sounds; Overweight | +--------+---------+ + + + Social History [...] + + + | Blood Pressure | 150/90 | 09/15/2012 10:17 AM | | | | | PST | | + + + + + | Pulse | 68 | 09/15/2012 10:17 AM | | | | | PST | | + + + + + | Temperature | - | - | | + + + + + | Respiratory Rate | - | - | | + + + + + | Oxygen Saturation | 100% | 09/15/2012 10:17 AM | | | | | PST | | + + + + + | Inhaled Oxygen | - | - | | | Concentration | | | | + + + + + | Weight | 91.3 kg (201 lb 3.2 | 09/15/2012 10:17 AM | | | | oz) | PST | | + + + + + | Height | 165.1 cm (5' 5") | 09/15/2012 10:17 AM | | | | | PST | | + + + + + | Body Mass Index | 33.48 | 09/15/2012 10:17 AM | | | | | PST | | + + + + + documented in this encounter Patient Instructions Patient Instructions Stuart Diaz MD - 09/15/2012 10:38 AM PSTKeep up the good wo rk. Congratulations on losing weight. We will call you if there is any concern on your chest xray. This year, we'll try just taking Singulair September to May, but if you think you need Adv air, let us know. T documented in this encounter Progress Notes Stuart Diaz MD - 09/15/2012 10:52 AM PSTFormatting of this note might be differe nt from the original. Stuart Diaz MD [facility] [address] [place] [address] 09/15/2012 Juan Vaughan 1935 History: Juan Vaughan is a 76 y.o. female followed since April 2005 for asthma and allergic r hinitis. She was first seen because of persistent cough, believed due to asthma.. She does have a long history of intermittent shortness of breath and of allergies and hay fever for many years. She has particular problems around wheat harvest time. She lives in [place] and is surrounded by [place]. She is also very allergic to dust mites and her environm ent is very dionte. After years of upper airway allergies, in 2003 she first noticed lower respiratory symptoms . In November 2004 she had dramatic increase in chronic cough. Previous allergy testing showed allergies to molds, cat dander, dust mites, and Western wheat. In 2007 we added Singulair t o her regimen and she felt a marked increase in control during wheat harvest. The last 3 ye ars she has only needed to take Singulair during the time that we've is growing and harveste d, generally from about September until May. She used Advair also seasonally for a couple of years, and we thought she would do the same last year but she actually really did not use Advair beyond the early spring. In discussion today, she would like to try only using Sing ulair during the spring through fall and not use Advair at all. At times she has had some other exposures that have worsened her cough and asthma. She swa m in a heavily chlorinated pool in a hotel and had marked dyspnea and even some crackles in her lungs. She did not recall having a chest x-ray within the last few years. She did have a flu vaccine this fall. Sometimes during the wintertime she did have a slightly hoarse vo ice or irritation in her nose but did not use any medication. She is seeing Dr. Daniel for her diabetes. Her recent hemoglobin A1c was 6.1. 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 Calcium Citrate (CITRACAL PO) Take 800 mg by mouth Daily. metFORMIN (GLUCOPHAGE) 500 mg tablet Take 500 mg by mouth 3 times daily. lisinopril (PRINIVIL, ZESTRIL) 10 mg tablet Take 20 mg by mouth nightly. atorvaSTATin (LIPITOR) 10 mg tablet Take 10 mg by mouth Daily. montelukast (SINGULAIR) 10 mg tablet Take 1 tablet by mouth Daily. 90 tablet 4 fluticasone-salmeterol (ADVAIR DISKUS) 100-50 mcg/puff diskus inhaler 1 puff inhaled tw ice daily No Known Allergies Past Medical History was reviewed and updated in the electronic record. Review of Systems She has lost a little weight. Cough has been minimal the past year. She thinks she may al ready be feeling some early signs of hayfever with spring approaching. Physical Examination: BP 150/90 | Pulse 68 | Ht 1.651 m (5' 5") | Wt 91.264 kg (201 lb 3.2 oz) | BMI 33.48 kg/m2 | SpO2 100% General: Pleasant middle-aged woman in no distress. She did not cough during the visit. S he is overweight but has lost weight. HEENT: Nasal passages clear. Oropharynx clear without thrush. Neck: No adenopathy. Lungs: Normal resonance to percussion. Breath sounds were mildly diminished throughout the chest. She had some persistent crackles present at the right lung base even after deep james athing and standing. No wheezes or rhonchi. Heart: Regular rate and rhythm. No murmur or gallop. Extremities: No clubbing, cyanosis, or edema. Skin: No eczema. Warm and dry. Assessment: 1. Allergic rhinitis due to pollen These symptoms are fairly seasonal, do to her multiple allergies. She did very well the st few years taking Singulair from spring until fall. She will do the same this year. 2. Asthma, extrinsic Past few years, her asthma symptoms have been less significant. She would like to try usin g Singulair alone, without a controller inhaler this year. Even last year she had fairly mi nimal use of Advair. 3. GERD She is on no acid suppressing medication currently. Her weight loss has probably helped. The past year if she needed anything she would use an eskz-xvq-mpmnagy medication. 4. Abnormal lung sounds She has some persistent crackles at the right lung base even after deep breathing. We disc ussed this and we'll obtain a chest x-ray today. 5. Overweight She has lost substantial weight. She weighs about 25 pounds less than 3 years ago. She wa s encouraged with the success. PLAN: 1. Begin Singulair 10 mg daily now until the fall. 2. This year we will not resume Advair Diskus, but if she feels asthma symptoms and the ca ed to return to using Advair, she does have some on hand and can resume it. 3. Good hygiene to avoid respiratory infections. 4. She should do her best to avoid her known allergens. 5. She will obtain a flu vaccination each fall. 6. We will obtain a chest x-ray today and will contact her if there is any concern. 7. Followup in one year earlier if problems. Stuart Diaz documented in t his encounter Plan of Treatment +--------+---------+ + + + | Date | Type | Specialty | Care Team | Description | +--------+---------+ + + + | 10/23/ | Office | Cardiology | Doretha Frazier, | | | 2020 | Visit | | ID [address] [facility] | | | | | | [place], | | | | | | [place] [address] | | | | | | [phone] | | | | | | | | +--------+---------+ + + + documented as of this encounter Results XR Chest PA and Lateral (09/15/2012 1:08 PM PST) + + | Specimen | + + | | + + + + + | Narrative | Performed At | + + + | [facility] | [place] | | [place] [address] [address] [facility], [place] | [facility] | | [ rep ct [address]] [ rep ct [facility] | | st zip] Signed | - IMAGING | | | | | Patient Name: JUAN VAUGHAN | | | Physician: MARIELLE : 1935 Age: 76 Sex: F Unit | | | #: [id number] Exam Date: 09/15/12 Location: | | | [facility] Report #: [id number] Page: | | | %(RAD)RES..mtdd.print.filter("pg") of %(RAD) | | | RES..mtdd.print.filter("tpg") | | | | | | Accession Number: [id number] | | | CHEST PA AND LATERAL, [...] | | | Transcribed Date/Time: 09/15/2012 13:26 Security Systems Integrator: | | | <<Signature on File>> | | | Devonte | | Kaz Dobbins MD09/15/12 8164 <Electronically signed by Devonte Honeycutt | | | Mu FANG> Devonte Dobbins MD 09/15/12 1308 | | | Security Systems Integrator: [email or web address] Sjpmorarwhwkt78/06/13 [id number] | | | Stuart Diaz MD | | + + + + + + + + | Performing | Address | City/State/Zipcode | Phone Number | | Organization | | | | + + + + + | [address] | [address] | [place] | [phone] | | [facility] | | [id number] | | | - IMAGING | | | | + + + + + documented in this encounter Visit Diagnoses + + | Diagnosis | + + | Allergic rhinitis due to pollen - Primary | + + | Asthma, extrinsic Extrinsic asthma, unspecified | + + | GERD Esophageal reflux | + + | Abnormal lung sounds Abnormal chest sounds | + + | Overweight(278.02) Overweight | + + documented in this encounter
--- OUTSIDE RECORDS SUMMARY | ~2020-02-27 | XMS | Encounter Summary ---
Demographics + + + | Address | [address] | | | [place] [address] | + + + | Home Phone | | + + + | Preferred Language | Unknown | + + + | Marital Status | | + + + | Cheondoism Affiliation | 1077 | + + + | Race | White | + + + | Ethnic Group | Not or | + + + Author + + + | Author | [facility] | | | and [place] | + + + | Organization | [facility] | | | [...] Team Providers + +------+ + | Care Logger Driving Horses Name | Role | Phone | + +------+ + | Akua Hamilton MD | PCP | | + +------+ + Reason for Visit + + + | Reason | Comments | + + + | Annual Visit | | + + + | Congestive Heart | | | Failure | | + + + | Hypertension | | + + + Follow Up (Routine) + +--------+ + + + + | Status | Reason | Specialty | Diagnoses / | Referred By | Referred To | | | | | Procedures | Contact | Contact | + +--------+ + + + + | Authorized | | Cardiology | Diagnoses | Alfonso, | Karin | | | | | Essential | Akua Jerez MD | MD Doretha | | | | | (primary) | [address] | [address] | | | | | hypertension | [place] | [address] | | | | | Procedures | [facility], [place] | [place], | | | | | FOLLOW UP | [address] | [place] [address] | | | | | | Phone: | Phone: | | | | | | [phone] | [phone] | | | | | | Fax: | Fax: | | | | | | [phone] | [phone] | + +--------+ + + + + Encounter Details +--------+---------+ + + + | Date | Type | Department | Care Team | Description | +--------+---------+ + + + | 10/20/ | Office | [facility] | Doretha Frazier, | Acute on chronic | | 2020 | Visit | CARDIOLOGY [address] | [address] | systolic congestive | | | | [place], | [place], | heart failure (HCC) | | | | [place] [address] | [place] [address] | (Primary Dx); | | | | [phone] | [phone] | Essential | | | | | | hypertension; Mixed | | | | | | hyperlipidemia | +--------+---------+ + + + Social History [...] + + + | Blood Pressure | 118/62 | 10/21/2019 2:04 PM | | | | | PDT | | + + + + + | Pulse | 80 | 10/21/2019 2:04 PM | | | | | PDT | | + + + + + | Temperature | - | - | | + + + + + | Respiratory Rate | 16 | 10/21/2019 2:04 PM | | | | | PDT | | + + + + + | Oxygen Saturation | - | - | | + + + + + | Inhaled Oxygen | - | - | | | Concentration | | | | + + + + + | Weight | 71.6 kg (157 lb 13.6 | 10/21/2019 2:04 PM | | | | oz) | PDT | | + + + + + | Height | 165.1 cm (5' 5") | 10/21/2019 2:04 PM | | | | | PDT | | + + + + + | Body Mass Index | 26.27 | 10/21/2019 2:04 PM | | | | | PDT | | + + + + + documented in this encounter Patient Instructions Patient Instructions Tianna Christianson RN - 10/21/2019 2:00 PM PDT Blood test: Fasting- 12 hours prior to test, no food, no caffiene, water is ok and encourag ed Date Due: soon Where to go for labs: Lab of your choice, please see lab orders, take them with you to the lab. Follow up appointment: 1 year Provider: Doretha Frazier MD Date: Check-In Time: documented in this encounter Progress Notes Doretha Frazier MD - 10/21/2019 2:00 PM PDTFormatting of this note might be different f rom the original. PATIENT NAME: Abiola Vaughan : 1935: AGE: 83 y.o. PRIMARY CARE: Akua Hamilton MD OUTPATIENT FOLLOW UP VISIT Date of Service: 10/21/2019 HISTORY OF PRESENT ILLNESS: Abiola Vaughan is a 83 y.o. female with a history of diabetes mellitus, asthma, hype rtention and hyperlipidema. She is being seen today for annual follow up. She was last seen at which time patient was to continue with current medical regim en and follow up in one year. Since that time, patient reports feeling more fatigue. She men tions being concerned about her family and that is not letting her sleep well. Patient is ph ysically active walking around her block several times a day. There is no chest pain or ches t discomfort both at rest and on exertion. Patient denies breathlessness. There is no palpit ations, dizziness or lightheadedness. There is no ankle or leg swelling. Patient can sleep o n one pillow at night without difficulty breathing. MEDICAL, SURGICAL, AND PERSONAL HISTORY Past Medical, Surgical, Family, and Social History are reviewed in EPIC. CURRENT PROBLEMS Patient Active Problem List Diagnosis GERD OVERWEIGHT ALLERGIC RHINITIS DUE TO POLLEN Mixed hyperlipidemia Fatigue Diabetes mellitus Hypertension ARELI (obstructive sleep apnea) Periodic limb movements of sleep Acute on chronic systolic congestive heart failure Mild intermittent asthma without complication Solitary pulmonary nodule CURRENT MEDICATIONS Current Outpatient Medications Medication Sig Dispense Refill albuterol (PROVENTIL HFA) 90 mcg/puff inhaler Inhale 2 puffs into the lungs every 4 olivia rs as needed for Wheezing or Shortness of Breath. aspirin 81 mg chewable tablet Take 81 mg by mouth Daily. atorvaSTATin (LIPITOR) 10 mg tablet Take 10 mg by mouth nightly. Calcium Citrate 200 MG TABS Take 800 mg by mouth Daily. gabapentin (NEURONTIN) 100 mg capsule Take 100 mg by mouth Daily. 0 hydroCHLOROthiazide 25 mg tablet Take 25 mg by mouth Daily. lisinopril (PRINIVIL, ZESTRIL) 20 mg tablet TAKE 1 TABLET BY MOUTH TWICE DAILY 180 tabl et 0 metFORMIN (GLUCOPHAGE) 500 mg tablet Take 500 mg by mouth 2 times daily (with breakfast & dinner). Multiple Vitamins-Minerals (MULTIVITAMIN ADULT PO) Take by mouth 2 times daily. UNABLE TO FIND Resmed AirSense 10 autoset CPAP: 4-15cm while sleeping. No current facility-administered medications for this visit. ALLERGIES Allergies Allergen Reactions Lansoprazole Hives ROS Review of Systems Constitutional: Positive for malaise/fatigue and weight loss. Negative for chills, diaphore sis and fever. HENT: Negative for congestion, hearing loss, nosebleeds and tinnitus. Dental Problems = No Eyes: Negative for blurred vision and double vision. Respiratory: Positive for shortness of breath. Cardiovascular: Negative for chest pain, palpitations and leg swelling. Gastrointestinal: Negative for blood in stool, constipation, diarrhea, nausea and vomiting. Genitourinary: Negative for dysuria, frequency, hematuria and urgency. Musculoskeletal: Positive for neck pain. Negative for back pain, falls, joint pain and myal gias. Gait Problems = No Skin: Negative for itching and rash. Neurological: Positive for dizziness. Negative for tingling, tremors, speech change, seizur es, loss of consciousness and weakness. Lightheaded = No Endo/Heme/Allergies: Bruises/bleeds easily. Psychiatric/Behavioral: Negative for memory loss. The patient is not nervous/anxious and do es not have insomnia. OBJECTIVE: PHYSICAL EXAM BP 118/62 | Pulse 80 | Resp 16 | Ht 1.651 m (5' 5") | Wt 71.6 kg (157 lb 13.6 oz) | BM I 26.27 kg/m Physical Exam Constitutional: She is oriented to person, place, and time. She appears well-developed and well-nourished. Female individual, no acute distress. Neck: Normal carotid pulses and no JVD present. Carotid bruit is not present. Cardiovascular: Normal rate, regular rhythm, S1 normal, S2 normal, normal heart sounds and intact distal pulses. PMI is not displaced. Exam reveals no gallop and no friction rub. No murmur heard. Pulses: Carotid pulses are 2+ on the right side and 2+ on the left side. Posterior tibial pulses are 2+ on the right side and 2+ on the left side. Pulmonary/Chest: Effort normal and breath sounds normal. No accessory muscle usage. No resp iratory distress. She has no wheezes. She has no rhonchi. She has no rales. Abdominal: Soft. Normal appearance and normal aorta. She exhibits no abdominal bruit. There is no hepatosplenomegaly. There is no abdominal tenderness. Musculoskeletal: General: No edema. Neurological: She is alert and oriented to person, place, and time. Gait normal. Skin: Skin is warm and dry. No cyanosis. Nails show no clubbing. Psychiatric: She has a normal mood and affect. Her mood appears not anxious. She does not e xhibit a depressed mood. ECG: Normal sinus rhythm, complete right bundle branch block. LAB RESULTS reviewed during visit today primarily from [facility]: LIPID Lab Results Component Value Date CHOL 155 09/25/2016 TRIG 97 09/25/2016 HDL 71 09/25/2016 LDL 65 09/25/2016 CHOLHDL 2.3 09/17/2018 LDLEX 80 09/17/2018 HDLEX 72.5 09/17/2018 TRIGEX 66 09/17/2018 CHOLEX 166 09/17/2018 CHEMISTRY Lab Results Component Value Date GLU 116 (H) 01/25/2018 GLUEX 84 10/20/2016 NA 127 (L) 01/25/2018 NAEX 136 09/03/2018 K 4.5 01/25/2018 KEX 4.6 09/03/2018 CL 90 (L) 01/25/2018 CLEX 103 09/03/2018 CO2 23 (L) 01/25/2018 CO2EX 23 09/03/2018 CALCIUM 10.0 01/25/2018 ALKPHOS 51 01/25/2018 AST 24 01/25/2018 ASTEX 15 05/09/2016 ALT 16 01/25/2018 ALTEX 11 05/09/2016 BILITOT 1.0 01/25/2018 CREA 1.30 01/25/2018 BUN 29 (H) 01/25/2018 EGFR >60 07/21/2013 EGFREX 56 09/03/2018 CREEX 0.96 09/03/2018 HEMATOLOGY Lab Results Component Value Date WBC 12.1 (H) 01/25/2018 WBCEX 5.1 09/17/2018 HGB 13.3 01/25/2018 HGBEX 11 (A) 09/17/2018 HCT 39.3 01/25/2018 HCTEX 33.1 (A) 09/17/2018 PLT 411 01/25/2018 PLTEX 257 09/17/2018 I have requested records from most recent primary care provider office visit notes. Above data and testing is reviewed this visit; testing below is historical data unless othe rwise specified. ASSESSMENT: 1. Heart failure with preserved ejection fraction A. Stress test 05/15/2016 shows normal persantine [...] normal IVC with normal respiratory collapse. C. Today, patient reports feeling more fatigue. She mentions being concerned ab out her family and that is not letting her sleep well. Patient is physically active walking around her block several times a day. There is no signs and symptoms of overt congestive hea rt failure. She is in a class I of [place] [employer] functional class. There is no fluid retention on physical examination. Heart failure is well compensated. 2. Hypertension A. Patient recently stopped taking amlodipine due to symptomatic hy potension and has been doing better. Today, her blood pressure is within target. 3. Hyperlipidemia A. She is taking atorvastatin 10 mg. 4. Diabetes Mellitus A. Hemoglobin A1c is 5.5 reported by patient. 5. Asthma A. Patient is on a combination of inhalers. 6.Suspecting sleep disordered breathing/ sleep deprivation A. She has not been sleeping well related to stress over her family problems. 7. Stage III chronic kidney disease A. No recent eGFR in the past year. PLAN: 1. Check CMP, CBC and lipid panel at [facility]. 2. She will continue with current medical regimen. 3. I recommend a therapeutic lifestyle change including walking 30 minutes a day, choosing healthy choices of diet and 7 hours of high quality sleep a night. 4. Follow-up in one year or sooner with concerns. I, Elisabeth Miner, am acting as a scribe on behalf of, and in the presence of Doretha calvert MD. I have reviewed and edited this note. Elisabeth Miner, [employer] 10/21/2019 I, Doretha Frazier MD, personally performed the services described in this documentation, as scribed in my presence and it is both accurate and complete. Elisabeth Miner, Med Ass t 10/21/2019 2:15 PM Electronically signed by: Doretha Frazier MD [facility] 10/21/2019 Portions of this chart may have been created with [employer] voice recognition software. Occasi onal wrong-word or sound-alike substitutions may have occurred due to the inherent dolan itations of voice recognition software. Please read the chart carefully and recognize, using context, where these substitutions have occurred documented in this encounter Plan of Treatment +--------+---------+ + + + | Date | Type | Specialty | Care Team | Description | +--------+---------+ + + + | 10/23/ | Office | Cardiology | Doretha Frazier, | | | 2020 | Visit | | [address] | | | | | | [place], | | | | | | [place] [address] | | | | | | [phone] | | | | | | | | +--------+---------+ + + + + +------+--------+ + + | Name | Type | Priori | Associated Diagnoses | Order Schedule | | | | ty | | | + +------+--------+ + + | Lipid Panel | Lab | Routin | Acute on chronic | Expected: | | | | e | systolic congestive | 10/21/2019, Expires: | | | | | heart failure (HCC) | 10/20/2020 | | | | | Essential | | | | | | hypertension Mixed | | | | | | hyperlipidemia | | + +------+--------+ + + | Comprehensive | Lab | Routin | Acute on chronic | Expected: | | Metabolic Panel | | e | systolic congestive | 10/21/2019, Expires: | | | | | heart failure (HCC) | 10/20/2020 | | | | | Essential | | | | | | hypertension Mixed | | | | | | hyperlipidemia | | + +------+--------+ + + | TSH | Lab | Routin | Acute on chronic | Expected: | | | | e | systolic congestive | 10/21/2019, Expires: | | | | | heart failure (HCC) | 10/20/2020 | | | | | Essential | | | | | | hypertension Mixed | | | | | | hyperlipidemia | | + +------+--------+ + + | CBC with | Lab | Routin | Acute on chronic | Expected: | | Differential | | e | systolic congestive | 10/21/2019, Expires: | | | | | heart failure (HCC) | 10/20/2020 | | | | | Essential | | | | | | hypertension Mixed | | | | | | hyperlipidemia | | + +------+--------+ + + documented as of this encounter Procedures + +--------+ + + + | Procedure Name | Priori | Date/Time | Associated Diagnosis | Comments | | | ty | | | | + +--------+ + + + | LABS - EXTERNAL SCAN | | 11/17/2019 | | Results for this | | | | 12:00 AM | | procedure are in the | | | | PDT | | results section. | + +--------+ + + + | ECG 12 LEAD | Routin | 10/21/2019 | Acute on chronic | Results for this | | | e | 2:08 PM | systolic congestive | procedure are in the | | | | PDT | heart failure (HCC) | results section. | | | | | Essential | | | | | | hypertension | | + +--------+ + + + documented in this encounter Results LABS - EXTERNAL SCAN (11/17/2019 12:00 AM PDT) + + + | Narrative | Performed At | + + + | Ordered by an | | | unspecified provider. | | + + + ECG 12 lead (10/21/2019 2:08 PM PDT) + + + + + + | Component | Value | Ref Range | Performed | Pathologist | | | | | At | Signature | + + + + + + | VENTRICULAR | 80 | BPM | [facility] | | | RATE EKG | | | | | + + + + + + | ATRIAL RATE | 80 | BPM | [facility] | | + + + + + + | P-R | 186 | ms | [facility] | | | INTERVAL | | | | | + + + + + + | QRS | 136 | ms | [facility] | | | DURATION | | | | | + + + + + + | Q-T | 398 | ms | [facility] | | | INTERVAL | | | | | + + + + + + | Q-T | 459 | ms | [facility] | | | INTERVAL | | | | | | (CORRECTED) | | | | | + + + + + + | P WAVE AXIS | 46 | degrees | [facility] | | + + + + + + | QRS AXIS | -62 | degrees | [facility] | | + + + + + + | T AXIS | 65 | degrees | [facility] | | + + + + + + | INTERPRETAT | Normal sinus rhythmRight | | [facility] | | | ION TEXT | bundle branch blockLeft | | | | | | anterior fascicular | | | | | | block Bifascicular | | | | | | block Minimal voltage | | | | | | criteria for LVH, may | | | | | | be normal | | | | | | variantAbnormal ECGWhen | | | | | | compared with ECG of | | | | | | 06-SEP-2018 13:48,No | | | | | | significant change was | | | | | | foundConfirmed by | | | | | | DORETHA FRAZIER MD | | | | | | ([id number]) on 10/24/2019 | | | | | | 3:32:21 PM | | | | + + + [...] | Diagnosis | + + | Acute on chronic systolic congestive heart failure (HCC) - Primary Acute on chronic | | systolic heart failure | + + | Essential hypertension Unspecified essential hypertension | + + | Mixed hyperlipidemia | + + documented in this encounter
--- OUTSIDE RECORDS SUMMARY | ~2020-02-27 | XMS | Encounter Summary ---
Demographics + + + | Address | [address] | | | [place] [address] | + + + | Home Phone | | + + + | Preferred Language | Unknown | + + + | Marital Status | | + + + | Gnosticism Affiliation | 1077 | + + + | Race | White | + + + | Ethnic Group | Not or | + + + Author + + + | Author | [facility] | | | and [place] | + + + | Organization | [facility] | | | and [...] Team Providers + +------+ + | Care Training And Development Officer Name | Role | Phone | + +------+ + | Akua Hamilton MD | PCP | | + +------+ + Encounter Details +--------+ + + + + | Date | Type | Department | Care Team | Description | +--------+ + + + + | 10/14/ | Imaging | [facility] | Provider, | | | 2019 | Exam | [facility] | MD [address] | | | | | IMAGING [address] | [address] | | | | | [address] | [place] [address] | | | | | [place] [address] | | | | | | [phone] | | | +--------+ + + + [...] [place], | | | | | | [place] [address] | | | | | | [phone] | | | | | | | | +--------+---------+ + + + documented as of this encounter Procedures + +--------+ + + + | Procedure Name | Priori | Date/Time | Associated Diagnosis | Comments | | | ty | | | | + +--------+ + + + | XR CERVICAL SPINE 6 | Routin | 04/29/2016 | | Results for this | | OR MORE VWS | e | 12:30 PM | | procedure are in the | | | | PDT | | results section. | + +--------+ + + + documented in this encounter Results XR Cervical Spine 6 or More Vws (04/29/2016 12:30 PM PDT) + + | Specimen | + + | | + + + + + | Narrative | Performed At | + + + | External films for comparison only | [facility] | | | | | No results will be in the chart. | | + + + + +---------+ + + | Performing | Address | City/State/Zipcode | Phone Number | | Organization | | | | + +---------+ + + | [facility] | | | | + +---------+ + + documented in this encounter Visit Diagnoses Not on filedocumented in this encounter"
--- OUTSIDE RECORDS SUMMARY | ~2020-02-27 | XMS | Encounter Summary ---
Demographics + + + | Address | [address] | | | [place] [address] | + + + | Home Phone | | + + + | Preferred Language | Unknown | + + + | Marital Status | | + + + | Church Affiliation | 1077 | + + + | Race | White | + + + | Ethnic Group | Not or | + + + Author + + + | Author | [facility] | | | and [place] | + + + | Organization | [facility] | | | [...] Team Providers + +------+ + | Care Director Of Mechanical Engineering Name | Role | Phone | + +------+ + PCP | Unavailable | + +------+ + Encounter Details +--------+ + + + + | Date | Type | Department | Care Team | Description | +--------+ + + + + | 03/07/ | Hospital | [facility] | Gabbie Acevedo | | | 2010 | Encounter | MED CTR EMERGENCY | MD [address] | | | | | [facility] [address] | [facility], | | | | | [place] | [place] [address] | | | | | [address] | [phone] | | | | | [phone] | | | +--------+ + + + + Social History + +-------+ +--------+------+ | Tobacco Use | Types | Packs/Day | Years | Date | | | | | Used | | + +-------+ +--------+------+ | Never Assessed | | | | | + +-------+ +--------+------+ + + + | Sex Assigned at | Date Recorded | | | | + + + | Not on file | | + + + documented as of this encounter ED Notes Gabbie Acevedo MD - 03/07/2011 7:23 AM PDTDATE: 03/07/2011 PRIMARY CARE: Dr. Hamilton CHIEF COMPLAINT: Right shoulder pain. HISTORY OF PRESENT ILLNESS: This is a 75-year-old female, who comes ambulatory in the [facility] Th e patient indicates she has had increasing shoulder pain over the last 24 hours. She is not aware of any overuse or injury. She has just been doing her usual housework. Sh e complains of pain with range of motion in the right shoulder diffusely. She had 1 leftove r Lortab, she took that and it barely too k the edge off of her symptoms. She has a history of GI bleeding, therefore, she is not allowed to us e any kind of anti-inflammatory. She h as never had anything like this before. PAST MEDICAL HISTORY: Diabetes hypertension, previous herniorrhaphy, hysterectomy, tonsill ectomy, ap pendectomy, and a partial gastric resection, upper GI bleed according to the pat ient. MEDICATIONS 1. Calcium. 2. Singulair. 3. Advair. 4. Lipitor. 5. Glucophage. 6. Lisinopril. 7. She had 1 Lortab today. ALLERGIES: NONE. REVIEW OF SYSTEMS: As above. She indicates she thought this was just arthritis when it fir st 1st sta rted. PHYSICAL EXAMINATION VITAL SIGNS: Temperature 97.1, respiratory rate 18, heart rate 78, blood pressure 142/80, O2 saturat ion 96% room air, 100 kg stated. GENERAL: An elderly female who is in moderate distress. SKIN: Warm, dry. There is no rash. NECK AND SHOULDERS: She is tender to palpation across the rotator cuff tendons at the acro mion. She has marked decreased range of motion, including passively to internal rotation, e xternal rotation. Ar m elevation is only to about 30 degrees. It does improve with passive takeover, but does not give her complete relief. There is no bony crepitation. There is no increased warmth to the joint or erythema . She indicates her area of maximal pain out late rally on the deltoid. EMERGENCY DEPARTMENT COURSE: The patient presents with diffusely decreased range of motion , secondar y to pain. There was pain with pressure on the shoulder last night. It seems lik e there is a degree o f bursitis and tendonitis here. She will be treated with symptomatic control at this time. I discusse d with her outpatient followup in the orthopedic clinic. S he may qualify for intra-articular injectio n, where she is unable to take systemic antiinf lammatory. She was given the name of Dr. Alicia, who is machine stonecutter today. [place] provided here for pain control, and a prescription for the same at home, enrique thomason with some Colace to prev ent constipation. She is encouraged to use the medication to help her fully range the shoul binu, and avoid use of a sling. IMPRESSION: RIGHT SHOULDER BURSITIS. DICTATED BY: Gabbie Acevedo MD Emergency Medicine JOB #: [id number] EXT JOB #:[id number] cc: MD Stu Trejo MD <Electronically Signed by Gabbie Acevedo MD> 04/29/11 1502 documented in this encounter Plan of Treatment [...] | | | | | | [place] [address] | | | | | | [phone] | | | | | | | | +--------+---------+ + + + documented as of this encounter Visit Diagnoses Not on filedocumented in this encounter"
--- OUTSIDE RECORDS SUMMARY | ~2020-02-27 | XMS | Encounter Summary ---
Demographics + + + | Address | [address] | | | [place] [address] | + + + | Home Phone | | + + + | Preferred Language | Unknown | + + + | Marital Status | | + + + | Rastafarian Affiliation | 1077 | + + + | Race | White | + + + | Ethnic Group | Not or | + + + Author + + + | Author | [facility] | | | and Jaycobana | + + + | Organization | [facility] | | | and [...] Team Providers + +------+ + | Care Vice President Of Brand Management Name | Role | Phone | + [...] | Radiology | Diagnoses | Karin, | [facility] | | | | | | MD Darby | [address] | | | | | Cardiomyopat | [address] | [place] | | | | | hy (HCC) | [address] | [place] | | | | | Acute | [place], | [address] | | | | | combined | [place] [address] | Phone: | | | | | systolic and | Phone: | [phone] | | | | | diastolic | [phone] | Fax: | | | | | congestive | Fax: | [phone] | | | | | heart | [phone] | | | | | | failure [...] | | | | | | Complete [place] | | | | | | | ECHO HEART | | | | | | | XTHORACIC,CO | | | | | | | MPLETE W | | | | | | | DOPPLER CA | | | | | | | ECHO HEART | | | | | | | XTHORACIC,CO | | | | | | | MPLETE, W/O | | | | | | | DOPPLER | | | +--------+--------+ + + + + Reason for Visit Diagnostic/Screening (Routine) +--------+--------+ + + + + | Status | Reason | Specialty | Diagnoses / | Referred By | Referred To | | | | | Procedures | Contact | Contact | +--------+--------+ + + + + | Closed | | Radiology | Diagnoses | Karin, | [facility] | | | | | | MD Darby | [address] | | | | | Cardiomyopat | [address] | [place], | | | | | hy (HCC) | [address] 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 [place], | combined systolic | | | | [place] [address] | [place] [address] | and diastolic | | | | [phone] | [phone] | congestive heart | | | | | | failure ([facility]); | | | | | Biju Piper, | Encounter for lipid | | | | | Technologist | screening for | | | | [...] 90 | Inhale 2 puffs into | | 0 | | | | mcg/puff inhaler | the lungs every 4 | | | | 7 | | | hours as needed for | | | | | | | Wheezing or | | | | | | | Shortness of Breath. | | | | | + + [...] + + +---------+ + + | | Inhale 1 puff into | 1 each | 11 | 12/26/19 | | | fluticasone-salmeter | the lungs Twice | | | 16 | 7 | | ol (ADVAIR DISKUS) | Daily. Patient only | | | | | | 100-50 mcg/puff | takes January-June. | | | | | | diskus | | | | | | | inhalerIndications: | | | | | | | Asthma, extrinsic, | | | | | | | mild intermittent, | | | | | | | uncomplicated | | | | | | + [...] +---------+ + + | lisinopril | Take one tablet | | 0 | 10/24/19 | | | (PRINIVIL, ZESTRIL) | daily | | | 16 | 7 | | 20 mg tablet | | [...] tablet by | 90 | 4 | 12/26/19 | | | (SINGULAIR) 10 mg | mouth Daily. Patient | tablet | | 16 | 7 | | tabletIndications: | only takes | | | | | | Asthma, extrinsic, | January-June. | | | | | | mild intermittent, | | | | | | | uncomplicated, | | | | | | | Allergic rhinitis | | | | | | | due to pollen | | | | | | + [...] | 10/23/ | Office | Cardiology | Darby Frazier, | | | 2020 | Visit | | [address] | | | | | | [place], | | | | | | [place] [address] | | | | | | [phone] | | | | | | | | +--------+---------+ + + + documented as of this encounter Procedures + +--------+ + + + | Procedure Name | Priori | Date/Time | Associated Diagnosis | Comments | | | ty | | | | + +--------+ + + + | ECHO COMPLETE | Routin | 07/11/2016 | Cardiomyopathy | Results for this | | | e | 1:50 PM | (HCC) Acute | procedure are in the | | | | PST | combined systolic | results section. | | | | | and diastolic | | | | | | congestive heart | | | | | | failure (HCC) | | | | | | Encounter for lipid | | | | | | screening for | | | | | | cardiovascular | | | | | | disease Mixed | | | | | | hyperlipidemia | | + +--------+ + + + documented in this encounter Results ECHO Complete (07/11/2016 1:50 PM PST) + [...] BRITNEY | [facility] | | [place] Room Number OG Patient | [facility] | | [id number] Date of Study 07/11/2016 Number | - SOPHIE GING | | Visit Number [id number] | | | Referring Physician KARIN PASTOR Number Date of | | | 1935 Engineering Design Supervisor NAYLA VELAZQUEZ, | | | | | | [place] Age 80 year(s) Interpreting | | | DARBY FRAZIER MD | | | Enterprise Sales Executive Gender Female | | | Nurse Procedure [...] Index: 21 mL/m^2 | | | EF Xnuldqbwz62% Left Ventricle Diastolic Dimension: 4.8 cm | [...] | LA Vol/BSA Index: 21 mL/m^2 EF Iqperjdtg84% | | | | | | Left [...] + | Ricardo, Rad Results In - 07/11/2016 3:58 PM [facility] Transthoracic Echocardiography Report | | (TTE) Demographics Patient Name BRITNEY MARTINEZ Room Number OG | | Patient [id number] Date of Study 07/11/2016 Number Visit Number | | [id number] Referring Physician KARIN PASTOR | | Number Date of 1935 Engineering Design Supervisor NAYLA VELAZQUEZ, | | [place] Age 80 year(s) | | Interpreting DARBY FRAZIER MD Enterprise Sales Executive | | Gender Female NurseProcedureType of Study TTE procedure: ECHO | | Complete.Procedure dateDate: 07/11/2016Start: 01:06 PMTechnical Quality: Adequate | | visualizationStudy Location: Echo LabIndications: [facility] 428.0/ I50.9.Patient Status: | | RoutineHeight: 65 [...] ml LA Vol/BSA Index: 21 mL/m^2 EF Hmwluvubp96% Left | | Ventricle Diastolic Dimension: 4.8 [...] | LA Vol/BSA Index: 21 mL/m^2 EF Wlbomaicx77% | | | | Left Ventricle | [...] ST. | [address] | [place] | [phone] | | [facility] | | [address] | | | - IMAGING | | | | + + + + + documented in this encounter Visit Diagnoses + + | Diagnosis | + + | Cardiomyopathy (HCC) Other primary cardiomyopathies | + + | Acute combined systolic and diastolic congestive heart failure (HCC) Acute combined | | systolic and diastolic heart failure | + + | Encounter for lipid screening for cardiovascular disease | + + | Mixed hyperlipidemia | + + documented in this encounter"
--- OUTSIDE RECORDS SUMMARY | ~2020-02-27 | XMS | Encounter Summary ---
Demographics + + + | Address | [address] | | | [place] [address] | + + + | Home Phone | | + + + | Preferred Language | Unknown | + + + | Marital Status | | + + + | Muslim Affiliation | 1077 | + + + | Race | White | + + + | Ethnic Group | Not or | + + + Author + + + | Author | [facility] | | | and [place] | + + + | Organization | [facility] | | | [...] Team Providers + +------+ + | Care Molded Candles Wicker Name | Role | Phone | + +------+ + | Akua Hamilton MD | PCP | | + +------+ + Encounter Details +--------+ + + + + | Date | Type | Department | Care Team | Description | +--------+ + + + + | 03/03/ | Abstract | [facility] [place] | Hernandez Tejada, | | | 2018 | | PULMONARY [address] | [address] | | | | | [place], | [place] | | | | | [place] [address] | [address] | | | | | [phone] | | | +--------+ + + + [...] [place], | | | | | | [place] [address] | | | | | | [phone] | | | | | | | | +--------+---------+ + + + documented as of this encounter Visit Diagnoses Not on filedocumented in this encounter"
--- OUTSIDE RECORDS SUMMARY | ~2020-02-27 | XMS | Encounter Summary ---
Demographics + + + | Address | [address] | | | [place] [address] | + + + | Home Phone | | + + + | Preferred Language | Unknown | + + + | Marital Status | | + + + | Taoism Affiliation | 1077 | + + + | Race | White | + + + | Ethnic Group | Not or | + + + Author + + + | Author | [facility] | | | and [place] | + + + | Organization | [facility] | | [...] Team Providers + +------+ + | Care Internal Audit Manager Name | Role | Phone | + +------+ + | Akua Hamilton MD | PCP | | + +------+ + Reason for Visit + +--------+ + | Reason | Onset | Comments | | | Date | | + +--------+ + | Blood Pressure | 02/17/ | | | | 2018 | | + +--------+ + Encounter Details +--------+ + + + + | Date | Type | Department | Care Team | Description | +--------+ + + + + | 02/17/ | Telephone | [facility] | KenyabidaenrikeTraerowan, | Blood Pressure | | 2018 | | CARDIOLOGY [address] | MD [address] | | | | | [place], | [place], | | | | | [place] [address] | [place] [address] | | | | | [phone] | [phone] | | | | | | | [...] Telephone Encounter - Jen Moss RN - 02/18/2018 9:55 AM PDTPatient notified, wa s on prednisone during this log, so she is going to check blood pressures for another 2 week s ..........................................Jen Moss RN on 02/18/18 at 9:57 elephone Encount er - Doretha Frazier MD - 02/18/2018 6:04 AM PDTNo med change. Thank you. elephone Encounter - Jacquelyn Avendano CMA - 02/17/2018 2:17 PM PDTFormatting of this note might be diff erent from the original. Next Visit:09/06/18 Blood pressure log received from patient as follows:02/03/18---02/12/18 Medication Change: Date BP AM Pulse AM BP PM Pulse PM 02/03/18 101/60 100 106/61 96 02/04/18 102/64 77 112/64 87 02/05/18 11/61 87 119/61 74 02/06/18 115/64 77 129/64 87 02/07/18 124/66 86 139/75 75 02/08/18 115/64 81 142/70 78 02/09/18 96/65 74 130/68 68 02/10/18 118/60 87 139/72 74 02/11/18 108/60 92 138/71 73 02/12/18 86/88 79 125/68 73 Additional Comments: documented in this encounter Plan [...] [place], | | | | | | [place] [address] | | | | | | [phone] | | | | | | | | +--------+---------+ + + + documented as of this encounter Visit Diagnoses Not on filedocumented in this encounter"
--- OUTSIDE RECORDS SUMMARY | ~2020-02-27 | XMS | Encounter Summary ---
Demographics + + + | Address | [address] | | | [place] [address] | + + + | Home Phone [...] + + + | Author | [facility] | | | and [place]ana | + + + | Organization | [facility] | | | [...] Team Providers + +------+ + | Care Kettle Operator Head Name | Role | Phone | + [...] Description | +--------+---------+ + + + | 02/10/ | Office | [facility] | Klaus Melendrez PA | ARELI on CPAP (Primary | | 2017 | Visit | SLEEP DISORDER [address] | [address] | Dx) | | | | [address] [place] | [place] | | | | | [place] [address] | [address] | | | | | [phone] | | | +--------+---------+ + + + [...] + + + | Blood Pressure | 122/70 | 02/10/2017 9:39 AM | | | | | PDT | | + + + + + | Pulse | 80 | 02/10/2017 9:39 AM | | | | | PDT | | + + + + + | Temperature | - | - | | + + + + + | Respiratory Rate | 16 | 02/10/2017 9:39 AM | | | | | PDT | | + + + + + | Oxygen Saturation | 97% | 02/10/2017 9:39 AM | | | | | PDT | | + + + + + | Inhaled Oxygen | - | - | | | Concentration | | | | + + + + + | Weight | 83.9 kg (184 lb 14.4 | 02/10/2017 9:39 AM | | | | oz) | PDT | | + + + + + | Height | - | - | | + + + + + | Body Mass Index | 30.77 | 12/25/2016 2:04 PM | | | | | PDT | | + + + + + documented in this encounter Progress Notes Klaus Melendrez PA - 02/10/2017 10:00 AM PDT Subjective: Patient ID: Abiola Vaughan is a 81 y.o. female. HPI last office visit: 12/10/2016 date of polysomnography: 09/16/2016 AHI: 8.4 RDI: 16.7 O2%: 79% with 6.3 minutes below 88% Machine type: ResMed AirSense 10 Mask type: full face mask DME: [facility] [place] pressure: 4-15 cm Median: 7.2 cm 95%: 12.6 cm maximum: 13.1 cm Nights using CPAP: 03/21 61/62 % of nights >4 hours: 55% 93% 76% 48% average usage (all nights): 4:09 5:13 4:40 3:39 average usage (nights used): 4:09 5:13 4:40 3:43 AHI: 3.6 Abiola comes in for CPAP compliance. She continues to have a difficult time adjusting to her CPAP. She is still wearing it regularly, but is having a difficult time wearing it for the duration of her sleep. She has problems with getting a dry mouth. She is using a full face mask. She tried nasal pillows and nasal mask but did not do well. Her mask is causin g some soreness to the bridge of her nose. She was not able to get the mask of her choice f rom [facility] [place]. They told her Medicare would not allow other mask options . She would like to change to [facility] in [place], which does allow these other masks. I romero esteves given her a Respironics Allison View full face mask to try. If it is more comfortable for her, she is to continue with it. If not, she is to talk with [facility] about trying a differen t mask. We discussed the importance of wearing her CPAP 100% of the time she is asleep in [facility] to develop it into a regular part of her sleep routine. I have discussed the download and results of the paperwork in detail. She is unchanged or improved in nearly all categories, with no areas of concern. The download shows that her sl eep apnea is controlled, with an AHI of 3.6. It also shows that her leaks are controlled. BP 122/70 | Pulse 80 | Resp 16 | Wt 83.9 kg (184 lb 14.4 oz) | SpO2 97% | BMI 30.77 kg /m Review of Systems Objective: Physical Exam Assessment: Problem #1: OBSTRUCTIVE SLEEP APNEA ([id number]) This is controlled with CPAP. She is doing well with her CPAP compliance. She is wearing her CPAP nightly, but is still struggling with wearing it for the duration of her sleep on m ost nights due to mask discomfort to the bridge of her nose. She has had a difficult time g etting a mask that she wants from [facility] [place]. Plan: 1. She is to continue with CPAP indefinitely. 2. I have recommended that she work toward wearing her CPAP 100% of the time she is asleep . 3. She is to avoid taking off her mask during the night. I have given her a Respironics A travis View full face mask to try, which does not go over the bridge of the nose. 4. We have faxed a prescription to [facility] in [place] for replacement supplies. I will follow up again in 3 months, sooner prn. Fifteen minutes were spent gsje-la-fvvg, w ith the majority of time spent in counseling. Klaus Melendrez PA-C cc: Akua Hamilton MD Gaby Malone CNA - 02/10/2017 10:00 AM PDT 02/10/17 0900 Menendez Depression Inventory-II Depression Score 2 - Minimal depression Insomnia Severity Index Insomnia Severity Index 7 Union Sleepiness Scale Sitting and reading 1 Watching [...] SF-36v2 Score PF 49.89 RP 57.16 BP 50.71 GH 53.19 VT 61.51 SF 57.34 RE 56.17 MH 53.48 PCS 51.81 MCS 58.08 documented in this enco unter Plan of [...] | | | | | | [place] [address] | | | | | | [phone] | | | | | | | | +--------+---------+ + + + documented as of this encounter Visit Diagnoses + + | Diagnosis | + + | ARELI on CPAP - Primary Obstructive sleep apnea (adult) (pediatric) | + + documented in this encounter"
--- OUTSIDE RECORDS SUMMARY | ~2020-02-27 | XMS | Encounter Summary ---
Demographics + + + | Address | [address] | | | [place] [address] | + + + | Home Phone | | + + + | Preferred Language | Unknown | + + + | Marital Status | | + + + | Confucianist Affiliation | 1077 | + + + | Race | White | + + + | Ethnic Group | Not or | + + + Author + + + | Author | [facility] | | | and [place] | + + + | Organization | [facility] | | | and [place] | + + + | Address | Unknown | + + + | Phone | Unavailable | + + + Support + + +---------+ + | Name | Relationship | Address | Phone | + + +---------+ + | Stella aYp | ECON | NA | | | | | NA, | | + + +---------+ + Care Team Providers + +------+ + | Care Navigating Officer Name | Role | Phone | [...] Description | +--------+--------+ + + + | 04/19/ | Refill | [facility] [place] | Doretha Frazier, | Medication Refill | | 2019 | | CARDIOLOGY [address] | MD [address] [place] | | | | | [place], | [place], | | | | | [place] [address] | [place] [address] | | | | | [phone] | [phone] | | | | | | | [...] | | | | | | [place] [address] | | | | | | [phone] | | | | | | | | +--------+---------+ + + + documented as of this encounter Visit Diagnoses Not on filedocumented in this encounter"
--- OUTSIDE RECORDS SUMMARY | ~2020-02-27 | XMS | Encounter Summary ---
Demographics + + + | Address | [address] | | | [place] [address] | + + + | Home Phone | | + + + | Preferred Language | Unknown | + + + | Marital Status | | + + + | Christian Affiliation | 1077 | + + + | Race | White | + + + | Ethnic Group | Not or | + + + Author + + + | Author | [facility] | | | and [place] | + + + | Organization | [facility] | | [...] Team Providers + +------+ + | Care Pathology Laboratory Aide Name | Role | Phone | + +------+ + | Akua Hamilton MD | PCP | | + +------+ + Encounter Details +--------+ + + + + | Date | Type | Department | Care Team | Description | +--------+ + + + + | [facility] | Shawn Wolff | | | 2016 | Encounter | MED CTR LABORATORY | MD Cassius [address] | | | | | [address] | [place] | | | | | [place] | [place] [address] | | | | | [address] | [phone] | | | | | [phone] | | | +--------+ + + + [...] lisinopril | Take 1 tablet by | 60 | 5 | 09/20/19 | | | (PRINIVIL, ZESTRIL) | mouth 2 times daily. | tablet | | 17 | 7 | | 20 mg tablet [...] | | | | | | [place] [address] | | | | | | [phone] | | | | | | | | +--------+---------+ + + + documented as of this encounter Visit Diagnoses Not on filedocumented in this encounter"
--- OUTSIDE RECORDS SUMMARY | ~2020-02-27 | XMS | Encounter Summary ---
Demographics + + + | Address | [address] | | | [place] [address] | + + + | Home Phone | | + + + | Preferred Language | Unknown | + + + | Marital Status | | + + + | Mandaen Affiliation | 1077 | + + + [...] Team Providers + +------+ + | Care Tobacco Sorter Name | Role | Phone | + [...] Description | +--------+--------+ + + + | 06/16/ | Refill | [facility] [place] | Doretha Frazier, | Medication Refill | | 2019 | | CARDIOLOGY [address] | MD [address] [place] | | | | | [place], | [place], | | | | | [place] [address] | [place] [address] | | | | | [phone] | | | | | | | [...] | 2020 | Visit | | [address] | | | | | | [place], | | | | | | [place] [address] | | | | | | [phone] | | | | | | | | +--------+---------+ + + + documented as of this encounter Visit Diagnoses Not on filedocumented in this encounter"
--- OUTSIDE RECORDS SUMMARY | ~2020-02-27 | XMS | Encounter Summary ---
Demographics + + + | Address | [address] | | | [place] [address] | + + + | Home Phone | | + + + | Preferred Language | Unknown | + + + | Marital Status | | + + + | Hinduism Affiliation | 1077 | + + + | Race | White | + + + | Ethnic Group | Not or | + + + Author + + + | Author | [facility] | | | and [place] | + + + | Organization | [facility] | | [...] Team Providers + +------+ + | Care Hand Molder Meat Name | Role | Phone | + [...] Description | +--------+--------+ + + + | 11/29/ | Refill | [facility] [place] | Doretha Frazier, | Medication Refill | | 2017 | | CARDIOLOGY [address] | MD [address] [place] | | | | | [place], | [place], | | | | | [place] [address] | [place] [address] | | | | | [phone] | | | | | | | [...] | | | | | | [place] [address] | | | | | | [phone] | | | | | | | | +--------+---------+ + + + documented as of this encounter Visit Diagnoses Not on filedocumented in this encounter"
--- OUTSIDE RECORDS SUMMARY | ~2020-02-27 | XMS | Encounter Summary ---
Demographics + + + | Address | [address] | | | [place] [address] | + + + | Home Phone | | + + + | Preferred Language | Unknown | + + + | Marital Status | | + + + | Zoroastrian Affiliation | 1077 | + + + | Race | White | + + + | Ethnic Group | Not or | + + + Author + + + | Author | [facility] | | | and [place] | + + + | Organization | [facility] | | | [...] Team Providers + +------+ + | Care Property Underwriter Name | Role | Phone | + +------+ + | Akua Hamilton MD | PCP | | + +------+ + Reason for Visit + + + | Reason | Comments | + + + | Follow-up | | + + + | Hypertension | | + + + | Hyperlipidemia | | + + + | Fatigue | | + + + Encounter Details +--------+ + + + + | Date | Type | Department | Care Team | Description | +--------+ + + + + | 07/01/ | Off-Site | [facility] | Doretha Frazier, | Essential | | 2016 | Visit | CARDIOLOGY [address] | [address] [place] | hypertension | | | | [place], | [place], | (Primary Dx) | | | | [place] [address] | [place] [address] | | | | | [phone] | [phone] | | | | | | | [...] + + + | Blood Pressure | 130/80 | 07/01/2016 11:00 AM | left arm | | | | PST | | + + + + + | Pulse | 60 | 07/01/2016 11:00 AM | regular | | | | PST | | + + + + + | Temperature | - | - | | + + + + + | Respiratory Rate | 16 | 07/01/2016 11:00 AM | | | | | PST | | + + + + + | Oxygen Saturation | - | - | | + + + + + | Inhaled Oxygen | - | - | | | Concentration | | | | + + + + + | Weight | 82.5 kg (181 lb 12.8 | 07/01/2016 11:00 AM | | | | oz) | PST | | + + + + + | Height | 165.1 cm (5' 5") | 07/01/2016 11:00 AM | | | | | PST | | + + + + + | Body Mass Index | 30.25 | 07/01/2016 11:00 AM | | | | | PST | | + + + + + documented in this encounter Progress Notes Doretha Frazier MD - 07/01/2016 11:18 AM PSTFormatting of this note might be different f rom the original. PATIENT NAME: Abiola Vaughan : 1935: AGE: 80 y.o. PRIMARY CARE: Akua Hamilton MD OUTPATIENT FOLLOW UP VISIT Date of Service: 07/01/2016 HISTORY OF PRESENT ILLNESS: Abiola Vaughan is a 80 y.o. female with a history of diabetes mellitus, asthma, hype rtention and hyperlipidema. She is being seen today for left arm pain and fatigue. She was last seen 05/08/2016 at which time she was scheduled for an echocardiogram and nucl ear exercise stress test to access cardiac structure. Since that time, today patient reports continuing to feel fatigue. She also reports having shortness of breath that has not change d. Patient is physically active by walking. There is no chest pain or chest discomfort both at rest and on exertion. There is no palpitations, dizziness or lightheadedness. There is no ankle or leg swelling. Patient can sleep on one pillow at night without difficulty breathin g. MEDICAL, SURGICAL, AND PERSONAL HISTORY Past Medical, Surgical, Family, and Social History are reviewed in EPIC. 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 Respiratory: Positive for shortness of breath. Cardiovascular: Negative for chest pain, palpitations and leg swelling. Neurological: Negative for dizziness and weakness. Lightheaded = No OBJECTIVE: PHYSICAL EXAM BP 130/80 mmHg | Pulse 60 | Resp 16 | Ht 1.651 m (5' 5") | Wt 82.464 kg (181 lb 12.8 oz) | BMI 30.25 kg/m2 Physical Exam Constitutional: She is oriented [...] RESULTS reviewed during visit today primarily from [facility]: LIPID Lab Results Component Value Date [...] fraction by gated SPECT is 79%. B. Patient continues to feel fatigue and shortness of breath that has not changed. She d enies lightheadedness, dizziness, palpitations, or leg swelling. There is no signs and sympt oms of overt congestive heart failure. She is in a class II of [place] [employer] fu nctional class. There is no fluid retention on physical examination. So far blood work including CBC, metabolic, thyroid function test and lipid are unremarkable. 2. Hypertension A. She takes Lisinopril 20 mg daily. Today's blood pressure is good . 3. Hyperlipidemia A. She take Atorvastatin 10 mg. 4. Diabetes Mellitus A. She takes Metformin 500 mg. 5. Asthma A. Patient is taking a combination of Albuterol and Advair Diskus 6. Suspecting sleep disordered breathing A. She has risk factor of age above 50, hypertension, feeling fatigued PLAN: 1. Reschedule echocardiogram is warranted to assess cardiac structure 2. Schedule patient for a sleep study at [facility]. 3. I recommend a therapeutic lifestyle change including walking 30 minutes a day and choosi ng healthy choices of diet. 4. Follow-up in 8 weeks or sooner with concerns. I Elisabeth Miner am acting as a scribe on behalf of, and in the presence of Doretha cui MD. I have reviewed and edited this note. Elisabeth Miner Child Care Director 07/01/2016 I, Doretha Frazier MD, personally performed the services described in this documentation, as scribed in my presence and it is both accurate and complete. Elisabeth Miner Med Ass t 07/01/2016 11:18 Electronically signed by: Doretha Frazier MD [facility] 07/01/2016 Portions of this chart may have been created with [employer] voice recognition software. Occasi onal wrong-word or [...] | 2020 | Visit | | [address] | | | | | | [place], | | | | | | [place] [address] | | | | | | [phone] | | | | | | | | +--------+---------+ + + + documented as of this encounter Visit Diagnoses + + | Diagnosis | + + | Essential hypertension - Primary Unspecified essential hypertension | + + documented in this encounter
--- OUTSIDE RECORDS SUMMARY | ~2020-02-27 | XMS | Encounter Summary ---
Demographics + + + | Address | [address] | | | [place] [address] | + + + | Home Phone | | + + + | Preferred Language | Unknown | + + + | Marital Status | | + + + | Druze Affiliation | 1077 | + + + | Race | White | + + + | Ethnic Group | Not or | + + + Author + + + | Author | [facility] | | | and [place] | + + + | Organization | [facility] | | | [...] Team Providers + +------+ + | Care Packing Clerk Name | Role | Phone | + [...] Description | +--------+--------+ + + + | 12/15/ | Refill | [facility] | Doretha Frazier, | Medication Refill | | 2019 | | CARDIOLOGY [address] | MD [address] [place] | | | | | [place], | [place], | | | | | [place] [address] | [place] [address] | | | | | [phone] | [phone] | | | | | | | [...] [place], | | | | | | [place] [address] | | | | | | [phone] | | | | | | | | +--------+---------+ + + + documented as of this encounter Visit Diagnoses Not on filedocumented in this encounter"
--- OUTSIDE RECORDS SUMMARY | ~2020-02-27 | XMS | Encounter Summary ---
Demographics + + + | Address | [address] | | | [place] [address] | + + + | Home Phone | | + + + | Preferred Language | Unknown | + + + | Marital Status | | + + + | Buddhist Affiliation | 1077 | + + + [...] Team Providers + +------+ + | Care Solar Applications Development Engineer Name | Role | Phone | + +------+ + | Akua Hamilton MD | PCP | | + +------+ + Reason for Visit + +--------+ + | Reason | Onset | Comments | | | Date | | + +--------+ + | Medication Refill | 08/21/ | | | | 2014 | | + +--------+ + Encounter Details +--------+--------+ + + + | Date | Type | Department | Care Team | Description | +--------+--------+ + + + | 08/21/ | Refill | [facility] [place] | Stuart Diaz | Medication Refill | | 2015 | | PULMONARY [address] | [place] [address] | | | | | [place], | [place], [place] | | | | | [place] [address] | [address] | | | | | [phone] | | | +--------+--------+ + + + Social History + +-------+ [...] this encounter Miscellaneous Notes Telephone Encounter - Misty Patel RN - 08/21/2014 1:20 PM PSTPatient calls to say she's had increased dry cough, waking up during the night coughing and is short of breath wh en she walks a block. Not on Singulair nor Advair. Would like restart Advair like she was ad vised at last visit in October. She's in recalls for October 2014. Refilled Advair and advised h er to let us know if it doesn't help and we'll try and schedule her for a follow up visit dov alaniz to her October 2014 recall. If she develops a fever, advised her to see her PCP or Urgent Care. She agrees to plan. documented in this encounter Plan of Treatment +--------+---------+ + + + | Date | Type | Specialty | Care Team | Description | +--------+---------+ + + + | 10/23/ | Office | Cardiology | Doretha Frazier, | | | 2020 | Visit | | [address] | | | | | | [place], | | | | | | [place] [address] | | | | | | [phone] | | | | | | | | +--------+---------+ + + + documented as of this encounter Visit Diagnoses Not on filedocumented in this encounter"
--- OUTSIDE RECORDS SUMMARY | ~2020-02-27 | XMS | Clinical Summary ---
Demographics + + + | Address | [address] | | | [place] [address] | + + + | Home Phone | | + + + | Preferred Language | Unknown | + + + | Marital Status | | + + + | Jain Affiliation | 1077 | + + + | Race | White | + + + | Ethnic Group | Not or | + + + Author + + + | Author | [facility] | | | and [place] | + + + | Organization | [facility] | | | [...] Team Providers + +------+ + | Care Draughtsman Name | Role | Phone | + +------+ + | Akua Hamilton MD | PCP | | + +------+ + Allergies + + + + + + | Active Allergy | Reactions | Severity | Noted | Comments | | | | | Date | | + + + + + + | Lansoprazole | Hives | High | 05/08/20 | | | | | | 16 | | + + + + + + Medications + + + +---------+------+------+-------+ | Medication | Sig | Dispensed | Refills | Star | End | Statu | | | | | | t | Date | s | | | | | | Date | | | + + + +---------+------+------+-------+ | gabapentin | Take 100 mg by mouth | | 0 | 03/2 | | Activ | | (NEURONTIN) 100 mg | Daily. | | | 5/20 | | e | | capsule | | | | 19 | | | + + + +---------+------+------+-------+ | aspirin 81 mg | Take 81 mg by mouth | | 0 | | | Activ | | chewable tablet | Daily. | | | | | e | + + + +---------+------+------+-------+ | atorvaSTATin | Take 10 mg by mouth | | 0 | | | Activ | | (LIPITOR) 10 mg | nightly. | | | | | e | | tablet | | | | | | | + + + +---------+------+------+-------+ | | Take 25 mg by mouth | | 0 | | | Activ | | hydroCHLOROthiazide | Daily. | | | | | e | | 25 mg tablet | | | | | | | + + + +---------+------+------+-------+ | metFORMIN | Take 500 mg by mouth | | 0 | | | Activ | | (GLUCOPHAGE) 500 mg | 2 times daily (with | | | | | e | | tablet | breakfast & | | | | | | | | dinner). | | | | | | + + + +---------+------+------+-------+ | Multiple | Take by mouth 2 | | 0 | | | Activ | | Vitamins-Minerals | times daily. | | | | | e | | (MULTIVITAMIN ADULT | | | | | | | | PO) | | | | | | | + + + +---------+------+------+-------+ | UNABLE TO FIND | Resmed AirSense 10 | | 0 | | | Activ | | | autoset CPAP: 4-15cm | | | | | e | | | while sleeping. | | | | | | + + + +---------+------+------+-------+ | Calcium Citrate | Take 800 mg by mouth | | 0 | | | Activ | | 200 MG TABS | Daily. | | | | | e | + + + +---------+------+------+-------+ | albuterol | Inhale 2 puffs into | | 0 | | | Activ | | (PROVENTIL HFA) 90 | the lungs every 4 | | | | | e | | mcg/puff inhaler | hours as needed for | | | | | | | | Wheezing or | | | | | | | | Shortness of Breath. | | | | | | + + + +---------+------+------+-------+ | lisinopril | Take 1 tablet by | 180 | 3 | 04/1 | | Activ | | (PRINIVIL, ZESTRIL) | mouth twice daily | tablet | | 6/20 | | e | | 20 mg tablet | | | | 20 | | | + + + +---------+------+------+-------+ Active Problems + + + | Problem | Noted Date | + + + | Solitary pulmonary nodule | 02/17/2018 | + + + | Mild intermittent asthma without complication | 12/25/2016 | + + + | Acute on chronic systolic congestive heart failure | 09/29/2016 | + + + + + | Overview: Stress test 05/15/2016 shows normal persantine | | sestamibi myocardial perfusion imaging study, normal left | | ventricular size, wall thickness and motion, left ventricular | | systolic function is preserved, left ventricular ejection | | fraction by gated SPECT is 79%. Echocardiogram 07/11/2016 shows | | normal left ventricular size, wall thickness and motion, | | preserved left ventricular systolic function. LVEF is 70-75%, | | grade 1 left ventricular diastolic dysfunction, normal valvular | | structure, normal right-sided pressure, normal IVC with normal | | respiratory collapse. | + + + + + | ARELI (obstructive sleep apnea) | 09/22/2016 | + + + | Periodic limb movements of sleep | 09/22/2016 | + + + | Mixed hyperlipidemia | 05/08/2016 | + + + | GERD | | + + + | OVERWEIGHT | | + + + + + | Overview: ICD-10 Record update | + + + +---+ | ALLERGIC RHINITIS DUE TO POLLEN | | + +---+ | Fatigue | | + +---+ | Diabetes mellitus | | + +---+ | Hypertension | | + +---+ Resolved Problems + + + + | Problem | Noted | Resolved | | | Date | Date | + + + + | Acute combined systolic and diastolic congestive heart failure | 05/08/20 | | | | 16 | 7 | + + + + + + | Overview: Stress test 05/15/2016 shows normal persantine | | sestamibi myocardial perfusion imaging study, normal left | | ventricular size, wall thickness and motion, left ventricular | | systolic function is preserved, left ventricular ejection | | fraction by gated SPECT is 79%. Echocardiogram 07/11/2016 shows | | normal left ventricular size, wall thickness and motion, | | preserved left ventricular systolic function. LVEF is 70-75%, | | grade 1 left ventricular diastolic dysfunction, normal valvular | | structure, normal right-sided pressure, normal IVC with normal | | respiratory collapse. | + + + +---+ + | Asthma, extrinsic | | | | | | 9 | + +---+ + Immunizations + + + + | Name | Administration Dates | Next Due | + + + + | INFLUENZA 66 Y OR >, | 04/26/2017, 04/17/2016, 04/26/2015 | | | TRIVALENT HIGH-DOSE | | | + + + + | INFLUENZA PF 18 Y OR | 04/26/2015, 04/26/2013, 03/18/2012 | | | >,TRIVALENT | | | | RECOMBINANT | | | + + + + | INFLUENZA, [id number], | 07/09/2009 | | | INACTIVATED | | | + + + + | INFLUENZA, | 04/12/2018, 04/17/2010, 04/06/2009, | | | UNSPECIFIED | 04/19/2007, 05/26/2006, 04/29/2005 | | | FORMULATION | | | + + + + | PNEUMOCOCCAL | 12/26/2015 | | | CONJUGATE 13-VALENT | | | | (PCV13) | | | + + + + | PNEUMOCOCCAL | 09/16/2007, 04/29/2005, 09/15/1958 | | | POLYSACCHARIDE | | | | 23-VALENT (PPSV23) | | | + + + + | TDAP, (ADOL/ADULT) | 10/28/2010 | | + + + + Family History + + +-------+ + | Medical History | Relation | Name | Comments | + + +-------+ + | Sleep apnea | Brother | Jorge | | + + +-------+ + | Asthma | Daughter | | | + + +-------+ + | Diabetes | Daughter | | | + + +-------+ + | Sleep apnea | Daughter | | | + + +-------+ + | Heart disease | Father | | | + + +-------+ + | Hypertension | Father | | | + + +-------+ + | Other (see comment) | Father | | myocardial infarction | + + +-------+ + | Asthma | Grandchil | | | | | d | | | + + +-------+ + | Allergies | Grandchil | | | | | d | | | + + +-------+ + | Anemia | Mother | | | + + +-------+ + | Sleep apnea | Son | | | + + +-------+ + + +-------+ + + | Relation | Name | Status | Comments | + +-------+ + + | Brother | Jorge | Alive | | + +-------+ + + | Daughter | | Alive | | + +-------+ + + | Father | | | Heart | | | | (Age | | | | | 50) | | + +-------+ + + | Grandchild | | | | + +-------+ + + | Grandchild | | | | + +-------+ + + | Mother | | | Pneumonia from curvature of the spine | | | | (Age | | | | | 93) | | + +-------+ + + | Sister | | | car accident | | | | (Age | | | | | 6) | | + +-------+ + + | Son | | Alive | | + +-------+ + + | Son | | Alive | | + +-------+ + + | Son | | Alive | | + +-------+ + + Social History + + + [...] on file | | + + + Last Filed Vital Signs + + + [...] + + + + | Temperature | 36.1 C (97 F) | 03/03/2019 10:42 AM | | | | | PDT | | + + + + + | Respiratory Rate | 16 | 10/21/2019 2:04 PM | | | | | PDT | | + + + + + | Oxygen Saturation | 98% | 03/03/2019 10:42 AM | | | | | PDT [...] | | + + + + + Plan of Treatment +--------+---------+ + + + | Date | Type | Specialty | Care Team | Description | +--------+---------+ + + + | 10/23/ | Office | Cardiology | Doretha Frazier, | | | 2020 | Visit | | [address] | | | | | | [place], | | | | | | [place] [address] | | | | | | [phone] | | | | | | | | +--------+---------+ + + + + + + + + | Health Maintenance | Due Date | Last | Comments | | | | Done | | + + + + + | Medication | | | | | Management | 7 | | | + + + + + | Diabetic Eye Exam | | | | | | 5 | | | + + + + + | Diabetic Foot Exam | | | | | | 5 | | | + + + + + | Vaccine: Zoster (1 | | | | | of 2) | 7 | | | + + + + + | Adult Annual | | | | | Wellness Visit | 5 | | | + + + + + | Hemoglobin A1c | | 10/13/19 | | | Screening | 8 | 18 | | + + + + + | Med Mgmt: HBA1C | | 10/13/19 | | | | 8 | 18 | | + + + + + | Vaccine: Influenza | | 04/26/20 | | | (#1) | 0 | 19, | | | | | 04/12/20 | | | | | 18, | | | | | 04/26/20 | | | | | 17, | | | | | Addition | | | | | al | | | | | history | | | | | exists | | + + + + + | Vaccine: | | 10/29/19 | | | Dtap/Tdap/Td (2 - | 1 | 11 | | | Td) | | | | + + + + + | Med Mgmt: Cr | | 11/17/19 | | | | 1 | 20, | | | | | 11/17/19 | | | | | 20, | | | | | 09/03/19 | | | | | 19, | | | | | Addition | | | | | al | | | | | history | | | | | exists | | + + + + + | Med Mgmt: K | | 11/17/19 | | | | 1 | 20, | | | | | 11/17/19 | | | | | 20, | | | | | 09/03/19 | | | | | 19, | | | | | Addition | | | | | al | | | | | history | | | | | exists | | + + + + + | Med Mgmt: Na | | 11/17/19 | | | | 1 | 20, | | | | | 11/17/19 | | | | | 20, | | | | | 09/03/19 | | | | | 19, | | | | | Addition | | | | | al | | | | | history | | | | | exists | | + + + + + | Med Mgmt: eGFR | | 11/17/19 | | | | 1 | 20, | | | | | 11/17/19 | | | | | 20, | | | | | 09/03/19 | | | | | 19, | | | | | Addition | | | | | al | | | | | history | | | | | exists | | + + + + + | Vaccine: | Completed | 12/26/19 | | | Pneumococcal 65+ | | 16, | | | | | 09/16/19 | | | | | 08, | | | | | 04/29/20 | | | | | 05, | | | | | Addition | | | | | al | | | | | history | | | | | exists | | + + + + + Results Not on filefrom Last 3 Months Insurance + +--------+ +--------+ +---------+--------+ | Payer | Benefi | Subscriber | Effect | Phone | Address | Type | | | t Plan | ID | fely | | | | | | / | | Dates | | | | | | Group | | | | | | + +--------+ +--------+ +---------+--------+ | MEDICARE | MEDICA | [id number] | 11/11/19 | [phone] | | Medica | | | RE | | 02-Pre | 5 | | re | | | PART A | | sent | | | | | | AND B | | | | | | + +--------+ +--------+ +---------+--------+ | [employer] | UNITED | [id number] | 07/13/19 | [phone] | | PPO | | | | | 13-Pre | 2 | | | | | HEALTH | | sent | | | | | | CARE | | | | | | | | PPO | | | | | | + +--------+ +--------+ +---------+--------+ + +--------+ +--------+ + + | Guarantor Name | Accoun | Relation to | Date | Phone | Billing Address | | | t Type | Patient | of | | | | | | | | | | + +--------+ +--------+ + + | Abiola Vaughan | Person | Self [birth year] | [address] | | [place] | al/Fam | | 1936 | [phone] | [place] [address] | | | noel | | | 6 (Home) | | + +--------+ +--------+ + + Advance Directives + + + + + | Type | Date Recorded | Patient | Explanation | | | | [employer] | | + + + + + | Power of | | | | | Fruit Grower | | | | + + + + + | Advance | | | | | Directive | | | | + + + + +
--- OUTSIDE RECORDS SUMMARY | ~2020-02-27 | XMS | Encounter Summary ---
Demographics + + + | Address | [address] | | | [place] [address] | + + + | Home Phone | | + + + | Preferred Language | Unknown | + + + | Marital Status | | + + + | Faith Affiliation | 1077 | + + + | Race | White | + + + | Ethnic Group | Not or | + + + Author + + + | Author | [facility] | | | and [place] | + + + | Organization | [facility] | | | [...] Team Providers + +------+ + | Care Ekg Technician Name | Role | Phone | + +------+ + | Akua Hamilton MD | PCP | | + +------+ + Reason for Visit + +--------+ + | Reason | Onset | Comments | | | Date | | + +--------+ + | Blood Pressure Check | 10/22/ | Blood pressure log from 10/05-10/18 | | (Screening) | 2018 | | + +--------+ + Encounter Details +--------+ + + + + | Date | Type | Department | Care Team | Description | +--------+ + + + + | 10/22/ | Telephone | [facility] | Doretha Frazier, | Blood Pressure Check | | 2019 | | CARDIOLOGY [address] | [address] [facility] | (Screening) (Blood | | | | [place], | [place], | pressure log from | | | | [place] [address] | [place] [address] | 10/05-10/18) | | | | [phone] | [phone] | | | | | | | [...] Telephone Encounter - Jen Moss RN - 10/22/2018 11:55 AM PDTPatient notified, wi ll continue to monitor blood pressure, make time changes to medications and add amlodipine . .........................................Jen Moss RN on 10/22/18 at 11:[address] [facility] Jen Moss RN - 10/22/2018 11:[address] Bustillo, patient needs to take lis inopril at 8 am and 7 pm. Start amlodipine 5 mg one daily in evening. Check blood pressure a nd pulse twice a day for 2 weeks, mail to office. Spoke with patient, will call when she get s home ..........................................Jen Moss RN on 10/22/18 at 11:[address] [facility] - Jen Moss RN - 10/22/2018 9:11 AM PDTSpoke with patient, she takes HCTZ 8 a m, Lisinopril at noon and 10 pm. 19 9:12 AM PDTTelephone Encounter - Doretha Frazier MD - 10/22/2018 7:00 AM PDTWhat tme does the patient take blood pressure medications? elephone Encounter - Elisabeth Miner, Decorative Engraver - 0 10/22/2018 6:44 AM PDT Next Visit: 09/06/2019 Blood pressure log received from patient as follows: Date BP AM Pulse AM BP PM Pulse PM 10/05 151/77 67 171/79 69 10/06 117/63 73 143/77 69 10/07 104/64 79 143/72 72 10/08 108/62 81 138/80 76 10/09 106/64 74 10/10 117/60 84 145/72 72 10/11 115/63 82 155/76 74 10/12 152/72 74 177/87 73 10/13 138/77 73 117/75 62 10/14 118/62 71 165/74 85 10/15 187/66 76 146/75 66 10/16 111/68 72 174/85 66 10/17 108/65 87 153/75 70 10/18 113/61 87 138/80 70 Additional Comments: docu mented in this encounter Plan of Treatment +--------+---------+ + + + | Date | Type | Specialty | Care Team | Description | +--------+---------+ + + + | 10/23/ | Office | Cardiology | Doretha Frazier, | | | 2020 | Visit | | [address] | | | | | | [place], | | | | | | [place] [address] | | | | | | [phone] | | | | | | | | +--------+---------+ + + + documented as of this encounter Visit Diagnoses Not on filedocumented in this encounter"
--- OUTSIDE RECORDS SUMMARY | ~2020-02-27 | XMS | Encounter Summary ---
Demographics + + + | Address | [address] | | | [place] [address] | + + + | Home Phone | | + + + | Preferred Language | Unknown | + + + | Marital Status | | + + + | Sikh Affiliation | 1077 | + + + [...] Team Providers + +------+ + | Care Hydroelectric Plant Electrician Name | Role | Phone | + [...] Description | +--------+---------+ + + + | 10/06/ | Office | [facility] | Klaus Melendrez PA | ARELI on CPAP (Primary | | 2017 | Visit | SLEEP DISORDER [address] | [address] | Dx) | | | | [address] [place] | [place] | | | | | [place] [address] | [address] | | | | | [phone] | | | +--------+---------+ + + + [...] + + + | Blood Pressure | 122/60 | 10/06/2016 8:51 AM | | | | | PDT | | + + + + + | Pulse | 64 | 10/06/2016 8:51 AM | | | | | PDT | | + + + + + | Temperature | - | - | | + + + + + | Respiratory Rate | 16 | 10/06/2016 8:51 AM | | | | | PDT | | + + + + + | Oxygen Saturation | 95% | 10/06/2016 8:51 AM | | | | | PDT | | + + + + + | Inhaled Oxygen | - | - | | | Concentration | | | | + + + + + | Weight | 83.2 kg (183 lb 6.4 | 10/06/2016 8:51 AM | | | | oz) | PDT | | + + + + + | Height | - | - | | + + + + + | Body Mass Index | 30.52 | 09/25/2016 11:01 AM | | | | | PDT | | + + + + + documented in this encounter Patient Instructions Patient Instructions Klaus Melendrez PA - 10/06/2016 9:17 AM PDT1. Go to [facility] t o get a nasal mask or nasal pillows -there is a 30-day guarantee on all masks. 2. Read while wearing CPAP for 30-60 prior to going to sleep to help desensitize to the CP AP. 3. Work toward wearing CPAP 100% of the time asleep. documented in this encounter Progress Notes Klaus Melendrez PA - 10/06/2016 8:46 AM PDT Subjective: Patient ID: Abiola Vaughan is a 80 y.o. female. HPI last office visit: 09/25/2016 date of polysomnography: 09/16/2016 AHI: 8.4 RDI: 16.7 O2%: 79% with 6.3 minutes below 88% Machine type: ResMed AirSense 10 Mask type: full face mas DME: [facility] [place] pressure: 4-15 cm Median: 7.1 cm 95%: 11.8 cm maximum: 12.2 cm Nights using CPAP: 9/9 % of nights >4 hours: 55% average usage (all nights): 4:09 average usage (nights used): 4:09 AHI: 0.8 Abiola comes in for CPAP compliance. She is doing pretty well with her CPAP, wearing it nightly but is struggling with wearing it for the duration of her sleep. Her main challenge has been with her full face mask. She says it is causing discomfort to the bridge of her n ose. She also feels that she is being smothered by the pressure. Because of these distract ions, she feels that she is sleeping worse when using her CPAP. We discussed the fact that we sleep in ninety minute sleep cycles throughout the night. We briefly wake up after each of these cycles, but it is usually a subconscious period. We discussed the fact that CPAP c an disrupt these cycles and cause it to be a conscious wakeup. For others, this remains a s ubconscious wakeup and the take off their mask and go back to sleep without remembering it. As the CPAP becomes more familiar, it returns to being a subconscious wakeup. We discussed desensitization techniques to help her get more comfortable with her mask and the pressure. I believe she would do well with a nasal mask or nasal pillows. This would allow her to w ear her CPAP while reading and would also eliminate the soreness to the bridge of her nose. We went through each of the settings on the CPAP, to ensure that there is a good understand ing of how to make changes to temperature, humidity and/or the ramp. She is comfortable wit h her current settings and is comfortable making adjustments to the settings, if necessary. I have discussed the download in detail. This shows that her sleep apnea is controlled, wi th an AHI of 0.8. It also shows that her leaks are significant on most nights. BP 122/60 mmHg | Pulse 64 | Resp 16 | Wt 83.19 kg (183 lb 6.4 oz) | SpO2 95% Review of Systems Objective: Physical Exam Assessment: Problem #1: OBSTRUCTIVE SLEEP APNEA ([id number]) This is well controlled with CPAP. She is doing pretty well with her CPAP compliance. She is wearing her CPAP nightly, but has struggled with wearing it for the duration of her slee p. Plan: 1. She is to continue with CPAP indefinitely. 2. I have recommended that she go to [facility] [place] to replace her full face mask with a nasal mask or nasal pillows. 3. I have recommended that she work toward wearing her CPAP 100% of the time she is asleep . 4. I have recommended that she read while wearing her CPAP for 30-60 prior to going to [facility] to help desensitize her to the CPAP. I will follow up again in 1 month, sooner prn. Twenty-five minutes were spent [id number] , with the majority of time spent in counseling. [...] Jerez | | | | | | [place], | | | | | | [place] [address] | | | | | | [phone] | | | | | | | | +--------+---------+ + + + documented as of this encounter Visit Diagnoses + + | Diagnosis | + + | ARELI on CPAP - Primary Obstructive sleep apnea (adult) (pediatric) | + + documented in this encounter"
--- OUTSIDE RECORDS SUMMARY | ~2020-02-27 | XMS | Encounter Summary ---
Demographics + + + | Address | [address] | | | [place] [address] | + + + | Home Phone | | + + + | Preferred Language | Unknown | + + + | Marital Status | | + + + | Zoroastrianism Affiliation | 1077 | + + + | Race | White | + + + | Ethnic Group | Not or | + + + Author + + + | Author | [facility] | | | and [place] | + + + | Organization | [facility] | | | and [...] Team Providers + +------+ + | Care Die Try Out Worker Name | Role | Phone | + +------+ + | Akua Hamilton MD | PCP | | + +------+ + Reason for Visit + + + | Reason | Comments | + + + | Follow-up | 12 month | + + + Follow Up (Routine) + +--------+ + + + + | Status | Reason | Specialty | Diagnoses / | Referred By | Referred To | | | | | Procedures | Contact | Contact | + +--------+ + + + + | Authorized | | Pulmonary | Diagnoses | Alfonso, | Terrell, | | | | Disease / | Solitary | Akua Jerez MD | MD Hernandez | | | | Pulmonology | pulmonary | [address] | [address] | | | | | nodule | [place] | [place], | | | | | Procedures | [place], [place] | [place] [address] | | | | | F[address] | [id number] | Phone: | | | | | DEMETRIA TEJADA | Phone: | [phone] | | | | | 03/03/19 | [phone] | Fax: | | | | | | Fax: | [phone] | | | | | | [phone] | | + +--------+ + + + + Encounter Details +--------+---------+ + + + | Date | Type | Department | Care Team | Description | +--------+---------+ + + + | 03/03/ | Office | [facility] | Hernandez Tejada, | Mild intermittent | | 2019 | Visit | PULMONARY [address] | MD [address] | asthma without | | | | [place], | [place] | complication | | | | [place] [address] | [address] | (Primary Dx); | | | | [phone] | | Solitary pulmonary | | | | | | nodule | +--------+---------+ + + + Social History [...] + + + | Blood Pressure | 122/78 | 03/03/2019 10:42 AM | | | | | PDT | | + + + + + | Pulse | 77 | 03/03/2019 10:42 AM | | | | | PDT | | + + + + + | Temperature | 36.1 C (97 F) | 03/03/2019 10:42 AM | | | | | PDT | | + + + + + | Respiratory Rate | 14 | 03/03/2019 10:42 AM | | | | | PDT | | + + + + + | Oxygen Saturation | 98% | 03/03/2019 10:42 AM | | | | | PDT | | + + + + + | Inhaled Oxygen | - | - | | | Concentration | | | | + + + + + | Weight | 68.6 kg (151 lb 3.8 | 03/03/2019 10:42 AM | | | | oz) | PDT | | + + + + + | Height | 165.1 cm (5' 5") | 03/03/2019 10:42 AM | | | | | PDT | | + + + + + | Body Mass Index | 25.17 | 03/03/2019 10:42 AM | | | | | PDT | | + + + + + documented in this encounter Patient Instructions Patient Instructions Hernandez Tejada MD - 03/03/2019 11:00 AM PDT Influenza Virus Vaccine injection Please get the high dose Flu Shot in April 2019. Brand Name: Fluvirin What is this medicine? INFLUENZA VIRUS VACCINE ([facility]) helps to reduce the risk of get ting influenza also known as the flu. The vaccine only helps protect you against some strain s of the flu. How should I use this medicine? This vaccine is for injection into a muscle or under the skin. It is given by a health patient care secretary. A copy of Vaccine Information Statements will be given before each vaccination. Read this s heet carefully each time. The sheet may change frequently. Talk to your healthcare provider to see which vaccines are right for you. Some vaccines inez uld not be used in all age groups. What side effects may I notice from receiving this medicine? Side effects that you should report to your doctor or health patient care secretary as soon as p ossible: allergic reactions like skin rash, itching or hives, swelling of the face, lips, or tong ue Side effects that usually do not require medical attention (report to your doctor or health patient care secretary if they continue or are bothersome): fever headache muscle aches and pains pain, tenderness, redness, or swelling at the injection site tiredness What may interact with this medicine? chemotherapy or radiation therapy medicines that lower your immune system like etanercept, anakinra, infliximab, and ayo mumab medicines that treat or prevent blood clots like warfarin phenytoin steroid medicines like prednisone or cortisone theophylline vaccines What if I miss a dose? This does not apply. Where should I keep my medicine? The vaccine will be given by a health patient care secretary in a clinic, pharmacy, doctor's off ice, or other health care setting. You will not be given vaccine doses to store at home. What should I tell my health care provider before I take this medicine? They need to know if you have any of these conditions: bleeding disorder like hemophilia fever or infection Guillain-Marcellus syndrome or other neurological problems immune system problems infection with the human immunodeficiency virus (HIV) or AIDS low blood platelet counts multiple sclerosis an unusual or allergic reaction to influenza virus vaccine, latex, other medicines, food s, dyes, or preservatives. Different brands of vaccines contain different allergens. Some ma y contain latex or eggs. Talk to your doctor about your allergies to make sure that you get the right vaccine. or trying to get breast-feeding What should I watch for while using this medicine? Report any side effects that do not go away within 3 days to your doctor or health care pro fessional. Call your health care provider if any unusual symptoms occur within 6 weeks of re ceiving this vaccine. You may still catch the flu, but the illness is not usually as bad. You cannot get the flu from the vaccine. The vaccine will not protect against colds or other illnesses that may cau se fever. The vaccine is needed every year. NOTE:This sheet is a summary. It may not cover all possible information. If you have questi ons about this medicine, talk to your doctor, pharmacist, or health care provider. Copyright 2019 [employer] documented in this encounter Progress Notes Hernandez Tejada MD - 03/03/2019 11:00 AM PDTFormatting of this note might be different f rom the original. Pulmonary Follow Up 03/03/2019 HPI Abiola Vaughan is a 83 y.o. female patient of Akua Hamilton MD here today for foll ow up of asthma. The patient's last visit was on 03/03/19. Since the last visit she feels like [...] asthma have occurred since the last appointment. Their medication regimen currently consists of PRN Proventil. They do feel like this medic ation regimen is effective at controlling their symptoms. Currently Abiola is using their rescue albuterol, Proventil, 0 times a day. Triggers of their asthma include wheat dust and other dust. She does not have nocturnal sy mptoms of wheezing, chest tightness or cough. She does not measure their peak flow. Currently Abiola reports being able to walk several blocks at their own pace on level yue und before becoming symptomatic. They are exercising regularly. Current exercise consists of some walking 4 blocks most days. She does not cough chronically, and does not produce mucous. [...] with thei r Pneumovax and Prevnar 13. Past Medical History Past Medical History: Diagnosis [...] Allergen Reactions Lansoprazole Hives Medications: Current Outpatient Medications: albuterol (PROVENTIL HFA) 90 mcg/puff inhaler, Inhale 2 puffs into the lungs every 4 h ours as needed for Wheezing or Shortness of Breath., Disp: , Rfl: amLODIPine (NORVASC) 5 mg tablet, Take 5 mg by mouth Daily., Disp: , Rfl: aspirin 81 mg chewable tablet, Take 81 mg by mouth Daily., Disp: , Rfl: atorvaSTATin (LIPITOR) 10 mg tablet, Take 10 mg by mouth nightly., Disp: , Rfl: Calcium Citrate 200 MG TABS, Take 800 mg by mouth Daily., Disp: , Rfl: gabapentin (NEURONTIN) 100 mg capsule, Take 100 mg by mouth Daily., Disp: , Rfl: 0 hydroCHLOROthiazide 25 mg tablet, Take 25 mg by mouth Daily., Disp: , Rfl: lisinopril (PRINIVIL, ZESTRIL) 20 mg tablet, Take 20 mg by mouth Daily., Disp: , Rfl: metFORMIN (GLUCOPHAGE) 500 mg tablet, Take 500 mg by mouth 2 times daily (with breakfa st & dinner)., Disp: , Rfl: Multiple Vitamins-Minerals (MULTIVITAMIN ADULT PO), Take by mouth 2 times daily., Dis p: , Rfl: UNABLE TO FIND, Resmed AirSense 10 autoset CPAP: 4-15cm while sleeping., Disp: , Rfl: Immunizations: Immunization History Administered Date(s) Administered INFLUENZA 65 Y OR >, TRIVALENT HIGH-DOSE 04/26/2015, 04/17/2016, 04/26/2017 INFLUENZA PF 18 Y OR >,TRIVALENT RECOMBINANT 03/18/2012, 04/26/2013, 04/26/2015 INFLUENZA, [id number], INACTIVATED 07/09/2009 INFLUENZA, UNSPECIFIED FORMULATION 04/29/2005, 05/26/2006, 04/19/2007, 04/06/2009, 1012/2009 PNEUMOCOCCAL CONJUGATE 13-VALENT (PCV13) 12/26/2015 PNEUMOCOCCAL POLYSACCHARIDE 23-VALENT (PPSV23) 09/15/1958, 04/29/2005, 09/16/2007 TDAP, (ADOL/ADULT) 10/28/2010 Objective BP 122/78 | Pulse 77 | Temp 36.1 C (97 F) (Temporal) | Resp 14 | Ht 1.651 m (5' 5") | Wt 68.6 kg (151 lb 3.8 oz) | SpO2 98% | BMI 25.17 kg/m Appearance: Alert, cooperative, no distress, appears [...] Gait normal. Data: None Assessment 1. Asthma mild intermittent. Over the last 12 months Abiola has not experienced sympt oms concerning for an exacerbation of her asthma. She has Proventil to use as needed but bryant s not required the medication over the last 12 months. The patient was encouraged to receive high-dose seasonal all. 2. Solitary pulmonary nodule CT scan of the chest from 03/03/2018 was noted not to show t he previously identified density in the right lower lobe on the chest x-ray from 07/28/2017. Incidentally a 5 mm calcified granuloma was noted in the right apex. Given the patient's l ow risk status and the size of the no further follow-up as needed. Plan 1. Pulmonary clinic follow-up as needed. 2. High-dose seasonal influenza vaccination is recommended for April 2019. CC: Akua Hamilton MD documented in this [...] | | | | | | [place] [address] | | | | | | [phone] | | | | | | | | +--------+---------+ + + + documented as of this encounter Visit Diagnoses + + | Diagnosis | + + | Mild intermittent asthma without complication - Primary Unspecified asthma | + + | Solitary pulmonary nodule | + + documented in this encounter
--- OUTSIDE RECORDS SUMMARY | ~2020-02-27 | XMS | Encounter Summary ---
Demographics + + + | Address | [address] | | | [place] [address] | + + + | Home Phone | | + + + | Preferred Language | Unknown | + + + | Marital Status | | + + + | Cheondoism Affiliation | 1077 | + + + | Race | White | + + + | Ethnic Group | Not or | + + + Author + + + | Author | [facility] | | | and [place] | + + + | Organization | [facility] | | [...] Team Providers + +------+ + | Care Rn Medical Surgical Name | Role | Phone | + +------+ + | Akua Hamilton MD | PCP | | + +------+ + Encounter Details +--------+ + + + + | Date | Type | Department | Care Team | Description | +--------+ + + + + | 02/19/ | Imaging | [facility] | Provider, | | | 2018 | Exam | [facility] | MD [address] | | | | | IMAGING [address] | [address] | | | | | [address] [place] | [place] [address] | | | | | [place] [address] | | | | | | [phone] | | | +--------+ + + + [...] | | | | | | [place] [address] | | | | | | [phone] | | | | | | | | +--------+---------+ + + + documented as of this encounter Procedures + +--------+ + + + | Procedure Name | Priori | Date/Time | Associated Diagnosis | Comments | | | ty | | | | + +--------+ + + + | XR CHEST 2 VIEWS | Routin | 01/18/2018 | | Results for this | | | e | 11:05 AM | | procedure are in the | | | | PDT | | results section. | + +--------+ + + + documented in this encounter Results XR Chest 2 Vws (01/18/2018 11:05 AM PDT) + + | Specimen | [...]
--- OUTSIDE RECORDS SUMMARY | ~2020-02-27 | XMS | Encounter Summary ---
Demographics + + + | Address | [address] | | | [place] [address] | + + + | Home Phone [...] + + + | Author | [facility] | | | and [place] | + + + | Organization | [facility] | | | [...] Team Providers + +------+ + | Care Personal Finance Instructor Name | Role | Phone | + +------+ + | Akua Hamilton MD | PCP | | + +------+ + Encounter Details +--------+ + + + + | Date | Type | Department | Care Team | Description | +--------+ + + + + | 03/02/ | Orders Only | [facility] [place] | Jannette Jimenes | | | 2018 | | PULMONARY [address] | M, Taste Tester | | | | | [place] | | | | | | [place] [address] | | | | | | [phone] | | | +--------+ + + + [...] | | | | | | [place] [address] | | | | | | [phone] | | | | | | | | +--------+---------+ + + + documented as of this encounter Visit Diagnoses Not on filedocumented in this encounter"
--- OUTSIDE RECORDS SUMMARY | ~2020-02-27 | XMS | Encounter Summary ---
Demographics + + + | Address | [address] | | | [place] [address] | + + + | Home Phone [...] Team Providers + +------+ + | Care Instrument And Controls Technician Name | Role | Phone | + +------+ + | Akua Hamilton MD | PCP | | + +------+ + Reason for Visit +--------+--------+ + | Reason | Onset | Comments | | | Date | | +--------+--------+ + | Other | 02/12/ | sick since january | | | 2017 | | +--------+--------+ + Encounter Details +--------+ + + + + | Date | Type | Department | Care Team | Description | +--------+ + + + + | 02/12/ | Telephone | [facility] | Tejada Hernandez, | Other (sick since | | 2017 | | PULMONARY [address] | MD [address] | early January) | | | | [place], | [place] | | | | | [place] [address] | [address] | | | | | [phone] | | | +--------+ + + + [...] Telephone Encounter - Leelee Hernandez RN - 02/12/2018 3:07 PM PDTTee Abiola and becca pizano a follow up appointment. Scheduled for next week 02/17/18. elephone Encounter - Hernandez Tejada MD - 09/2017 2:24 PM PDTIt would not be appropriate for me to speculate regarding the patient's s ymptoms without evaluating her. It sounds like she was treated for worsening of her asthma in the emergency department. We could try to work her in sometime in the next 1 2 weeks, she can present to Dr. Hamilton for further evaluation or return to the emergency department/[facility] care if she believes that her symptoms warrant. elephone Encounter - Leelee Hernandez RN - 02/12/2018 1: 29 PM Manju called concerned about a CXR she had when seen in the ED on 01/25/18. She h ad increased shortness of breath, wheeze and cough and was seen at the [facility] around the second week in January. She was given antibiotics. As she was not feeling any rajiv Culver then presented to the ER. She was placed on a prednisone taper and a Zpak and willian d to use her Pro Air every 4 hours. She has been able to sleep okay at night. The shortness of breath is better and she has less cough which is non productive. In early January she felt t hat she had one day of fever but did not take her temp with a thermometer. Weight is done 12 pounds since her last visit with Dr Tejada and she feels weak. ProAir is her only pulmona ry medication. sophie kulkarnied in this encounter Plan of Treatment +--------+---------+ + + + | Date | Type | Specialty | Care Team | Description | +--------+---------+ + + + | 10/23/ | Office | Cardiology | Doretha Frazier, | | | 2020 | Visit | | MD Christopher Jerez | | | | | | [place], | | | | | | [place] [address] | | | | | | [phone] | | | | | | | | +--------+---------+ + + + documented as of this encounter Visit Diagnoses Not on filedocumented in this encounter"
--- OUTSIDE RECORDS SUMMARY | ~2020-02-27 | XMS | Encounter Summary ---
Demographics + + + | Address | [address] | | | [place] [address] | + + + | Home Phone | | + + + | Preferred Language | Unknown | + + + | Marital Status | | + + + | Sabianist Affiliation | 1077 | + + + | Race | White | + + + | Ethnic Group | Not or | + + + Author + + + | Author | [facility] | | | and [place] | + + + | Organization | [facility] | | [...] Team Providers + +------+ + | Care College Or University Business Manager Name | Role | Phone | + +------+ + | Akua Hamilton MD | PCP | | + +------+ + Reason for Visit + +--------+ + | Reason | Onset | Comments | | | Date | | + +--------+ + | Blood Pressure Check | 10/07/ | Blood pressure log from 09/20/16-10/03/16 | | (Screening) | 2016 | | + +--------+ + Encounter Details +--------+ + + + + | Date | Type | Department | Care Team | Description | +--------+ + + + + | 10/07/ | Telephone | [facility] | Doretha Frazier, | Blood Pressure Check | | 2017 | | CARDIOLOGY [address] | MD [address] | (Screening) (Blood | | | | [place], | [place], | pressure log from | | | | [place] [address] | [place] [address] | 09/20/16-10/03/16) | | | | [phone] | [phone] | | | | | | | [...] Telephone Encounter - Tianna Christianson RN - 10/07/2016 2:53 PM PDTMargaret notified. Lab order faxed to [facility] in [employer]............................................Tianna munoz RN on 10/07/16 at 14:53 elephone Encounter - Doretha Frazier MD - 10/07/2016 2:49 PM PDTAdd HCTZ 25 mg once a day. Check blood pressure x 2 weeks. Check [place] in 1 week. elephone Encounter - Elisabeth Mnier, Transportation Aid - 10/07/2016 2:36 PM PDTFormatting of this note amber ht be different from the original. Next Visit: SHELLY 02/26/17 Blood pressure log received from patient as follows: Medication Change: Date BP AM Pulse AM BP PM Pulse PM 09/20/16 130/68 74 117/79 72 09/21/16 132/67 87 176/89 71 09/22/16 101/61 79 163/81 78 09/23/16 138/76 83 156/78 92 09/24/16 94/57 80 149/79 80 09/25/16 124/68 87 142/77 77 09/26/16 97/63 88 123/77 89 09/27/16 115/68 82 148/82 76 09/28/16 127/67 87 141/76 83 09/29/16 148/79 77 159/89 83 09/30/16 139/72 69 171/87 73 10/01/16 135/75 71 136/78 70 10/02/16 133/65 69 154/73 69 10/03/16 158/71 89 139/70 72 Additional Comments: EALdocu mented in this encounter Plan of Treatment +--------+---------+ + + + | Date | Type | Specialty | Care Team | Description | +--------+---------+ + + + | 10/23/ | Office | Cardiology | Doretha Frazier, | | | 2020 | Visit | | [address] | | | | | | [place], | | | | | | [place] [address] | | | | | | [phone] | | | | | | | | +--------+---------+ + + + + +------+--------+ + + | Name | Type | Priori | Associated Diagnoses | Order Schedule | | | | ty | | | + +------+--------+ + + | Basic Metabolic | Lab | Routin | Essential | Expected: | | Panel | | e | hypertension | 10/07/2016, Expires: | | | | | | 10/07/2017 | + +------+--------+ + + documented as of this encounter Visit Diagnoses + + | Diagnosis | + + | Essential hypertension - Primary Unspecified essential hypertension | + + documented in this encounter"
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
--- OUTSIDE RECORDS SUMMARY | ~2020-02-27 | XMS | Encounter Summary ---
Demographics + + + | Address | [address] | | | [place] [address] | + + + | Home Phone [...] Team Providers + +------+ + | Care Ripsaw Operator Name | Role | Phone | + +------+ + | Akua Hamilton MD | PCP | | + +------+ + Reason for Visit + +--------+ + | Reason | Onset | Comments | | | Date | | + +--------+ + | Blood Pressure | 11/11/ | | | | 2019 | | + +--------+ + Encounter Details +--------+ + + + + | Date | Type | Department | Care Team | Description | +--------+ + + + + | 11/11/ | Telephone | [facility] | [place], | Blood Pressure | | 2019 | | CARDIOLOGY [address] | MD [address] | | | | | [place], | [place], | | | | | [place] [address] | [place] [address] | | | | | [phone] | [phone] | | | | | | | [...] this encounter Miscellaneous Notes Telephone Encounter - Akua Curtis RN - 11/11/2018 4:31 PM PDTSpoke with patient and r elayed message from Dr. Bustillo..............................................Akua Curtis RN o n 11/11/18 at 16:31 elephone Encounter - Doretha Frazier MD - 11/11/2018 3:40 PM PDTNo med change. Thank you. elephone Encounter - Jacquelyn Avendano CMA - 11/11/2018 3:14 PM PDTFormatting of this note might be diff erent from the original. Next Visit:09/06/2019 Blood pressure log received from patient as follows:10/24/18--11/06/18 Medication Change: Date BP AM Pulse AM BP PM Pulse PM 10/24/18 115/63 82 157/81 69 10/25/18 139/66 79 150/78 65 10/26/18 134/67 71 145/71 65 10/27/18 101/58 69 131/75 71 10/28/18 129/64 76 145/68 82 10/29/18 101/59 76 142/72 67 10/30/18 120/60 72 145/77 69 10/31/18 88/51 71 128/63 82 11/01/18 123/61 72 11/02/18 108/54 69 147/78 74 11/03/18 118/64 75 140/69 71 11/04/18 99/62 78 139/69 72 11/05/18 145/68 70 149/73 70 11/06/18 104/61 74 143/76 84 Additional Comments: documented in this encounter Plan [...] | | | | | | [place] [address] | | | | | | [phone] | | | | | | | | +--------+---------+ + + + documented as of this encounter Visit Diagnoses Not on filedocumented in this encounter"
--- OUTSIDE RECORDS SUMMARY | ~2020-02-27 | XMS | Encounter Summary ---
Demographics + + + | Address | [address] | | | [place] [address] | + + + | Home Phone [...] + + + | Author | [facility] | | | and [place] | + + + | Organization | [facility] | | | [...] Team Providers + +------+ + | Care Stem Crusher Name | Role | Phone | + +------+ + | Akua Hamilton MD | PCP | | + +------+ + Encounter Details +--------+ + + + + | Date | Type | Department | Care Team | Description | +--------+ + + + + | 11/17/ | Abstract | [facility] [place] | Doretha Frazier, | | | 2019 | | CARDIOLOGY [address] | [address] | | | | | [place], | [place], | | | | | [place] [address] | [place] [address] | | | | | [phone] | [phone] | | | | | | | [...] | | | | | | [place] [address] | | | | | | [phone] | | | | | | | | +--------+---------+ + + + documented as of this encounter Procedures + +--------+ + + + | Procedure Name | Priori | Date/Time | Associated Diagnosis | Comments | | | ty | | | | + +--------+ + + + | EXTERNAL LAB: BUN | Routin | 11/17/2019 | | Results for this | | | e | | | procedure are in the | | | | | | results section. | + +--------+ + + + | EXTERNAL LAB: | Routin | 11/17/2019 | | Results for this | | GLUCOSE | e | | | procedure are in the | | | | | | results section. | + +--------+ + + + | EXTERNAL LAB: ALT | Routin | 11/17/2019 | | Results for this | | | e | | | procedure are in the | | | | | | results section. | + +--------+ + + + | EXTERNAL LAB: AST | Routin | 11/17/2019 | | Results for this | | | e | | | procedure are in the | | | | | | results section. | + +--------+ + + + | EXTERNAL LAB: | Routin | 11/17/2019 | | Results for this | | ALKALINE PHOSPHATASE | e | | | procedure are in the | | | | | | results section. | + +--------+ + + + | EXTERNAL LAB: | Routin | 11/17/2019 | | Results for this | | BILIRUBIN, TOTAL | e | | | procedure are in the | | | | | | results section. | + +--------+ + + + | EXTERNAL LAB: | Routin | 11/17/2019 | | Results for this | | ALBUMIN | e | | | procedure are in the | | | | | | results section. | + +--------+ + + + | EXTERNAL LAB: | Routin | 11/17/2019 | | Results for this | | PROTEIN, TOTAL | e | | | procedure are in the | | | | | | results section. | + +--------+ + + + | EXTERNAL LAB: | Routin | 11/17/2019 | | Results for this | | CALCIUM | e | | | procedure are in the | | | | | | results section. | + +--------+ + + + | EXTERNAL LAB: CARBON | Routin | 11/17/2019 | | Results for this | | DIOXIDE | e | | | procedure are in the | | | | | | results section. | + +--------+ + + + | EXTERNAL LAB: | Routin | 11/17/2019 | | Results for this | | CHLORIDE | e | | | procedure are in the | | | | | | results section. | + +--------+ + + + | EXTERNAL LAB: | Routin | 11/17/2019 | | Results for this | | POTASSIUM | e | | | procedure are in the | | | | | | results section. | + +--------+ + + + | EXTERNAL LAB: SODIUM | Routin | 11/17/2019 | | Results for this | | | e | | | procedure are in the | | | | | | results section. | + +--------+ + + + | EXTERNAL LAB: CBC | Routin | 11/17/2019 | | Results for this | | | e | | | procedure are in the | | | | | | results section. | + +--------+ + + + | EXTERNAL LAB: | Routin | 11/17/2019 | | Results for this | | TRIGLYCERIDES | e | | | procedure are in the | | | | | | results section. | + +--------+ + + + | EXTERNAL LAB: | Routin | 11/17/2019 | | Results for this | | CHOLESTEROL, HDL | e | | | procedure are in the | | | | | | results section. | + +--------+ + + + | EXTERNAL LAB: | Routin | 11/17/2019 | | Results for this | | CHOLESTEROL, TOTAL | e | | | procedure are in the | | | | | | results section. | + +--------+ + + + | EXTERNAL LAB: | Routin | 11/17/2019 | | Results for this | | CHOLESTEROL, LDL | e | | | procedure are in the | | | | | | results section. | + +--------+ + + + | EXTERNAL LAB: EGFR | Routin | 11/17/2019 | | Results for this | | | e | | | procedure are in the | | | | | | results section. | + +--------+ + + + | EXTERNAL LAB: | Routin | 11/17/2019 | | Results for this | | CREATININE | e | | | procedure are in the | | | | | | results section. | + +--------+ + + + | LIPID PANEL | Routin | 11/17/2019 | | Results for this | | | e | | | procedure are in the | | | | | | results section. | + +--------+ + + + | CBC WITH | Routin | 11/17/2019 | | Results for this | | DIFFERENTIAL | e | | | procedure are in the | | | | | | results section. | + +--------+ + + + | COMPREHENSIVE | Routin | 11/17/2019 | | Results for this | | METABOLIC PANEL | e | | | procedure are in the | | | | | | results section. | + +--------+ + + + documented in this encounter Results CBC with Differential (11/17/2019) + +-------+ + + + | Component | Value | Ref Range | Performed | Pathologist | | | | | At | Signature | + +-------+ + + + | MCH | 31.0 | 27.0 - 33.0 pg | | | + +-------+ + + + | MCHC | 33.0 | 30.0 - 36.0 | | | | | | g/dL | | | + +-------+ + + + | % Basophils | 1.2 | 0.0 - 2.0 % | | | + +-------+ + + + + + | Specimen | + + | Blood | + + Comprehensive Metabolic Panel (11/17/2019) + + + + + + | Component | Value | Ref Range | Performed | Pathologist | | | | | At | Signature | + + + + + + | Anion Gap | 15 | 7 - 21 mmol/L | | | + + + + + + | Bun/Creatin | 29.5 (A) | 6.0 - 28.6 | | | | ine | | | | | + + + + + + | Globulin | 2.4 | 1.8 - 3.5 | | | + + + + + + | Albumin/Neva | 1.6 | 1.1 - 2.4 | | | | bulin Ratio | | | | | + + + + + + + + | Specimen | + + | Blood | + + Lipid Panel (11/17/2019) + +-------+ + + + | Component | Value | Ref Range | Performed | Pathologist | | | | | At | Signature | + +-------+ + + + | VLDL | 15 | 4 - 40 | | | | Cholesterol | | | | | | Thiago | | | | | + +-------+ + + + | Chol/HDL | 2.3 | 4.4 | | | | Ratio | | | | | + +-------+ + + + | Non-HDL | 92 | 130 | | | | Cholesterol | | | | | + +-------+ + + + + + | Specimen | + + | Blood | + + External Lab: CBC (11/17/2019) + + + + + + | Component | Value | Ref Range | Performed | Pathologist | | | | | At | Signature | + + + + + + | WBC, | 5.0 | 4.5 - 11 | | | | External | | | | | + + + + + + | HGB, | 11.7 (A) | 12 - 16 | | | | External | | | | | + + + + + + | HCT, | 35.6 | 35 - 45 | | | | External | | | | | + + + + + + | PLT, | 267 | 140 - 440 | | | | External | | | | | + + + + + + | Neutrophils | 52.5 | 39 - 80 | | | | %, | | | | | | External | | | | | + + + + + + | Lymphocytes | 27.7 | 24 - 44 | | | | %, | | | | | | External | | | | | + + + + + + | Monocytes | 14.8 (A) | 0 - 12 | | | | %, External | | | | | + + + + + + | Eosinophils | 3.8 | 0 - 6 | | | | %, | | | | | | External | | | | | + + + + + + | RBC, | 3.77 (A) | 3.8 - 5.1 | | | | External | | | | | + + + + + + | MCV, | 94 | 81 - 99 | | | | External | | | | | + + + + + + | RDW, | 14 | 10.5 - 15 | | | | External | | | | | + + + + + + External Lab: BUN (11/17/2019) + +--------+ + + + | Component | Value | Ref Range | Performed | Pathologist | | | | | At | Signature | + +--------+ + + + | BUN, | 28 (A) | 6 - 23 | | | | External | | | | | + +--------+ + + + External Lab: Glucose (11/17/2019) + +-------+ + + + | Component | Value | Ref Range | Performed | Pathologist | | | | | At | Signature | + +-------+ + + + | Glucose, | 78 | 70 - 100 | | | | External | | | | | + +-------+ + + + External Lab: ALT (11/17/2019) + +-------+ + + + | Component | Value | Ref Range | Performed | Pathologist | | | | | At | Signature | + +-------+ + + + | ALT, | 9 | 7 - 52 | | | | External | | | | | + +-------+ + + + External Lab: AST (11/17/2019) + +-------+ + + + | Component | Value | Ref Range | Performed | Pathologist | | | | | At | Signature | + +-------+ + + + | AST, | 15 | 13 - 39 | | | | External | | | | | + +-------+ + + + External Lab: Alkaline Phosphatase (11/17/2019) + +-------+ + + + | Component | Value | Ref Range | Performed | Pathologist | | | | | At | Signature | + +-------+ + + + | ALP, | 44 | 31 - 130 | | | | External | | | | | + +-------+ + + + External Lab: Bilirubin, Total (11/17/2019) + +-------+ + + + | Component | Value | Ref Range | Performed | Pathologist | | | | | At | Signature | + +-------+ + + + | Bilirubin, | 0.4 | 0 - 1.2 | | | | Total, | | | | | | External | | | | | + +-------+ + + + External Lab: Albumin (11/17/2019) + +-------+ + + + | Component | Value | Ref Range | Performed | Pathologist | | | | | At | Signature | + +-------+ + + + | Albumin, | 3.9 | 3.5 - 5 | | | | External | | | | | + +-------+ + + + External Lab: Protein, Total (11/17/2019) + +-------+ + + + | Component | Value | Ref Range | Performed | Pathologist | | | | | At | Signature | + +-------+ + + + | Protein, | 6.3 | 6 - 8.3 | | | | Total, | | | | | | External | | | | | + +-------+ + + + External Lab: Calcium (11/17/2019) + +-------+ + + + | Component | Value | Ref Range | Performed | Pathologist | | | | | At | Signature | + +-------+ + + + | Calcium, | 9.5 | 8.5 - 10.3 | | | | External | | | | | + +-------+ + + + External Lab: Carbon Dioxide (11/17/2019) + +-------+ + + + | Component | Value | Ref Range | Performed | Pathologist | | | | | At | Signature | + +-------+ + + + | Carbon | 25 | 19 - 31 | | | | Dioxide, | | | | | | External | | | | | + +-------+ + + + External Lab: Chloride (11/17/2019) + +-------+ + + + | Component | Value | Ref Range | Performed | Pathologist | | | | | At | Signature | + +-------+ + + + | Chloride, | 103 | 95 - 112 | | | | External | | | | | + +-------+ + + + External Lab: Potassium (11/17/2019) + +-------+ + + + | Component | Value | Ref Range | Performed | Pathologist | | | | | At | Signature | + +-------+ + + + | Potassium, | 4.9 | 3.6 - 5.1 | | | | External | | | | | + +-------+ + + + External Lab: Sodium (11/17/2019) + +-------+ + + + | Component | Value | Ref Range | Performed | Pathologist | | | | | At | Signature | + +-------+ + + + | Sodium, | 138 | 132 - 143 | | | | External | | | | | + +-------+ + + + External Lab: Triglycerides (11/17/2019) + +-------+ + + + | Component | Value | Ref Range | Performed | Pathologist | | | | | At | Signature | + +-------+ + + + | Triglycerid | 76 | 30 - 150 | | | | es, | | | | | | External | | | | | + +-------+ + + + + + | Specimen | + + | Blood | + + External Lab: Cholesterol, HDL (11/17/2019) + +-------+ + + + | Component | Value | Ref Range | Performed | Pathologist | | | | | At | Signature | + +-------+ + + + | HDL | 71 | 40 mg/dl | | | | Cholesterol | | | | | | , External | | | | | + +-------+ + + + + + | Specimen | + + | Blood | + + External Lab: Cholesterol, Total (11/17/2019) + +-------+ + + + | Component | Value | Ref Range | Performed | Pathologist | | | | | At | Signature | + +-------+ + + + | Cholesterol | 163 | 200 mg/dl | | | | , Total, | | | | | | External | | | | | + +-------+ + + + + + | Specimen | + + | Blood | + + External Lab: Cholesterol, LDL (11/17/2019) + +-------+ + + + | Component | Value | Ref Range | Performed | Pathologist | | | | | At | Signature | + +-------+ + + + | LDL | 77 | 100 | | | | Cholesterol | | | | | | , Direct, | | | | | | External | | | | | + +-------+ + + + + + | Specimen | + + | Blood | + + External Lab: eGFR (11/17/2019) + +-------+ + + + | Component | Value | Ref Range | Performed | Pathologist | | | | | At | Signature | + +-------+ + + + | eGFR, | 56 | | | | | External | | | | | + +-------+ + + + + + | Specimen | + + | Blood | + + External Lab: Creatinine (11/17/2019) + +-------+ + + + | Component | Value | Ref Range | Performed | Pathologist | | | | | At | Signature | + +-------+ + + + | Creatinine, | 0.95 | 0.7 - 1.11 | | | | External | | | | | + +-------+ + + + + + | Specimen | + + | Blood | + + documented in this encounter Visit Diagnoses Not on filedocumented in this encounter"
--- OUTSIDE RECORDS SUMMARY | ~2020-02-27 | XMS | Encounter Summary ---
Demographics + + + | Address | [address] | | | [place] [address] | + + + | Home Phone [...] + + + | Author | [facility] | | | and [place] | + + + | Organization | [facility] | | | [...] Team Providers + +------+ + | Care Supervisor Sunglasses Name | Role | Phone | + +------+ + | Akua Hamilton MD | PCP | | + +------+ + Reason for Visit + + + | Reason | Comments | + + + | Annual Exam | | + + + | Congestive Heart | | | Failure | | + + + | Follow-up | | + + + Encounter Details +--------+---------+ + + + | Date | Type | Department | Care Team | Description | +--------+---------+ + + + | 09/06/ | Office | [facility] | [place], | Essential | | 2019 | Visit | CARDIOLOGY [address] [place] | hypertension | | | | [place], | [place], | (Primary Dx) | | | | [place] [address] | [place] [address] | | | | | [phone] | [phone] | | | | | | | [...] + + + | Blood Pressure | 128/60 | 09/06/2018 1:51 PM | | | | | PST | | + + + + + | Pulse | 69 | 09/06/2018 1:51 PM | | | | | PST | | + + + + + | Temperature | - | - | | + + + + + | Respiratory Rate | 16 | 09/06/2018 1:51 PM | | | | | PST | | + + + + + | Oxygen Saturation | - | - | | + + + + + | Inhaled Oxygen | - | - | | | Concentration | | | | + + + + + | Weight | 74.9 kg (165 lb 2 | 09/06/2018 1:51 PM | | | | oz) | PST | | + + + + + | Height | 165.1 cm (5' 5") | 09/06/2018 1:51 PM | | | | | PST | | + + + + + | Body Mass Index | 27.48 | 09/06/2018 1:51 PM | | | | | PST | | + + + + + documented in this encounter Progress Notes Darby Frazier MD - 09/06/2018 2:00 PM PSTFormatting of this note might be different f rom the original. PATIENT NAME: Abiola Vaughan : 1935: AGE: 82 y.o. PRIMARY CARE: Akua Hamilton MD OUTPATIENT FOLLOW UP VISIT Date of Service: 09/06/2018 HISTORY OF PRESENT ILLNESS: Abiola Vaughan is a 82 y.o. female with a history of diabetes mellitus, asthma, hype rtention and hyperlipidema. She is being seen today for annual follow up. She was last seen on 09/03/17 at which time patient was to continue current medical regimen. Since that time, patient was seen at [place] [facility] for upper respiratory problems o n 01/25/18. She was discharge on the same day with antibiotic medications. She has lost Kochzauber due to being sick. Otherwise, she has been doing well from cardiac standpoint. Today, patient is feeling good. Patient is physically active by doing house work on her thr ee story home. There is no chest pain or chest discomfort both at rest and on exertion. Renu ent denies breathlessness. There is no palpitation dizziness or lightheadedness. There is no ankle or leg swelling. Patient can sleep on one pillow at night without difficulty breathin g. MEDICAL, SURGICAL, AND PERSONAL HISTORY Past Medical, Surgical, Family, and Social History are reviewed in EPIC. CURRENT PROBLEMS Patient Active Problem List Diagnosis GERD OVERWEIGHT ASTHMA, EXTRINSIC ALLERGIC RHINITIS DUE TO POLLEN Mixed hyperlipidemia Fatigue Diabetes mellitus Hypertension ARELI (obstructive sleep apnea) Periodic limb movements of sleep Acute on chronic systolic congestive heart failure Mild intermittent asthma without complication Solitary pulmonary nodule CURRENT MEDICATIONS Current Outpatient Prescriptions Medication Sig Dispense Refill albuterol 90 mcg/puff inhaler Inhale 2 puffs into the lungs every 4 hours as needed for Wheezing or Shortness of Breath. Use with spacer device. 1 Inhaler 0 aspirin 81 MG tablet Take 81 mg by mouth Daily. atorvaSTATin (LIPITOR) 10 mg tablet Take 10 mg by mouth Daily. Calcium Citrate (CITRACAL PO) Take 800 mg by mouth Daily. hydroCHLOROthiazide 25 mg tablet Take 1 tablet by mouth Daily. 90 tablet 3 HYDROcodone-acetaminophen (NORCO) 5-325 mg per tablet Take 1 tablet by mouth as needed. lisinopril (PRINIVIL, ZESTRIL) 20 mg tablet TAKE ONE TABLET BY MOUTH TWICE DAILY 180 ta blet 3 metFORMIN (GLUCOPHAGE) 500 mg tablet Take 500 mg by mouth 3 times daily. Multiple Vitamins-Minerals (MULTIVITAMIN PO) Take by mouth 2 times daily. UNABLE TO FIND Med Name: Resmed AirSense 10 autoset CPAP: 4-15cm while sleeping. No current facility-administered medications for this visit. ALLERGIES Allergies Allergen Reactions Lansoprazole Hives ROS Review of Systems Constitutional: Negative for chills, diaphoresis, fever, malaise/fatigue and weight loss. HENT: Negative for congestion, hearing loss, nosebleeds and tinnitus. Dental Problems = No Eyes: Negative for blurred vision and double vision. Respiratory: Negative for shortness of breath. Cardiovascular: Negative for chest pain, palpitations and leg swelling. Gastrointestinal: Negative for blood in stool, constipation, diarrhea, nausea and vomiting. Genitourinary: Negative for dysuria, frequency, hematuria and urgency. Musculoskeletal: Negative for back pain, falls, joint pain, myalgias and neck pain. Gait Problems = No Skin: Negative for itching and rash. Neurological: Negative for dizziness, tingling, tremors, speech change, seizures, loss of c onsciousness and weakness. Lightheaded = No Endo/Heme/Allergies: Bruises/bleeds easily. Psychiatric/Behavioral: Negative for memory loss. The patient is not nervous/anxious and do es not have insomnia. OBJECTIVE: PHYSICAL EXAM BP 128/60 | Pulse 69 | Resp 16 | Ht 1.651 m (5' 5") | Wt 74.9 kg (165 lb 2 oz) | BMI 2 7.48 kg/m Physical Exam Constitutional: She appears well-developed and well-nourished. No distress. Elderly female individual, with no acute distress. Neck: Normal carotid pulses, no [...] xhibit a depressed mood. ECG: Normal sinus rhythm. RBBB and left anterior fascicular block. LAB RESULTS reviewed during visit today primarily from [facility]: LIPID Lab Results Component Value Date CHOL 155 09/25/2016 TRIG 97 09/25/2016 HDL 71 09/25/2016 LDL 65 09/25/2016 CHOLHDL 2.2 09/25/2016 LDLEX 52 05/09/2016 HDLEX 66.3 05/09/2016 TRIGEX [...] Value Date WBC 12.1 (H) 01/25/2018 WBCEX 7.7 04/29/2016 HGB 13.3 01/25/2018 HGBEX 12.6 04/29/2016 HCT 39.3 01/25/2018 HCTEX 37.7 (A) 04/29/2016 PLT 411 01/25/2018 PLTEX 257 04/29/2016 Above data and testing [...] with normal respiratory collapse. C. Today, patient is feeling good. Patient is physically active by doing house work on her three story home. There is no signs and symptoms of overt congestive heart failure. She is in a class I of [place] [employer] functional class. There is no fluid retention o n physical examination. Heart failure is well compensated. 2. Hypertension A. Blood pressure in office is good. 3. Hyperlipidemia A. Patient is on atorvastatin 10 mg daily. 4. Diabetes Mellitus A. She is on metformin 500 mg three time daily. B. Patient reports her A1c is 5.5. 5. Asthma A. She is on combination of inhalers . 6.Suspecting sleep disordered breathing/ sleep deprivation A. She is not currently using CPAP machine due to dental work. 7. Immunizations A. Patient is up to date on flu and pneumonia vaccine. 8. Stage III chronic kidney disease A. eGFR on 09/03/18 is 56. PLAN: 1. She will continue with current medical regimen. 2. I recommend a therapeutic lifestyle change including walking 30 minutes a day, choosing healthy choices of diet , including DASH diet, weight reduction and 7 hours of high quality sleep a night. 3. I recommend flu, pneumonia and shingles vaccine. Patient is up to date on flu and pneum onia vaccine. 4. Follow-up in one year or sooner. I, Baylee Santiago, am acting as a scribe on behalf of, and in the presence of Darby cui MD. I have reviewed and edited this note. Baylee Santiago, Sql Architect 09/06/2018 I, Darby Frazier MD, personally performed the services described in this documentation, as scribed in my presence and it is both accurate and complete. Baylee Santiago, Sql Architect 13:54 Electronically signed by: Darby Frazier MD [facility] 09/06/2018 Portions of this chart may have been created with [employer] voice recognition software. Occasi onal wrong-word or [...] [place], | | | | | | [place] [address] | | | | | | [phone] | | | | | | | | +--------+---------+ + + + documented as of this encounter Procedures + +--------+ + + + | Procedure Name | Priori | Date/Time | Associated Diagnosis | Comments | | | ty | | | | + +--------+ + + + | ECG 12 LEAD | Routin | 09/06/2018 | Essential | Results for this | | | e | 1:48 PM | hypertension | procedure are in the | | | | PST | | results section. | + +--------+ + + + documented in this encounter Results ECG 12 lead (09/06/2018 1:48 PM PST) + + + + + + | Component | Value | Ref Range | Performed | Pathologist | | | | | At | Signature | + + + + + + | VENTRICULAR | 69 | BPM | [facility] | | | RATE EKG | | | | | + + + + + + | ATRIAL RATE | 69 | BPM | [facility] | | + + + + + + | P-R | 176 | ms | [facility] | | | INTERVAL | | | | | + + + + + + | QRS | 132 | ms | [facility] | | | DURATION | | | | | + + + + + + | Q-T | 424 | ms | [facility] | | | INTERVAL | | | | | + + + + + + | Q-T | 454 | ms | [facility] | | | INTERVAL | | | | | | (CORRECTED) | | | | | + + + + + + | P WAVE AXIS | 54 | degrees | [facility] | | + + + + + + | QRS AXIS | -60 | degrees | [facility] | | + + + + + + | T AXIS | 61 | degrees | [facility] | | [...] | | | | | ECG of 25-JAN-2018 | | | | | | 13:14,No significant | | | | | | change was | | | | | | foundConfirmed by | | | | | | DARBY FRAZIER MD | | | | | | ([id number]) on 09/06/2018 | | | | | | 3:37:09 PM | | | | + + [...]
--- OUTSIDE RECORDS SUMMARY | ~2020-02-27 | XMS | Encounter Summary ---
Demographics + + + | Address | [address] | | | [place] [address] | + + + | Home Phone | | + + + | Preferred Language | Unknown | + + + | Marital Status | | + + + | Advent Affiliation | [id number] | + + + | Race | White | + + + | Ethnic Group | Not or | + + + Author + + + | Author | [facility] | | | and [place] | + + + | Organization | [facility] | | | [...] Providers + +------+ + | Care Rn Diabetes Name | Role | Phone | + +------+ + | Akua Hamilton MD | PCP | | + +------+ + Reason for Visit + + + | Reason | Comments | + + + | Follow-up | | + + + | Congestive Heart | | | Failure | | + + + | Hypertension | | + + + Encounter Details +--------+---------+ + + + | Date | Type | Department | Care Team | Description | +--------+---------+ + + + | 03/03/ | Office | [facility] | Doretha Frazier, | Acute on chronic | | 2017 | Visit | CARDIOLOGY [address] [place] | systolic congestive | | | | [place], | [place], | heart failure (HCC) | | | | [place] [address] | [place] [address] | (Primary Dx) | | | | [phone] | [phone] | | | | | | | [...] + + + | Blood Pressure | 140/70 | 03/03/2017 1:35 PM | | | | | PDT | | + + + + + | Pulse | 76 | 03/03/2017 1:35 PM | | | | | PDT | | + + + + + | Temperature | - | - | | + + + + + | Respiratory Rate | 16 | 03/03/2017 1:35 PM | | | | | PDT | | + + + + + | Oxygen Saturation | - | - | | + + + + + | Inhaled Oxygen | - | - | | | Concentration | | | | + + + + + | Weight | 83 kg (183 lb) | 03/03/2017 1:35 PM | | | | | PDT | | + + + + + | Height | 165.1 cm (5' 5") | 03/03/2017 1:35 PM | | | | | PDT | | + + + + + | Body Mass Index | 30.45 | 03/03/2017 1:35 PM | | | | | PDT | | + + + + + documented in this encounter Patient Instructions Patient Instructions Tianna Christianson RN - 03/03/2017 1:30 PM PDTFollow up appointment: 6 months Provider: Doretha Frazier MD Date: Check-In Time: documented in this encounter Progress Notes Doretha Frazier MD - 03/03/2017 1:30 PM PDTFormatting of this note might be different f rom the original. PATIENT NAME: Abiola Vaughan : 1935: AGE: 81 y.o. PRIMARY CARE: Akua Hamitlon MD OUTPATIENT FOLLOW UP VISIT Date of Service: 03/03/2017 HISTORY OF PRESENT ILLNESS: Abiola Vaughan is a 81 y.o. female with a history of diabetes mellitus, asthma, hype rtention and hyperlipidema. She is being seen today for heart failure with preserved eject ion fraction. She was last seen 08/26/2016 at which time patient was instructed to check blood pressure fo r two weeks with the plan to adjust medications. Since that time, patient reports feeling w ell and denies any cardiac symptoms. Patient is physically active taking care of her yard an [employer] garden. She enjoys volunteering at her [employer]ism in [place] There is no chest pain or chest discomfort both at rest and on exertion. Patient denies breathlessness. There is no palpita tions, dizziness or lightheadedness. There is no ankle or leg swelling. Patient can sleep on one pillow at night without difficulty breathing. [...] heart failure Mild intermittent asthma without complication CURRENT MEDICATIONS Current Outpatient Prescriptions Medication Sig Dispense Refill albuterol (PROAIR HFA) 90 mcg/puff inhaler Inhale 2 puffs into the lungs every 4 hours as needed for Wheezing or Shortness of Breath. 1 Inhaler 3 aspirin 81 MG tablet Take 81 mg by mouth Daily. atorvaSTATin (LIPITOR) 10 mg tablet Take 10 mg by mouth Daily. Calcium Citrate (CITRACAL PO) Take 800 mg by mouth Daily. hydroCHLOROthiazide 25 mg tablet Daily. HYDROcodone-acetaminophen (NORCO) 5-325 mg per tablet Take 1 tablet by mouth as needed. lisinopril (PRINIVIL, ZESTRIL) 20 mg tablet Take 1 tablet by mouth 2 times daily. 60 ta blet 5 metFORMIN (GLUCOPHAGE) 500 mg tablet Take 500 mg by mouth 3 times daily. Multiple Vitamins-Minerals (MULTIVITAMIN PO) Take by mouth 2 times daily. omeprazole (PRILOSEC) 20 mg capsule Take 20 mg by mouth Daily. UNABLE TO FIND Med Name: Resmed AirSense 10 autoset CPAP: 4-15cm while sleeping. No current facility-administered medications for this visit. ALLERGIES Allergies Allergen Reactions Lansoprazole Hives ROS Review of Systems Constitutional: Negative for malaise/fatigue. Respiratory: Negative for shortness of breath. Cardiovascular: Negative for chest pain, palpitations and leg swelling. Neurological: Negative for dizziness and weakness. Lightheaded = No OBJECTIVE: PHYSICAL EXAM BP 140/70 | Pulse 76 | Resp 16 | Ht 1.651 m (5' 5") | Wt 83 kg (183 lb) | BMI 30.45 kg /m Physical Exam Constitutional: She is oriented to [...] RESULTS reviewed during visit today primarily from [facility]: LIPID Lab Results Component Value Date CHOL 155 09/25/2016 TRIG 97 09/25/2016 HDL 71 09/25/2016 LDL 65 09/25/2016 CHOLHDL 2.2 09/25/2016 LDLEX 52 05/09/2016 HDLEX 66.3 05/09/2016 TRIGEX 69 05/09/2016 CHOLEX 132 05/09/2016 CHEMISTRY Lab Results Component Value Date GLU 101 09/25/2016 GLUEX 84 10/20/2016 NA 139 09/25/2016 NAEX 139 10/20/2016 K 4.4 09/25/2016 KEX 4.9 10/20/2016 CL 100 09/25/2016 CLEX 101 10/20/2016 CO2 26 09/25/2016 CO2EX 25 10/20/2016 CALCIUM 9.7 09/25/2016 ALKPHOS 50 09/25/2016 AST 32 09/25/2016 ASTEX 15 05/09/2016 ALT 23 09/25/2016 ALTEX 11 05/09/2016 BILITOT 0.5 09/25/2016 CREA 1.10 09/25/2016 BUN 20 (H) 09/25/2016 EGFR >60 07/21/2013 EGFREX 67 10/20/2016 CREEX 0.82 10/20/2016 HEMATOLOGY Lab Results Component Value Date WBC 9.7 07/21/2013 WBCEX 7.7 04/29/2016 HGB 12.6 07/21/2013 HGBEX 12.6 04/29/2016 HCT 37.8 07/21/2013 HCTEX 37.7 (A) 04/29/2016 PLT 282 07/21/2013 PLTEX 257 04/29/2016 I reviewed records from Akua Hamilton MD for office visit on 01/19/2017. Above data and testing is reviewed this [...] normal respiratory collapse. C. Today, patient is doing well from cardiac standpoint. She is asymptomatic and physicall y active keeping up with her yard and garden. There is no signs and symptoms of overt conge stive heart failure. She is in a class I of [place] Heart Association functional class. Th ere is no fluid retention on physical examination. 2. Hypertension A. She is on Lisinopril 20 mg daily. Her blood pressure today in of fice is slightly elevated but within target. 3. Hyperlipidemia A. Patient continues taking Atorvastatin 10 mg. 4. Diabetes Mellitus A. She is taking Metformin 500 mg. 5. Asthma A. Patient is on a combination of Albuterol and Advair Diskus 6.Suspecting sleep disordered breathing/ sleep deprivation A. She has risk factor of age above 50, hypertension, feeling fatig ued. B. She reports sleeping well now. PLAN: 1. Refill lisinopril. 2. Today, patient is doing well from cardiac standpoint. I will continue with current medic al regimen. 3. I recommend a therapeutic lifestyle change including walking 30 minutes a day, choosing healthy choices of diet, including DASH diet and weight reduction. 4. Follow-up in 6 months or sooner with concerns I Elisabeth Miner am acting as a scribe on behalf of, and in the presence of Doretha cui MD. I have reviewed and edited this note. Elisabeth Miner, Environmental Engineering Aide 03/03/2017 I, Doretha Frazier MD, personally performed the services described in this documentation, as scribed in my presence and it is both accurate and complete. Elisabeth Miner, Med Ass t 03/03/2017 13:45 Electronically signed by: Doretha Frazier MD [facility] 03/03/2017 Portions of this chart may have been created with [employer] voice recognition software. Occasi onal wrong-word or [...] [place], | | | | | | [place] [address] | | | | | | [phone] | | | | | | | | +--------+---------+ + + + documented as of this encounter Visit Diagnoses + + | Diagnosis | + + | Acute on chronic systolic congestive heart failure (HCC) - Primary Acute on chronic | | systolic heart failure | + + documented in this encounter
--- OUTSIDE RECORDS SUMMARY | ~2020-02-27 | XMS | Encounter Summary ---
Demographics + + + | Address | [address] | | | [place] [address] | + + + | Home Phone [...] Team Providers + +------+ + | Care Enrichment Specialist Name | Role | Phone | [...] Description | +--------+---------+ + + + | 11/12/ | Office | [facility] | Klaus Melendrez PA | ARELI on CPAP (Primary | | 2018 | Visit | SLEEP DISORDER [address] | Dx) | | | | [address] | [place] | | | | | [place] [address] | [address] | | | | | [phone] | | | +--------+---------+ + + + [...] + | Blood Pressure | 128/60 | 11/12/2017 10:31 AM | | | | | PDT | | + + + + + | Pulse | - | - | | + + + + + | Temperature | - | - | | + + + + + | Respiratory Rate | 16 | 11/12/2017 10:31 AM | | | | | PDT | | + + + + + | Oxygen Saturation | - | - | | + + + + + | Inhaled Oxygen | - | - | | | Concentration | | | | + + + + + | Weight | 81.1 kg (178 lb 12.7 | 11/12/2017 10:31 AM | | | | oz) | PDT | | + + + + + | Height | - | - | | + + + + + | Body Mass Index | 29.75 | 09/03/2017 1:00 PM | | | | | PST | | + + + + + documented in this encounter Progress Notes Klaus Melendrez PA - 11/12/2017 10:30 AM PDT Subjective: Patient ID: Abiola Vaughan is a 81 y.o. female. HPI last office visit: 08/14/2017 date of polysomnography: 09/16/2016 AHI: 8.4 RDI: 16.7 O2%: 79% with 6.3 minutes below 88% Machine type: ResMed AirSense 10 Mask type: full face mask DME: [facility] [place] pressure: 4-15 cm Median: 10.9 cm 95%: 13.2 cm maximum: 14.4 cm Nights using CPAP: 03/21 3030 61/62 85/92 63/93 86/90 % of nights >4 hours: 55% 93% 76% 48% 39% 25% 48% average usage (all nights): 4:09 5:13 4:40 3:39 3:30 2:25 3:36 average usage (nights used): 4:09 5:13 4:40 3:43 3:48 3:34 3:46 AHI: 1.4 Abiola comes in for CPAP compliance. She continues to have a difficult time adjusting to her CPAP. She is wearing it regularly, but is has had a difficult time wearing it for the duration of her sleep. She starts the night with her CPAP, but wakes at around 3am. She ty pically gets a drink of water to help with her dry mouth, then goes back to sleep without he r CPAP. We again discussed that this has likely become a habit for her. I have discussed the download in detail. The download shows that her sleep apnea is contro lled, with an AHI of 1.4. It also shows that her leaks are controlled. She has met her ins urance usage standard. She continues to have significant stress because of family health. A nephew and great sylvia parr were diagnosed with tumors. He had surgery to have the tumor removed and is doing well in his recovery. She is hopeful to have surgery in the near future. BP 128/60 | Resp 16 | Wt 81.1 kg (178 lb 12.7 oz) | BMI 29.75 kg/m Review of Systems Objective: Physical Exam Assessment: Problem #1: OBSTRUCTIVE SLEEP APNEA ([id number]) This is controlled with CPAP. She has struggled with her CPAP usage during the last few mo nths. She is starting the night with her CPAP, but wakes after a few hours and goes back to sleep without it. Plan: 1. She is to continue with CPAP indefinitely. 2. I have recommended that she work toward wearing her CPAP 100% of the time she is asleep . 3. She is to avoid taking off her mask during the night. I will follow up again in 3 months, sooner prn. Fifteen minutes were spent [id number], w ith the majority of time spent [...] | | | | | | [place] [address] | | | | | | [phone] | | | | | | | | +--------+---------+ + + + documented as of this encounter Visit Diagnoses + + | Diagnosis | + + | ARELI on CPAP - Primary Obstructive sleep apnea (adult) (pediatric) | + + documented in this encounter"
--- OUTSIDE RECORDS SUMMARY | ~2020-02-27 | XMS | Encounter Summary ---
Demographics + + + | Address | [address] | | | [place] [address] | + + + | Home Phone | | + + + | Preferred Language | Unknown | + + + | Marital Status | | + + + | Mu-Ism Affiliation | 1077 | + + + [...] Providers + +------+ + | Care Supervisor Cook House Name | Role | Phone | + +------+ + | Akua Hamilton MD | PCP | | + +------+ + Reason for Visit + + + | Reason | Comments | + + + | Annual Visit | | + + + | Congestive Heart | | | Failure | | + + + Encounter Details +--------+---------+ + + + | Date | Type | Department | Care Team | Description | +--------+---------+ + + + | 09/03/ | Office | [facility] | Doretha Frazier, | Congestive heart | | 2018 | Visit | CARDIOLOGY [address] | [address] [place] | failure, unspecified | | | | [place], | [place], | congestive heart | | | | [place] [address] | [place] [address] | failure chronicity, | | | | [phone] | [phone] | unspecified | | | | | | congestive heart | | | | | | failure type (HCC) | | | | | | (Primary Dx) | +--------+---------+ + + + Social History [...] + + + | Blood Pressure | 146/74 | 09/03/2017 1:00 PM | | | | | PST | | + + + + + | Pulse | 81 | 09/03/2017 1:00 PM | | | | | PST | | + + + + + | Temperature | - | - | | + + + + + | Respiratory Rate | 16 | 09/03/2017 1:00 PM | | | | | PST | | + + + + + | Oxygen Saturation | - | - | | + + + + + | Inhaled Oxygen | - | - | | | Concentration | | | | + + + + + | Weight | 81.4 kg (179 lb 7.3 | 09/03/2017 1:00 PM | | | | oz) | PST | | + + + + + | Height | 165.1 cm (5' 5") | 09/03/2017 1:00 PM | | | | | PST | | + + + + + | Body Mass Index | 29.86 | 09/03/2017 1:00 PM | | | | | PST | | + + + + + documented in this encounter Progress Notes Doretha Frazier MD - 09/03/2017 1:00 PM PSTFormatting of this note might be different f rom the original. PATIENT NAME: Abiola Vaughan : 1935: AGE: 81 y.o. PRIMARY CARE: Akua Hamilton MD OUTPATIENT FOLLOW UP VISIT Date of Service: 09/03/2017 HISTORY OF PRESENT ILLNESS: Abiola Vaughan is a 81 y.o. female with a history of diabetes mellitus, asthma, hype rtention and hyperlipidema. She is being seen today for heart failure with preserved eject ion fraction. She was last seen 03/03/2017 at which time she was doing well and was to return in 6 months. Today, patient is feeling good from a cardiac standpoint. She denies any cardia symptoms. Fito rico is physically active walking around the outskirts of [facility]. 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 There is no chest pain or chest discomfort both at rest and on exertion. Pat ient denies breathlessness. There is no palpitations, dizziness or lightheadedness. There is no ankle or leg swelling. Patient uses CPAP machine nightly. MEDICAL, SURGICAL, AND PERSONAL HISTORY Past Medical, [...] by mouth Daily. hydroCHLOROthiazide 25 mg tablet 25 mg Daily. HYDROcodone-acetaminophen (NORCO) 5-325 mg per tablet Take 1 tablet by mouth as needed. lisinopril (PRINIVIL, ZESTRIL) 20 mg tablet Take 1 tablet by mouth 2 times daily. 180 t ablet 3 metFORMIN (GLUCOPHAGE) 500 mg tablet Take [...] for congestion, hearing loss, nosebleeds and tinnitus. Eyes: Negative for blurred vision and double vision. Respiratory: Negative for shortness of breath. Cardiovascular: Negative for chest pain, palpitations and leg swelling. Gastrointestinal: Negative for blood in stool, constipation, diarrhea, nausea and vomiting. Genitourinary: Negative for dysuria, frequency, hematuria and urgency. Musculoskeletal: Negative for back pain, falls, joint pain, myalgias and neck pain. Skin: Negative for itching and rash. Neurological: Negative for dizziness, tingling, tremors, speech change, seizures, loss of c onsciousness and weakness. Endo/Heme/Allergies: Does not bruise/bleed easily. Psychiatric/Behavioral: Negative for memory loss. The patient is not nervous/anxious and do es not have insomnia. OBJECTIVE: PHYSICAL EXAM BP 146/74 | Pulse 81 | Resp 16 | Ht 1.651 m (5' 5") | Wt 81.4 kg (179 lb 7.3 oz) | BMI 29.86 kg/m Physical Exam Constitutional: She is oriented [...] a depressed mood. ECG: Normal sinus rhythm, RBBB LAB RESULTS reviewed during visit today primarily from [facility]: LIPID Lab Results Component Value Date [...] She is asymptomatic and physicall y active walking the outskirts of [place]. There is no signs and symptoms of overt congesti ve heart failure. She is in a class I of [place] [employer] functional class. There is no fluid retention on physical examination. 2. Hypertension A. She is on Lisinopril 20 mg daily. Her blood pressure today in of fice is slightly elevated, but within target. 3. Hyperlipidemia A. Patient continues taking Atorvastatin 10 mg. 4. Diabetes Mellitus A. She is taking Metformin 500 mg. B. A1c is around 5.5 according to the patient. 5. Asthma A. Patient is on a combination of Albuterol and Advair Diskus. 6.Suspecting sleep disordered breathing/ sleep deprivation A. She has risk factor of age above 50, hypertension, feeling fatig ued. B. She reports sleeping better now with her CPAP machine. 7. Immunizations A. Patient is up to date on her influenza and pneumonia vaccines. PLAN: 1. Today, patient is doing well from cardiac standpoint. I will continue with current medi eric regimen. 2. I recommend a therapeutic lifestyle change including walking 30 minutes a day, choosing healthy choices of diet , including DASH diet and weight reduction. 3. Follow-up in one year, or sooner with concerns. I, Hema Pacheco, am acting as a scribe on behalf of, and in the presence of Doretha Frazier MD. I have reviewed and edited this note. Hema Pacheco CMA 09/03/2017 I, Doretha Frazier MD, personally performed the services described in this documentation, as scribed in my presence and it is both accurate and complete. Hema Pacheco [facility] 8 13:08 Electronically signed by: Doretha Frazier MD [facility] 09/03/2017 Portions of this chart may have been created with K[employer]ch voice recognition software. Occasi onal wrong-word or [...] [place], | | | | | | [place] [address] | | | | | | [phone] | | | | | | | | +--------+---------+ + + + documented as of this encounter Procedures + +--------+ + + + | Procedure Name | Priori | Date/Time | Associated Diagnosis | Comments | | | ty | | | | + +--------+ + + + | ECG 12 LEAD | Routin | 09/03/2017 | Congestive heart | Results for this | | | e | 4:33 PM | failure, unspecified | procedure are in the | | | | PST | congestive heart | results section. | | | | | failure chronicity, | | | | | | unspecified | | | | | | congestive heart | | | | | | failure type (HCC) | | + +--------+ + + + documented in this encounter Results ECG 12 lead (09/03/2017 4:33 PM PST) + + + + + + | Component | Value | Ref Range | Performed | Pathologist | | | | | At | Signature | + + + + + + | VENTRICULAR | 81 | BPM | [facility] | | | RATE EKG | | | | | + + + + + + | ATRIAL RATE | 81 | BPM | [facility] | | + + + + + + | P-R | 174 | ms | [facility] | | | INTERVAL | | | | | + + + + + + | QRS | 124 | ms | [facility] | | | DURATION | | | | | + + + + + + | Q-T | 398 | ms | [facility] | | | INTERVAL | | | | | + + + + + + | Q-T | 462 | ms | [facility] | | | INTERVAL | | | | | | (CORRECTED) | | | | | + + + + + + | P WAVE AXIS | 51 | degrees | [facility] | | + + + + + + | QRS AXIS | -57 | degrees | [facility] | | + + + + + + | T AXIS | 62 | degrees | [facility] | | [...] | | | | | | variantAbnormal ECGNo | | | | | | previous ECGs | | | | | | availableConfirmed by | | | | | | DORETHA FRAZIER MD | | | | | | ([id number]) on 09/03/2017 | | | | | | 4:33:17 PM | | | | + + [...] + | Diagnosis | + + | Congestive heart failure, unspecified congestive heart failure chronicity, unspecified | | congestive heart failure type - Primary | + + documented in this encounter
--- OUTSIDE RECORDS SUMMARY | ~2020-02-27 | XMS | Encounter Summary ---
Demographics + + + | Address | [address] | | | [place] [address] | + + + | Home Phone | | + + + | Preferred Language | Unknown | + + + | Marital Status | | + + + | Caodaism Affiliation | 1077 | + + + | Race | White | + + + | Ethnic Group | Not or | + + + Author + + + | Author | [facility] | | | and [place] | + + + | Organization | [facility] | | [...] Team Providers + +------+ + | Care Manager Assurance Name | Role | Phone | + +------+ + PCP | Unavailable | + +------+ + Encounter Details +--------+ + + + + | Date | Type | Department | Care Team | Description | +--------+ + + + + | 03/25/ | Abstract | [place] [facility] | DATA MIGRATION THO | | | 2011 | | Conversion Location | SR | | | | | [address] | | | | | | [place], [place] | | | | | | [address] | | | | | | [phone] | | | +--------+ + + + [...] + + + | Blood Pressure | 168/90 | 09/12/2011 12:00 AM | | | | | PST [...] + + + + | Weight | 98 kg (216 lb 1.6 | 09/12/2011 12:00 AM | | | | oz) | PST | | + + + + + | Height | 165.1 cm (5' 5") | 04/25/2010 12:00 AM | | | | | PDT | | + + + + + | Body Mass Index | 35.96 | 04/25/2010 12:00 AM | | | | | PDT | | + + + + + documented in this encounter Plan of Treatment [...] | | | | | | [place] [address] | | | | | | [phone] | | | | | | | | +--------+---------+ + + + documented as of this encounter Visit Diagnoses Not on filedocumented in this encounter
--- OUTSIDE RECORDS SUMMARY | ~2020-02-27 | XMS | Encounter Summary ---
Demographics + + + | Address | [address] | | | [place] [address] | + + + | Home Phone | | + + + | Preferred Language | Unknown | + + + | Marital Status | | + + + | Orthodox Affiliation | 1077 | + + + | Race | White | + + + | Ethnic Group | Not or | + + + Author + + + | Author | [facility] | | | and [place] | + + + | Organization | [facility] | | | and [...] Team Providers + +------+ + | Care Assembler Clip On Sunglasses Name | Role | Phone | + +------+ + | Akua Hamilton MD | PCP | | + +------+ + Reason for Visit + +--------+ + | Reason | Onset | Comments | | | Date | | + +--------+ + | Appointment | 02/14/ | | | | 2019 | | + +--------+ + Encounter Details +--------+ + + + + | Date | Type | Department | Care Team | Description | +--------+ + + + + | 02/14/ | Telephone | [facility] [place] | Hernandez Tejada, | Appointment | | 2019 | | PULMONARY [address] | MD [address] | | | | | [place], | [place], [place] | | | | | [place] [address] | [address] | | | | | [phone] | | | +--------+ + + + [...] this encounter Miscellaneous Notes Telephone Encounter - Esme Krishnan - 02/14/2019 12:57 PM PDTPhoned patient to see if david henao would like a sooner follow up but she declined to schedule. documented in this encounter Plan of Treatment [...] | | | | | | [place] [address] | | | | | | [phone] | | | | | | | | +--------+---------+ + + + documented as of this encounter Visit Diagnoses Not on filedocumented in this encounter"
--- OUTSIDE RECORDS SUMMARY | ~2020-02-27 | XMS | Encounter Summary ---
Demographics + + + | Address | [address] | | | [place] [address] | + + + | Home Phone | | + + + | Preferred Language | Unknown | + + + | Marital Status | | + + + | Catholic Affiliation | 1077 | + + + | Race | White | + + + | Ethnic Group | Not or | + + + Author + + + | Author | [facility] | | | and [place] | + + + | Organization | [facility] | | [...] Team Providers + +------+ + | Care Surg Physician Asst Name | Role | Phone | + +------+ + | Akua Hamilton MD | PCP | | + +------+ + Reason for Visit +--------+ + | Reason | Comments | +--------+ + | Other | sleep results | +--------+ + Encounter Details +--------+---------+ + + + | Date | Type | Department | Care Team | Description | +--------+---------+ + + + | 09/25/ | Office | [facility] | Shawn Wolff | ARELI (obstructive | | 2017 | Visit | SLEEP DISORDER [address] | MD [address] | sleep apnea) | | | | [address] [place] | [address] [place] | (Primary Dx); | | | | [place] [address] | [place] [address] | Periodic limb | | | | [phone] | [phone] | movements of sleep; | | | | | | History of iron | | | | | | deficiency | +--------+---------+ + + + Social History [...] + + + | Blood Pressure | 122/68 | 09/25/2016 11:01 AM | | | | | PDT | | + + + + + | Pulse | 82 | 09/25/2016 11:01 AM | | | | | PDT | | + + + + + | Temperature | - | - | | + + + + + | Respiratory Rate | 14 | 09/25/2016 11:01 AM | | | | | PDT | | + + + + + | Oxygen Saturation | 98% | 09/25/2016 11:01 AM | | | | | PDT | | + + + + + | Inhaled Oxygen | - | - | | | Concentration | | | | + + + + + | Weight | 80.5 kg (177 lb 8 | 09/25/2016 11:01 AM | | | | oz) | PDT | | + + + + + | Height | 165.1 cm (5' 5") | 09/25/2016 11:01 AM | | | | | PDT | | + + + + + | Body Mass Index | 29.54 | 09/25/2016 11:01 AM | | | | | PDT | | + + + + + documented in this encounter Progress Notes Shawn Wolff Jr., MD - 09/25/2016 11:14 AM PDTThe patient comes in for follow-up after undergoing diagnostic polysomnography. My interpretation of the patient's sleep study, which I have reviewed with the patient, is as follows: Polysomnogram Report on Abiola Vaughan performed on September 16, 2016. Clinical Information: Abiola Vaughan is a 80 y.o. female who underwent diagnostic nocturnal polysomnography on September 16, [address] Frazier because of fatigue and possible obstructive sleep apnea complicating the management of hypertension in the [facility] ient who is obese has asthma and has a history of the transient ischemic attack. Technical Information: Please see technical data which is attached. Definitions (The AASM Manual for the Scoring of Sleep and Associated Events, Version 2.3; 2 016): Apnea: There is a drop in the peak signal excursion by 90% or great er of pre-event baseline using an oronasal thermal sensor (diagnostic study), PAP device ondina w (titration study), or an alternative apnea sensor (diagnostic study); the duration of the 90% or greater drop in sensor signal is 10 seconds or longer. Obstructive Apnea: Event associated with co ntinued or increased inspiratory effort throughout the entire period of absent airflow. Central Apnea: Event associated with absent inspiratory effort throughout the entire period of absent airflow. Mixed Apnea: Event associated with absent i nspiratory effort in the initial portion of the event followed by resumption of inspiratory effort during the second portion of the event. Hypopnea: Nasal pressure excursion drop by 30% or more from baselin e, lasting at lease 10 seconds and 90% of the event's duration meets this amplitude criteria . This is associated with a 4% or greater desaturation from pre-baseline. Respiratory Event Related Arousal: A sequence of breaths lasting 10 seconds or longer characterized by increasing respiratory effort or by flattening of the in spiratory portion of the nasal pressure (diagnostic study) or PAP device flow (titration quinten dy) waveform leading to arousal from sleep when the sequence of breaths does not meet criter ia for an apnea or hypopnea. Sleep Architecture: Lights out was recorded at 2231 hundred hours on September 16, 2016 and li ghts on was recorded at 0558 hundred hours on September 17, 2016. The latency to sleep onset was normal at 16.5 minutes. The patient slept for 348 minutes out of 445 minutes of study time r esulting an a sleep efficiency that was decreased at 78.2 %. The amount of N1 sleep was no rmal at 2 % of the Total Sleep Time; the amount of N2 sleep was normal for age at 68.5 % of the Total Sleep Time; the amount of N3 sleep was normal at 16.8 % of the Total Sleep Time; t he amount of REM sleep was mildly reduced at 12.6 % of the Total Sleep Time and the latency to REM sleep normal at 85.5 minutes. Adequate chin EMG suppression was noted during REM sl eep. Sleep in the following positions was recorded: left lateral decubitus 0 %, right lateral de cubitus 0 %, supine 100 %, prone 0 %. Sleep was mildly fragmented; the Arousal Index was 23.4. The patient reported this to be a usual night's sleep. Cardiopulmonary Monitoring: The heart rate averaged in the 60s beats per minute. Mild rat e variability was noted. The rhythm was sinus. In the course of the evening there were 5 obstructive apneas, 0 mixed apneas, 0 central training and documentation specialist eas, 44 hypopneas, and 48 Respiratory Effort Related Arousals (RERA's). The Respiratory Dist urbance Index (RDI) was elevated at 16.7; the Apnea-Hypopnea Index mildly elevated at 8.4; t he Apnea Index (AI) normal at 0.9. The respiratory events were very sleep stage dependent. The events were nearly exclusively seen in rem sleep (REM related Apnea Hypopnea Index inde x 47.7, non-REM related Apnea Hypopnea Index 2.8). The respiratory events occasioned significant sleep fragmentation; the Respiratory Arousal Index was 12.2. The glo oxygen saturation was 79 % and the patient spent 6.3 minutes with an oxygen satur ation of less than 88%. ETCO2 was not pathologically elevated. Limb Movement Monitoring: There were 155 Periodic Limb Movements (PLMS Index of 26.7) of wh ich 37 were associated with arousals; the PLMS Arousal Index was mildly elevated at 6.4. Interpretation: This polysomnogram is abnormal secondary to: Obstructive sleep apnea is present. This is associated with mild oxygen desaturation. T his is primarily seen in rapid eye movement sleep. 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 Suggestions: 1. The principles of sleep hygiene should be reviewed with the patient. 2. Treatment of obstructive sleep apnea is advised. 3. A ferritin level should be checked. If the ferritin level is less than 50, iron suppleme ntation should be considered to raise the ferritin to above 50. This may help with PLMS. Onc e the ferritin level is above 50, pharmacologic therapy of PLMS/RLS should be considered if they are felt to be clinically significant. The patient continues to deny restlessness in her legs at night. She does however state th at she has been told in the past that she has been iron deficient. BP 122/68 mmHg | Pulse 82 | Resp 14 | Ht 1.651 m (5' 5") | Wt 80.513 kg (177 lb 8 oz) | BMI 29.54 kg/m2 | SpO2 98% A: Obstructive sleep apnea:The patient has clinically significant ARELI. I've discussed this with the patient again. I've discussed treatment options (weight loss, CPAP, Dental Applianc e, surgery) again and I am advising a trial of CPAP therapy. The mechanisms of action of CPA P in treating ARELI were discussed in detail with the patient. I've discussed desensitization techniques as well as some imagery techniques that can be helpful. I've discussed the use of heated humidity. And I've discussed our PAP Compliance Clinic. PLMS: I've discussed Restless Legs Syndrome with the patient. I've also discussed Nuria odic Limb Movements of Sleep. I've discussed the relationship between the two. I've also dis cussed that I generally offer treatment symptomatically. I've also discussed an overview of treatment: 1) maintain a ferritin level above 50; 2) Bedtime leg/arm massage; 3) review the need for medications that can worsen RLS/PLMS (such as antidepressants (except for bupropio n) and antihistamines); 4) prescribe medications such as a) dopaminergics, b) benzodiazepine receptor agonists, c) opiates, and/or d) atypical anti-seizure agents. P: Resmed AirSense 10 autoset CPAP 4-15cm is prescribed. F/u 2 days after getting CPAP in PAP Compliance Clinic. Ferritin Level will be checked today. Today, 15 minutes was spent face to face with the patient; the majority of time was spent c giuliano regarding ARELI and PLMS. documented in t his encounter Plan of Treatment +--------+---------+ + + + | Date | Type | Specialty | Care Team | Description | +--------+---------+ + + + | 10/23/ | Office | Cardiology | Doretha Frazier, | | | 2020 | Visit | | [address] [place] [address] | | | | | | [place], | | | | | | [place] [address] | | | | | | [phone] | | | | | | | | +--------+---------+ + + + documented as of this encounter Results Ferritin (09/25/2016 11:45 AM PDT) + +-------+ + + + | Component | Value | Ref Range | Performed | Pathologist | | | | | At | Signature | + +-------+ + + + | FERRITIN | 60 | 11 - 307 ng/mL | [facility] | | | | | [...] [address] | [place] | [phone] | | [facility] | | [address] | | | - LABORATORY | | | | + + + + + documented in this encounter Visit Diagnoses + + | Diagnosis | + + | ARELI (obstructive sleep apnea) - Primary Obstructive sleep apnea (adult) (pediatric) | + + | Periodic limb movements of sleep Periodic limb movement disorder | + + | History of iron deficiency Personal history of diseases of blood and blood-forming | | organs | + + documented in this encounter
--- OUTSIDE RECORDS SUMMARY | ~2020-02-27 | XMS | Encounter Summary ---
Demographics + + + | Address | [address] | | | [place] [address] | + + + | Home Phone | | + + + | Preferred Language | Unknown | + + + | Marital Status | | + + + | Orthodox Affiliation | 1077 | + + + | Race | White | + + + | Ethnic Group | Not or | + + + Author + + + | Author | [facility] | | | and [place] | + + + | Organization | [facility] | | [...] Team Providers + +------+ + | Care Cvicu Rn Name | Role | Phone | + [...] Description | +--------+--------+ + + + | 06/01/ | Refill | [facility] [place] | Doretha Frazier, | Medication Refill | | 2017 | | CARDIOLOGY [address] | MD [address] [place] | | | | | [place], | [place], | | | | | [place] [address] | [place] [address] | | | | | [phone] | [phone] | | | | | | | [...] [place], | | | | | | [place] [address] | | | | | | [phone] | | | | | | | | +--------+---------+ + + + documented as of this encounter Visit Diagnoses Not on filedocumented in this encounter"
--- OUTSIDE RECORDS SUMMARY | ~2020-02-27 | XMS | Encounter Summary ---
Demographics + + + | Address | [address] | | | [place] [address] | + + + | Home Phone | | + + + | Preferred Language | Unknown | + + + | Marital Status | | + + + | Sabianist Affiliation | 1077 | + + + | Race | White | + + + | Ethnic Group | Not or | + + + Author + + + | Author | [facility] | | | and [place] | + + + | Organization | [facility] | | [...] Team Providers + +------+ + | Care Insurance Premium Auditor Name | Role | Phone | + +------+ + | Akua Hamilton MD | PCP | | + +------+ + Reason for Visit + +--------+ + | Reason | Onset | Comments | | | Date | | + +--------+ + | Blood Pressure | 10/23/ | | | | 2016 | | + +--------+ + Encounter Details +--------+ + + + + | Date | Type | Department | Care Team | Description | +--------+ + + + + | 10/23/ | Telephone | [facility] | KarinZhannabecki, | Blood Pressure | | 2017 | | CARDIOLOGY [address] | MD [address] | | | | | [place], | [place], | | | | | [place] [address] | [place] [address] | | | | | [phone] | [phone] | | | | | | | [...] this encounter Miscellaneous Notes Telephone Encounter - Mike Salas RN - 10/24/2016 1:52 PM PDTCalled and spoke with brianna rico. Relayed message per Ashley Hellberg OFFICE LEAD. Okay per patient. .......................... .................MIKE SALAS RN on 10/24/16 at 13:54 elephone Encounter - Ashley Joshi ARNP - 10/24/2016 1:42 PM Tyrell, please let her know that her labs lo ok essentially unchanged, stable, with normal kidney function and potassium, and she can con tinue with her medications unchanged. Thanks! ...........................................MICHELLE Marques ra on 10/24/16 at 13:43 Electronically signed by MICHELLE James at 0 10/24/2016 1:43 PM PDTTelephone Encounter - Tianna Christianson RN - 10/23/2016 3:41 PM Manan zazueta notified, she did her labs on Thursday at [facility] in [place]. I have called and re quested those labs. ...........................................Tianna Christianson RN on at 15:43 elephone Encounter - Ashley Joshi ARNP - 10/23/2016 1:58 PM Tyrell, please let her know that Dr. Silvestre calvert is on vacation, but I reviewed her blood pressure log, and she does fluctuate, but overa ll her blood pressure is in an okay range, so we will continue her medications as is. I do not see the lab report of BMP from [facility] that was supposed to be done last week. If she did it, we need to get a copy of it, and if not, she should go have her lab drawn. It look s like every time she has gone to [facility] they have lost the order and she has needed the lab order faxed twice, so you might send it again just in case... Thanks! .................. .........................MICHELLE Cantu on 10/23/16 at 14:01 elephone Encounter - Jacquelyn Avendano CMA - 10/23/2016 1:45 PM PDT Next Visit:12/05/16 Blood pressure log received from patient as follows:10/08/16--- 7 Medication Change: See Chart Note Date BP AM Pulse AM BP PM Pulse PM 10/08/16 96/60 83 149/78 70 10/09/16 129/63 79 160/80 74 10/10/16 112/64 84 160/84 68 10/11/16 118/67 76 163/86 66 10/12/16 127/52 77 147/80 87 10/13/16 114/64 79 145/77 83 10/14/16 96/57 88 148/85 81 10/15/16 115/66 82 132/68 85 10/16/16 130/68 88 134/71 73 10/17/16 88/51 84 138/80 78 10/18/16 144/71 68 144/83 72 10/19/16 94/58 78 158/80 69 10/20/16 100/60 87 125/85 84 Additional Comments: documented in this encounter [...] | | | | | | [place] [address] | | | | | | [phone] | | | | | | | | +--------+---------+ + + + documented as of this encounter Visit Diagnoses Not on filedocumented in this encounter"
--- OUTSIDE RECORDS SUMMARY | ~2020-02-27 | XMS | Encounter Summary ---
Demographics + + + | Address | [address] | | | [place] [address] | + + + | Home Phone | | + + + | Preferred Language | Unknown | + + + | Marital Status | | + + + | Christianity Affiliation | 1077 | + + + [...] Team Providers + +------+ + | Care Usability Strategist Name | Role | Phone | + [...] | Solitary | MD Hernandez | [address] [place] | | | | | pulmonary | [address] | [place] | | | | | nodule | [place] | [place] [address] | | | | | Procedures | [address] [address], | Phone: | | | | | CT Chest wo | [place] [address] | [phone] | | | | | Contrast | Phone: | Fax: | | | | | | [phone] | [phone] | | | | | | Fax: | | | | | | | [phone] | | +--------+--------+ + + + + Reason for Visit +--------+ + | Reason | Comments | +--------+ + | Asthma | 1 mo follow up | +--------+ + Encounter Details +--------+---------+ + + + | Date | Type | Department | Care Team | Description | +--------+---------+ + + + | 02/17/ | Office | [facility] | Hernandez Tejada, | Mild intermittent | | 2018 | Visit | PULMONARY [address] | MD [address] [place] | extrinsic asthma | | | | [place], | [place], [place] | without complication | | | | [place] [address] | [address] | (Primary Dx); | | | | [phone] | | Solitary pulmonary | | | [...] + + + | Blood Pressure | 144/74 | 02/17/2018 9:48 AM | | | | | PDT | | + + + + + | Pulse | 82 | 02/17/2018 9:48 AM | | | | | PDT | | + + + + + | Temperature | - | - | | + + + + + | Respiratory Rate | - | - | | + + + + + | Oxygen Saturation | 99% | 02/17/2018 9:48 AM | Room Air | | | | PDT | | + + + + + | Inhaled Oxygen | - | - | | | Concentration | | | | + + + + + | Weight | 75.3 kg (166 lb 0.1 | 02/17/2018 9:48 AM | | | | oz) | PDT | | + + + + + | Height | 165.1 cm (5' 5") | 02/17/2018 9:48 AM | | | | | PDT | | + + + + + | Body Mass Index | 27.62 | 02/17/2018 9:48 AM | | | | | PDT | | + + + + + documented in this encounter Patient Instructions Patient Instructions Hernandez Tejada MD - 02/17/2018 10:00 AM PDT Pulmonary Nodule A pulmonary nodule is small area of abnormal tissue in the lung. It is usually found on an X-ray taken for other reasons. It is a single spot (lesion) up to about an inch in size, david rounded by normal lung tissue. Most nodules are not cancerous (benign). However, a nodule could be an early stage of lung cancer. Or it may be a sign of cancer that has spread from another part of the body. When a nodule is found on a chest X-ray, further testing is needed to determine if it is benign or cancerous (malignant). To give your healthcare provider more information about the nodule, y ou may have one or more of these tests: Comparison of a new X-ray to earlier X-rays Chest CT scan Bronchoscopy (a procedure that allows the healthcare provider to see the air passages in side the lung) Needle biopsy Test results If your nodule is benign, continued follow-up over the next 5 years is usually advised. If tests do not determine whether your nodule is benign or malignant, surgery may be adv ised. If tests show that the nodule is definitely malignant, surgery will probably be advised. The best survival rates from lung cancer occur when the original tumor is small (less than 1 inch). Follow your healthcare provider's advice on the timing of further testing. Prompt t reatment gives the best chance of curing lung cancer. Prevention Smoking remains one of the biggest risk factors for lung cancer. If you smoke, it is essent ial that you quit to lower your risk of lung cancer. Talk to your healthcare provider about things that can help you quit, including medicines and support groups. See the following web sites for more information: www.smokefree.gov www.quitnet.com Home care Most people with a pulmonary nodule have no symptoms. So no special home care is required. You may return to your usual activities and diet. Follow-up care Follow up with your healthcare provider, or as advised. More information about lung cancer is available from these resources: [place] [employer]: 710.744.8174, www.lung.org National Cancer [place]: 463.151.7410, www.cancer.gov When to seek medical advice Call your healthcare provider right away if any of these occur: Fever of 100.4F (38C) or higher, or as directed by your healthcare provider Unintended weight change Call 911 Call 911 if any of these occur: Coughing up blood Chest pain or shortness of breath Date Last Reviewed: 03/25/201519994559-4574 [employer]. [address] [place] [address], [place] [address]. All righ ts reserved. This information is not intended as a substitute for professional medical care. Always follow your healthcare professional's instructions. documented in this encounter Progress Notes Hernandez Tejada MD - 02/17/2018 10:00 AM PDTFormatting of this note might be different f rom the original. Pulmonary Follow Up 02/17/2018 HPI Abiola Vaughan is a 82 y.o. female patient of Akua Hamilton MD here today for foll ow up of asthma and a recently noted abnormal chest x-ray. The patient's last visit was on 12/14/17. Since the last visit she feels like their asthma h as been fluctuating. They have had any acute illnesses resulting in worsening asthma sympto ms. They have required a burst of prednisone since our last appointment. Specifically 1 t apers of prednisone have occurred over the interval. Lastly Abiola notes 1 ED visits and 1 hospitalizations for asthma have occurred since the last appointment. Specifically the kayleen barr was evaluated in the emergency department on 01/25/18. She had been treated with an ant ibiotic (specifics unknown) following a visit to the walk-in clinic. Upon evaluation in the emergency department the patient was noted to be wheezing, experiencing increased cough and shortness of breath. She was prescribed azithromycin and a Medrol dose pack. Her symptoms are gradually improving. During the patient's ED visit she was also noted to have nodular density in the right lung. Their medication regimen currently consists of prn albuterol. They do feel like this medic ation regimen is effective at controlling their symptoms. Currently Abiola is using their rescue albuterol, ProAir, 2 times a day. Triggers of their asthma include upper respiratory tract infections. She does not have noc turnal symptoms of wheezing, chest tightness or cough. She does not measure their peak flow . Currently Abiola reports being able to walk 2 blocks at their own pace on level ground be fore becoming symptomatic. They are not exercising regularly. Current exercise consists of housework. She does not cough chronically, and does [...] PNEUMOCOCCAL POLYSACCHARIDE 23-VALENT (PPSV23) 09/16/2007 Objective BP 144/74 | Pulse 82 | Ht 1.651 m (5' 5") | Wt 75.3 kg (166 lb 0.1 oz) | SpO2 99% Comme nt: Room Air | BMI 27.62 kg/m Appearance: Alert, cooperative, no distress, appears [...] supraclavicular nodes normal. Neurologic: Gait normal. Data: Radiology: A chest x-ray from 01/25/18 was compared to studies from 09/15/12 and 07/21/13. The patient appears to have a new smooth bordered oval density approximating a centimeter in size in the right lower lobe. No other significant abnormalities are noted. Assessment 1. Solitary pulmonary nodule apparently new compared to imaging from July 2013. Othe r than a changein significant risk factors for lung cancer (very minimal prior smoking histo ry). Further characterization of the patient's right lower lobe density seems reasonable. The p atient is agreeable to a noncontrast chest CT. 2. Asthma mild intermittent. It appears that Abiola developed an exacerbation of her asthma likely triggered by an upper respiratory tract infection in mid January. The patient wa s treated with 2 different antibiotics and ultimately Medrol. Her symptoms are gradually re turning to baseline. It is my hope that her albuterol use will continue to decline. If not we will need to cons ider a controller medication. Total duration of the patient's clinic appointment was in excess of 30 minutes. an 50% time was spent in counseling related to her recent asthma exacerbation and newly disc overed solitary pulmonary nodule. Plan 1. CT scan of the chest without contrast. 2. Pulmonary clinic follow-up appointment on the same day as the patient's chest CT within the next 2 weeks. CC: Akua Hamilton MD documented in this [...] | | | | | | [place] [address] | | | | | | [phone] | | | | | | | | +--------+---------+ + + + documented as of this encounter Procedures + +--------+ + + + | Procedure Name | Priori | Date/Time | Associated Diagnosis | Comments | | | ty | | | | + +--------+ + + + | IMAGING REPORT - | | 01/18/2018 | | Results for this [...] CT imaging was obtained through the | [facility] | | chest with coronal and [...] | | | + +---------+ + + IMAGING REPORT - EXTERNAL SCAN (01/18/2018 12:00 AM PDT) + + + | Narrative | Performed At | + + + | Ordered by an | | | unspecified provider. 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
--- OUTSIDE RECORDS SUMMARY | ~2020-02-27 | XMS | Encounter Summary ---
Demographics + + + | Address | [address] | | | [place] [address] | + + + | Home Phone | | + + + | Preferred Language | Unknown | + + + | Marital Status | | + + + | Buddhism Affiliation | 1077 | + + + [...] Team Providers + +------+ + | Care Geological E Logger Name | Role | Phone | + +------+ + | Akua Hamilton MD | PCP | | + +------+ + Encounter Details +--------+ + + + + | Date | Type | Department | Care Team | Description | +--------+ + + + + | 09/06/ | Abstract | [facility] | Provider, | | | 2018 | | CARDIOLOGY [address] | [address] | | | | | [place] | [place] | | | | | [place] [address] | [place] [address] | | | | | [phone] | | | +--------+ + + + [...] | | | | | | [place] [address] | | | | | | [phone] | | | | | | | | +--------+---------+ + + + documented as of this encounter Procedures + +--------+ + + + | Procedure Name | Priori | Date/Time | Associated Diagnosis | Comments | | | ty | | | | + +--------+ + + + | EXTERNAL LAB: [facility]Z [facility] | Routin | 09/03/2018 | | Results for this | | | e | | | procedure are in the | | | | | | results section. | + +--------+ + + + | EXTERNAL LAB: | Routin | 09/03/2018 | | Results for this | | CALCIUM | e | | | procedure are in the | | | | | | results section. | + +--------+ + + + | EXTERNAL LAB: [facility] | Routin | 09/03/2018 | | Results for this | | DIOXIDE | e | | | procedure are in the | | | | | | results section. | + +--------+ + + + | EXTERNAL LAB: | Routin | 09/03/2018 | | Results for this | | CHLORIDE | e | | | procedure are in the | | | | | | results section. | + +--------+ + + + | EXTERNAL LAB: | Routin | 09/03/2018 | | Results for this | | POTASSIUM | e | | | procedure are in the | | | | | | results section. | + +--------+ + + + | EXTERNAL LAB: SODIUM | Routin | 09/03/2018 | | Results for this | | | e | | | procedure are in the | | | | | | results section. | + +--------+ + + + | EXTERNAL LAB: EGFR | Routin | 09/03/2018 | | Results for this | | | e | | | procedure are in the | | | | | | results section. | + +--------+ + + + | EXTERNAL LAB: | Routin | 09/03/2018 | | Results for this | | CREATININE | e | | | procedure are in the | | | | | | results section. | + +--------+ + + + | BASIC METABOLIC | Routin | 09/03/2018 | | Results for this | | PANEL | e | | | procedure are in the | | | | | | results section. | + +--------+ + + + documented in this encounter Results Basic Metabolic Panel (09/03/2018) + +-------+ + + + | Component | Value | Ref Range | Performed | Pathologist | | | | | At | Signature | + +-------+ + + + | Bun/Creatin | 19.8 | 6.0 - 28.6 | | | | ine | | | | | + +-------+ + + + | Anion Gap | 15 | 7 - 21 mmol/L | | | + +-------+ + + + + + | Specimen | + + | Blood | + + External Lab: BUN (09/03/2018) + +-------+ + + + | Component | Value | Ref Range | Performed | Pathologist | | | | | At | Signature | + +-------+ + + + | BUN, | 19 | 6 - 23 | EXTERNAL | | | External | | | LAB | | + +-------+ + + + + + | Resulting Agency Comment | + + | [facility] | + + + +---------+ + + | Performing | Address | City/State/Zipcode | Phone Number | | Organization | | | | + +---------+ + + | EXTERNAL LAB | | | | + +---------+ + + External Lab: Calcium (09/03/2018) + +-------+ + + + | Component | Value | Ref Range | Performed | Pathologist | | | | | At | Signature | + +-------+ + + + | Calcium, | 9.3 | 8.5 - 10.3 | EXTERNAL | | | External | | | LAB | | + +-------+ + + + + + | Resulting Agency Comment | + + | [facility] | + + + +---------+ + + | Performing | Address | City/State/Zipcode | Phone Number | | Organization | | | | + +---------+ + + | EXTERNAL LAB | | | | + +---------+ + + External Lab: Carbon Dioxide (09/03/2018) + +-------+ + + + | Component | Value | Ref Range | Performed | Pathologist | | | | | At | Signature | + +-------+ + + + | Carbon | 23 | 19 - 31 | EXTERNAL | | | Dioxide, | | | LAB | | | External | | | | | + +-------+ + + + + + | Resulting Agency Comment | + + | [facility] | + + + +---------+ + + | Performing | Address | City/State/Zipcode | Phone Number | | Organization | | | | + +---------+ + + | EXTERNAL LAB | | | | + +---------+ + + External Lab: Chloride (09/03/2018) + +-------+ + + + | Component | Value | Ref Range | Performed | Pathologist | | | | | At | Signature | + +-------+ + + + | Chloride, | 103 | 95 - 112 | EXTERNAL | | | External | | | LAB | | + +-------+ + + + + + | Resulting Agency Comment | + + | [facility] | + + + +---------+ + + | Performing | Address | City/State/Zipcode | Phone Number | | Organization | | | | + +---------+ + + | EXTERNAL LAB | | | | + +---------+ + + External Lab: Potassium (09/03/2018) + +-------+ + + + | Component | Value | Ref Range | Performed | Pathologist | | | | | At | Signature | + +-------+ + + + | Potassium, | 4.6 | 3.6 - 5.1 | EXTERNAL | | | External | | | LAB | | + +-------+ + + + + + | Resulting Agency Comment | + + | [facility] | + + + +---------+ + + | Performing | Address | City/State/Zipcode | Phone Number | | Organization | | | | + +---------+ + + | EXTERNAL LAB | | | | + +---------+ + + External Lab: Sodium (09/03/2018) + +-------+ + + + | Component | Value | Ref Range | Performed | Pathologist | | | | | At | Signature | + +-------+ + + + | Sodium, | 136 | 132 - 143 | EXTERNAL | | | External | | | LAB | | + +-------+ + + + + + | Resulting Agency Comment | + + | [facility] | + + + +---------+ + + | Performing | Address | City/State/Zipcode | Phone Number | | Organization | | | | + +---------+ + + | EXTERNAL LAB | | | | + +---------+ + + External Lab: eGFR (09/03/2018) + +-------+ + + + | Component | Value | Ref Range | Performed | Pathologist | | | | | At | Signature | + +-------+ + + + | eGFR, | 56 | | EXTERNAL | | | External | | | LAB | | + +-------+ + + + + + | Specimen | + + | Blood | + + + + | Resulting Agency Comment | + + | [facility] | + + + +---------+ + + | Performing | Address | City/State/Zipcode | Phone Number | | Organization | | | | + +---------+ + + | EXTERNAL LAB | | | | + +---------+ + + External Lab: Creatinine (09/03/2018) + +-------+ + + + | Component | Value | Ref Range | Performed | Pathologist | | | | | At | Signature | + +-------+ + + + | Creatinine, | 0.96 | 0.7 - 1.11 | EXTERNAL | | | External | | | LAB | | + +-------+ + + + + + | Specimen | + + | Blood | + + + + | Resulting Agency Comment | + + | [facility] | + + + +---------+ + + | Performing | Address | City/State/Zipcode | Phone Number | | Organization | | | | + +---------+ + + | EXTERNAL LAB | | | | + +---------+ + + documented in this encounter Visit Diagnoses Not on filedocumented in this encounter"
--- OUTSIDE RECORDS SUMMARY | ~2020-02-27 | XMS | Encounter Summary ---
Demographics + + + | Address | [address] | | | [place] [address] | + + + | Home Phone | | + + + | Preferred Language | Unknown | + + + | Marital Status | | + + + | Roman Catholic Affiliation | 1077 | + + + | Race | White | + + + | Ethnic Group | Not or | + + + Author + + + | Author | [facility] | | | and [place] | + + + | Organization | [facility] | | [...] Team Providers + +------+ + | Care Tax Advisor Name | Role | Phone | + +------+ + | Akua Hamitlon MD | PCP | | + +------+ [...] | | [address] | [place] [address] | | | | | [place] [address] | | | | | | [phone] | | | +--------+ + + + [...] | | | | | | [place] [address] | | | | | | [phone] | | | | | | | | +--------+---------+ + + + documented as of this encounter Procedures + +--------+ + + + | Procedure Name | Priori | Date/Time | Associated Diagnosis | Comments | | | ty | | | | + +--------+ + + + | MRI CERVICAL SPINE | Routin | 10/07/2018 | | Results for this | | WO CONTRAST | e | 3:50 PM | | procedure are in the | | | | PDT | | results section. | + +--------+ + + + documented in this encounter Results MRI Cervical Spine wo Contrast (10/07/2018 3:50 PM PDT) + + | Specimen | [...]
--- OUTSIDE RECORDS SUMMARY | ~2020-02-27 | XMS | Encounter Summary ---
Demographics + + + | Address | [address] | | | [place] [address] | + + + | Home Phone [...] + +------+ + | Care Director Of Trauma Name | Role | Phone | + +------+ + | Akua Hamilton MD | PCP | | + +------+ + Reason for Visit + +--------+ + | Reason | Onset | Comments | | | Date | | + +--------+ + | Lab Order | 09/30/ | | | | 2016 | | + +--------+ + Encounter Details +--------+ + + + + | Date | Type | Department | Care Team | Description | +--------+ + + + + | 09/30/ | Telephone | [facility] [place] | Doretha Frazier, | Lab Order | | 2016 | | CARDIOLOGY [address] | MD [address] | | | | | [place], | [place], | | | | | [place] [address] | [place] [address] | | | | | [phone] | [phone] | | | | | | | [...] this encounter Miscellaneous Notes Telephone Encounter - TopshamMeredith smith Solitario - 09/30/2016 10:50 AM PDTPatient called in, stated t hat she was supposed to have labs done for Dr. Bustillo at [facility] in [place], but when she went there [facility] did not have any lab orders for her. Patient requests that orders be f axed to them at fax number [phone]. Advised patient that I would fax her lab order to Michelle rowley as she requested. Faxed the following lab order to Monique: Basic Metabolic Panel [facility] umented in this encounter Plan of Treatment +--------+---------+ + + + | Date | Type | Specialty | Care Team | Description | +--------+---------+ + + + | 10/23/ | Office | Cardiology | Doretha Frazier, | | | 2020 | Visit | | MD Christopher Jerez | | | | | | [address] [place], | | | | | | [place] [address] | | | | | | [phone] | | | | | | | | +--------+---------+ + + + documented as of this encounter Visit Diagnoses Not on filedocumented in this encounter"
--- OUTSIDE RECORDS SUMMARY | ~2020-02-27 | XMS | Encounter Summary ---
Demographics + + + | Address | [address] | | | [place] [address] | + + + | Home Phone | | + + + | Preferred Language | Unknown | + + + | Marital Status | | + + + | Islam Affiliation | 1077 | + + + | Race | White | + + + | Ethnic Group | Not or | + + + Author + + + | Author | [facility] | | | and [place] | + + + | Organization | [facility] | | | and [...] Team Providers + +------+ + | Care Service Plumber Name | Role | Phone | + [...] Description | +--------+--------+ + + + | 08/02/ | Refill | [facility] [place] | Doretha rFazier, | Medication Refill | | 2020 | | CARDIOLOGY [address] | MD [address] [place] | | | | | [place], | [place], | | | | | [place] [address] | [place] [address] | | | | | [phone] | [phone] | | | | | | | [...] | | | | | | [place] [address] | | | | | | [phone] | | | | | | | | +--------+---------+ + + + documented as of this encounter Visit Diagnoses Not on filedocumented in this encounter"
--- OUTSIDE RECORDS SUMMARY | ~2020-02-27 | XMS | Encounter Summary ---
Demographics + + + | Address | [address] | | | [place] [address] | + + + | Home Phone | | + + + | Preferred Language | Unknown | + + + | Marital Status | | + + + | Shinto Affiliation | [phone] | + + + [...] Providers + +------+ + | Care Manager It Security Name | Role | Phone | + +------+ + | Akua Hamilton MD | PCP | | + +------+ + Reason for Visit +--------+ + | Reason | Comments | +--------+ + | Asthma | Edgar Diaz | +--------+ + Encounter Details +--------+---------+ + + + | Date | Type | Department | Care Team | Description | +--------+---------+ + + + | 12/25/ | Office | [facility] | Hernandez Tejada, | Asthma, extrinsic, | | 2016 | Visit | PULMONARY [address] | MD [address] | mild intermittent, | | | | [place], | [place], [place] | uncomplicated | | | | [place] [address] | [id number] | (Primary Dx); Need | | | | [phone] | | for pneumococcal | | | | | | vaccination; | | | | | | Allergic rhinitis | | | | | | due to pollen | +--------+---------+ + + + Social History [...] + | Blood Pressure | 110/80 | 12/26/2015 11:16 AM | | | | | PDT | | + + + + + | Pulse | 66 | 12/26/2015 11:16 AM | | | | | PDT | | + + + + + | Temperature | - | - | | + + + + + | Respiratory Rate | - | - | | + + + + + | Oxygen Saturation | 98% | 12/26/2015 11:16 AM | | | | | PDT | | + + + + + | Inhaled Oxygen | - | - | | | Concentration | | | | + + + + + | Weight | 86 kg (189 lb 9.6 | 12/26/2015 11:16 AM | | | | oz) | PDT | | + + + + + | Height | 165.1 cm (5' 5") | 12/26/2015 11:16 AM | | | | | PDT | | + + + + + | Body Mass Index | 31.55 | 12/26/2015 11:16 AM | | | | | PDT | | + + + + + documented in this encounter Patient Instructions Patient Instructions Hernandez Tejada MD - 12/26/2015 11:38 AM PDT Please get high dose FluVaccine in April The flu (influenza) is caused by a virus that is easily spread. A fluvaccine protects you and othersfrom the flu. It s best to get a flu shot each fall, as soon as the vaccine i s available in your area. You can get it at your health care provider s office or a health clinic. Drugstores, [facility], and workplaces often offer flu shots, too. If you want to know if your providerhas the flu vaccine available, or if you have other questions, ask your healthcare provider. Flu facts The flu shot will not give you the flu. The flu can be dangerous even life-threatening. Every year, about 36,000 people of complications from the flu. The flu is caused by a virus. It can t be treated with antibiotics. Influenza is not the same as stomach flu, the 24-hour bug that causes vomiting and diarrhea. This is most likely due to a GI (gastrointestinal) infection not the flu. You need to get a flu shot each year. Flu symptoms Flu symptoms tend to come on quickly. Fever, headache, fatigue, cough, sore throat, runny n ose, and muscle aches are symptoms of the flu. Upset stomach and vomiting are not common for adults. Some symptoms, such as fatigue and cough, may last a few weeks. How a flu shot protects you There are many strains (types) of theflu virus. Medical experts predict which strains are most likely to make people sick each year. Flu shots are made from these strains. When you get a flu vaccine, inactivated ( killed ) or very mild flu viruses are injected into you r body or sprayed into your nose. These cannot give you the flu. But they do prompt your bod y to make antibodies to fight these flu strains. If you re exposed to the same strains lat er in the flu season, the antibodies will fight off the germs. Recommendations for the flu vaccine The CDC recommends that infants over the age of 6 months and all children and adults should get flu shots every year. Some people are at an increased risk of developing serious complications from the flu. It i s extremely important that these people get the vaccine. They include those with: Long-term heart and lung conditions Other serious medical conditions Endocrine disorders, like diabetes Kidney or liver disorders Weakened immune systems from disease of medical treatment; for example, those with HIV o r AIDS or taking long-term steroids or medications to treat cancer Blood disorders, such as sickle cell disease It is also very important that others that have an increased risk of being exposed to the f beti or are around people with increased risk of complications get the vaccine. They are: Health care providers and other staff that provide care in hospitals, nursing homes, [facility], and other facilities Household members, including children, of people in high-risk groups Types of flu vaccines The flu vaccine is available as a shot and as a nasal spray. Your health care provider will determine which vaccine is right for you. The shot is available in a few different forms. There is a high-dose vaccine for those o shantanu 65 and a vaccine for those with egg allergies. It is safe for most people. Talk with you r provider if you have had: A severe allergic reaction to a previous flu vaccine Guillain-Stockton syndrome (a severe paralyzing condition) The nasal spray is recommended for people from 2 to 49 years old. It should not be given to adults who: Are Have weakened immune systems Have egg allergies Will be in close contact with someone with a weakened immune system Have taken antiviral medication in the past 2 days [id number] The [employer]. [address] [place] [address], [place] [address]. All righ ts reserved. This information is not intended as a substitute for professional medical care. Always follow your healthcare professional's instructions. documented in this encounter Progress Notes Hernandez Tejada MD - 12/26/2015 11:31 AM PDTFormatting of this note might be different f rom the original. Pulmonary Follow Up 12/26/2015 HPI Abiola Vaughan is a 80 y.o. female patient of Akua Hamilton MD here today for foll ow up of asthma. The patient's last visit was on 12/27/[address] Diaz. Since the last visit she feel s like their asthma has been stable. They have not had any acute illnesses resulting in wor sening asthma symptoms. They have not required a burst of prednisone since our last appoint ment. Specifically 0 tapers of prednisone have occurred over the interval. Lastly Abiola notes 0 ED visits and 0 hospitalizations for asthma have occurred since the last appointmen t. Their controller medication regimen currently consists of Advair 100/50 and Singulair from approximately January till June. The other times of the year Abiola does not use a cont roller medication.. They do feel like this medication regimen is effective at controlling t heir symptoms. Currently Abiola is using their rescue albuterol, Proventil, 0 times a day . Triggers of their asthma include wheat dust and field smoke. She does not have nocturnal s ymptoms of wheezing, chest tightness or cough. She does not measure their peak flow. Currently Abiola reports being able to walk ~1 mile at their own pace on level ground bef ore becoming symptomatic. They are exercising regularly in water aerobics. She does not cough chronically, and does not produce mucous. She does not report symptoms of heartburn or acid reflux. They have not had recent symptoms of nasal congestion, runny nose or post nasal drip. No new medical problems are reported. Past Medical History Past Medical History Diagnosis Date Disorders of bursae and tendons in shoulder region, unspecified Cough Esophageal reflux Overweight(278.02) Allergic rhinitis due to pollen Extrinsic asthma, unspecified Hypertension Diabetes mellitus (HCC) Peptic ulcer disease Hyperlipidemia History of cervical cancer Bleeding disorder (HCC) mild TIA (transient ischemic attack) 07/21/2013 Obesity Allergies: No Known Allergies Medications: Current outpatient prescriptions: aspirin 81 MG tablet, Take 81 mg by mouth Daily., Disp: , Rfl: atorvaSTATin (LIPITOR) 10 mg tablet, Take 10 mg by mouth Daily., Disp: , Rfl: Calcium Citrate (CITRACAL PO), Take 800 mg by mouth Daily., Disp: , Rfl: cholecalciferol (VITAMIN D-3) 1,000 units tablet, Take 1,000 Units by mouth Daily., Di sp: , Rfl: fluticasone-salmeterol (ADVAIR DISKUS) 100-50 mcg/puff diskus inhaler, Inhale 1 puff i nto the lungs Twice Daily. (Patient taking differently: Inhale 1 puff into the lungs Twice D aily. Patient only takes January-June.), Disp: 1 each, Rfl: 5 lisinopril (PRINIVIL, ZESTRIL) 20 mg tablet, Take one tablet daily, Disp: , Rfl: metFORMIN (GLUCOPHAGE) 500 mg tablet, Take 500 mg by mouth 3 times daily., Disp: , Rfl : montelukast (SINGULAIR) 10 mg tablet, Take 1 tablet by mouth Daily. (Patient taking di fferently: Take 10 mg by mouth Daily. Patient only takes January-June.), Disp: 90 tablet, R fl: 4 Multiple Vitamins-Minerals (MULTIVITAMIN PO), Take by mouth 2 times daily., Disp: , R fl: Immunizations: Immunization History Administered Date(s) Administered INFLUENZA, TRIVALENT PRESERVATIVE FREE (PED/ADOL/ADULT) 03/18/2012, 04/26/2013, 015 PNEUMOCOCCAL POLYSACCHARIDE 23-VALENT (PPSV23) 09/16/2007 Review of Systems Constitutional: Denies fever, chills, sweats, fatigue/weakness, and unexpected weight fry ge. Sleep: Denies trouble sleeping, excessive snoring, and daytime sleepiness. Eyes: Denies vision change, and eye irritation. ENT: Denies earache, tinnitus, decreased hearing, nosebleeds, sore throat, and hoarseness. Resp: See HPI. CV: Denies neck/chest/jaw pain with exertion, palpitations, lightheadedness, syncope, dysp ac on exertion, orthopnea, PND, peripheral edema, and claudication. GI: Denies trouble swallowing, nausea, vomiting, abdominal pain, diarrhea,melena, and hem atochezia. Neurologic: Denies frequent headaches, seizures, tremors, numbness or tingling in hands or feet, vertigo, and falls in the past 6 months. Allergy Denies urticaria, allergic rash, hay fever. Objective BP 110/80 mmHg | Pulse 66 | Ht 1.651 m (5' 5") | Wt 86.002 kg (189 lb 9.6 oz) | BMI 31.55 k g/m2 | SpO2 98% | ? No Appearance: Alert, cooperative, no distress, appears stated [...] gallop. Extremities: Extremities normal, atraumatic, no cyanosis, clubbing, or edema. Skin: Warm and dry. Lymph nodes: Cervical and supraclavicular nodes normal. Neurologic: Gait normal. Data: Records from Dr. Diaz in the paper chart and electronic chart were reviewed. It does not appear that the patient has had prior pulmonary function testing. Assessment 1. Asthma complicated to classify. At times the patient's asthma is consistent with mod erate/severe persistent and at other times mild intermittent. She currently uses low streng th Advair and Singulair between January and June related to exposures as described above. Otherwise she is not using any medications including albuterol. Today we discussed trialing use of Advair alone during the January to June.. Abiola is open to this option. The patient is in need of a Prevnar 13. Plan 1. Prevnar 13 today. 2. Trial of discontinuing Singulair as described above. 3. High-dose seasonal influenza vaccination April 2016. 4. Pulmonary clinic follow-up appointment in 12 months time. CC: Akua Hamilton MD documented in this [...] | | | | | | [place] [address] | | | | | | [phone] | | | | | | | | +--------+---------+ + + + documented as of this encounter Visit Diagnoses + + | Diagnosis | + + | Asthma, extrinsic, mild intermittent, uncomplicated - Primary | + + | Need for pneumococcal vaccination Need for prophylactic vaccination against | | streptococcus pneumoniae (pneumococcus) | + + | Allergic rhinitis due to pollen | + + documented in this encounter
--- OUTSIDE RECORDS SUMMARY | ~2020-02-27 | XMS | Encounter Summary ---
Demographics + + + | Address | [address] | | | [place] [address] | + + + | Home Phone | | + + + | Preferred Language | Unknown | + + + | Marital Status | | + + + | Caodaism Affiliation | [phone] | + + + | Race | White | + + + | Ethnic Group | Not or | + + + Author + + + | Author | [facility] | | | and [place] | + + + | Organization | [facility] | | | [...] Team Providers + +------+ + | Care Booth Cleaner Name | Role | Phone | + [...] Description | +--------+---------+ + + + | 05/13/ | Office | [facility] | Klaus Melendrez PA | ARELI on CPAP (Primary | | 2017 | Visit | SLEEP DISORDER [address] | [address] | Dx) | | | | [address] | [place] | | | | | [place] [address] | [address] | | | | | [phone] | | | +--------+---------+ + + + [...] + + + | Blood Pressure | 120/60 | 05/13/2017 9:54 AM | | | | | PDT | | + + + + + | Pulse | 70 | 05/13/2017 9:54 AM | | | | | PDT | | + + + + + | Temperature | - | - | | + + + + + | Respiratory Rate | 16 | 05/13/2017 9:54 AM | | | | | PDT | | + + + + + | Oxygen Saturation | 95% | 05/13/2017 9:54 AM | | | | | PDT | | + + + + + | Inhaled Oxygen | - | - | | | Concentration | | | | + + + + + | Weight | 81.1 kg (178 lb 12.7 | 05/13/2017 9:54 AM | | | | oz) | PDT | | + + + + + | Height | - | - | | + + + + + | Body Mass Index | 29.75 | 03/03/2017 1:35 PM | | | | | PDT | | + + + + + documented in this encounter Progress Notes Klaus Melendrez PA - 05/13/2017 10:00 AM PDT Subjective: Patient ID: Abiola Vaughan is a 81 y.o. female. HPI last office visit: 02/10/2017 date of polysomnography: 09/16/2016 AHI: 8.4 RDI: 16.7 O2%: 79% with 6.3 minutes below 88% Machine type: ResMed AirSense 10 Mask type: full face mask DME: [facility] [place] pressure: 4-15 cm Median: 7.6 cm 95%: 12.6 cm maximum: 13.1 cm Nights using CPAP: 03/21 30 61/62 85/92 % of nights >4 hours: 55% 93% 76% 48% 39% average usage (all nights): 4:09 5:13 4:40 3:39 3:30 average usage (nights used): 4:09 5:13 4:40 3:43 3:48 AHI: 2.7 bAiola comes in for CPAP compliance. She continues to have a difficult time adjusting to her CPAP. She is still wearing it regularly, but is having a difficult time wearing it for the duration of her sleep. She starts the night with her CPAP, but wakes at around 3am. S he feels very awake at that time and says she can't "turn off" her brain. She turns on musi c, with no words, to help her relax. She has a significant stress because of family health. A nephew and great granddaughter were diagnosed with tumors. The music helps her deal wit h the stress and she is able to fall asleep within about 20 minutes. She is taking off her CPAP and sleeping without it for the last few hours. I have discussed the download in detail. The download shows that her sleep apnea is contro lled, with an AHI of 2.7. It also shows that her leaks are controlled. BP 120/60 | Pulse 70 | Resp 16 | Wt 81.1 kg (178 lb 12.7 oz) | SpO2 95% | BMI 29.75 kg /m Review of Systems Objective: Physical Exam Assessment: Problem #1: OBSTRUCTIVE SLEEP APNEA ([id number]) This is controlled with CPAP. She is doing well with her CPAP compliance. She is wearing her CPAP nightly, but is still struggling with wearing it for the duration of her sleep on nights. Plan: 1. She is to continue with CPAP indefinitely. 2. I have recommended that she work toward wearing her CPAP 100% of the time she is asleep . 3. She is to avoid taking off her mask during the night. I will follow up again in 3 months, sooner prn. Fifteen minutes were spent [id number], w ith the majority of time spent [...] | | | | | | [place] [address] | | | | | | [phone] | | | | | | | | +--------+---------+ + + + documented as of this encounter Visit Diagnoses + + | Diagnosis | + + | ARELI on CPAP - Primary Obstructive sleep apnea (adult) (pediatric) | + + documented in this encounter
--- OUTSIDE RECORDS SUMMARY | ~2020-02-27 | XMS | Encounter Summary ---
Demographics + + + | Address | [address] | | | [place] [address] | + + + | Home Phone [...] + + + | Author | [facility] | | | and [place] | + + + | Organization | [facility] | | | and [...] Team Providers + +------+ + | Care Metal Bonding Assembler Name | Role | Phone | + [...] | | PULMONARY [address] [place] | | | | | [place] | | | | | | [place] [address] | | | | | | [phone] | | | +--------+ + + + [...] + + documented as of this encounter Progress Notes Jannette Jimenes, [place] - 03/02/2019 10:34 AM PDTError documented in this encounte r Plan of Treatment +--------+---------+ + + + | Date | Type | Specialty | Care Team | Description | +--------+---------+ + + + | 10/23/ | Office | Cardiology | WongmalseeZhannabecki, | | | 2020 | Visit | | [address] [facility] [address] | | | | | | [place], | | | | | | [place] [address] | | | | | | [phone] | | | | | | | | +--------+---------+ + + + documented as of this encounter Visit Diagnoses Not on filedocumented in this encounter"
--- OUTSIDE RECORDS SUMMARY | ~2020-02-27 | XMS | Encounter Summary ---
Demographics + + + | Address | [address] | | | [place] [address] | + + + | Home Phone | | + + + | Preferred Language | Unknown | + + + | Marital Status | | + + + | Denominational Affiliation | [id number] | + + + | Race | White | + + + | Ethnic Group | Not or | + + + Author + + + | Author | [facility] | | | and [place] | + + + | Organization | [facility] | | [...] Team Providers + +------+ + | Care Aircraft Structural Design Engineer Name | Role | Phone | + +------+ + | Akua Hamilton MD | PCP | | + +------+ + Reason for Visit Evaluate & Treat (Routine) +--------+ + + [...] Medicine | ARELI | Shawn Mcghee | [place] [address] | | | Required | | (obstructive | MD [address] | | | | | sleep | [place] | [place], | | | | | apnea) | [facility] | [place] [address] | | | | | Procedures | [place], [place] | Phone: | | | | | [place] POLYSOM | [address] | [phone] | | | | | 6/>YRS SLEEP | Phone: | Fax: | | | | | 4/> ADDL | [phone] | [phone] | | | | | ALYSHA ATTND | Fax: | | | | | | NPSG | [phone] | | +--------+ + + + + + Encounter Details +--------+ + + + + | Date | Type | Department | Care Team | Description | +--------+ + + + + | 09/16/ | Hospital | [facility] | Shawn Wolff | ARELI (obstructive | | 2017 - | Encounter | [facility] SLEEP | MD Christopher Hammonds [place] | sleep apnea) | | | | CENTER [address] | [facility] | (Primary Dx); | | 09/17/ | | [place] | [place] [address] | Periodic limb | | 2017 | | [address] | [phone] | movements of sleep | | | | [phone] | | | +--------+ + + + [...] + + documented as of this encounter Procedure Notes Shawn Wolff Jr., MD - 09/22/2016 4:55 PM PDTAssociated Order(s): SLEEP STUDY DIAGNOST IC ONLY NO PAPProcedure([place] [address] POLYSOMNOGRAPHY 4 OR MOREPre-Procedure Brooklynn gnose(s): ARELI (obstructive sleep apnea)Post-Procedure Diagnose(s): ARELI (obstructive sleep ap ac); Periodic limb movements of sleep [facility] [place] [address] Polysomnogram Report on Abiola Vaughan performed on September 16, 2016. Clinical Information: Abiola Vaughan is a 80 y.o. female who underwent diagnostic n octurnal polysomnography on September 16, [address] Frazier because of fatigue and possible obstructive sleep apnea complicating the management of hypertension in the mellissa ent who is obese has asthma and has a history of the transient ischemic attack. Technical Information: Please see technical data which is attached. Definitions (The AASM Manual for the Scoring of Sleep and Associated Events, Version 2.3; 2 016): Apnea: There is a drop in the peak signal excursion by 90% or greater of pre-event baselin e using an oronasal thermal sensor (diagnostic study), PAP device flow (titration study), or an alternative apnea sensor (diagnostic study); the duration of the 90% or greater drop in sensor signal is 10 seconds or longer. Obstructive Apnea: Event associated with continued or increased inspiratory effort throug hout the entire period of absent airflow. Central Apnea: Event associated with absent inspiratory effort throughout the entire westley od of absent airflow. Mixed Apnea: Event associated with absent inspiratory effort in the initial portion of th e event followed by resumption of inspiratory effort during the second portion of the event. Hypopnea: Nasal pressure excursion drop by 30% or more from baseline, lasting at lease 10 seconds and 90% of the event's duration meets this amplitude criteria. This is associated wi th a 4% or greater desaturation from pre-baseline. Respiratory Event Related Arousal: A sequence of breaths lasting 10 seconds or longer ashli acterized by increasing respiratory effort or by flattening of the inspiratory portion of th e nasal pressure (diagnostic study) or PAP device flow (titration study) waveform leading to arousal from sleep when the sequence of breaths does not meet criteria for an apnea or hypo pnea. Sleep Architecture: Lights out was recorded at 2231 hundred hours on September 16, 2016 and lig hts on was recorded at 0558 hundred hours on September 17, 2016. The latency to sleep onset was n ormal at 16.5 minutes. The patient slept for 348 minutes out of 445 minutes of study time re sulting an a sleep efficiency that was decreased at 78.2 %. The amount of N1 sleep was norm al at 2 % of the Total Sleep Time; the amount of N2 sleep was normal for age at 68.5 % of th e Total Sleep Time; the amount of N3 sleep was normal at 16.8 % of the Total Sleep Time; the amount of REM sleep was mildly reduced at 12.6 % of the Total Sleep Time and the latency to REM sleep normal at 85.5 minutes. Adequate chin EMG suppression was noted during REM sleep . Sleep in the following positions was recorded: left lateral decubitus 0 %, right lateral de cubitus 0 %, supine 100 %, prone 0 %. Sleep was mildly fragmented; the Arousal Index was 23.4. The patient reported this to be a usual night's sleep. Cardiopulmonary Monitoring: The heart rate averaged in the 60s beats per minute. Mild rate variability was noted. The rhythm was sinus. In the course of the evening there were 5 obstructive apneas, 0 mixed apneas, 0 central warehouse order filler eas, 44 hypopneas, and 48 Respiratory Effort Related Arousals (RERA's). The Respiratory Dist urbance Index (RDI) was elevated at 16.7; the Apnea-Hypopnea Index mildly elevated at 8.4; t he Apnea Index (AI) normal at 0.9. The respiratory events were very sleep stage dependent. The events were nearly exclusively seen in rem sleep (REM related Apnea Hypopnea Index index 47.7, non-REM related Apnea Hypopnea Index 2.8). [...] This is associated with mild oxygen desaturation. Thi s is primarily seen in rapid eye movement [...] they are felt to be clinically significant. Shawn Wolff Jr., MD, [facility] [employer] Engraver [facility] [place], [place] Clinical jetting machine operator [place], [place] documented in th is encounter Plan of Treatment +--------+---------+ + + + | Date | Type | Specialty | Care Team | Description | +--------+---------+ + + + | 10/23/ | Office | Cardiology | Doretha Frazier, | | | 2020 | Visit | | [address] [facility] | | | | | | [facility], | | | | | | [place] [address] | | | | | | [phone] | | | | | | | | +--------+---------+ + + + documented as of this encounter Procedures + +--------+ + + + | Procedure Name | Priori | Date/Time | Associated Diagnosis | Comments | | | ty | | | | + +--------+ + + + | SLEEP STUDY | Routin | 09/22/2016 | | Results for this | | DIAGNOSTIC ONLY NO | e | 5:01 PM | | procedure are in the | | PAP | | PDT | | results section. | + +--------+ + + + documented in this encounter Results Sleep study diagnostic only (no PAP) (09/22/2016 5:01 PM PDT) + + + | Narrative | Performed At | + + + | Shawn Mcghee | | | [place] MD 09/22/2016 17:01 [facility] | | | [place] [address] | | | Polysomnogram Report on Abiola Vaughan performed on September 16 | | | 2016. Clinical Information: Abiola Vaughan is a 80 y.o. | | | female who underwent diagnostic nocturnal polysomnography on September | | | [address] Frazier because of fatigue and possible | | | obstructive sleep apnea complicating the management of hypertension | | | in the patient who is obese has asthma and has a history of the | | | transient ischemic attack. Technical Information: Please see technical | | | data which is attached. Definitions (The AASM Manual for the Scoring | | | of Sleep and Associated Events, Version 2.3; 2016): Apnea: There is a | | | drop in the peak signal excursion by 90% or greater of pre-event | | | baseline using an oronasal thermal sensor (diagnostic study), PAP | | | device flow (titration study), or an alternative apnea sensor | | | (diagnostic study); the duration of the 90% or greater drop in sensor | | | signal is 10 seconds or longer. Obstructive Apnea: Event associated | | | with continued or increased inspiratory effort throughout the entire | | | period of absent airflow. Central Apnea: Event associated with | | | absent inspiratory effort throughout the entire period of absent | | | airflow. Mixed Apnea: Event associated with absent inspiratory | | | effort in the initial portion of the event followed by resumption of | | | inspiratory effort during the second portion of the event. Hypopnea: | | | Nasal pressure excursion drop by 30% or more from baseline, lasting at | | | lease 10 seconds and 90% of the event's duration meets this amplitude | | | criteria. This is associated with a 4% or greater desaturation from | | | pre-baseline. Respiratory Event Related Arousal: A sequence of breaths | | | lasting 10 seconds or longer characterized by increasing respiratory | | | effort or by flattening of the inspiratory portion of the nasal | | | pressure (diagnostic study) or PAP device flow (titration study) | | | waveform leading to arousal from sleep when the sequence of breaths | | | does not meet criteria for an apnea or hypopnea. Sleep Architecture: | | | Lights out was recorded at 2231 hundred hours on September 16, 2016 and | | | lights on was recorded at 0558 hundred hours on September 17, 2016. The | | | latency to sleep onset was normal at 16.5 minutes. The patient slept | | | for 348 minutes out of 445 minutes of study time resulting an a sleep | | | efficiency that was decreased at 78.2 %. The amount of N1 sleep was | | | normal at 2 % of the Total Sleep Time; the amount of N2 sleep was | | | normal for age at 68.5 % of the Total Sleep Time; the amount of N3 | | | sleep was normal at 16.8 % of the Total Sleep Time; the amount of REM | | | sleep was mildly reduced at 12.6 % of the Total Sleep Time and the | | | latency to REM sleep normal at 85.5 minutes. Adequate chin EMG | | | suppression was noted during REM sleep. Sleep in the following | | | positions was recorded: left lateral decubitus 0 %, right lateral | | | decubitus 0 %, supine 100 %, prone 0 %. Sleep was mildly fragmented; | | | the Arousal Index was 23.4. The patient reported this to be a usual | | | night's sleep. Cardiopulmonary Monitoring: The heart rate averaged in | | | the 60s beats per minute. Mild rate variability was noted. The | | | rhythm was sinus. In the course of the evening there were 5 | | | obstructive apneas, 0 mixed apneas, 0 central apneas, 44 hypopneas, | | | and 48 Respiratory Effort Related Arousals (RERA's). The Respiratory | | | Disturbance Index (RDI) was elevated at 16.7; the Apnea-Hypopnea Index | | | mildly elevated at 8.4; the Apnea Index (AI) normal at 0.9. The | | | respiratory events were very sleep stage dependent. The events were | | | nearly exclusively seen in rem sleep (REM related Apnea Hypopnea Index | | | index 47.7, non-REM related Apnea Hypopnea Index 2.8).The respiratory | | | events occasioned significant sleep fragmentation; the Respiratory | | | Arousal Index was 12.2. The glo oxygen saturation was 79 % and the | | | patient spent 6.3 minutes with an oxygen saturation of less than 88%. | | | ETCO2 was not pathologically elevated. Limb Movement Monitoring: There | | | were 155 Periodic Limb Movements (PLMS Index of 26.7) of which 37 | | | were associated with arousals; the PLMS Arousal Index was mildly | | | elevated at 6.4. Interpretation: This polysomnogram is abnormal | | | secondary to: Obstructive sleep apnea is present. This is associated | | | with mild oxygen desaturation. This is primarily seen in rapid eye | | | movement sleep.Periodic limb movements of sleep are present and mildly | | | fragment sleep. Suggestions:1. The principles of sleep hygiene should | | | be reviewed with the patient.2. Treatment of obstructive sleep | | | apnea is advised.3. A ferritin level should be checked. If the | | | ferritin level is less than 50, iron supplementation should be | | | considered to raise the ferritin to above 50. This may help with PLMS. | | | Once the ferritin level is above 50, pharmacologic therapy of | | | PLMS/RLS should be considered if they are felt to be clinically | | | significant. Shawn Wolff Jr., MD, [facility]ERSMMedical DirectorKathaven behavioral [facility] [place] | | | [facility] | | | Alex Woodinical Pallet Stone Positioner of | | | [place] | | |were nearly exclusively seen in rem sleep (REM related Apnea | | |Hypopnea Index index 47.7, non-REM related Apnea Hypopnea Index | | |2.8). | | |The respiratory events occasioned significant sleep | | |fragmentation; the Respiratory Arousal Index was 12.2. | | | | | |The glo oxygen saturation was 79 % and the patient spent 6.3 | | |minutes with an oxygen saturation of less than 88%. | | | | | |ETCO2 was not pathologically elevated. | | | | | |Limb Movement Monitoring: There were 155 Periodic Limb Movements | | |(PLMS Index of 26.7) of which 37 were associated with arousals; | | |the PLMS Arousal Index was mildly elevated at 6.4. | | | | | |Interpretation: This polysomnogram is abnormal secondary to: | | | | | |Obstructive sleep apnea is present. This is associated with mild | | |oxygen desaturation. This is primarily seen in rapid eye | | |movement sleep. | | |Periodic limb movements of sleep are present and mildly fragment | | |sleep. | | | | | |Suggestions: | | |1. The principles of sleep hygiene should be reviewed with the | | |patient. | | |2. Treatment of obstructive sleep apnea is advised. | | |3. A ferritin level should be checked. If the ferritin level is | | |less than 50, iron supplementation should be considered to raise | | |the ferritin to above 50. This may help with PLMS. Once the | | |ferritin level is above 50, pharmacologic therapy of PLMS/RLS | | |should be considered if they are felt to be clinically | | |significant. | | | | | |Shawn Wolff Jr., MD, [facility] | | |Wood [employer] Engraver | | |[facility] | | |[facility] | | |[place], [place] | | |Clinical jetting machine operator | | |[facility] | | |[place], [place] | | | | | + + + documented in this encounter Visit Diagnoses + + | Diagnosis | + + | ARELI (obstructive sleep apnea) - Primary Obstructive sleep apnea (adult) (pediatric) | + + | Periodic limb movements of sleep Periodic limb movement disorder | + + documented in this encounter"
--- OUTSIDE RECORDS SUMMARY | ~2020-02-27 | XMS | Encounter Summary ---
Demographics + + + | Address | [address] | | | [place] [address] | + + + | Home Phone | | + + + | Preferred Language | Unknown | + + + | Marital Status | | + + + | Episcopal Affiliation | [id number] | + + + | Race | White | + + + | Ethnic Group | Not or | + + + Author + + + | Author | [facility] | | | and [place] | + + + | Organization | [facility] | | [...] Team Providers + +------+ + | Care Freezing Machine Operator Name | Role | Phone | + +------+ + | Akua Hamilton MD | PCP | | + +------+ + Reason for Visit +--------+ + | Reason | Comments | +--------+ + | Asthma | Yearly follow up | +--------+ + Encounter Details +--------+---------+ + + + | Date | Type | Department | Care Team | Description | +--------+---------+ + + + | 12/14/ | Office | [facility] | Hernandez Tejada, | Mild intermittent | | 2018 | Visit | PULMONARY [address] | MD [address] | asthma without | | | | [place], | [place], [place] | complication | | | | [place] [address] | [id number] | (Primary Dx) | | | | [phone] | | | +--------+---------+ + + + [...] + + + | Blood Pressure | 110/60 | 12/14/2017 9:54 AM | | | | | PDT | | + + + + + | Pulse | 76 | 12/14/2017 9:54 AM | | | | | PDT | | + + + + + | Temperature | - | - | | + + + + + | Respiratory Rate | - | - | | + + + + + | Oxygen Saturation | 99% | 12/14/2017 9:54 AM | | | | | PDT | | + + + + + | Inhaled Oxygen | - | - | | | Concentration | | | | + + + + + | Weight | 80.2 kg (176 lb 12.9 | 12/14/2017 9:54 AM | | | | oz) | PDT | | + + + + + | Height | 165.1 cm (5' 5") | 12/14/2017 9:54 AM | | | | | PDT | | + + + + + | Body Mass Index | 29.42 | 12/14/2017 9:54 AM | | | | | PDT | | + + + + + documented in this encounter Patient Instructions Patient Instructions Hernandez Tejada MD - 12/14/2017 10:00 AM PDT Please get high dose FluVaccine in April 2018. The flu (influenza) is caused by a virus that is easily spread. A fluvaccine protects you and othersfrom the flu. It s best to get a flu shot every year in late summer or early fall, as soon as the vaccine is available in your area. You can get it at your healthcare pr ovider s office or a health clinic. Pharmacies, senior centers, and workplaces often offer flu shots, too. If you want to know if your providerhas the flu vaccine available, or if you have other questions, ask your healthcare provider. Flu facts The flu shot won t give you the flu. The virus that is in the flu shot has been killed (inactivated). The flu can be dangerous even life-threatening. Every year thousands of people fro m complications from the flu. The flu is caused by a virus. It can t be treated with antibiotics. Influenza is not the same as stomach flu, the 24-hour virus that causes vomiting and wendy rrhea. The stomach flu most likely happens because of a GI (gastrointestinal) infection, not the flu. You need to get a flu shot each year. Flu symptoms Flu symptoms tend to come on quickly. They include: Fever Headache Tiredness (fatigue) Cough Sore throat Runny nose Muscle aches Upset stomach and vomiting are not common for adults. Some symptoms such as tiredness and c ough may lastfor manyweeks. How a flu vaccine protects you There are many types (strains) of theflu virus. Medical experts predict which strains are most likely to make people sick each year. Flu shots are made from these strains. When you get a flu vaccine, killed (inactivated)viruses are injected into your body. These can t give you the flu. But they do cause your body to make antibodies to fight these flu strains. If you are exposed to the same strains later in the flu season, the antibodies will fight o ff the germs. Who should get the flu vaccine? The CDC recommends that infants over the age of 6 months and all children and adults should get aflu shot every year. Some people are at an increased risk of developing serious complications from the flu. It i s extremely important that these people get the vaccine. They include those with: Long-term heart and lung conditions Other serious health conditions such as: Endocrine disorders such as diabetes Kidney or liver disorders Weakened immune system from disease or medical treatment. For example, people with HIV o r AIDS, or those taking long-term steroids or medicines to treat cancer. Blood disorders such as sickle cell disease It is also very important that others who have an increased risk of being exposed to the fl u or are around people with increased risk for complications get the vaccine. This includes: Healthcare providers and other staff who provide care in hospitals, nursing homes, home health, and other facilities Household members, including children of people in high-risk groups Types of flu vaccines The flu vaccine is available as a regularand a high-strengthshot. Your healthcare provi binu will recommend the vaccine that is best for you. Flu shot The flu shot is available in a few different forms. Your healthcare provider will determine which vaccine is right for you. There is a high-dose vaccine for those over age 65 and a va ccine for those with egg allergies. It is safe for most people. Talk with your provider if y ou have had: A severe allergic reaction to a previous flu vaccine Guillain-Gudino syndrome. This is a severe paralyzing condition. Nasal spray The nasal spray isnotrecommended for the 4571-1528 flu season. The CDC says the nasal s pray did not seem to protect against the flu over the last several flu seasons. Date Last Reviewed: 06/12/201619991270-7987 [employer]. [address] [place] [address]. All righ ts reserved. This information is not intended as a substitute for professional medical care. Always follow your healthcare professional's instructions. documented in this encounter Progress Notes Hernandez Tejada MD - 12/14/2017 10:00 AM PDTFormatting of this note might be different f rom the original. Pulmonary Follow Up 12/14/2017 HPI Abiola Vaughan is a 82 y.o. female patient of Akua Hamilton MD here today for foll ow up of asthma. The patient's last visit was on 12/25/16. Since the last visit she feels like [...] have occurred since the last appointment. Their controller medication regimen currently consists of prn ProAir. They do not feel lik e this medication regimen is effective at controlling their symptoms. Currently Abiola is using their rescue albuterol, ProAir, 2 times in 6 months. Triggers of their asthma include wheat pollen and dust. She does not have nocturnal sympto ms of wheezing, chest tightness or cough. She does not measure their peak flow. Currently Abiola reports being able to walk 4 blocks at their own pace on level ground be fore becoming symptomatic. They are not exercising regularly. Current exercise consists of minimal walking. She does not cough chronically, and does not produce mucous. Abiola does not report symptoms of heartburn or acid reflux. They have not had recent sym ptoms of nasal congestion, runny nose or post nasal drip. New triggers since the last appointment include none. However Abiola has begun to not ice episodes of feeling "no energy" in association with exertional activities. There is no wheezing or chest tightness. The patient believes that her symptoms could be related to hea rt failure. Abiola Vaughan is not smoking cigarettes. The [...] Lansoprazole Hives Medications: Current Outpatient Prescriptions: albuterol (PROAIR HFA) 90 mcg/puff inhaler, Inhale 2 puffs into the lungs every 4 hour s as needed for Wheezing or Shortness of Breath., Disp: 1 Inhaler, Rfl: 3 aspirin 81 MG tablet, Take 81 mg [...] by mouth 2 times daily., Di sp: 180 tablet, Rfl: 3 metFORMIN (GLUCOPHAGE) 500 mg tablet, Take 500 mg by mouth 3 times daily., Disp: , Rfl : Multiple Vitamins-Minerals (MULTIVITAMIN PO), Take by mouth 2 times daily., Disp: , R fl: omeprazole (PRILOSEC) 20 mg capsule, Take 20 mg by mouth Daily., Disp: , Rfl: UNABLE TO FIND, Med Name: Resmed AirSense 10 autoset CPAP: 4-15cm while sleeping., Dis p: , Rfl: Immunizations: Immunization History Administered Date(s) Administered INFLUENZA 65 Y OR >, TRIVALENT HIGH-DOSE 04/26/2015 INFLUENZA PF 18 Y OR >,TRIVALENT RECOMBINANT 03/18/2012, 04/26/2013, 04/26/2015 PNEUMOCOCCAL CONJUGATE 13-VALENT (PCV13) 12/26/2015 PNEUMOCOCCAL POLYSACCHARIDE 23-VALENT (PPSV23) 09/16/2007 Objective BP 110/60 | Pulse 76 | Ht 1.651 m (5' 5") | Wt 80.2 kg (176 lb 12.9 oz) | SpO2 99% | B MS 29.42 kg/m Appearance: Alert, cooperative, no distress, appears [...] supraclavicular nodes normal. Neurologic: Gait normal. Data: A clinic note dated 01/19/[address] Akua Hamilton at the [facility] is availab le for my review. Assessment 1. Asthma mild intermittent. Over the last 12 months no definitive symptoms of an asthm a exacerbation are noted. The patient is up-to-date with respect to her Prevnar, Pneumovax and seasonal influenza vaccinations. Abiola has begun to notice exertional associated low energy. We discussed trialing albut suzanne either before or after symptom development. If the patient's symptoms are mitigated by albuterol then. Likely related to her asthma. If not another cause of the patient's sympt oms is likely present. Plan 1. Trial of ProAir before or in association with exertional fatigue. The patient will not marty our office if ProAir reduce/prevent these symptoms. 2. High-dose seasonal influenza vaccination April 2018. 3. The interval between pulmonary clinic follow-up appointments will remain at 12 months. CC: Akua Hamilton MD documented in this [...] | | | | | | [place] [id number] | | | | | | [phone] | | | | | | | | +--------+---------+ + + + documented as of this encounter Visit Diagnoses + + | Diagnosis | + + | Mild intermittent asthma without complication - Primary Unspecified asthma | + + documented in this encounter
--- OUTSIDE RECORDS SUMMARY | ~2020-02-27 | XMS | Encounter Summary ---
Demographics + + + | Address | [address] | | | [place] [address] | + + + | Home Phone [...] Team Providers + +------+ + | Care Donkey Engine Firer/Fireman Name | Role | Phone | + +------+ + | Akua Hamilton MD | PCP | | + +------+ + Encounter Details +--------+ + + + + | Date | Type | Department | Care Team | Description | +--------+ + + + + | 07/21/ | [facility] | [facility] | Karthikeyan Lugo | | | 2013 | Encounter | MED CTR EMERGENCY | MD Sergei [address] | | | | | [place] [address] | [address] [place] | | | | | [place] | [place] [address] | | | | | [address] | [phone] | | | | | [phone] | | | | | | | Néstor Potts | | | | | | MD Solit[facility] [address] | | | | | | [place] | | | | | | [address] | | | | | | [phone] | | | | | | | [...] documented as of this encounter ED Notes Néstor Potts MD - 07/21/2013 8:57 [place] [address] Patient Name: JUAN VAUGHAN Provider: Unit #: [id number] Location: : 1935 DATE: 07/21/2013 TIME: 1742 hours. CHIEF COMPLAINT: Possible stroke. PRIMARY CARE PHYSICIAN: Dr. Hamilton. HISTORY OF PRESENT ILLNESS: Mrs. Vaughan is a 77-year-old female who states she was having coffee with a friend around 11 o'clock today when she had the onset of an expressive aphasi a. The way she describes it, it was clearly a Wernicke; i.e., word salad, type of expressiv e aphasia. She knew that it was not sounding correctly but she could not make normal words come out. She states it lasted about 3 minutes, at the most, and then went away spontaneous ly, and she had no other associated symptoms other than a slight headache. She had no weakn ess or numbness. She had no shortness of breath, chest pain, abdominal pain, nausea, vomiti ng, vision changes. She has had no recent changes in medications. No recent falls, injury, or trauma, and she has never had symptoms like this before. She has not had any symptoms si nce they resolved this morning but thought she better have it evaluated further. PAST MEDICAL HISTORY: Hypertension, diabetes. CURRENT MEDICATIONS 1. Atorvastatin. 2. Calcium with vitamin D. 3. Advair. 4. Lisinopril. 5. Singulair. 6. Glucophage. ALLERGIES: NONE. REVIEW OF SYSTEMS A 10-system review is negative except as noted above. SOCIAL HISTORY: Quit smoking in 1961. PHYSICAL EXAMINATION VITAL SIGNS: Blood pressure /68, heart rate 87, respirations 16, temp 97.8, O2 sat uration 99%. GENERAL APPEARANCE: A well-appearing female, sitting up, speaking normally. HEENT: She is atraumatic. Her pupils are equal, round, and reactive, and her oropharynx is benign. NECK: Supple without JVD, lymphadenopathy, or meningismus. CHEST: Clear to auscultation bilaterally without wheezes or crackles. CV: Normal S1, S2. ABDOMEN: Soft. There is no tenderness, rebound, guarding, or masses, and her bowel tones a re normal. BACK: No flank pain. EXTREMITIES: Nontender, no edema, no calf asymmetry. Present distal pulses. NEUROLOGIC: She is alert and oriented. Cranial nerves 2-12 are completely intact. Gait is normal. Speech is normal. She has no pronator drift. She has excellent 5/5 strength through out her upper and lower extremities. EMERGENCY DEPARTMENT COURSE: She was placed on a lunchroom monitor. We placed an IV, gave he r some fluids. Sent off labs, obtained a chest x-ray, head CT, CT angiogram of the carotid arteries, and an EKG. 12-lead EKG analysis shows a normal sinus rhythm at a rate of 74, normal axis, normal inte rvals, MS 162, QRS 128, QTc 479. There is an interventricular conduction delay, most consis tent with a right bundle-branch block. No ST elevations or depressions. No evidence of isch emia. LAB RESULTS: CBC: White count 9, hemoglobin 12, hematocrit 37, platelets 282. Mini profile is unremarkable. IMAGING: Chest x-ray shows no acute findings. CT of the head, read by Radiology is negative for acute pathology. CT of the carotid arteries, including with reconstruction, shows no evidence of significan t hemodynamic stenosis. She does have a calcified atherosclerotic calcified plaque involvin g the carotid bifurcations and proximal internal carotid arteries with mild stenosis. At this point, this appears to have been a TIA. Her symptoms have resolved, and overall earlene is at low risk, given her workup today. She was given a full aspirin. She will be started on a full aspirin daily , and she will contact Dr. Hamilton tomorrow to arrange followup plan amber. She knows if she has any recurrence of symptoms, even if they are brief, she is to re turn immediately to the emergency department. IMPRESSION TRANSIENT ISCHEMIC ATTACK WITH EXPRESSIVE APHASIA. DICTATED BY: Néstor Potts MD Emergency Medicine JOB #: [id number] EXT JOB #:[id number] cc: Akua Hamilton MD <<Signature on File>> Néstor hernández MD07/21/132134 < documented in this encounter Plan of Treatment [...] | | | | | | [place] [address] | | | | | | [phone] | | | | | | | | +--------+---------+ + + + documented as of this encounter Procedures + +--------+ + + + | Procedure Name | Priori | Date/Time | Associated Diagnosis | Comments | | | ty | | | | + +--------+ + + + | CT ANGIOGRAM NECK W | Routin | 07/22/2013 | | Results for this | | CONTRAST | e | 8:08 AM | | procedure are in the | | | | PST | | results section. | + +--------+ + + + | CT HEAD WO CONTRAST | Routin | 07/22/2013 | | Results for this | | | e | 8:00 AM | | procedure are in the | | | | PST | | results section. | + +--------+ + + + | XR CHEST PA AND | Routin | 07/22/2013 | | Results for this | | LATERAL | e | 7:41 AM | | procedure are in the | | | | PST | | results section. | + +--------+ + + + | CBC WITH | Routin | 07/21/2013 | | Results for this | | DIFFERENTIAL | e | 6:24 PM | | procedure are in the | | | | PST | | results section. | + +--------+ + + + | BASIC METABOLIC | Routin | 07/21/2013 | | Results for this | | PANEL | e | 6:24 PM | | procedure are in the | | | | PST | | results section. | + +--------+ + + + documented in this encounter Results CT Angiogram Neck w Contrast (07/22/2013 8:08 AM PST) + + | Specimen | + + | | + + + + + | Narrative | Performed At | + + + | [facility] | [place] | | Department [address] | [facility] | | [ rep ct [address]] [ rep [facility] | | st zip] Signed | - IMAGING | | | | | Patient Name: JUAN VAUGHAN | | | Physician: CHASTITY : 1935 Age: 77 Sex: F Unit | | | #: [id number] Exam Date: 07/21/13 Location: | | | ER Report #: [id number] Page: | | | %(RAD)RES..mtdd.print.filter("pg") of %(RAD) | | | RES..mtdd.print.filter("tpg") | | | | | | Accession Number: [id number] | | | CAROTID CT ANGIOGRAM CLINICAL HISTORY: TRANSIENT | | | DIFFICULTY WITH SPEECH EARLIER TODAY. TECHNIQUE: Axial | | | source images with maximum intensity and 3D reconstructed images of | | | the carotid and vertebral circulation are reviewed. | | | FINDINGS: Origin of the great vessels from the aortic arch is normal | | | in configuration. No proximal stenoses are present. The common | | | carotid arteries are normal in caliber and symmetric. Bilaterally | | | at the bifurcation regions intimal calcification is present, with only | | | minimal encroachment on the lumen. Less than 30% stenosis is | | | present at the origin of each internal carotid artery. Distal to | | | the bifurcation the internal carotid arteries are symmetric and normal | | | in caliber all the way to the skull base. | | | Calcification is present at the origin of the left vertebral artery | | | which is a nondominant vessel, with approximately one-third the | | | caliber of the dominant right vertebral artery, which shows no | | | stenosis. Left vertebral artery provides only minimal contribution | | | to the basilar. No enhancing lesions are seen in the | | | portions of brain included on this exam. The airway is normal and | | | symmetric. Epiglottis and aryepiglottic folds are well defined and | | | within normal limits. Sublaryngeal airway is normal. Thyroid | | | shows normal enhancement. No abnormalities are seen in the limited | | | portions of lung included on this exam, other than a granulomatous | | | calcification in the right apex. There is no upper mediastinal | | | adenopathy. Submandibular and parotid glands appear normal. | | | There is no pathologic sized adenopathy. Cervical spine alignment is | | | normal. There is facet and uncinate degenerative change at C5-6 | | | and C6-7 without bony canal or foraminal encroachment. | | | IMPRESSION: 1. MILD ATHEROSCLEROTIC CHANGES AT THE BIFURCATION | | | REGIONS BILATERALLY, WITHOUT HEMODYNAMICALLY SIGNIFICANT STENOSIS | | | [LESS THAN 30%]. 2. NONDOMINANT LEFT VERTEBRAL ARTERY. | | | 3. 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 Dictated Date/Time: 07/22/2013 08:08 | | | Transcribed Date/Time: 07/22/2013 08:34 Automatic Punch Press Operator: | | | <<Signature on File>> | | | | | | Erick Wyman MD07/22/13 1455 <Electronically signed by | | | Erick Wyman MD> Erick Wyman MD 07/22/13 | | | 0808 Automatic Punch Press Operator: Reciclata Rwclgevftdazk18/10/14 0834 | | | | | + + + + + + + + | Performing | Address | City/State/Zipcode | Phone Number | | Organization | | | | + + + + + | [address] | [address] | [place] | [phone] | | [facility] | | [address] | | | - IMAGING | | | | + + + + + CT Head wo Contrast (07/22/2013 8:00 AM PST) + + | Specimen | + + | | + + + + + | Narrative | Performed At | + + + | [facility] | [place] | | Department [address] [place] | [facility] | | [ rep ct [address]] [ rep ct [facility] | | st zip] Signed | - IMAGING | | | | | Patient Name: JUAN VAUGHAN | | | Physician: CHASTITY : 1935 Age: 77 Sex: F Unit | | | #: [id number] Exam Date: 07/21/13 Location: | | | ER Report #: [id number] Page: | | | %(RAD)RES..mtdd.print.filter("pg") of %(RAD) | | | RES..mtdd.print.filter("tpg") | | | | | | Accession Number: [id number] | | | NONENHANCED CT HEAD CLINICAL HISTORY: TRANSIENT SPEECH | | | DIFFICULTIES. TECHNIQUE: Axial sections were obtained | | | from skull base to calvarium. The study is reviewed at brain and | | | bone windows. FINDINGS: There is no intra or extraaxial | | | hemorrhage or midline shift. The ventricular spaces, CSF cisterns | | | and sulci show a mild symmetric prominence. Olivo-white | | | differentiation is normal. No areas of focal abnormal density or | | | architecture are seen in the brain. There are no adjacent sinus or | | | bony abnormalities. IMPRESSION: 1. MILD | | | ATROPHY. NO ACUTE INTRACRANIAL ABNORMALITY. COMMENT: | | | Results of this exam, without significant discordance, were called | | | to the emergency room by the after-hours radiology service on | | | completion of this study. Dictated Date/Time: | | | 07/22/2013 08:00 Transcribed Date/Time: 07/22/2013 08:29 | | | Automatic Punch Press Operator: <<Signature on File>> | | | | | | Erick Wyman MD07/22/13 1455 <Electronically signed by | | | Erick Wyman MD> Erick Wyman MD 07/22/13 | | | 0800 Automatic Punch Press Operator: Cory Goodman07/22/13 0829 | | | | | + + + + + + + + | Performing | Address | City/State/Zipcode | Phone Number | | Organization | | | | + + + + + | [facility] | [address] | [place] | [phone] | | [facility] | | [address] | | | - IMAGING | | | | + + + + + XR Chest PA and Lateral (07/22/2013 7:41 AM PST) + + | Specimen | + + | | + + + + + | Narrative | Performed At | + + + | [facility] | [place] | | Department [address] [place] [address] | [facility] | | [ rep ct [address]] [ rep [facility] | | st [facility]] Signed | - IMAGING | | | | | Patient Name: JUAN VAUGHAN | | | Physician: CHASTITY : 1935 Age: 77 Sex: F Unit | | | #: [id number] Exam Date: 07/21/13 Location: | | | ER Report #: [id number] Page: | | | %(RAD)RES..mtdd.print.filter("pg") of %(RAD) | | | RES..mtdd.print.filter("tpg") | | | | | | Accession Number: [id number] | | | CHEST, PA AND LATERAL CLINICAL HISTORY: TIA SYMPTOMS. | | | COMPARISON: 09/15/2012 FINDINGS: | | | Frontal and lateral views of the chest. Elevated right | | | hemidiaphragm. Calcified nodule in the right upper lung. The | | | lungs are otherwise clear. There are no pleural effusions. There | | | is no pneumothorax. The cardiac contour is not enlarged. There | | | is prominence of the nishi which is potentially vascular related. | | | The appearance is unchanged. There are scattered degenerative | | | changes. IMPRESSION: 1. NO ACUTE PULMONARY | | | DISEASE. 2. PERSISTENT ELEVATION OF THE RIGHT | | | HEMIDIAPHRAGM. 3. PROMINENT NISHI MAY BE ON THE BASIS OF | | | PULMONARY ARTERIAL HYPERTENSION. Dictated Date/Time: | | | 07/22/2013 07:41 Transcribed Date/Time: 07/22/2013 08:12 | | | Automatic Punch Press Operator: <<Signature on File>> | | | | | | Devonte Dobbins MD07/22/13 1058 <Electronically signed by Devonte Honeycutt | | | Mu FANG> Devonte Dobbins MD 07/22/13 0741 | | | Automatic Punch Press Operator: Cory Gqqyuhifttbfn09/10/1412 | | | | | + + + + + + + + | Performing | Address | City/State/Zipcode | Phone Number | | Organization | | | | + + + + + | [facility] | [address] | [place] | [phone] | | [facility] | | [address] | | | - IMAGING | | | | + + + + + CBC with Differential (07/21/2013 6:24 PM PST) + + + + + + | Component | Value | Ref Range | Performed | Pathologist | | | | | At | Signature | + + + + + + | MANUAL | NO | | [facility] | | | DIFFERENTIA | | | [facility] | | | L ? | | | MEDICAL | | | | | | CENTER - | | | | | | LABORATORY | | + + + + + + | White Blood | 9.7 | 4.0 - 11.0 K/uL | [facility] | | | Cells | | | [facility] | | | | | | MEDICAL | | | | | | CENTER - | | | | | | LABORATORY | | + + + + + + | Red Blood | 4.12 | 3.70 - 5.20 | [facility] | | | Cells | | M/uL | [facility] | | | | | | [facility] | | | | | | CENTER - | | | | | | LABORATORY | | + + + + + + | Hemoglobin | 12.6 | 11.5 - 16.0 | [facility] | | | | | gm/dL | [facility] | | | | | | MEDICAL | | | | | | CENTER - | | | | | | LABORATORY | | + + + + + + | Hematocrit | 37.8 | 34.0 - 47.0 % | [facility] | | | | | | [facility] | | | | | | MEDICAL | | | | | | CENTER - | | | | | | LABORATORY | | + + + + + + | MCV | 91.8 | 83.0 - 101.0 fL | [facility] | | | | | | [facility] | | | | | | MEDICAL | | | | | | CENTER - | | | | | | LABORATORY | | + + + + + + | MCH | 30.5 | 28.0 - 35.0 pg | [facility] | | | | | | [facility] | | | | | | MEDICAL | | | | | | CENTER - | | | | | | LABORATORY | | + + + + + + | MCHC | 33.2 | 32.0 - 36.0 | [facility] | | | | | g/dL | [facility] | | | | | | MEDICAL | | | | | | CENTER - | | | | | | LABORATORY | | + + + + + + | RDW-CV | 12.3 | <15.0 % | [facility] | | | | | | [facility] | | | | | | MEDICAL | | | | | | CENTER - | | | | | | LABORATORY | | + + + + + + | Platelet | 282 | 140 - 440 K/uL | [facility] | | | Count | | | [facility] | | | | | | MEDICAL | | | | | | CENTER - | | | | | | LABORATORY | | + + + + + + | % | 63.3Comment: <10% BANDS | 45 - 82 % | [facility] | | | Neutrophils | SEEN | | [facility] | | | | | | MEDICAL | | | | | | CENTER - | | | | | | LABORATORY | | + + + + + + | % | 32.8 | 20 - 45 % | [facility] | | | Lymphocytes | | | [facility] | | | | | | MEDICAL | | | | | | CENTER - | | | | | | LABORATORY | | + + + + + + | % Monocytes | 3.9 (L) | 4 - 12 % | [facility] | | | | | | [facility] | | | | | | MEDICAL | | | | | | CENTER - | | | | | | LABORATORY | | + + + + + + | Absolute | 6.1 | 1.8 - 8.5 K/uL | [facility] | | | Neutrophils | | | [facility] | | | | | | MEDICAL | | | | | | CENTER - | | | | | | LABORATORY | | + + + + + + | Absolute | 3.2 | 0.6 - 3.2 K/uL | [facility] | | | Lymphocytes | | | [facility] | | | | | | MEDICAL | | | | | | CENTER - | | | | | | LABORATORY | | + + + + + + | Absolute | 0.4 | 0.0 - 1.0 K/uL | [facility] | | | Monocytes | | | [facility] | | [...] + | [facility] | [address] | [place], [place] | [phone] | | [facility] | | [address] | | | - LABORATORY | | | | + + + + + | [facility] | [address] | [place], [place] | | | [facility] | | [address] [place] [address] | | | - LABORATORY | | | | + + + + + Basic Metabolic Panel (07/21/2013 6:24 PM PST) + + + + + + | Component | Value | Ref Range | Performed | Pathologist | | | | | At | Signature | + + + + + + | Glucose | 95 | 70 - 109 mg/dL | [facility] | | | | | | [facility] | | | | | | MEDICAL | | | | | | CENTER - | | | | | | LABORATORY | | + + + + + + | Calcium | 9.5 | 8.3 - 10.5 | [facility] | | | | | mg/dL | [facility] | | | | | | MEDICAL | | | | | | CENTER - | | | | | | LABORATORY | | + + + + + + | BUN | 17 | 7 - 18 mg/dL | [facility] | | | | | | [facility] | | | | | | MEDICAL | | | | | | CENTER - | | | | | | LABORATORY | | + + + + + + | Creatinine | 0.83 | 0.60 - 1.30 | [facility] | | | | | mg/dL | [facility] | | | | | | MEDICAL | | | | | | CENTER - | | | | | | LABORATORY | | + + + + + + | Estimated | >60Comment: For | >60 mL/min/A | [facility] | | | GFR | -Americans, | | [facility] | | | | please multiply the | | MEDICAL | | | | result by 1.210 | | CENTER - | | | | This is an estimated | | LABORATORY | | | | GFR and is based on a | | | | | | standard adult | | | | | | body mass (A=1.73m2) and | | | | | | serum creatinine | | | | + + + + + + | BUN/Creatin | 20.5 (H) | 12 - 20 | [facility] | | | ine Ratio | | | [facility] | | | | | | MEDICAL | | | | | | CENTER - | | | | | | LABORATORY | | + + + + + + | Na | 135 (L) | 136 - 149 mEq/L | [facility] | | | | | | [facility] | | | | | | MEDICAL | | | | | | CENTER - | | | | | | LABORATORY | | + + + + + + | K | 3.9 | 3.5 - 5.1 mEq/l | [facility] | | | | | | [facility] | | | | | | MEDICAL | | | | | | CENTER - | | | | | | LABORATORY | | + + + + + + | Cl | 101 | 98 - 109 mEq/l | [facility] | | | | | | [facility] | | | | | | MEDICAL | | | | | | CENTER - | | | | | | LABORATORY | | + + + + + + | CO2 | 25 | 24 - 31 mEq/L | [facility] | | | | | | [facility] | | | | | | MEDICAL | | | | | | CENTER - | | | | | | LABORATORY | | + + + + + + | Anion Gap | 12.9 | 6.0 - 17.0 | [facility] | | | | | [...] + + | [facility] | [address] | [place] | [phone] | | [facility] | | [address] | | | - LABORATORY | | | | + + + + + | [facility] | [address] | [place] | | | [facility] | | [address] | | | - LABORATORY | | | | + + + + + documented in this encounter Visit Diagnoses Not on filedocumented in this encounter
--- OUTSIDE RECORDS SUMMARY | ~2020-02-27 | XMS | Encounter Summary ---
Demographics + + + | Address | [address] | | | [place] [address] | + + + | Home Phone [...] Team Providers + +------+ + | Care Trouble Clerk Name | Role | Phone | [...] Description | +--------+---------+ + + + | 12/10/ | Office | [facility] | Klaus Melendrez PA | ARELI on CPAP (Primary | | 2017 | Visit | SLEEP DISORDER [address] | [address] | Dx) | | | | [address] | [place] | | | | | [place] [address] | [address] | | | | | [phone] | | | +--------+---------+ + + + [...] + + + | Blood Pressure | 112/62 | 12/10/2016 9:54 AM | | | | | PDT | | + + + + + | Pulse | 67 | 12/10/2016 9:54 AM | | | | | PDT | | + + + + + | Temperature | - | - | | + + + + + | Respiratory Rate | 16 | 12/10/2016 9:54 AM | | | | | PDT | | + + + + + | Oxygen Saturation | 98% | 12/10/2016 9:54 AM | | | | | PDT | | + + + + + | Inhaled Oxygen | - | - | | | Concentration | | | | + + + + + | Weight | 82.9 kg (182 lb 12.8 | 12/10/2016 9:54 AM | | | | oz) | PDT | | + + + + + | Height | - | - | | + + + + + | Body Mass Index | 30.42 | 09/25/2016 11:01 AM | | | | | PDT | | + + + + + documented in this encounter Progress Notes Klaus Melendrez PA - 12/10/2016 10:00 AM PDT Subjective: Patient ID: Abiola Vaughan is a 81 y.o. female. HPI last office visit: 10/22/2016 date of polysomnography: 09/16/2016 AHI: 8.4 RDI: 16.7 O2%: 79% with 6.3 minutes below 88% Machine type: ResMed AirSense 10 Mask type: full face mask DME: [facility] [place] pressure: 4-15 cm Median: 8.2 cm 95%: 12.4 cm maximum: 13.1 cm Nights using CPAP: 03/21 30/30 % of nights >4 hours: 55% 93% 76% average usage (all nights): 4:09 5:13 4:40 average usage (nights used): 4:09 5:13 4:40 AHI: 3.0 Abiola comes in for CPAP compliance. She continues to have a difficult time adjusting to her CPAP, but she is wearing it nightly and attempts to wear it for the duration of her sle ep on most nights. She is having more nights that she is wearing it and sleeping through th e night without disruption, but still has many nights with multiple disruptions. She is hop eful this will continue to improve. She does not sleep well without her CPAP and feels ther e is enough positive results from her CPAP that she will continue wearing it until she adjus ts to it. She feels much more rested during the day when she has a good night with it. I have discussed the download in detail. This shows that her sleep apnea is controlled, wi th an AHI of 3.0. It also shows that her leaks are significant on most nights. It shows th at she is wearing her CPAP >4 hours for 76% of the nights during 30 consecutive nights. BP 112/62 | Pulse 67 | Resp 16 | Wt 82.9 kg (182 lb 12.8 oz) | SpO2 98% | BMI 30.42 kg /m Review of Systems Objective: Physical Exam Assessment: Problem #1: OBSTRUCTIVE SLEEP APNEA ([id number]) This is controlled with CPAP. She is doing well with her CPAP compliance. She is wearing her CPAP nightly, but is still struggling with wearing it for the duration of her sleep on s ome nights. She has used her CPAP >4 hours for 76% of the nights for 30 consecutive nights. Plan: 1. She is to continue with CPAP indefinitely. 2. I have recommended that she work toward wearing her CPAP 100% of the time she is asleep . I will follow up again in 2 months, sooner prn. At that time we will reassess with all aminah ropriate paperwork. Fifteen minutes were spent elcu-he-askb, with the majority of time spen t in counseling. Klaus Melendrez PA-C cc: Akua [...] | | | | | | [place] [address] | | | | | | [phone] | | | | | | | | +--------+---------+ + + + documented as of this encounter Visit Diagnoses + + | Diagnosis | + + | ARELI on CPAP - Primary Obstructive sleep apnea (adult) (pediatric) | + + documented in this encounter"
--- OUTSIDE RECORDS SUMMARY | ~2020-02-27 | XMS | Encounter Summary ---
Demographics + + + | Address | [address] | | | [place] [address] | + + + | Home Phone | | + + + | Preferred Language | Unknown | + + + | Marital Status | | + + + | Druze Affiliation | 1077 | + + + | Race | White | + + + | Ethnic Group | Not or | + + + Author + + + | Author | [facility] | | | and [place] | + + + | Organization | [facility] | | | and [...] Team Providers + +------+ + | Care Plastics Sheet Finishing Press Operator Name | Role | Phone | + +------+ + | Akua Hamilton MD | PCP | | + +------+ + Reason for Visit + +--------+ + | Reason | Onset | Comments | | | Date | | + +--------+ + | Blood Pressure Check | 11/08/ | Blood pressure log from 10/18/2019-10/31/2019. | | (Screening) | 2019 | | + +--------+ + Encounter Details +--------+ + + + + | Date | Type | Department | Care Team | Description | +--------+ + + + + | 11/08/ | Telephone | [facility] | Doretha Frazier, | Blood Pressure Check | | 2019 | | CARDIOLOGY [address] | [address] | (Screening) (Blood | | | | [place], | [place], | pressure log from | | | | [place] [id number] | [place] [id number] | 10/18/2019-10/31/2019.) | | | | [phone] | [phone] | | | | | | | [...] this encounter Miscellaneous Notes Telephone Encounter - Haider Padilla RN - 11/10/2019 8:34 AM PDTPatient is notifie d ...........................................Haider Padilla RN, on 11/10/19 at 8:34 AM elephone Enco Haider Dominique RN - 11/10/2019 8:25 AM PDTLeft message at cell number for p atient to return my call............................................Haider Padilla RN , on 11/10/19 at 8:25 AM elephone Doretha Stearns MD - 11/10/2019 6:17 AM PDTNo med change. Thank you. elephone Encounter - Elisabeth Miner, Office Copy Selector - 11/09/2019 9:13 AM PDTFormatting of this note amber ht be different from the original. Next Visit: [facility] 10/24/2019 Blood pressure log received from patient as follows: Medication Change: Stop amlodipine. Date BP AM Pulse AM BP PM Pulse PM 10/17 114/61 82 103/64 75 4/8 88/62 85 127/73 68 10/19 93/58 84 121/83 77 10/20 99/62 77 126/71 80 10/21 113/60 74 80/73 73 10/22 125/70 72 123/69 72 10/23 118/65 78 142/84 75 10/24 144/77 78 10/25 125/73 82 145/73 85 10/26 113/73 68 10/27 140/70 63 130/85 65 10/28 142/67 73 131/73 75 10/29 129/69 71 117/72 67 10/30 103/64 88 123/69 69 doc umented in this encounter Plan of Treatment [...] | | | | | | [place] [address] | | | | | | [phone] | | | | | | | | +--------+---------+ + + + documented as of this encounter Visit Diagnoses Not on filedocumented in this encounter"
--- OUTSIDE RECORDS SUMMARY | ~2020-02-27 | XMS | Encounter Summary ---
Demographics + + + | Address | [address] | | | [place] [address] | + + + | Home Phone | | + + + | Preferred Language | Unknown | + + + | Marital Status | | + + + | Mormonism Affiliation | 1077 | + + + [...] Providers + +------+ + | Care Director Blood Bank Name | Role | Phone | + +------+ + | Akua Hamilton MD | PCP | | + +------+ + Encounter Details +--------+ + + + + | Date | Type | Department | Care Team | Description | +--------+ + + + + | 10/12/ | Abstract | [facility] [place] | [place] | | | 2017 | | CARDIOLOGY [address] | [address] | | | | | [place], | [place] | | | | | [place] [address] | [place] [address] | | | | | [phone] | [phone] | | | | | | | [...] | | | | | | [place] [address] | | | | | | [phone] | | | | | | | | +--------+---------+ + + + documented as of this encounter Procedures + +--------+ + + + | Procedure Name | Priori | Date/Time | Associated Diagnosis | Comments | | | ty | | | | + +--------+ + + + | HEMOGLOBIN A1C | Routin | 10/12/2017 | | Results for this | | | e | | | procedure are in the | | | | | | results section. | + +--------+ + + + documented in this encounter Results Hemoglobin A1C (10/12/2017) + +-------+ + + + | Component | Value | Ref Range | Performed | Pathologist | | | | | At | Signature | + +-------+ + + + | Hemoglobin | 5.6 | 5.0 - 14.0 % | | | | A1c | | | | | + +-------+ + + + + + | Specimen | + + | Blood | + + + + | Resulting Agency Comment | + + | [facility] | + + documented in this encounter Visit Diagnoses Not on filedocumented in this encounter"
--- OUTSIDE RECORDS SUMMARY | ~2020-02-27 | XMS | Encounter Summary ---
Demographics + + + | Address | [address] | | | [place] [address] | + + + | Home Phone | | + + + | Preferred Language | Unknown | + + + | Marital Status | | + + + | Quaker Affiliation | 1077 | + + + | Race | White | + + + | Ethnic Group | Not or | + + + Author + + + | Author | [facility] | | | and [place] | + + + | Organization | [facility] | | | [...] Team Providers + +------+ + | Care Change Analyst Name | Role | Phone | + +------+ + | Akua Hamilton MD | PCP | | + +------+ + Encounter Details +--------+ + + + + | Date | Type | Department | Care Team | Description | +--------+ + + + + | 09/25/ | Hospital [facility] | Doretha Frazier, | Cardiomyopathy | | 2017 | Encounter | [facility] | MD Christopher Jerez | ([facility]); Acute | | | | [address] [place] | [place], | combined systolic | | | | [place], [place] | [place] [address] | and diastolic | | | | [address] | [phone] | congestive heart | | | | [phone] | | failure (HCC); | | | | | | Encounter for lipid | | | | | | screening for | | | | | | cardiovascular | | | | | | disease; Mixed | | | | | | hyperlipidemia; | | | | | | Essential | | | | | | hypertension; | | | | | | History of iron | | | | | | deficiency | +--------+ + + + + Social [...] | | | | | | [place] [address] | | | | | | [phone] | | | | | | | | +--------+---------+ + + + documented as of this encounter Procedures + +--------+ + + + | Procedure Name | Priori | Date/Time | Associated Diagnosis | Comments | | | ty | | | | + +--------+ + + + | LIPID PANEL | Routin | 09/25/2016 | Cardiomyopathy | Results for this | | | e | 11:45 AM | ([facility]) Acute | procedure are in the | | | | PDT | combined systolic | results section. | [...] | + +--------+ + + + | TSH | Routin | 09/25/2016 | Cardiomyopathy | Results for this | | | e | 11:45 AM | (HCC) Acute | procedure are in the | | | | PDT | combined systolic | results section. | | | | | and diastolic | | | | | | congestive heart | | | | | | failure ([facility]) | | | | | | Encounter for lipid | | | | | | screening for | | | | | | cardiovascular | | | | | | disease Mixed | | | | | | hyperlipidemia | | + +--------+ + + + | B TYPE NATRIURETIC | Routin | 09/25/2016 | Cardiomyopathy | Results for this | | PEPTIDE | e | 11:45 AM | ([facility]) Acute | procedure are in the | | | | PDT | combined systolic | results section. | | | | | and diastolic | | | | | | congestive heart | | | | | | failure ([facility]) | | | | | | Encounter for lipid | | | | | | screening for | | | | | | cardiovascular | | | | | | disease Mixed | | | | | | hyperlipidemia | | + +--------+ + + + | FERRITIN | Routin | 09/25/2016 | History of iron | Results for this | | | e | 11:45 AM | deficiency | procedure are in the | | | | PDT | | results section. | + +--------+ + + + | COMPREHENSIVE | Routin | 09/25/2016 | Cardiomyopathy | Results for this | | METABOLIC PANEL | e | 11:45 AM | (HCC) Acute | procedure are in the | | | | PDT | combined systolic | results section. | | | | | and diastolic | | | | | | congestive heart | | | | | | failure ([facility]) | | | | | | Encounter for lipid | | | | | | screening for | | | | | | cardiovascular | | | | | | disease Mixed | | | | | | hyperlipidemia | | + +--------+ + + + documented in this encounter Results Ferritin (09/25/2016 11:45 AM PDT) + +-------+ + + + | Component | Value | Ref Range | Performed | Pathologist | | | | | At | Signature | + +-------+ + + + | FERRITIN | 60 | 11 - 307 ng/mL | [facility] | | | | | | [facility] [address] | [place] | [phone] | | [facility] | | [address] | | | - LABORATORY | | | | + + + + + TSH (09/25/2016 11:45 AM PDT) + + + + + + | Component | Value | Ref Range | Performed | Pathologist | | | | | At | Signature | + + + + + + | TSH | 2.66Comment: All TSH | 0.34 - 5.60 | [facility] | | | | samples are screened | uIU/mL | [facility] | | | | using a 2nd [...] | + + + + + | [address] | [address] | [place] | [phone] | | [facility] | | [address] | | | - LABORATORY | | | | + + + + + Lipid Panel (09/25/2016 11:45 AM PDT) + + + + + + | Component | Value | Ref Range | Performed | Pathologist | | | | | At | Signature | + + + + + + | Triglycerid | 97 | 35 - 160 mg/dL | [facility] | | | es | | | [facility] | | | | | | MEDICAL | | | | | | CENTER - | | | | | | LABORATORY | | + + + + + + | Cholesterol | 155 | 150 - 200 mg/dL | [facility] | | | | | [...] Reference Range as of | | [facility] | | | | March 22, 2015 | | MEDICAL | | | | Values may be 10-20% | | CENTER - | | | | lower with new, | | LABORATORY | | | | standardized method. | | | | + + + + + + | Chol/HDL | 2.2 | | [facility] | | | Ratio | | | [facility] | | | | | | MEDICAL | | | | | | CENTER - | | | | | | LABORATORY | | + + + + + + | LDL, | 65 | <=130 mg/dL | [facility] | | | Calculated | | | [facility] | | [...] [address] | [place] | [phone] | | [facility] | | [address] | | | - LABORATORY | | | | + + + + + B Type Natriuretic Peptide (09/25/2016 11:45 AM PDT) + +-------+ + + + | Component | Value | Ref Range | Performed | Pathologist | | | | | At | Signature | + +-------+ + + + | BNP | 24 | <100 pg/mL | [facility] | | | | | | [facility] [...] + + | [facility] | [address] | [place] | [phone] | | [facility] | | [address] | | | - LABORATORY | | [...] (H) | 7 - 18 mg/dL | [facility] | | | | | | [facility] | | | | | | MEDICAL | | | | | | CENTER - | | | | | | LABORATORY | | + + + + + + | Creatinine | 1.10 | 0.60 - 1.30 | [facility] | | | | | mg/dL | [facility] | | | | | | MEDICAL | | | | | | CENTER - | | | | | | LABORATORY | | + + + + + + | eGFR, | 48 (L)Comment: | >=60 | [facility] | | | non- | GLOMERULAR FILTRATION | mL/min/1.73m2 | [facility] | | | Qat[place] | RATE,ESTIMATED | | MEDICAL | | | | mL/min/1.44k0Jenw than | | CENTER - | | [...] 3.7 | 3.2 - 5.0 g/dL | [facility] | | | | | | [facility] | | | | | | MEDICAL | | | | | | CENTER - | | | | | | LABORATORY | | + + + + + + | Bilirubin | 0.5 | 0.1 - 1.5 mg/dL | [facility] | | | Total | | | [facility] | | [...] ST. | [address] | [place], [place] | [phone] | | [facility] | | [address] | | | - LABORATORY | | [...] + | Mixed hyperlipidemia | + + | Essential hypertension Unspecified essential hypertension | + + | History of iron deficiency Personal history of diseases of blood and blood-forming | | organs | + + documented in this encounter"
--- OUTSIDE RECORDS SUMMARY | ~2020-02-27 | XMS | Encounter Summary ---
Demographics + + + | Address | [address] | | | [place] [address] | + + + | Home Phone [...] | Author | [facility] | | | and [place] | + + + | Organization | [facility] | | | and [...] Team Providers + +------+ + | Care Seo Associate Name | Role | Phone | + +------+ + | Akua Hamilton MD | PCP | | + +------+ + Encounter Details +--------+ + + + + | Date | Type | Department | Care Team | Description | +--------+ + + + + | 05/27/ | Abstract | [facility] [place] | Doretha Frazier, | | | 2015 | | CARDIOLOGY [address] | [address] [place] | | | | | [place], | [place], | | | | | [place] [address] | [place] [address] | | | | | [phone] | [phone] | | | | | | | [...] | | | | | | [place] [address] | | | | | | [phone] | | | | | | | | +--------+---------+ + + + documented as of this encounter Procedures + +--------+ + + + | Procedure Name | Priori | Date/Time | Associated Diagnosis | Comments | | | ty | | | | + +--------+ + + + | EXTERNAL LAB: BUN | Routin | 05/09/2016 | | Results for this | | | e | | | procedure are in the | | | | | | results section. | + +--------+ + + + | EXTERNAL LAB: | Routin | 05/09/2016 | | Results for this | | GLUCOSE | e | | | procedure are in the | | | | | | results section. | + +--------+ + + + | EXTERNAL LAB: ALT | Routin | 05/09/2016 | | Results for this | | | e | | | procedure are in the | | | | | | results section. | + +--------+ + + + | EXTERNAL LAB: AST | Routin | 05/09/2016 | | Results for this | | | e | | | procedure are in the | | | | | | results section. | + +--------+ + + + | EXTERNAL LAB: | Routin | 05/09/2016 | | Results for this | | ALKALINE PHOSPHATASE | e | | | procedure are in the | | | | | | results section. | + +--------+ + + + | EXTERNAL LAB: | Routin | 05/09/2016 | | Results for this | | BILIRUBIN, TOTAL | e | | | procedure are in the | | | | | | results section. | + +--------+ + + + | EXTERNAL LAB: | Routin | 05/09/2016 | | Results for this | | ALBUMIN | e | | | procedure are in the | | | | | | results section. | + +--------+ + + + | EXTERNAL LAB: | Routin | 05/09/2016 | | Results for this | | PROTEIN, TOTAL | e | | | procedure are in the | | | | | | results section. | + +--------+ + + + | EXTERNAL LAB: | Routin | 05/09/2016 | | Results for this | | CALCIUM | e | | | procedure are in the | | | | | | results section. | + +--------+ + + + | EXTERNAL LAB: CARBON | Routin | 05/09/2016 | | Results for this | | DIOXIDE | e | | | procedure are in the | | | | | | results section. | + +--------+ + + + | EXTERNAL LAB: | Routin | 05/09/2016 | | Results for this | | CHLORIDE | e | | | procedure are in the | | | | | | results section. | + +--------+ + + + | EXTERNAL LAB: | Routin | 05/09/2016 | | Results for this | | POTASSIUM | e | | | procedure are in the | | | | | | results section. | + +--------+ + + + | EXTERNAL LAB: SODIUM | Routin | 05/09/2016 | | Results for this | | | e | | | procedure are in the | | | | | | results section. | + +--------+ + + + | EXTERNAL LAB: TSH | Routin | 05/09/2016 | | Results for this | | | e | | | procedure are in the | | | | | | results section. | + +--------+ + + + | EXTERNAL LAB: Jai TYPE | Routin | 05/09/2016 | | Results for this | | NATURETIC PEPTIDE | e | | | procedure are in the | | | | | | results section. | + +--------+ + + + | EXTERNAL LAB: | Routin | 05/09/2016 | | Results for this | | TRIGLYCERIDES | e | | | procedure are in the | | | | | | results section. | + +--------+ + + + | EXTERNAL LAB: | Routin | 05/09/2016 | | Results for this | | CHOLESTEROL, HDL | e | | | procedure are in the | | | | | | results section. | + +--------+ + + + | EXTERNAL LAB: | Routin | 05/09/2016 | | Results for this | | CHOLESTEROL, TOTAL | e | | | procedure are in the | | | | | | results section. | + +--------+ + + + | EXTERNAL LAB: | Routin | 05/09/2016 | | Results for this | | CHOLESTEROL, LDL | e | | | procedure are in the | | | | | | results section. | + +--------+ + + + | EXTERNAL LAB: EGFR | Routin | 05/09/2016 | | Results for this | | | e | | | procedure are in the | | | | | | results section. | + +--------+ + + + | EXTERNAL LAB: | Routin | 05/09/2016 | | Results for this | | CREATININE | e | | | procedure are in the | | | | | | results section. | + +--------+ + + + | LIPID PANEL | Routin | 05/09/2016 | | Results for this | | | e | | | procedure are in the | | | | | | results section. | + +--------+ + + + | COMPREHENSIVE | Routin | 05/09/2016 | | Results for this | | METABOLIC PANEL | e | | | procedure are in the | | | | | | results section. | + +--------+ + + + documented in this encounter Results Comprehensive Metabolic Panel (05/09/2016) + +-------+ + + + | Component | Value | Ref Range | Performed | Pathologist | | | | | At | Signature | + +-------+ + + + | Anion Gap | 16 | 7 - 21 mmol/L | | | + +-------+ + + + | Bun/Creatin | 19.0 | 6 - 28.6 | | | | ine | | | | | + +-------+ + + + | Globulin | 2.3 | 1.8 - 3.5 | | | + +-------+ + + + | Albumin/Neva | 1.7 | 1.1 - 2.4 | | | | bulin Ratio | | | | | + +-------+ + + + + + | Specimen | + + | Blood specimen | | (specimen) | + + Lipid Panel (05/09/2016) + +-------+ + + + | Component | Value | Ref Range | Performed | Pathologist | | | | | At | Signature | + +-------+ + + + | VLDL | 14 | 4 - 40 | | | | Cholesterol | | | | | | Thiago | | | | | + +-------+ + + + | Chol/HDL | 2.0 | 4.4 | | | | Ratio | | | | | + +-------+ + + + | Non HDL | 66 | 130 | | | | Chol. | | | | | | (LDL+VLDL) | | | | | + +-------+ + + + + + | Specimen | + + | Blood specimen | | (specimen) | + + External Lab: LUZ MARINA (05/09/2016) + +-------+ + + + | Component | Value | Ref Range | Performed | Pathologist | | | | | At | Signature | + +-------+ + + + | BUN, | 15 | 6 - 23 | EXTERNAL | [...] | + +---------+ + + External Lab: Glucose (05/09/2016) + +-------+ + + + | Component | Value | Ref Range | Performed | Pathologist | | | | | At | Signature | + +-------+ + + + | Glucose, | 85 | 70 - 100 | EXTERNAL | | | [...] | + +---------+ + + External Lab: ALT (05/09/2016) + +-------+ + + + | Component | Value | Ref Range | Performed | Pathologist | | | | | At | Signature | + +-------+ + + + | ALT, | 11 | 7 - 52 | EXTERNAL | | | External | [...] | + +---------+ + + External Lab: AST (05/09/2016) + +-------+ + + + | Component | Value | Ref Range | Performed | Pathologist | | | | | At | Signature | + +-------+ + + + | AST, | 15 | 13 - 39 | EXTERNAL | | | External | [...] | + +---------+ + + External Lab: Alkaline Phosphatase (05/09/2016) + +-------+ + + + | Component | Value | Ref Range | Performed | Pathologist | | | | | At | Signature | + +-------+ + + + | ALP, | 47 | 30 - 128 | EXTERNAL | | | External | [...] | + +---------+ + + External Lab: Bilirubin, Total (05/09/2016) + +-------+ + + + | Component | Value | Ref Range | Performed | Pathologist | | | | | At | Signature | + +-------+ + + + | Bilirubin, | 0.4 | 0 - 1.2 | EXTERNAL | | | Total, | | | LAB | | [...] | + +---------+ + + External Lab: Albumin (05/09/2016) + +-------+ + + + | Component | Value | Ref Range | Performed | Pathologist | | | | | At | Signature | + +-------+ + + + | Albumin, | 3.8 | 3.5 - 5 | EXTERNAL | | | External | [...] | + +---------+ + + External Lab: Protein, Total (05/09/2016) + +-------+ + + + | Component | Value | Ref Range | Performed | Pathologist | | | | | At | Signature | + +-------+ + + + | Protein, | 6.1 | 6 - 8 | EXTERNAL | | | Total, | | | LAB | | [...] + +---------+ + + External Lab: Calcium (05/09/2016) + +-------+ + + + | Component | Value | Ref Range | Performed | Pathologist | | | | | At | Signature | + +-------+ + + + | Calcium, | 9.2 | 8.4 - 10.2 | EXTERNAL | | | External | [...] +---------+ + + External Lab: Carbon Dioxide (05/09/2016) + +-------+ + + + | Component | Value | Ref Range | Performed | Pathologist | | | | | At | Signature | + +-------+ + + + | Carbon | 23.7 | 19 - 31 | EXTERNAL | [...] + +---------+ + + External Lab: Chloride (05/09/2016) + +-------+ + + + | Component [...] + +---------+ + + External Lab: Potassium (05/09/2016) + +-------+ + + + | Component | Value | Ref Range | Performed | Pathologist | | | | | At | Signature | + +-------+ + + + | Potassium, | 4.2 | 3.6 - 5.1 | EXTERNAL | [...] + +---------+ + + External Lab: eGFR (05/09/2016) + +-------+ + + + | Component | Value | Ref Range | Performed | Pathologist | | | | | At | Signature | + +-------+ + + + | eGFR, | 70 | | EXTERNAL | | | External [...] + +---------+ + + External Lab: Creatinine (05/09/2016) + +-------+ + + + | Component | Value | Ref Range | Performed | Pathologist | | | | | At | Signature | + +-------+ + + + | Creatinine, | 0.79 | 0.7 - 1.18 | EXTERNAL | | | External | [...] + +---------+ + + External Lab: Sodium (05/09/2016) + +-------+ + + + | Component | Value | Ref Range | Performed | Pathologist | | | | | At | Signature | + +-------+ + + + | Sodium, | 138 | 132 - 143 | EXTERNAL | [...] | + +---------+ + + External Lab: TSH (05/09/2016) + + + + + + | Component | Value | Ref Range | Performed | Pathologist | | | | | At | Signature | + + + + + + | TSH, | 3Comment: 3rd generation | 0.27 - 4.2 | EXTERNAL | | | External | [...] | + +---------+ + + External Lab: B Type Naturetic Peptide (05/09/2016) + +-------+ + + + | Component | Value | Ref Range | Performed | Pathologist | | | | | At | Signature | + +-------+ + + + | B-Type | 82 | 0 - 100 | EXTERNAL | | | Naturetic | | | LAB | | | Peptide, | | | | | | External [...] + +---------+ + + External Lab: Triglycerides (05/09/2016) + +-------+ + + + | Component | Value | Ref Range | Performed | Pathologist | | | | | At | Signature | + +-------+ + + + | Triglycerid | 69 | 30 - 150 | EXTERNAL | [...] +---------+ + + External Lab: Cholesterol, HDL (05/09/2016) + +-------+ + + + | Component | Value | Ref Range | Performed | Pathologist | | | | | At | Signature | + +-------+ + + + | HDL | 66.3 | 40 mg/dl | EXTERNAL | | [...] +---------+ + + External Lab: Cholesterol, Total (05/09/2016) + +-------+ + + + | Component | Value | Ref Range | Performed | Pathologist | | | | | At | Signature | + +-------+ + + + | Cholesterol | 132 | 200 mg/dl | EXTERNAL | | [...] +---------+ + + External Lab: Cholesterol, LDL (05/09/2016) + +-------+ + + + | Component | Value | Ref Range | Performed | Pathologist | | | | | At | Signature | + +-------+ + + + | LDL | 52 | 100 | EXTERNAL | | | [...]
[2020-02-27] MEDS ORDERED: ATORVASTATIN CA10 MG PO (04:29)
[2020-02-27] MEDS ORDERED: METFORMIN HCL500 MG PO (04:30)
[2020-02-27] MEDS ORDERED: LISINOPRIL20 MG PO (04:30)
[2020-02-27] MEDS ORDERED: ADULT LOW DOSE81 MG PO (04:30)
[2020-02-27] MEDS ORDERED: HYDROCHLOROTHIA25 MG PO (04:31)
[2020-02-27] MEDS ORDERED: VITAMIN D350 MCG PO (04:32)
[2020-02-27] MEDS ORDERED: PYRIDIUM200 MG PO (04:32)
[2020-02-27] MEDS ORDERED: MULTIVITAMINS1 EAC7 PO (04:33)
[2020-02-27] MEDS ORDERED: CALCIUM500 MG PO (04:33)
[2020-02-27] MEDS ORDERED: CIPRO500 MG PO (06:53)
[2020-02-27] MEDS ORDERED: NORCO 5-325 TA1 EACH PO (06:53)
[2020-02-27] MEDS ORDERED: FLAGYL500 MG PO (06:53)
== END 2020-02-27 07:14 | disposition home or self-care (01) ==
LOC: ED 04:06
DX: K57.92 Diverticulitis of intestine, part unspecified, without perforation or abscess without bleeding (principal); I10 Essential (primary) hypertension; E11.9 Type 2 diabetes mellitus without complications; Z79.899 Other long term (current) drug therapy; Z79.84 Long term (current) use of oral hypoglycemic drugs; Z79.82 Long term (current) use of aspirin
CPT/HCPCS: 74177; 80053; 81001; 83690; 83735; 85025; 96361; 96374; 96375; 96376; 99284-25; J1170; J2405; J7030

== ENCOUNTER 2021-04-23 21:06 | Emergency (ER) | payer MEDICARE, OTHER ==
[~2021-04-23] VITALS: Ht 175.3 cm; Wt 69.9 kg
[~2021-04-23 21:06] MED LIST: ADULT LOW DOSE81 MG PO; ATORVASTATIN CA10 MG PO; CALCIUM500 MG PO; CIPRO500 MG PO; FLAGYL500 MG PO; HYDROCHLOROTHIA25 MG PO; LISINOPRIL20 MG PO; METFORMIN HCL500 MG PO; MULTIVITAMINS1 EAC7 PO; NORCO 5-325 TA1 EACH PO; PYRIDIUM200 MG PO; VITAMIN D350 MCG PO
[2021-04-23] MEDS ORDERED: METRONIDAZOLE500 MG PO (22:54)
[2021-04-23] MEDS ORDERED: CIPRO500 MG PO (22:54)
[2021-04-23] MEDS ORDERED: ACETAMINOPHEN-1 EAC1 PO (22:54)
== END 2021-04-23 23:19 | disposition home or self-care (01) ==
LOC: ED 21:06
DX: K57.92 Diverticulitis of intestine, part unspecified, without perforation or abscess without bleeding (principal); I10 Essential (primary) hypertension; E11.9 Type 2 diabetes mellitus without complications; Z79.84 Long term (current) use of oral hypoglycemic drugs; Z79.82 Long term (current) use of aspirin; Z79.899 Other long term (current) drug therapy
CPT/HCPCS: 80053; 81001; 83690; 85025; 99284

== ENCOUNTER 2023-05-13 18:36 | Emergency (ER) | payer MEDICARE, OTHER ==
[~2023-05-13] VITALS: Ht 175.3 cm; Wt 74.9 kg
[~2023-05-13 18:36] MED LIST changes: +ACETAMINOPHEN-1 EAC1 PO; +METRONIDAZOLE500 MG PO
[2023-05-13 22:14] VITALS: BP 168/81
== END 2023-05-13 22:16 | disposition home or self-care (01) ==
LOC: ED 18:36
DX: S62.646A Nondisplaced fracture of proximal phalanx of right little finger, initial encounter for closed fracture (principal); M18.9 Osteoarthritis of first carpometacarpal joint, unspecified; M19.031 Primary osteoarthritis, right wrist; M19.041 Primary osteoarthritis, right hand; I10 Essential (primary) hypertension; E11.9 Type 2 diabetes mellitus without complications; W22.8XXA Striking against or struck by other objects, initial encounter; Z88.8 Allergy status to other drugs, medicaments and biological substances; Z79.84 Long term (current) use of oral hypoglycemic drugs; Z79.82 Long term (current) use of aspirin; Z79.899 Other long term (current) drug therapy
CPT/HCPCS: 73130; 99283-25; A9270

== ENCOUNTER 2024-06-29 06:55 | Emergency (ER) | payer MEDICARE, OTHER ==
[~2024-06-29] VITALS: Ht 162.6 cm; Wt 80.0 kg
[2024-06-29] MEDS ORDERED: METOPROLOL SUCC25 MG PO (07:08)
[2024-06-29 07:24] LABS: EOSINOPHILS 1.9 % (0-6); HEMOGLOBIN 12.7 g/dL (12.0-18.0); LYMPHOCYTES 23.4 % (24-44); MCH 31.1 (27-36); MCHC 33.5 g/dl (30-36); MCV 92.8 fl (81-99); MONOCYTES 13.2 % (0-12); NEUTROPHILS 60.5 % (39-80); PLATELET COUNT 249 K/uL (140-440); RBC 4.09 M/ul (4.3-5.7); RDW 14.2 (10.5-15.0)
[2024-06-29 07:41] LABS: ALBUMIN 3.3 g/dL (3.4-5.0); ALBUMIN/GLOBULIN RATIO 0.8 (1.1-2.4); ANION GAP 14.6 (7-21); BILIRUBIN, TOTAL 0.4 ng/dL (0.2-1.0); BUN/CREATININE RATIO 23.52 (6.0-28.6); CALCIUM 9.9 mg/dL (8.5-10.1); CREATININE, SERUM 1.19 mg/dL (0.55-1.02); POTASSIUM 4.6 mmol/L (3.5-5.1); PROTEIN, TOTAL 7.4 g/dL (6.4-8.2)
[2024-06-29 10:52] VITALS: BP 204/80
--- NOTE | 2024-06-29 14:05 | EKG ---
[facility] [address] [place], [place] [address] Signed Normal sinus rhythm Right bundle branch block Left anterior fascicular block Bifascicular block Abnormal ECG No previous ECGs available Confirmed by Charlene Sanches MD ([id number]) on 06/29/2024 2:05:36 PM Electronically Signed By: CHARLENE SANCHES DO 06/29/24 1405 PATIENT NAME: JUAN TAN Electrocardiogram DATE OF : 37 PHYSICIAN: CHARLENE SANCHES DO REPORT #: [id number] REPORT IS CONFIDENTIAL AND NOT TO BE RELEASED WITHOUT AUTHORIZATION
== END 2024-06-29 10:42 | disposition home or self-care (01) ==
LOC: ED 06:55
PROVIDERS: Internal Medicine
DX: S00.03XA Contusion of scalp, initial encounter (principal); W22.8XXA Striking against or struck by other objects, initial encounter; R27.0 Ataxia, unspecified; I10 Essential (primary) hypertension; E11.9 Type 2 diabetes mellitus without complications; Z88.8 Allergy status to other drugs, medicaments and biological substances; Z88.1 Allergy status to other antibiotic agents; Z79.84 Long term (current) use of oral hypoglycemic drugs; Z79.899 Other long term (current) drug therapy; Z79.82 Long term (current) use of aspirin
CPT/HCPCS: 36415; 70450; 70496; 70498; 70551; 72125; 80053; 83735; 84484; 85025; 93005; 93010; 99284-25; G0480; Q9967

== ENCOUNTER 2024-10-17 06:06 | Emergency (ER) | payer OTHER, MEDICARE ==
[~2024-10-17] VITALS: Ht 162.6 cm; Wt 81.2 kg
[~2024-10-17 06:06] MED LIST changes: +METOPROLOL SUCC25 MG PO
[2024-10-17] MEDS ORDERED: LEVOTHYROXINE25 MCG PO (06:22)
[2024-10-17] MEDS ORDERED: HYDROCODONE BIT/ACETAMINOPHEN 5/325 MG 1 TAB HOME.PACK PO ONE (07:00)
[2024-10-17 07:10] VITALS: BP 145/75
== END 2024-10-17 07:11 | disposition home or self-care (01) ==
LOC: ED 06:06
DX: S40.011A Contusion of right shoulder, initial encounter (principal); W01.0XXA Fall on same level from slipping, tripping and stumbling without subsequent striking against object, initial encounter; I10 Essential (primary) hypertension; E11.9 Type 2 diabetes mellitus without complications; Z88.8 Allergy status to other drugs, medicaments and biological substances; Z88.1 Allergy status to other antibiotic agents
CPT/HCPCS: 73030; 99283; A9270